=== PATIENT | male | born 1945 | race Caucasian/White ===

== ENCOUNTER 2020-01-26 09:53 | Outpatient (RCR) | payer MEDICARE, SELFPAY | END 2020-02-05 23:59 | disposition home or self-care (01) | LOC: WOUND 09:53 | PROVIDERS: Family Provider Nurse Practitioner; PCP Nurse Practitioner Family; Visit Provider Emergency Medicine | DX: Z09 Encounter for follow-up examination after completed treatment for conditions other than malignant neoplasm (principal) | CPT/HCPCS: 99201; 99212 ==

== ENCOUNTER → 2020-03-11 11:33 | Outpatient (BNVA) | payer MEDICARE, SELFPAY | PROVIDERS: Family Provider Nurse Practitioner; PCP Nurse Practitioner Family; Visit Provider Nurse Practitioner Family | DX: I10 Essential (primary) hypertension (principal); E11.9 Type 2 diabetes mellitus without complications; E78.5 Hyperlipidemia, unspecified; E56.9 Vitamin deficiency, unspecified; Z12.5 Encounter for screening for malignant neoplasm of prostate; R53.83 Other fatigue | CPT/HCPCS: 80053; 80061; 81001; 82306; 83036; 84443; 85025; G0103 ==

== ENCOUNTER 2020-06-22 06:00 | Outpatient (RCR) | payer MEDICARE, SELFPAY | END 2020-07-07 23:59 | disposition home or self-care (01) | LOC: WPT 06:00 | PROVIDERS: PCP Nurse Practitioner Family; Referring Provider Nurse Practitioner Family; Visit Provider Nurse Practitioner Family | DX: R42 Dizziness and giddiness (principal) | CPT/HCPCS: 97110; 97163 ==

== ENCOUNTER → 2021-02-04 10:05 | Outpatient (BNVA) | payer MEDICARE, SELFPAY | PROVIDERS: PCP Nurse Practitioner Family; Visit Provider Family Medicine Adult Medicine | DX: E11.628 Type 2 diabetes mellitus with other skin complications (principal); L08.9 Local infection of the skin and subcutaneous tissue, unspecified; E66.9 Obesity, unspecified; E78.5 Hyperlipidemia, unspecified; I10 Essential (primary) hypertension; E11.9 Type 2 diabetes mellitus without complications; E11.42 Type 2 diabetes mellitus with diabetic polyneuropathy | CPT/HCPCS: 80053; 80061; 83036; 85025 ==

== ENCOUNTER 2021-02-09 13:07 | Outpatient (CLI) | payer MEDICARE, SELFPAY | END 2021-02-09 13:08 | disposition home or self-care (01) | LOC: WOUND 13:08 | PROVIDERS: PCP Nurse Practitioner Family; Visit Provider Thoracic Surgery (Cardiothoracic Vascular Surgery) | DX: L97.512 Non-pressure chronic ulcer of other part of right foot with fat layer exposed (principal) | CPT/HCPCS: 97597; G0463 ==

== ENCOUNTER 2021-02-16 13:25 | Outpatient (CLI) | payer MEDICARE, SELFPAY | END 2021-02-16 13:26 | disposition home or self-care (01) | LOC: WOUND 13:26 | PROVIDERS: PCP Nurse Practitioner Family; Visit Provider Thoracic Surgery (Cardiothoracic Vascular Surgery) | DX: E11.621 Type 2 diabetes mellitus with foot ulcer (principal); L97.512 Non-pressure chronic ulcer of other part of right foot with fat layer exposed | CPT/HCPCS: 11042 ==

== ENCOUNTER → 2021-05-09 09:07 | Outpatient (BNVA) | payer MEDICARE, SELFPAY | PROVIDERS: PCP Nurse Practitioner Family; Visit Provider Nurse Practitioner Family | DX: S81.802A Unspecified open wound, left lower leg, initial encounter (principal); X58.XXXA Exposure to other specified factors, initial encounter | CPT/HCPCS: 87070; 87077; 87184 ==

== ENCOUNTER 2021-06-29 09:47 | Outpatient (CLI) | payer MEDICARE, SELFPAY ==
[2021-06-29 10:10] VITALS: BMI 38.4
--- NOTE | 2021-06-29 11:07 | NMCV_ITS ---
NM amalia perf SPECT r/s* [id number] Wesly Price Age: 76 Gender: M : 1945 Exam Date: 06/29/2021 11:22 Ordering Phys: Lyle Acosta MD ([email or web address]) Technologist: HEATHER Weber Exam Location: [facility] Indications: CHEST PAIN STRESS TEST [facility] IMAGE PROTOCOL Rest/Stress 1 Lexiscan Day Radiopharmaceutical Dose (mCi) Administration Site Administered by Rest: Tc-99m 11.0 IV HEATHER Castro Sestamibi Stress:Tc-99m 32.9 IV HEATHER Castro Sestamibi Rest: 29-Jun-2021 60 Discovery 630 Stress: 29-Jun-2021 30 Discovery 630 0.4mg Lexiscan. Supine position only as patient was unable to lay prone. SPECT RESULTS Technical Quality: Excellent Raw Data Analysis: Normal Image Corrections: No attenuation or motion correction applied Summed Stress Score: 7 Summed Rest Score: 7 Summed Difference Score: 0 PERFUSION FINDINGS Moderate area of severely decreased tracer uptake in the basal, mid and apical inferior wall regions with some reversibility in the mid and apical regions. FUNCTIONAL RESULTS (calculated via Gated SPECT) Stress Image LV EF (%): 31 Stress EDV (mL):259 TID: 0.97 Stress ESV (mL):180 FUNCTIONAL FINDINGS: Segmental wall motion analysis revealed a severe diffuse hypokinesia of the LV apex, inferior wall and septum IMPRESSIONS 1. Myocardial perfusion imaging revealing area of severely decreased tracer uptake in the inferior wall region, with some reversibility, suggestive of myocardial scarring with ischemia in the distribution of the right coronary artery. 2. Diminished LV ejection fraction of 31%. 3. Multiple wall motion normalities as mentioned above. 4. Markedly dilated LV cavity with an end-systolic volume of 180 mL No similar previous studies available for comparison Dr Lyle Acosta MD [facility] (Electronically Signed) Final Date: 29 June 2021 19:06 S
--- NOTE | 2021-06-29 11:07 | ECG_ITS ---
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 Interpretive Statements NAME OF STUDY: LEXISCAN SESTAMIBI STRESS TEST INDICATION: Chest Pressure, PROCEDURE: At the baseline, the EKG revealed normal sinus rhythm with a heart rate of 82 bpm. Poor R wave progression suggesting old anteroseptal infarction. Nonspecific IVCD. The baseline blood pressure was 141/74 mm Hg with a heart rate of 82 beats/min. Lexiscan was infused over a period of 20 seconds. A total of 0.4 milligrams of Lexiscan was infused. The stress phase was continued for a total of 5 minutes. Heart rate at the end of the stress phase was 96 with a blood pressure 74/43. The EKG at the peak infusion revealed no significant changes. Sestamibi was injected 20 seconds after the Lexiscan infusion. Blood pressure at the end of the recovery phase was 128/65 with a heart rate of 97 per minute. CONCLUSION: 1. No significant EKG changes with the LexiScan infusion 2. No LexiScan induced chest pain or cardiac arrhythmia 3. Normal blood pressure and heart rate response 4. Sestamibi/sestamibi perfusion scan pending; see separate report. Electronically Signed On 06-30-2021 0:52:11 CDT by Lyle Acosta M.D. [id number]
--- NOTE | 2021-06-29 11:26 | USCV_ITS ---
Wesly Price Age: 76 Gender: M : 1945 Exam Date: 06/29/2021 13:05 Ordering Phys: Lyle Acosta MD ([email or web address]) Technologist: Kiesha Simpson Exam Location: [facility] [place] Indication: CLEARANCE FOR KNEE SURGERY BP: / HR: 95 Rhythm: Sinus Technical Quality: Adequate MEASUREMENTS (Male / Female) Normal Values 2D ECHO LV Diastolic Diameter PLAX 5.2 cm 4.2 - 5.9 / 3.9 - 5.3 cm LV Systolic Diameter PLAX 4.3 cm LV Chamber Size 4.6 cm IVS Diastolic Thickness 1.4 cm 0.6 - 1.0 / 0.6 - 0.9 cm IVS Systolic Thickness 2.2 cm LVPW Diastolic Thickness 1.4 cm 0.6 - 1.0 / 0.6 - 0.9 cm LVPW Systolic Thickness 2.0 cm RV Chamber Size 3.5 cm LVOT Diameter 2.1 cm LV Ejection Fraction 2D Teich 35.7 % LV Ejection Fraction MOD 2C 65.7 % LV Ejection Fraction 2C AL 66.1 % LA Diameter 4.4 cm LA Width 2.8 cm LA Height 3.4 cm RA Width 2.9 cm RA Height 6.1 cm Aorta at Sinotubular Diameter 4.2 cm M-MODE LV Diastolic Diameter MM 6.2 cm 4.2 - 5.9 / 3.9 - 5.3 cm LV Systolic Diameter MM 5.4 cm LV Ejection Fraction MM Teich 28.3 % IVS Diastolic Thickness MM 1.2 cm 0.6 - 1.0 / 0.6 - 0.9 cm IVS Systolic Thickness MM 1.8 cm LVPW Diastolic Thickness MM 1.6 cm 0.6 - 1.0 / 0.6 - 0.9 cm LVPW Systolic Thickness MM 1.9 cm RV Diastolic Diameter MM 3.2 cm Aortic Annulus Diameter 4.9 cm LA Ao Ratio MM 1.0 MV E Point Septal Separation 1.1 cm DOPPLER AV Peak Velocity 169.0 cm/s LVOT Peak Velocity 101.0 cm/s AV Area Cont Eq vti 2.5 cm squared AV Area Cont Eq pk 2.1 cm squared MV Area PHT 9.2 cm squared Mitral E to A Ratio 0.5 MV E' Velocity 39.5 cm/s Mitral E to MV E' Ratio 10.8 Mitral E to LV E' Lateral Ratio 15.5 Mitral E to LV E' Septal Ratio 8.3 TR Peak Velocity 196.1 cm/s TR Peak Gradient 15.4 mmHg TR Mean Velocity 139.4 cm/s TR Mean Gradient 9.0 mmHg TR Velocity Time Integral 40.2 cm TV Peak E Velocity 67.0 cm/s Right Atrial Pressure 3.0 mmHg Pulmonary Artery Systolic Pressu 18.4 mmHg PV Peak Velocity 92.0 cm/s RV Acceleration Time 0.1 s RV Ejection Time 0.4 s RV AcT/ET 0.2 FINDINGS Left Ventricle Mild left ventricular hypertrophy. Mild hypokinesia of the septum. LV ejection fraction around 50%. Right Ventricle Normal right ventricular size and systolic function. Right Atrium Possibly of normal size Left Atrium Possibly of normal size possibly Mitral Valve Thickened mitral valve. Moderate calcification of the mitral leaflets.mild mitral annular calcification. Trace mitral valve regurgitation. Aortic Valve Thickened aortic valve. Tricuspid Valve No gross abnormalities noted Pulmonic Valve No gross abnormalities noted Pericardium No pericardial effusion. Aorta Normal aortic annulus size. CONCLUSIONS Mild left ventricular hypertrophy. Mild hypokinesia of the septum. LV ejection fraction around 50%. Normal right ventricular size and systolic function. Thickened mitral valve. Moderate calcification of the mitral leaflets.mild mitral annular calcification. Trace mitral valve regurgitation. Features of aortic valve sclerosis There is no pericardial effusion. There are no intracardiac masses. Compared to the study from 04/24/2016, there is some improvement of the LV ejection fraction Dr Lyle Acsota MD [facility] (Electronically Signed) Final Date: 29 June 2021 20:00 S
[2021-06-29 12:21] VITALS: BP 128/65; PULSE 93
[2021-06-29] MEDS: regadenoson 0.4 Mg/5 ml Syringe IVP (12:21)
== END 2021-06-29 09:48 | disposition home or self-care (01) ==
PROVIDERS: PCP Nurse Practitioner Family; Visit Provider Internal Medicine Cardiovascular Disease
DX: R06.00 Dyspnea, unspecified (principal); I25.5 Ischemic cardiomyopathy; I34.0 Nonrheumatic mitral (valve) insufficiency; R07.9 Chest pain, unspecified
CPT/HCPCS: 78452; 93017; 93306; A9500; J2785

== ENCOUNTER → 2021-07-06 11:23 | Outpatient (BNVA) | payer MEDICARE, SELFPAY | PROVIDERS: PCP Nurse Practitioner Family; Visit Provider Family Medicine | DX: M17.0 Bilateral primary osteoarthritis of knee (principal) | CPT/HCPCS: 73562 ==

== ENCOUNTER → 2022-05-01 13:54 | Outpatient (BNVA) | payer OTHER, SELFPAY | PROVIDERS: PCP Family Medicine; Visit Provider Specialist | DX: G72.9 Myopathy, unspecified (principal); E11.42 Type 2 diabetes mellitus with diabetic polyneuropathy; Z79.84 Long term (current) use of oral hypoglycemic drugs; E66.9 Obesity, unspecified; Z68.34 Body mass index [BMI] 34.0-34.9, adult; Z99.3 Dependence on wheelchair | CPT/HCPCS: 36415; 82085; 82550; 82607; 83516; 83519; 86140; 99205 ==

== ENCOUNTER → 2022-05-26 08:41 | Outpatient (BNVA) | payer OTHER, SELFPAY | PROVIDERS: PCP Family Medicine; Visit Provider Specialist | DX: G95.29 Other cord compression (principal); Z79.84 Long term (current) use of oral hypoglycemic drugs; G95.9 Disease of spinal cord, unspecified; G95.20 Unspecified cord compression; E11.42 Type 2 diabetes mellitus with diabetic polyneuropathy | CPT/HCPCS: 72141; 95886; 95887; 95913; 99215 ==

== ENCOUNTER → 2022-05-26 08:41 | Outpatient (BNVA) | payer OTHER, SELFPAY | PROVIDERS: PCP Family Medicine; Visit Provider Specialist | DX: G95.9 Disease of spinal cord, unspecified (principal); G95.29 Other cord compression; E11.42 Type 2 diabetes mellitus with diabetic polyneuropathy; Z79.84 Long term (current) use of oral hypoglycemic drugs | CPT/HCPCS: 72141; 95886; 95887; 95913 ==

== ENCOUNTER 2022-05-31 17:49 | Observation (INO) | payer OTHER, MEDICARE, SELFPAY ==
[2022-05-31 17:56] VITALS: BP 131/69; PULSE 92; RESP 18; TEMP 36.6; O2SAT 97; BMI 34.0
--- NOTE | 2022-05-31 18:04 | CTR_ITS ---
PROCEDURE INFORMATION: Exam: CTA Head With Contrast, Arteriography Exam date and time: 05/31/2022 9:13 PM Age: 77 years old Clinical indication: Weakness; Additional info: Right sided weakness TECHNIQUE: Imaging protocol: Computed tomographic angiography of the head with contrast. Exam focused on the arteries. 3D rendering (Not supervised by radiologist): MIP and/or 3D reconstructed images were created by the technologist. Radiation optimization: All CT scans at this facility use at least one of these dose optimization techniques: automated exposure control; mA and/or kV adjustment per patient size (includes targeted exams where dose is matched to clinical indication); or iterative reconstruction. Contrast material: OMNIPAQUE 350; Contrast volume: 95 ml; Contrast route: INTRAVENOUS (IV); COMPARISON: 1. CT head wo con* [id number] 2022-05-31 21:06 2. MR cervical spin wo con* [id number] 2022-05-26 13:56 RADIATION DOSE METRICS: Total DLP (mGy-cm): 567.12 FINDINGS: ANTERIOR CIRCULATION: Right internal carotid artery: Mild right ICA stenosis. Right middle cerebral artery: Unremarkable. No occlusion or significant stenosis. No aneurysm. Right anterior cerebral artery: Unremarkable. No occlusion or significant stenosis. No aneurysm. Left internal carotid artery: Mild moderate left ICA stenosis. Left middle cerebral artery: Unremarkable. No occlusion or significant stenosis. No aneurysm. Left anterior cerebral artery: Unremarkable. No occlusion or significant stenosis. No aneurysm. POSTERIOR CIRCULATION: Right vertebral artery: Right vertebral artery calcification without luminal narrowing. Left vertebral artery: Mild left vertebral artery calcification and stenosis. Basilar artery: Prominent basilar artery with mild calcifications. Right posterior cerebral artery: Small peripheral right calcarine artery branch of the right WASTE HANDLING TECHNICIAN extends in close proximity to the right transverse venous sinus, question a tiny arterial dural fistula (series 4, image 120). Left posterior cerebral artery: Unremarkable. No occlusion or significant stenosis. No aneurysm. Brain: No definite mass, mass effect, or midline shift. Cerebral ventricles: No ventriculomegaly. Bones/joints: Unremarkable. No acute fracture. Soft tissues: Unremarkable. PROCEDURE INFORMATION: Exam: CTA Neck With Contrast Exam date and time: 05/31/2022 9:13 PM Age: 77 years old Clinical indication: Weakness; Additional info: Right sided weakness TECHNIQUE: Imaging protocol: Computed tomographic angiography of the neck with contrast. 3D rendering (Not supervised by radiologist): MIP and/or 3D reconstructed images were created by the technologist. Radiation optimization: All CT scans at this facility use at least one of these dose optimization techniques: automated exposure control; mA and/or kV adjustment per patient size (includes targeted exams where dose is matched to clinical indication); or iterative reconstruction. Contrast material: OMNIPAQUE 350; Contrast volume: 95 ml; Contrast route: INTRAVENOUS (IV); COMPARISON: 1. CT head wo con* [id number] 2022-05-31 21:06 2. MR cervical spin wo con* [id number] 2022-05-26 13:56 RADIATION DOSE METRICS: Total DLP (mGy-cm): 567.12 FINDINGS: Right common carotid artery: No stenosis. No dissection or occlusion. Right internal carotid artery: Mild proximal right ICA stenosis. Right external carotid artery: No occlusion or stenosis of the origin. Left common carotid artery: No stenosis. No dissection or occlusion. Left internal carotid artery: Mild proximal left ICA stenosis. Left external carotid artery: No occlusion or stenosis of the origin. Right vertebral artery: No stenosis. No dissection or occlusion. Left vertebral artery: No stenosis. No dissection or occlusion. Aorta: Mild aortic atherosclerotic disease. Soft tissues: Normal. No significant soft tissue swelling. Bones/joints: No acute fracture. CT/CT angio headneck* [id number] IMPRESSION: 1. Small peripheral right calcarine artery branch of the right WASTE HANDLING TECHNICIAN extends in close proximity to the right transverse venous sinus, question a tiny arterial dural fistula (series 4, image 120). 2. Mild arterial intracranial atherosclerotic disease and stenosis. No vessel occlusion or flow-limiting stenosis. IMPRESSION: Mild proximal bilateral ICA stenosis. REFERENCES: NASCET CRITERIA. The degree of internal carotid artery stenosis is based on NASCET criteria. Normal is no stenosis. Mild is less than 50% stenosis. Moderate is 50-69% stenosis. Severe is 70% to 99% stenosis. Total occlusion is no detectable patent lumen.
--- NOTE | 2022-05-31 18:04 | CTR_ITS ---
PROCEDURE INFORMATION: Exam: CT Head Without Contrast Exam date and time: 05/31/2022 9:06 PM Age: 77 years old Clinical indication: Weakness, extremity; Right; Additional info: Symptoms of acute stroke TECHNIQUE: Imaging protocol: Computed tomography of the head without contrast. Radiation optimization: All CT scans at this facility use at least one of these dose optimization techniques: automated exposure control; mA and/or kV adjustment per patient size (includes targeted exams where dose is matched to clinical indication); or iterative reconstruction. COMPARISON: MR cervical spin wo con* [id number] 2022-05-26 13:56 RADIATION DOSE METRICS: Total DLP (mGy-cm): 1103.88 FINDINGS: Brain: Mild diffuse cerebral volume loss and chronic low attenuation in the white matter. No cerebral hemorrhage, midline shift, mass, or fluid collection. Cerebral ventricles: No ventriculomegaly. Paranasal sinuses: Visualized sinuses are unremarkable. No fluid levels. Mastoid air cells: Visualized mastoid air cells are well aerated. Bones/joints: Unremarkable. No acute fracture. Soft tissues: Unremarkable. Vasculature: Moderate arterial vascular calcifications. CT/CT head wo con* [id number] IMPRESSION: No acute intracranial pathology.
--- NOTE | 2022-05-31 18:04 | ECG_ITS ---
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 Measurements Intervals Monument Rate: 108 P: -3 MS: 221 QRS: -45 QRSD: 132 T: 85 QT: 347 QTc: 465 Interpretive Statements SINUS TACHYCARDIA WITH FIRST DEGREE AV BLOCK WITH FREQUENT SUPRAVENTRICULAR PREMATURE COMPLEXES POSSIBLE LEFT ATRIAL ENLARGEMENT [-0.1mV P-WAVE IN V1/V2] INTRAVENTRICULAR CONDUCTION DELAY [130+ ms QRS DURATION] INFERIOR MYOCARDIAL INFARCTION , OF INDETERMINATE AGE [40+ ms Q WAVE AND/OR ST/T ABNORMALITY IN II/aVF] ANTEROSEPTAL MYOCARDIAL INFARCTION , OF INDETERMINATE AGE [40+ ms Q WAVE IN V1-V4] Compared to ECG 01/08/2015 05:28:17 Intraventricular conduction delay now present Sinus rhythm no longer present Ventricular premature complex(es) no longer present Myocardial infarct finding still present Electronically Signed On 06-02-2022 6:26:07 CDT by January Dia M.D. [id number]
--- NOTE | 2022-05-31 18:06 | W.ED.GENADLT ---
HPI - General Adult General: Chief complaint: Weakness Stated complaint: right side weakness Time Seen by Provider: 05/31/22 17:53 History of Present Illness: 77-year-old male presenting today with right sided deficits. Patient notes approximately 3-1/2 hours ago. He noted sudden onset of weakness in his right lower extremity right upper extremity and left upper extremity. Noting that he was unable to move his right leg at all. Or his right upper extremity. Was attempting to use his motorized wheelchair when he could not even move his fingers. He notes the symptoms have rapidly resolved. Still has some residual weakness in his right lower extremity. But no weakness in his right upper extremity. He notes no difficulty with speaking. No prior history of stroke. Patient does note a history of significant spinal stenosis which is being evaluated for surgery in the morning. Spinal stenosis located in his neck. No change to medications. No chest pain or shortness of breath. No abdominal pain. 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 Because of the poor ultrasonic window and frequent arrhythmias, the segmental wall motion analysis and ejection fraction estimation could be misleading. Mild biatrial enlargement Thickened aortic and mitral valves Mild aortic valve regurgitation Dilated ascending aorta. Estimated pulmonary artery peak systolic pressure of 22 mmHg, this could be an underestimation because of the poor Doppler signals. Compared to the previous study from 01/08/2015, there appears to have some improvement in the LV ejection fraction . January 2015 Diffuse hypokinesia of the left ventricle with an ejection fraction of 35-40%(with echo contrast and using the method of disc) Thickened mitral valve with moderate regurgitation. [id number] tricuspid valve regurgitation. Mild pulmonary hypertension with an estimated? pulmonary pressure of 41 mmHg Mildly increased left atrial size. ? Normal right ventricular size and systolic function. Aortic root appears to be mildly dilated-4.1 cm There is no pericardial effusion. There are no intracardiac masses. H/O prostate cancer Hyperlipemia Ischemic myocardial dysfunction Light headedness Obesity (BMI 35.0-39.9 without comorbidity) Tachycardia Toe anomaly Vitamin D deficiency Surgical History S/P appendectomy S/P cardiac cath On 01/15/15 he underwent coronary angiography by Dr. Acosta. ?He had a 20% eccentric left main, minimal LAD intimal irregularities, normal circumflex, totally occluded RCA with grade 2 left to right collaterals. S/P prostatectomy Family History Brother Anesthesia complication Cancer Diabetes Father CAD (coronary artery disease) Mother CAD (coronary artery disease) Family/Other Lung disease Suicide Denies family history of Clotting disorder Dementia Chronic kidney disease (CKD) Bleeding disorder Stroke Social History Smoking and tobacco status: never smoked Second hand smoke exposure: No Alcohol intake: never Desire information about alcohol rehabilitation?: No Counseling given: No Desire information about substance/drug rehabilitation?: No Counseling given: No Physical Exam Const: COMMON NORMALS: no acute distress, patient oriented x3 and alert GENERAL APPEARANCE: cooperative ORIENTATION/CONSCIOUSNESS: Yes awake, Yes oriented to person, Yes oriented to place and Yes oriented to time HENMT: COMMON NORMALS: normocephalic, atraumatic, external ears normal, Normal external nose present and moist oral mucous membranes HEAD & SCALP: normal to inspection, normocephalic and atraumatic NOSE: Normal external nose present GENERAL EAR: hearing grossly impaired EXTERNAL EAR: Yes external ears normal Eye: COMMON NORMALS: Equal, round and reactive pupils present, EOMs intact bilaterally, conjunctivae normal and no scleral icterus GENERAL EYE: appearance normal, both eyes and all related structures EYELID: eyelids normal CONJUNCTIVA: Yes conjunctivae normal SCLERA: sclerae normal PUPIL: Yes Equal, round and reactive pupils present Neck/C-Spine: COMMON NORMALS: full ROM, supple and no JVD GENERAL: Yes normal visual inspection Lymph: LYMPHATIC: no lymphadenopathy noted and no lymphedema noted Chest: COMMONS NORMALS: normal inspection of the chest Resp: COMMON NORMALS: normal respiratory effort, No retractions and No use of accessory muscles Cardio: COMMON NORMALS: no JVD, regular rate and regular rhythm RATE: regular rate RHYTHM: regular rhythm GI: COMMON NORMALS: Normal to inspection, nondistended, normoactive bowel sounds present : COMMON NORMALS: Yes no CVA tenderness BLADDER/KIDNEY EXAM: Yes no CVA tenderness Back/Pelvis: COMMON NORMALS: no CVA tenderness and thoracic and lumbar spine normal to inspection Extremity: COMMON NORMALS: normal to inspection, full ROM and capillary refill normal GENERAL: Yes normal exam except as noted Neuro: COMMON NORMALS: patient oriented x3, CN's II-XII intact bilaterally, moves all extremities, no focal motor deficits (RLE weakness in dorsiflexion. ), no sensory deficits noted and gait normal SENSORIUM/ORIENTATION: Yes alert, Yes oriented to person, Yes oriented to place and Yes oriented to time Psych: COMMON NORMALS: mental status grossly normal, Normal thought process present, cooperative and normal affect THOUGHT PROCESS: Normal thought process present Skin: COMMON NORMALS: no rashes or lesions noted and no wounds GENERAL SKIN EXAM: no rashes or lesions noted Course Vital Signs: Vital signs: Vital Signs Temperature 97.8 F 05/31/22 17:56 Pulse Rate 98 05/31/22 22:42 Respiratory Rate 24 H 05/31/22 22:42 Blood Pressure 140/73 05/31/22 22:42 Pulse Oximetry 94 05/31/22 22:42 Oxygen Delivery Me thod 05/31/22 22:42 [facility] - General Adult Medical Decision Making 77-year-old male presenting today with right sided weakness. Patient is outside window for tPA. Also with diabetes. CBC, CMP are unremarkable. Patient was symptoms suggestive of TIA. As patient had complete resolution upon arrival. CT head and CTA without acute ischemic infarct. Will admit to hospital for TIA. Lab Data : 05/31/22 20:00 05/31/22 20:[address] 05/31/22 18:04 IMPRESSION: No acute intracranial pathology. Head/Neck CTA 05/31/22 18:04 IMPRESSION: 1. Small peripheral right calcarine artery branch of the right ARMOURED CAR ESCORT extends in close proximity to the right transverse venous sinus, question a tiny arterial dural fistula (series 4, image 120). 2. Mild arterial intracranial atherosclerotic disease and stenosis. No vessel occlusion or flow-limiting stenosis. IMPRESSION: Mild proximal bilateral ICA stenosis. REFERENCES: NASCET CRITERIA. The degree of internal carotid artery stenosis is based on NASCET criteria. Normal is no stenosis. Mild is less than 50% stenosis. Moderate is 50-69% stenosis. Severe is 70% to 99% stenosis. Total occlusion is no detectable patent lumen. Laboratory Results WBC 10.2 10^3/uL (4.0-10.0) H 05/31/22 20:00 RBC 5.30 10^6/uL (4.1-5.3) 05/31/22 20:00 Hgb 16.3 g/dL (11.7-16.6) 05/31/22 20:00 Hct 49.8 % (42.0-52.0) 05/31/22 20:00 MCV 94.0 fl (80-94) 05/31/22 20:00 MCH 30.8 pg (28.0-34.0) 05/31/22 20:00 MCHC 32.7 g/dL (30.0-36.0) 05/31/22 20:00 RDW 13.2 % (12.1-15.1) 05/31/22 20:00 Plt Count 189 10^3/cmm (130-400) 05/31/22 20:00 MPV 11.8 fL (7.4-10.4) H 05/31/22 20:00 Neut % (Auto) 62.6 % 05/31/22 20:00 Lymph % (Auto) 24.5 % 05/31/22 20:00 [place] % (Auto) 8.5 % 05/31/22 20:00 Eos % (Auto) 3.6 % 05/31/22 20:00 Baso % (Auto) 0.5 % 05/31/22 20:00 Neut # (Auto) 6.38 10^3/uL (1.8-7.7) 05/31/22 20:00 Lymph # (Auto) 2.5 10^3/uL (0.8-4.8) 05/31/22 20:00 [place] # (Auto) 0.9 10^3/uL (0.2-0.9) 05/31/22 20:00 Eos # (Auto) 0.4 10^3/uL (0.0-0.8) 05/31/22 20:00 Baso # (Auto) 0.1 10^3/uL (0.0-0.1) 05/31/22 20:00 Nucleated RBC % (auto) 0 % 05/31/22 20:00 Nucleated RBCs # 0.0 /100WBC 05/31/22 20:00 PT 13.80 SECONDS (12.1-14.9) 05/31/22 20:00 INR 1.03 (0.8-1.2) 05/31/22 20:00 APTT 26.8 SECONDS (23.9-36.7) 05/31/22 20:00 Sodium 138 mmol/L (136-145) 05/31/22 20:00 Potassium 4.5 mmol/L (3.5-5.1) 05/31/22 20:00 Chloride 99 mmol/L (98-107) 05/31/22 20:00 Carbon Dioxide 23 mmol/L (22-29) 05/31/22 20:00 Anion Gap 20.5 (5-19) H 05/31/22 20:00 BUN 31 mg/dL (8-23) H 05/31/22 20:00 Creatinine 0.9 mg/dL (0.7-1.2) 05/31/22 20:00 GFR Calculation Not Reportable 05/31/22 20:00 Glucose 122 mg/dL (65-115) H 05/31/22 20:00 POC Glucose 105 mg/dL (70-110) 05/31/22 18:19 Calculated Osmolality 294 mOsm/kg (285-295) 05/31/22 20:00 Calcium 9.8 mg/dL (8.5-10.5) 05/31/22 20:00 Total Bilirubin 0.8 mg/dL (0.15-1.2) 05/31/22 20:00 AST 29 U/L (0-40) 05/31/22 20:00 ALT 14 U/L (0-41) 05/31/22 20:00 Alkaline Phosphatase 128 U/L (40-130) 05/31/22 20:00 Total Protein 7.5 g/dL (6.6-8.7) 05/31/22 20:00 Albumin 4.5 g/dL (3.5-5.2) 05/31/22 20:00 Globulin 3.0 g/dL (1.3-4.6) 05/31/22 20:00 Urine Color Yellow (Yellow) 05/31/22 20:15 Urine Appearance Clear (CLEAR) 05/31/22 20:15 Urine pH 5 (5-7) 05/31/22 20:15 Ur Specific [place] 1.015 (1.005-1.030) 05/31/22 20:15 Urine Protein Neg (Negative) 05/31/22 20:15 Urine Glucose (UA) Norm (Normal) 05/31/22 20:15 Urine Ketones Negative (Negative) 05/31/22 20:15 Urine Blood Neg (Negative) 05/31/22 20:15 Urine Nitrate Negative (Negative) 05/31/22 20:15 Urine Bilirubin Neg (Negative) 05/31/22 20:15 Urine Urobilinogen Norm mg/dL (Negative) 05/31/22 20:15 Ur Leukocyte Esterase Negative (Negative) 05/31/22 20:15 Urine Opiates Screen Negative ng/mL (Negative) 05/31/22 20:15 Ur Barbiturates Screen Negative ng/mL (Negative) 05/31/22 20:15 Ur Phencyclidine Scrn Negative ng/mL (Negative) 05/31/22 20:15 Ur Amphetamines Screen Negative ng/mL (Negative) 05/31/22 20:15 U Benzodiazepines Scrn Negative ng/mL (Negative) 05/31/22 20:15 Urine Cocaine Screen Negative ng/mL (Negative) 05/31/22 20:15 U Marijuana (THC) Screen Negative ng/mL (Negative) 05/31/22 20:15 Discharge Plan Discharge Patient Disposition: Admitted As Inpatient Clinical Impression: Brain TIA Condition: Stable Coding Level of Care Code 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
[2022-05-31 18:24] LABS: Glucose Point of Care 105 mg/dL (70-110)
--- NOTE | 2022-05-31 19:17 | PC.NURSE ---
report given to KARSTEN Swenson
[2022-05-31 20:06] LABS: Basophils # 0.1 10^3/uL (0.0-0.1); Basophils % 0.5 %; Eosinophils # 0.4 10^3/uL (0.0-0.8); Eosinophils % 3.6 %; Hematocrit 49.8 % (42.0-52.0); Hemoglobin 16.3 g/dL (11.7-16.6); Lymphocytes # 2.5 10^3/uL (0.8-4.8); Lymphocytes % 24.5 %; Mean Corpuscular HGB Conc 32.7 g/dL (30.0-36.0); Mean Corpuscular Hemoglobin 30.8 pg (28.0-34.0); Mean Platelet Volume 11.8 fL (7.4-10.4); Monocytes # 0.9 10^3/uL (0.2-0.9); Monocytes % 8.5 %; Neutrophils # 6.38 10^3/uL (1.8-7.7); Neutrophils % 62.6 %; Nucleated Red Blood Cells % 0 %; Platelet Count 189 10^3/cmm (130-400); Red Cell Distribution Width 13.2 % (12.1-15.1); White Blood Count 10.2 10^3/uL (4.0-10.0)
[2022-05-31 20:11] VITALS: BP 131/51; PULSE 99; RESP 24; O2SAT 93
[2022-05-31 20:20] LABS: Add Urine Microscopic? NO; Charge for UA Resulting for Rev
[2022-05-31 20:22] LABS: INR 1.03 (0.8-1.2); Partial Thromboplastin Time 26.8 SECONDS (23.9-36.7)
[2022-05-31 20:22] LABS: Bilirubin Urine Neg (Negative); Blood Urine Neg (Negative); Glucose Urine UA Norm (Normal); Ketones Urine Negative (Negative); Leukocyte Esterase Urine Negative (Negative); Nitrate Urine Negative (Negative); Protein Urine Neg (Negative); Specific Gravity, Urine 1.015 (1.005-1.030); Urine Appearance Clear (CLEAR); Urine Color Yellow (Yellow); Urobilinogen Urine Norm (Negative); pH Urine 5 (5-7)
[2022-05-31 20:30] LABS: Alanine Aminotransferase 14 U/L (0-41); Albumin Level 4.5 g/dL (3.5-5.2); Alkaline Phosphatase 128 U/L (40-130); Anion Gap 20.5 (5-19); Aspartate Amino Transferase 29 U/L (0-40); Blood Urea Nitrogen 31 mg/dL (8-23); Calcium 9.8 mg/dL (8.5-10.5); Carbon Dioxide 23 mmol/L (22-29); Chloride 99 mmol/L (98-107); Glucose 122 mg/dL (65-115); Osmolality Calculated 294 mOsm/kg (285-295); Potassium 4.5 mmol/L (3.5-5.1); Sodium 138 mmol/L (136-145); Total Bilirubin 0.8 mg/dL (0.15-1.2); Total Protein 7.5 g/dL (6.6-8.7)
[2022-05-31 20:31] LABS: Amphetamines Screen Urine Negative (Negative); Barbiturates Screen Urine Negative (Negative); Benzodiazepines Screen Urine Negative (Negative); Cocaine Screen Urine Negative (Negative); Opiate Screen Urine Negative (Negative); PCP Screen Urine Negative (Negative); THC Screen Urine Negative (Negative)
[2022-05-31] MEDS: iohexol 350 mg/mL 100 mL Btl IV (21:23)
[2022-05-31 21:30] VITALS: BP 148/73; PULSE 95; RESP 17; O2SAT 94
[2022-05-31] MEDS: acetaminophen 500 mg Tablet 1000 MG PO (22:34)
[2022-05-31] MEDS: gabapentin 300 mg Capsule PO (22:34)
[2022-05-31 22:42] VITALS: BP 140/73; PULSE 98; RESP 24; O2SAT 94
[2022-05-31 23:37] VITALS: BP 123/59; PULSE 96; RESP 18; O2SAT 94
--- NOTE | 2022-06-01 00:24 | PM.HP ---
Providers/Chief Complaint Primary Care Provider: Eva Rivas MD Chief Complaint: right side weakness History of Present Illness Ernesto Price is a 77 year old male with a past medical history of past medical history of hypertension, hyperlipidemia, CAD, cjg-qbpjevr-swbkgrscd type 2 diabetes mellitus, ischemic cardiomyopathy, diabetic neuropathy, history of diabetic ulcers, who presents to [facility] for strokelike symptoms. According to ER provider, patient was experiencing right-sided deficits, right upper right lower extremity, with numbness, inability to move his right leg, this happened when he is not attempting to operate his motorized wheelchair, no prior history of stroke, no urinary incontinence, no bowel incontinence, no facial droop, no slurring of words, no visual deficits. When I examined patient, he tells me that he chronically has generalized weakness in bilateral upper and lower extremities. He tells me because of his severe neck disease he does not chronically have numbness in bilateral upper extremities. At baseline he is bound to a motorized wheelchair, he does not ambulate. He tells me that he has had generalized weakness for many months, he tells me that he has his right side this afternoon felt a little bit more weak than the left side, but he feels that that is not really new, he has had it for some period of time. He denies any facial droop no slurring his words, no visual deficits. He tells me that he saw Dr. Kaufman, had nerve conduction studies, he was told he had severe neuropathy. In addition he had an MRI which showed severe neck disease, severe spinal stenosis, he is supposed to see a spinal surgeon tomorrow morning at 845. Currently alert oriented x3, following all commands, no facial droop, no slurring of words, no focal neurologic weakness, NIH stroke scale 0. Currently is complaining of numbness in bilateral hands. Denies any chest pain, no palpitations, history of atrial fibrillation. Review of Systems Const: Denies: fever(s) Card: Denies: chest pain or palpitations Resp: Denies: dyspnea GI: Denies: abdominal pain : Denies: difficulty urinating Musc: Reports: neck pain; Denies: back pain Neuro: Reports: numbness in extremities, weakness in extremities, sensory changes and difficulty walking; Denies: headache(s), lack of coordination, frequent falls, dizziness, confusion, behavioral changes, Slurred speech present, difficulty communicating thoughts, seizure-like activity or involuntary movements Medications/Allergies Home Medications Medication Instructions Recorded Confirmed Last Taken Type blood-glucose meter (FreeStyle #1 ea 12/29/19 05/26/22 Unknown Rx Lite Meter) mupirocin 2 % topical ointment 1 applic topical TID #60 grams 03/29/21 05/26/22 Unknown Rx doxycycline monohydrate 100 mg 100 mg PO BID 10 days #20 tabs 11/02/21 05/26/22 Unknown Rx tablet flash glucose sensor (FreeStyle #6 ea 12/05/21 05/26/22 Unknown Rx Nu 14 Day Sensor) cyclobenzaprine 5 mg tablet 5 mg PO BID PRN muscle spasm 90 01/04/22 05/26/22 Unknown Rx days #240 tabs atorvastatin 40 mg tablet See Rx Instructions .Route 02/02/22 05/26/22 Unknown Rx .COMPLEX #90 tabs benazepril 10 mg tablet See Rx Instructions .Route 02/02/22 05/26/22 Unknown Rx .COMPLEX #90 tabs gabapentin 300 mg capsule 300 mg PO BID 90 days #180 caps 02/02/22 05/26/22 Unknown Rx metformin 1,000 mg tablet See Rx Instructions .Route 02/02/22 05/26/22 Unknown Rx .COMPLEX #180 tabs potassium chloride 20 mEq See Rx Instructions .Route 02/02/22 05/26/22 Unknown Rx tablet,extended .COMPLEX #90 tabs release(part/cryst) (Klor-Con M) furosemide 40 mg tablet See Rx Instructions .Route 04/05/22 05/26/22 Unknown Rx .COMPLEX #90 tabs metoprolol tartrate 25 mg tablet See Rx Instructions .Route 04/05/22 05/26/22 Unknown Rx .COMPLEX #180 tabs spironolactone 25 mg tablet See Rx Instructions .Route 04/05/22 05/26/22 Unknown Rx .COMPLEX #90 tabs cholecalciferol (vitamin D3) 1,250 50,000 unit PO .weekly 30 days #4 05/26/22 05/26/22 Unknown Rx mcg (50,000 unit) capsule caps mecobalamin-levomefolate 1 tab PO .every other day 30 days 05/26/22 05/26/22 Unknown Rx calcium-pyridoxal phos 3 mg-35 #15 tabs mg-2 mg tablet Allergies Allergy/AdvReac Type Severity Reaction Status Date / Time Sulfa (Sulfonamide AdvReac Intermediate rash Verified 05/01/22 14:17 Antibiotics) PFSH Acute PFSH: Medical History 1st degree AV block Atherosclerotic heart disease of [place] coronary artery without angina pectoris Chronic congestive heart failure Diabetes type 2, controlled Diabetic foot infection Diabetic neuropathy Dizziness Essential hypertension H/O echocardiogram 04/24/2016 Mild diffuse hypokinesia of the left ventricle with an ejection fraction of 45-50%. Because of the poor ultrasonic window and frequent arrhythmias, the segmental wall motion analysis and ejection fraction estimation could be misleading. Mild biatrial enlargement Thickened aortic and mitral valves Mild aortic valve regurgitation Dilated ascending aorta. Estimated pulmonary artery peak systolic pressure of 22 mmHg, this could be an underestimation because of the poor Doppler signals. Compared to the previous study from 01/08/2015, there appears to have some improvement in the LV ejection fraction . January 2015 Diffuse hypokinesia of the left ventricle with an ejection fraction of 35-40%(with echo contrast and using the method of disc) Thickened mitral valve with moderate regurgitation. [id number]-[id number] tricuspid valve regurgitation. Mild pulmonary hypertension with an estimated? pulmonary pressure of 41 mmHg Mildly increased left atrial size. ? Normal right ventricular size and systolic function. Aortic root appears to be mildly dilated-4.1 cm There is no pericardial effusion. There are no intracardiac masses. H/O prostate cancer Hyperlipemia Ischemic myocardial dysfunction Light headedness Obesity (BMI 35.0-39.9 without comorbidity) Tachycardia Toe anomaly Vitamin D deficiency Surgical History S/P appendectomy S/P cardiac cath On 01/15/15 he underwent coronary angiography by Dr. Acosta. ?He had a 20% eccentric left main, minimal LAD intimal irregularities, normal circumflex, totally occluded RCA with grade 2 left to right collaterals. S/P prostatectomy Family History Brother Anesthesia complication Cancer Diabetes Father CAD (coronary artery disease) Mother CAD (coronary artery disease) Family/Other Lung disease Suicide Denies family history of Clotting disorder Dementia Chronic kidney disease (CKD) Bleeding disorder Stroke Social History Smoking and tobacco status: never smoked Second hand smoke exposure: No Alcohol intake: never Desire information about alcohol rehabilitation?: No Counseling given: No Desire information about substance/drug rehabilitation?: No Counseling given: No Vitals/I&O/Wt Last Vital Signs Temp 97.8 F 05/31/22 17:56 Pulse 96 05/31/22 23:37 Resp 18 05/31/22 23:37 BP 123/59 05/31/22 23:37 Pulse Ox 94 05/31/22 23:37 O2 Del Method 05/31/22 23:37 Weight last 48 hrs Weight 104.326 kg Physical Exam Const: COMMON NORMALS: no acute distress and patient oriented x3 HENMT: COMMON NORMALS: normocephalic HEAD & SCALP: normocephalic Eye: COMMON NORMALS: Equal, round and reactive pupils present and EOMs intact bilaterally Neck/C-Spine: COMMON NORMALS: no JVD Resp: COMMON NORMALS: normal respiratory effort, No retractions, No use of accessory muscles and clear to auscultation bilaterally AUSCULTATION: clear to auscultation bilaterally Cardio: COMMON NORMALS: no JVD, regular rate, regular rhythm, S1 normal heart sound present and S2 normal heart sound present RATE: regular rate RHYTHM: regular rhythm HEART SOUNDS: S1 normal heart sound present and S2 normal heart sound present GI: COMMON NORMALS: Normal to inspection, nondistended, normoactive bowel sounds present, Soft to palpation, non-tender, No hepatosplenomegaly present, no masses and no bruits PALPATION: Yes Soft to palpation and Yes No hepatosplenomegaly present Extremity: COMMON NORMALS: no pedal edema Neuro: COMMON NORMALS: patient oriented x3, CN's II-XII intact bilaterally, moves all extremities and no focal motor deficits Psych: COMMON NORMALS: mental status grossly normal Data : 05/31/22 20:00 05/31/22 20:00 A&P Assessment and plan (1) Brain TIA: Status: Acute (2) Cervical cord compression with myelopathy: Status: Acute (3) Myopathy: Status: Acute (4) S/P cardiac cath: Status: Acute (5) 1st degree AV block: Status: Acute (6) Tachycardia: Status: Acute (7) Essential hypertension: Status: Acute (8) Diabetic neuropathy: Status: Acute Qualifiers: Diabetes mellitus type: type 2 Diabetes mellitus complication detail: diabetic polyneuropathy Qualified Code(s): E11.42 - Type 2 diabetes mellitus with diabetic polyneuropathy (9) Hyperlipemia: Status: Acute Qualifiers: Hyperlipidemia type: unspecified Qualified Code(s): E78.5 - Hyperlipidemia, unspecified (10) Diabetes type 2, controlled: Status: Acute Qualifiers: 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 No cerebral hemorrhage, midline shift, mass, or fluid collection. Cerebral ventricles: No ventriculomegaly. Paranasal sinuses: Visualized sinuses are unremarkable. No fluid levels. Mastoid air cells: Visualized mastoid air cells are well aerated. Bones/joints: Unremarkable. No acute fracture. Soft tissues: Unremarkable. Vasculature: Moderate arterial vascular calcifications. CTA head and neck -1. Small peripheral right calcarine artery branch of the right SCIENTIFIC PROGRAMMER ANALYST extends in close proximity to the right transverse venous sinus, question a tiny arterial dural fistula (series 4, image 120). 2. Mild arterial intracranial atherosclerotic disease and stenosis. No vessel occlusion or flow-limiting stenosis. Cervical MRI 1.? Straightening of the normal cervical lordosis. Slight anterolisthesis C4 on C5 and C7 on T1 measuring approximate 4 mm both of these levels. 2.? Severe central canal stenosis C4-C5 due to slight anterolisthesis in combination with disc bulging and facet arthropathy. This results in severe central canal stenosis with effacement of surrounding CSF. Impingement and mild flattening of the cervical cord with small amount of myelomalacia in the cervical cord at this level. 3.? Mild central canal stenosis C5-C6. 4.? Moderate to severe multilevel bony foraminal narrowing worse at bilateral C3-C4, bilateral C4-C5, bilateral C5-C6, and RIGHT C7-T1. 5.? Moderate facet arthropathy worse at bilateral C3-C4, bilateral C4-C5, and RIGHT C5-C6. 6.? Small RIGHT facet effusion at C4-C5 compatible with a small amount of synovitis likely degenerative or inflammatory. Nerve conduction studies -Also had nerve conduction studies done by neurology -Seen by neurology, diagnosed with severe cervical radiculopathy with cervical cord compression, with myelopathy -Currently NIH stroke scale 0 -His symptoms sound more like acute on chronic cervical radiculopathy with cord compression Plan -Nonetheless aspirin, statin -Neurochecks, aspiration precautions, NIH stroke scale -Monitor blood pressure, cardiac echo, telemetry monitoring -PT OT, speech therapy eval -Continue home gabapentin -We will discuss MRI results with orthopedic service in the morning -Full code -Lovenox for DVT prophylaxis Type 2 diabetes mellitus, low-dose sliding scale, A1c Hypertension, continue home meds Hyperlipidemia, continue meds Attestations Medical Necessity Statement*: Patient requires hospitalization, outpatient with observation, for TIA versus cervical radiculopathy Coding Level of Care Code 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
[2022-06-01 02:30] VITALS: BP 124/47; PULSE 92; RESP 19; O2SAT 94
--- NOTE | 2022-06-01 02:46 | PC.NURSE ---
Patient resting quietly at this time. Early attempt to get echo failed as patient not able to tolerate the positioning on the ER stretcher, ECHO will retry in the morning.
[2022-06-01 03:50] VITALS: BP 119/55; PULSE 93; RESP 21; TEMP 36.6; O2SAT 96
[2022-06-01 03:51] VITALS: BP 119/55; PULSE 93; RESP 21; TEMP 36.6; O2SAT 96
[2022-06-01] MEDS: enoxaparin 40 mg/0.4 mL Syringe SUBCUT (05:00)
[2022-06-01] MEDS: aspirin 81 mg EC Tablet PO ×2 (05:00→09:04)
[2022-06-01 05:40] VITALS: BMI 34.0
[2022-06-01 05:51] VITALS: BP 142/67; PULSE 89; RESP 24; TEMP 36.4; O2SAT 94
[2022-06-01 05:55] VITALS: O2SAT 94
[2022-06-01 06:19] LABS: Glucose Point of Care 118 mg/dL (70-110)
[2022-06-01 07:10] LABS: NT Pro B Type Natriuretic Pept 2654 pg/mL (0-450)
[2022-06-01 08:00] VITALS: BP 134/78; PULSE 107; RESP 16; TEMP 36.6; O2SAT 94
[2022-06-01] MEDS: metoprolol tartrate 25 mg Tablet PO (09:03)
[2022-06-01] MEDS: FUROsemide 40 mg Tablet PO (09:03)
[2022-06-01] MEDS: pantoprazole DR 40 mg Tablet PO (09:03)
[2022-06-01] MEDS: lisinopril 10 mg Tablet PO (09:04)
[2022-06-01] MEDS: potassium chloride ER 20 mEq Tablet PO (09:04)
[2022-06-01] MEDS: atorvastatin 40 mg Tablet PO (09:04)
[2022-06-01] MEDS: gabapentin 300 mg Capsule PO (09:04)
[2022-06-01] MEDS: cyclobenzaprine 10 mg Tablet 5 MG PO (09:07)
[2022-06-01] MEDS: spironolactone 25 mg Tablet PO (09:07)
--- NOTE | 2022-06-01 14:19 | PC.NURSE ---
0933 patient is insisting to leave AMA, family at bedside and states they will take patient home. Patient states he is not recieving the care he thinks he needs and that he can care for himself just as well at home. Many attempts were made to redirect and educate. AMA papers given, reviewed and signed.
== END 2022-06-01 09:33 | disposition home or self-care (01) ==
LOC: ER 06-01 03:35 → MEDSURG 06-01 03:39
PROVIDERS: Admitting Provider Family Medicine; Emergency Provider Emergency Medicine; PCP Family Medicine; Visit Provider Student in an Organized Health Care Education/Training Program
DX: G45.9 Transient cerebral ischemic attack, unspecified (principal); R29.700 NIHSS score 0; G95.20 Unspecified cord compression; G72.9 Myopathy, unspecified; Z98.890 Other specified postprocedural states; I44.0 Atrioventricular block, first degree; R00.0 Tachycardia, unspecified; I10 Essential (primary) hypertension; E11.42 Type 2 diabetes mellitus with diabetic polyneuropathy; E78.5 Hyperlipidemia, unspecified; I25.10 Atherosclerotic heart disease of native coronary artery without angina pectoris; I25.5 Ischemic cardiomyopathy; Z79.84 Long term (current) use of oral hypoglycemic drugs; Z85.46 Personal history of malignant neoplasm of prostate; E66.9 Obesity, unspecified; Z68.34 Body mass index [BMI] 34.0-34.9, adult; E55.9 Vitamin D deficiency, unspecified
CPT/HCPCS: 36416; 70450; 70496; 70498; 80053; 80306; 81003; 82962; 83880; 85025; 85610; 85730; 93005; 94664; 96372; 99285; G0378; J1650; Q9967

== ENCOUNTER 2022-06-05 09:29 | Inpatient (IN) | payer OTHER, MEDICARE, SELFPAY ==
[2022-06-05] VITALS (35 sets, daily range): BP systolic 113–187; BP diastolic 55–90; PULSE 68–99; RESP 15–28; TEMP 36.1–36.8; O2SAT 91–99; BMI 34.0
--- NOTE | 2022-06-05 09:56 | ED_ITS ---
Documented by User: SKYLA He 06/05/22 11:09 HPI - Male Genitourinary General: Chief complaint: Urogenital-Male Stated complaint: CANNOT URINATE SINCE SUNDAY Time Seen by Provider: 06/05/22 09:42 Source: patient Mode of arrival: EMS Limitations: no limitations History of Present Illness: Patient is a 77-year-old male with an extensive PMH significant for possible recent TIA (hospitalized a few days ago for this), CAD, ischemic cardiomyopathy, DM, obesity, HTN, and hyperlipidemia who presents to ED today via EMS for complaints of no urine output over the past 72 hours. Patient states he has no history of kidney disease or decreased urine output. He feels like symptoms started following his recent hospitalization-specifically following a contrast CT study. Patient does not take pain medications. He is not complaining of abdominal pain although states he does appreciate some very mild fullness . Patient has no previous history of acute urinary retention. He is not complaining of back pain. He does have significant cervical stenosis and was supposed to be meeting with Dr. Ansari in regards to this. MD Complaint: other (urinary retention) Onset (ago): day(s) Associated symptoms: Reports no associated symptoms; Deny dysuria, hematuria, nausea or vomiting Related Data: Sexually active: No Review of Systems Const: Denies: fever(s), chills, body aches, fatigue or malaise Card: Denies: chest pain, palpitations, irregular heart rhythm or lightheadedness Resp: Denies: dyspnea GI: Denies: abdominal pain, nausea, vomiting, diarrhea or change in bowel habits : Reports: oliguria (has not urinated in 72 hours); Denies: flank pain, dysuria, urinary frequency, urinary urgency, urinary hesitancy or hematuria Musc: Denies: neck pain, back pain, extremity pain or joint pain Skin/Breast: Denies: rash Neuro: Reports: numbness in extremities (chronic neuropathy secondary to cervical disease and DM neuropathy) and difficulty walking (pt is chronically wheelchair bound); Denies: headache(s) or dizziness [facility] PFSH: Medical History 1st degree AV block Atherosclerotic heart disease of [place] coronary artery without angina pectoris Cervical cord compression with myelopathy Chronic congestive heart failure Diabetes type 2, controlled Diabetic foot infection Diabetic neuropathy Dizziness Essential hypertension H/O echocardiogram 04/24/2016 Mild diffuse hypokinesia of the left ventricle with an ejection fraction of 45-50%. Because of the poor ultrasonic window and frequent arrhythmias, the segmental wall motion analysis and ejection fraction vamsi mation could be misleading. Mild biatrial enlargement Thickened aortic and mitral valves Mild aortic valve regurgitation Dilated ascending aorta. Estimated pulmonary artery peak systolic pressure of 22 mmHg, this could be an underestimation because of the poor Doppler signals. Compared to the previous study from 01/08/2015, there appears to have some improvement in the LV ejection fraction . January 2015 Diffuse hypokinesia of the left ventricle with an ejection fraction of 35-40%(with echo contrast and using the method of disc) Thickened mitral valve with moderate regurgitation. [id number] tricuspid valve regurgitation. Mild pulmonary hypertension with an estimated? pulmonary pressure of 41 mmHg Mildly increased left atrial size. ? Normal right ventricular size and systolic function. Aortic root appears to be mildly dilated-4.1 cm There is no pericardial effusion. There are no intracardiac masses. H/O prostate cancer Hyperlipemia Ischemic myocardial dysfunction Light headedness Obesity (BMI 35.0-39.9 without comorbidity) Tachycardia Toe anomaly Vitamin D deficiency Surgical History S/P appendectomy S/P cardiac cath On 01/15/15 he underwent coronary angiography by Dr. Acosta. ?He had a 20% eccentric left main, minimal LAD intimal irregularities, normal circumflex, totally occluded RCA with grade 2 left to right collaterals. S/P prostatectomy Family History Brother Anesthesia complication Cancer Diabetes Father CAD (coronary artery disease) Mother CAD (coronary artery disease) Family/Other Lung disease Suicide Denies family history of Clotting disorder Dementia Chronic kidney disease (CKD) Bleeding disorder Stroke Social History Smoking and tobacco status: never smoked Second hand smoke exposure: No Alcohol intake: never Desire information about alcohol rehabilitation?: No Counseling given: No Desire information about substance/drug rehabilitation?: No Counseling given: No Physical Exam Const: COMMON NORMALS: no acute distress, no limitations and alert NUTRITIONAL APPEARANCE: obese ORIENTATION/CONSCIOUSNESS: Yes awake, Yes oriented to person, Yes oriented to place and Yes oriented to time OTHER: appears in general poor health and deconditioned HENMT: COMMON NORMALS: normocephalic and atraumatic HEAD & SCALP: normal to inspection, normocephalic and atraumatic Eye: GENERAL EYE: appearance normal, both eyes and all related structures Neck/C-Spine: COMMON NORMALS: full ROM, no lymphadenopathy and no meningeal signs Resp: COMMON NORMALS: normal respiratory effort and clear to auscultation bilaterally AUSCULTATION: clear to auscultation bilaterally Cardio: COMMON NORMALS: regular rate and regular rhythm RATE: regular rate RHYTHM: regular rhythm GI: COMMON NORMALS: Normal to inspection, nondistended, normoactive bowel sounds present, Soft to palpation, non-tender, No hepatosplenomegaly present and no masses INSPECTION: Yes normal to inspection AUSCULTATION: Yes normoactive bowel sounds PALPATION: Yes Soft to palpation, No Tenderness to palpation present (GI), No Guarding due to palpation present (GI), No Rigid due to palpation and Yes No hepatosplenomegaly present OTHER: I do not appreciate any bladder distention : COMMON NORMALS: Yes no CVA tenderness BLADDER/KIDNEY EXAM: Yes no CVA tenderness PENIS: normal penis SCROTUM: Yes testes descended bilaterally Back/Pelvis: COMMON NORMALS: no CVA tenderness Neuro: SENSORIUM/ORIENTATION: Yes alert, Yes oriented to person, Yes oriented to place and Yes oriented to time MENINGEAL SIGNS: Yes no meningeal signs Course Vital Signs: Vital signs: Vital Signs Temperature 98.6 F 06/07/22 03:00 Pulse Rate 90 06/07/22 06:00 Respiratory Rate 27 H 06/07/22 06:00 Blood Pressure 160/89 06/07/22 06:00 Pulse Oximetry 94 06/07/22 06:00 Oxygen Delivery Me thod 06/07/22 03:00 Oxygen Flow Rate 2 06/06/22 21:47 MDM - Male Medical Decision Making Patient in acute renal failure with a BUN/Cr of 83/6.8. Potassium is 8.0. Patient will need to be hospitalized for emergent dialysis. Care discussed with Dr. Mc who will assume care and speak to nephrology and hospitalist for admission. Lab Data : 06/07/22 03:43 06/07/22 03:43 Radiology Impressions Renal Ultrasound 06/05/22 11:06 IMPRESSION: 1. No hydronephrosis or renal atrophy. 2. Exophytic cyst LEFT kidney with a maximum diameter 3.2 cm. Chest X-Ray 06/06/22 13:44 IMPRESSION: 1. Right-sided IJ double lumen catheter appears to end at the cavoatrial junction in good position. 2. Cardiac enlargement with the increased pulmonary vascularity. Prominent main pulmonary arteries. Overall, no change. Laboratory Results WBC 10.8 10^3/uL (4.0-10.0) H 06/05/22 09:49 RBC 4.87 10^6/uL (4.1-5.3) 06/05/22 09:49 Hgb 15.0 g/dL (11.7-16.6) 06/05/22 09:49 Hct 47.0 % (42.0-52.0) 06/05/22 09:49 MCV 96.5 fl (80-94) H 06/05/22 09:49 MCH 30.8 pg (28.0-34.0) 06/05/22 09:49 MCHC 31.9 g/dL (30.0-36.0) 06/05/22 09:49 RDW 13.4 % (12.1-15.1) 06/05/22 09:49 Plt Count 190 10^3/cmm (130-400) 06/05/22 09:49 MPV 11.8 fL (7.4-10.4) H 06/05/22 09:49 Neut % (Auto) 77.7 % 06/05/22 09:49 Lymph % (Auto) 12.3 % 06/05/22 09:49 Morrow % (Auto) 8.6 % 06/05/22 09:49 Eos % (Auto) 0.6 % 06/05/22 09:49 Baso % (Auto) 0.5 % 06/05/22 09:49 Neut # (Auto) 8.44 10^3/uL (1.8-7.7) H 06/05/22 09:49 Lymph # (Auto) 1.3 10^3/uL (0.8-4.8) 06/05/22 09:49 Morrow # (Auto) 0.9 10^3/uL (0.2-0.9) 06/05/22 09:49 Eos # (Auto) 0.1 10^3/uL (0.0-0.8) 06/05/22 09:49 Baso # (Auto) 0.1 10^3/uL (0.0-0.1) 06/05/22 09:49 Nucleated RBC % (auto) 0 % 06/05/22 09:49 Nucleated RBCs # 0.0 /100WBC 06/05/22 09:49 Sodium 135 mmol/L (136-145) L 06/05/22 09:49 Potassium 8.0 mmol/L (3.5-5.1) H* 06/05/22 09:49 Chloride 97 mmol/L (98-107) L 06/05/22 09:49 Carbon Dioxide 17 mmol/L (22-29) L 06/05/22 09:49 Anion Gap 29.0 (5-19) H 06/05/22 09:49 BUN 83 mg/dL (8-23) H* D 06/05/22 09:49 Creatinine 6.8 mg/dL (0.7-1.2) H* 06/05/22 09:49 GFR Calculation Not Reportable 06/05/22 09:49 Glucose 64 mg/dL (65-115) L 06/05/22 09:49 POC Glucose 57 mg/dL (70-110) L 06/05/22 12:37 Calculated Osmolality 303 mOsm/kg (285-295) H 06/05/22 09:49 Calcium 9.3 mg/dL (8.5-10.5) 06/05/22 09:49 Phosphorus 6.0 mg/dL (2.5-4.5) H 06/05/22 09:49 Magnesium 1.7 mg/dL (1.7-2.3) 06/05/22 09:49 Total Bilirubin 0.4 mg/dL (0.15-1.2) 06/05/22 09:49 AST 19 U/L (0-40) 06/05/22 09:49 ALT 13 U/L (0-41) 06/05/22 09:49 Alkaline Phosphatase 105 U/L (40-130) 06/05/22 09:49 Creatine Kinase 84 U/L (39-308) 06/05/22 09:49 Troponin T Baseline 185 ng/L (0-15) H* 06/05/22 09:49 Troponin T 120 Minute 170.4 ng/L (0-15) H 06/05/22 11:48 Delta Troponin T -14.6 ABS# (0-10) L 06/05/22 11:48 Total Protein 7.0 g/dL (6.6-8.7) 06/05/22 09:49 Albumin 3.9 g/dL (3.5-5.2) 06/05/22 09:49 Globulin 3.1 g/dL (1.3-4.6) 06/05/22 09:49 TSH 0.90 uIU/mL (0.27-4.20) 06/05/22 09:49 Discharge Plan Discharge Patient Disposition: Admitted As Inpatient Admit Provider: Ron Menon Clinical Impression: Contrast dye induced nephropathy, Acute kidney injury, Hyperkalemia, Diabetes type 2, controlled, Chronic congestive heart failure, Diabetic peripheral neuropathy associated with type 2 diabetes mellitus Condition: Stable Sign Out Sign Out Data: Patient Sign Out occurred on 06/05/22 at 10:53. Patient's care was discussed, and care was transferred from to Kwabena Mc DO. Coding Level of Care Code ED Coordinating Producer for Chg Fwd Exam Comprehensive Documented by User: Kwabena Mc DO 06/07/22 07:40 HPI - Male Genitourinary General: Chief complaint: Urogenital-Male Stated complaint: CANNOT URINATE SINCE SUNDAY Time Seen by Provider: 06/05/22 09:42 PFSH ED PFSH: Medical History 1st degree AV block Atherosclerotic heart disease of [place] coronary artery without angina pectoris Cervical cord compression with myelopathy Chronic congestive heart failure Diabetes type 2, controlled Diabetic foot infection Diabetic neuropathy Dizziness Essential hypertension H/O echocardiogram 04/24/2016 Mild diffuse hypokinesia of the left ventricle with an ejection fraction of 45-50%. Because of the poor ultrasonic window and frequent arrhythmias, the segmental wall motion analysis and ejection fraction estimation could be misleading. Mild biatrial enlargement Thickened aortic and mitral valves Mild aortic valve regurgitation Dilated ascending aorta. Estimated pulmonary artery peak systolic pressure of 22 mmHg, this could be an underestimation because of the poor Doppler signals. Compared to the previous study from 01/08/2015, there appears to have some improvement in the LV ejection fraction . January 2015 Diffuse hypokinesia of the left ventricle with an ejection fraction of 35-40%(with echo contrast and using the method of disc) Thickened mitral valve with moderate regurgitation. [id number] tricuspid valve regurgitation. Mild pulmonary hypertension with an estimated? pulmonary pressure of 41 mmHg Mildly increased left atrial size. ? Normal right ventricular size and systolic function. Aortic root appears to be mildly dilated-4.1 cm There is no pericardial effusion. There are no intracardiac masses. H/O prostate cancer Hyperlipemia Ischemic myocardial dysfunction Light headedness Obesity (BMI 35.0-39.9 without comorbidity) Tachycardia Toe anomaly Vitamin D deficiency Surgical History S/P appendectomy S/P cardiac cath On 01/15/15 he underwent coronary angiography by Dr. Acosta. ?He had a 20% eccentric left main, minimal LAD intimal irregularities, normal circumflex, totally occluded RCA with grade 2 left to right collaterals. S/P prostatectomy Family History Brother Anesthesia complication Cancer Diabetes Father CAD (coronary artery disease) Mother CAD (coronary artery disease) Family/Other Lung disease Suicide Denies family history of Clotting disorder Dementia Chronic kidney disease (CKD) Bleeding disorder Stroke Social History Smoking and tobacco status: never smoked Second hand smoke exposure: No Alcohol intake: never Desire information about alcohol rehabilitation?: No Counseling given: No Desire information about substance/drug rehabilitation?: No Counseling given: No Course Vital Signs: Vital signs: Vital Signs Temperature 98.6 F 06/07/22 03:00 Pulse Rate 90 06/07/22 06:00 Respiratory Rate 27 H 06/07/22 06:00 Blood Pressure 160/89 06/07/22 06:00 Pulse Oximetry 94 06/07/22 06:00 Oxygen Delivery Me thod 06/07/22 03:00 Oxygen Flow Rate 2 06/06/22 21:47 MDM - Male Medical Decision Making Patient in acute renal failure with a BUN/Cr of 83/6.8. Potassium is 8.0. Patient will need to be hospitalized for emergent dialysis. Care discussed with Dr. Mc who will assume care and speak to nephrology and hospitalist for admission. Chart reviewed and patient discussed with midlevel. Agree with assessment and plan.. Patient seen and examined exam unchanged from what is documented by Ms. Saavedra. Patient has hyperkalemia with acute renal failure. Likely contrast-i nduced. Ultrasound did not show any significant abnormalities poor test because of the [place]aya contrast still with the kidney. Discussed with hospitalist and with nephrology orders written Medical Records I reviewed the patient's medical records. Lab Data I reviewed the patient's lab results. : 06/07/22 03:43 06/07/22 03:43 Radiology Impressions Renal Ultrasound 06/05/22 11:06 IMPRESSION: 1. No hydronephrosis or renal atrophy. 2. Exophytic cyst LEFT kidney with a maximum diameter 3.2 cm. Chest X-Ray 06/06/22 13:44 IMPRESSION: 1. Right-sided IJ double lumen catheter appears to end at the cavoatrial junction in good position. 2. Cardiac enlargement with the increased pulmonary vascularity. Prominent main pulmonary arteries. Overall, no change. Laboratory Results WBC 10.8 10^3/uL (4.0-10.0) H 06/05/22 09:49 RBC 4.87 10^6/uL (4.1-5.3) 06/05/22 09:49 Hgb 15.0 g/dL (11.7-16.6) 06/05/22 09:49 Hct 47.0 % (42.0-52.0) 06/05/22 09:49 MCV 96.5 fl (80-94) H 06/05/22 09:49 MCH 30.8 pg (28.0-34.0) 06/05/22 09:49 MCHC 31.9 g/dL (30.0-36.0) 06/05/22 09:49 RDW 13.4 % (12.1-15.1) 06/05/22 09:49 Plt Count 190 10^3/cmm (130-400) 06/05/22 09:49 MPV 11.8 fL (7.4-10.4) H 06/05/22 09:49 Neut % (Auto) 77.7 % 06/05/22 09:49 Lymph % (Auto) 12.3 % 06/05/22 09:49 Morrow % (Auto) 8.6 % 06/05/22 09:49 Eos % (Auto) 0.6 % 06/05/22 09:49 Baso % (Auto) 0.5 % 06/05/22 09:49 Neut # (Auto) 8.44 10^3/uL (1.8-7.7) H 06/05/22 09:49 Lymph # (Auto) 1.3 10^3/uL (0.8-4.8) 06/05/22 09:49 Morrow # (Auto) 0.9 10^3/uL (0.2-0.9) 06/05/22 09:49 Eos # (Auto) 0.1 10^3/uL (0.0-0.8) 06/05/22 09:49 Baso # (Auto) 0.1 10^3/uL (0.0-0.1) 06/05/22 09:49 Nucleated RBC % (auto) 0 % 06/05/22 09:49 Nucleated RBCs # 0.0 /100WBC 06/05/22 09:49 Sodium 135 mmol/L (136-145) L 06/05/22 09:49 Potassium 8.0 mmol/L (3.5-5.1) H* 06/05/22 09:49 Chloride 97 mmol/L (98-107) L 06/05/22 09:49 Carbon Dioxide 17 mmol/L (22-29) L 06/05/22 09:49 Anion Gap 29.0 (5-19) H 06/05/22 09:49 BUN 83 mg/dL (8-23) H* D 06/05/22 09:49 Creatinine 6.8 mg/dL (0.7-1.2) H* 06/05/22 09:49 GFR Calculation Not Reportable 06/05/22 09:49 Glucose 64 mg/dL (65-115) L 06/05/22 09:49 POC Glucose 57 mg/dL (70-110) L 06/05/22 12:37 Calculated Osmolality 303 mOsm/kg (285-295) H 06/05/22 09:49 Calcium 9.3 mg/dL (8.5-10.5) 06/05/22 09:49 Phosphorus 6.0 mg/dL (2.5-4.5) H 06/05/22 09:49 Magnesium 1.7 mg/dL (1.7-2.3) 06/05/22 09:49 Total Bilirubin 0.4 mg/dL (0.15-1.2) 06/05/22 09:49 AST 19 U/L (0-40) 06/05/22 09:49 ALT 13 U/L (0-41) 06/05/22 09:49 Alkaline Phosphatase 105 U/L (40-130) 06/05/22 09:49 Creatine Kinase 84 U/L (39-308) 06/05/22 09:49 Troponin T Baseline 185 ng/L (0-15) H* 06/05/22 09:49 Troponin T 120 Minute 170.4 ng/L (0-15) H 06/05/22 11:48 Delta Troponin T -14.6 ABS# (0-10) L 06/05/22 11:48 Total Protein 7.0 g/dL (6.6-8.7) 06/05/22 09:49 Albumin 3.9 g/dL (3.5-5.2) 06/05/22 09:49 Globulin 3.1 g/dL (1.3-4.6) 06/05/22 09:49 TSH 0.90 uIU/mL (0.27-4.20) 06/05/22 09:49 Discharge Plan Discharge Patient Disposition: Admitted As Inpatient Admit Provider: Ron Menon Clinical Impression: Contrast dye induced nephropathy, Acute kidney injury, Hyperkalemia, Diabetes type 2, controlled, Chronic congestive heart failure, Diabetic peripheral neuropathy associated with type 2 diabetes mellitus Condition: Stable Sign Out Sign Out Data: Patient Sign Out occurred on 06/05/22 at 10:53. Patient's care was discussed, and care was transferred from to Kwabena L Horstman, DO. Coding Level of Care Code ED Coordinating Producer for Chg Fwd Exam Comprehensive
[2022-06-05 09:57] LABS: Basophils # 0.1 10^3/uL (0.0-0.1); Basophils % 0.5 %; Eosinophils # 0.1 10^3/uL (0.0-0.8); Eosinophils % 0.6 %; Lymphocytes # 1.3 10^3/uL (0.8-4.8); Lymphocytes % 12.3 %; Mean Corpuscular HGB Conc 31.9 g/dL (30.0-36.0); Mean Corpuscular Hemoglobin 30.8 pg (28.0-34.0); Mean Corpuscular Volume 96.5 fl (80-94); Mean Platelet Volume 11.8 fL (7.4-10.4); Monocytes # 0.9 10^3/uL (0.2-0.9); Monocytes % 8.6 %; Neutrophils # 8.44 10^3/uL (1.8-7.7); Neutrophils % 77.7 %; Nucleated Red Blood Cells % 0 %; Platelet Count 190 10^3/cmm (130-400); Red Blood Count 4.87 10^6/uL (4.1-5.3); Red Cell Distribution Width 13.4 % (12.1-15.1); White Blood Count 10.8 10^3/uL (4.0-10.0)
[2022-06-05 10:18] LABS: Alanine Aminotransferase 13 U/L (0-41); Albumin Level 3.9 g/dL (3.5-5.2); Alkaline Phosphatase 105 U/L (40-130); Aspartate Amino Transferase 19 U/L (0-40); Calcium 9.3 mg/dL (8.5-10.5); Carbon Dioxide 17 mmol/L (22-29); Chloride 97 mmol/L (98-107); Globulin 3.1 g/dL (1.3-4.6); Glucose 64 mg/dL (65-115); Osmolality Calculated 303 mOsm/kg (285-295); Sodium 135 mmol/L (136-145); Total Bilirubin 0.4 mg/dL (0.15-1.2)
[2022-06-05 10:21] LABS: Blood Urea Nitrogen 83 mg/dL (8-23)
--- NOTE | 2022-06-05 10:40 | PC.PHAR ---
pt states he has a nurse from the mt that sets up his medications-pt states he knows the medications he takes and verified his medications-
--- NOTE | 2022-06-05 10:54 | ECG_ITS ---
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 Measurements Intervals [place] Rate: 68 P: 88 OH: 288 QRS: -62 QRSD: 185 T: 79 QT: 437 QTc: 467 Interpretive Statements SINUS RHYTHM WITH FIRST DEGREE AV BLOCK LBBB Possible INFERIOR MYOCARDIAL INFARCTION , OF INDETERMINATE AGE [40+ ms Q WAVE AND/OR ST/T ABNORMALITY IN II/aVF] Compared to ECG 05/31/2022 19:07:31 Sinus tachycardia no longer present Myocardial infarct finding still present Electronically Signed On 06-05-2022 14:00:27 CDT by Michael Montez M.D. [email or web address]
--- NOTE | 2022-06-05 11:06 | US_ITS ---
WS: [id number] RENAL ULTRASOUND HISTORY: anuria; acute renal failure COMPARISON: None available. TECHNIQUE: 2-D and color Doppler imaging of the kidney submitted. Right kidney: 12.4 cm x 6.8 cm x 6.9 cm. Normal echogenicity with no hydronephrosis or mass. Left kidney: 11.5 cm x 6.3 cm x 6.3 cm. Normal size kidney. No hydronephrosis. Exophytic cyst from the mid kidney measures 3.2 x 2.6 x 2.3 cm . Aorta: Minimally visualized. Urinary Bladder: Nondistended. US/US renal BI* [id number] IMPRESSION: 1. No hydronephrosis or renal atrophy. 2. Exophytic cyst LEFT kidney with a maximum diameter 3.2 cm.
[2022-06-05] MEDS: insulin regular-human 100 units/1 mL 10 UNIT IVP (11:09)
[2022-06-05] MEDS: calcium chloride 10% Syr 10 mL 2 GM IVP (11:14)
[2022-06-05 11:15] LABS: Glucose Point of Care 67 mg/dL (70-110)
[2022-06-05] MEDS: dextrose 10% 1,000 ML 100 ML IV ×2 (11:17→18:25)
[2022-06-05] MEDS: sodium bicarbonate 8.4% 1 mEq/mL 50mL Syr 100 MEQ IVP (11:17)
[2022-06-05 11:21] LABS: Magnesium 1.7 mg/dL (1.7-2.3)
[2022-06-05] MEDS: ondansetron 2 mg/ML SDV 2 mL 4 MG IVP (11:21)
--- NOTE | 2022-06-05 11:23 | P.CONIM_ITS ---
Providers/Reason For Consult Consulting Physician/Specialty*: Don Lemus MD Reason for Consult*: Urgent dialysis access Requesting Physician: Dr. Mc Attending Physician: Dr. Menon Primary Care Provider: Eva Rivas MD History of Present Illness History of Present Illness Mr. Wesly Price is a 77 year old male presented to the emergency department with complicated past medical history. What appears that the patient had contrast-induced nephropathy in addition to hyperkalemia of 8 subsequently general surgery was consulted for urgent placement of temporary hemodialysis access. Appears that the patient had recent TIA (hospitalized a few days ago for this), CAD, ischemic cardiomyopathy, DM, obesity, HTN, and hyperlipidemia who presents to ED today via EMS for complaints of no urine output over the past 72 hours. Patient was seen and evaluated in the emergency department room #5 Review of Systems General: Reports: 10 or more systems reviewed and unremarkable except in HPI and below Medications/Allergies Home Medications Medication Instructions Recorded Confirmed Last Taken Type blood-glucose meter (FreeStyle #1 ea 12/29/19 06/05/22 Unknown Rx Lite Meter) flash glucose sensor (FreeStyle #6 ea 12/05/21 06/05/22 Unknown Rx Nu 14 Day Sensor) acetaminophen 500 mg tablet 1,000 mg PO BID 06/05/22 06/05/22 06/05/22 History aspirin 325 mg tablet 325 mg PO QAM 06/05/22 06/05/22 06/05/22 History atorvastatin 40 mg tablet 40 mg PO BEDTIME 06/05/22 06/05/22 06/04/22 History benazepril 10 mg tablet 10 mg PO DAILY 06/05/22 06/05/22 Unknown History cholecalciferol (vitamin D3) 1,250 50,000 unit PO Q7D 06/05/22 06/05/22 Unknown History mcg (50,000 unit) capsule cyclobenzaprine 5 mg tablet 5 mg PO BID 06/05/22 06/05/22 06/05/22 History furosemide 40 mg tablet 40 mg PO QAM 06/05/22 06/05/22 06/05/22 History gabapentin 300 mg capsule 300 mg PO BID 90 days #180 caps 06/05/22 Unknown Rx metformin 1,000 mg tablet 1,000 mg PO BID 06/05/22 06/05/22 06/05/22 History metoprolol tartrate 25 mg tablet 25 mg PO BID 06/05/22 06/05/22 06/05/22 History potassium chloride 20 mEq 20 meq PO QAM 06/05/22 06/05/22 06/05/22 History tablet,extended release(part/cryst) (Klor-Con M) spironolactone 25 mg tablet 25 mg PO DAILY 06/05/22 06/05/22 Unknown History Allergies Allergy/AdvReac Type Severity Reaction Status Date / Time Sulfa (Sulfonamide AdvReac Intermediate rash Verified 06/05/22 12:27 Antibiotics) Current Medications Generic Name Dose Route Start Last Admin Trade Name Freq PRN Reason Stop Dose Admin Dextrose 1,000 mls @ 100 mls/hr 06/05/22 11:00 06/05/22 11:17 D10w IV 100 mls/hr .Q10H LY Administration PFSH Acute PFSH: Medical History 1st degree AV block Atherosclerotic heart disease of [place] coronary artery without angina pectoris Cervical cord compression with myelopathy Chronic congestive heart failure Diabetes type 2, controlled Diabetic foot infection Diabetic neuropathy Dizziness Essential hypertension H/O echocardiogram 04/24/2016 Mild diffuse hypokinesia of the left ventricle with an ejection fraction of 45-50%. Because of the poor ultrasonic window and frequent arrhythmias, the segmental wall motion analysis and ejection fraction estimation could be misleading. Mild biatrial enlargement Thickened aortic and mitral valves Mild aortic valve regurgitation Dilated ascending aorta. Estimated pulmonary artery peak systolic pressure of 22 mmHg, this could be an underestimation because of the poor Doppler signals. Compared to the previous study from 01/08/2015, there appears to have some improvement in the LV ejection fraction . January 2015 Diffuse hypokinesia of the left ventricle with an ejection fraction of 35-40%(with echo contrast and using the method of disc) Thickened mitral valve with moderate regurgitation. [id number] tricuspid valve regurgitation. Mild pulmonary hypertension with an estimated? pulmonary pressure of 41 mmHg Mildly increased left atrial size. ? Normal right ventricular size and systolic function. Aortic root appears to be mildly dilated-4.1 cm There is no pericardial effusion. There are no intracardiac masses. H/O prostate cancer Hyperlipemia Ischemic myocardial dysfunction Light headedness Obesity (BMI 35.0-39.9 without comorbidity) Tachycardia Toe anomaly Vitamin D deficiency Surgical History S/P appendectomy S/P cardiac cath On 01/15/15 he underwent coronary angiography by Dr. Acosta. ?He had a 20% eccentric left main, minimal LAD intimal irregularities, normal circumflex, totally occluded RCA with grade 2 left to right collaterals. S/P prostatectomy Family History Brother Anesthesia complication Cancer Diabetes Father CAD (coronary artery disease) Mother CAD (coronary artery disease) Family/Other Lung disease Suicide Denies family history of Clotting disorder Dementia Chronic kidney disease (CKD) Bleeding disorder Stroke Social History Smoking and tobacco status: never smoked Second hand smoke exposure: No Alcohol intake: never Desire information about alcohol rehabilitation?: No Counseling given: No Desire information about substance/drug rehabilitation?: No Counseling given: No Vitals/I&O/Wt Last Vital Signs Temp 98.2 F 06/05/22 09:30 Pulse 69 06/05/22 10:54 Resp 16 06/05/22 10:54 BP 136/56 06/05/22 10:54 Pulse Ox 97 06/05/22 10:54 O2 Del Method 06/05/22 10:54 Weight last 48 hrs Weight 230 lb Physical Exam Narrative: Patient is conscious alert oriented X3 Mild distress BMI 34 Head and neck examination PERRLA no masses no cervical lymphadenopathy no jaundice Cardiac examination audible S1-S2 no murmurs no gallops no arrhythmias Chest is clear bilateral,abscence of Rhonchi or wheezes,no surgical emphysema Abdomen nontender nondistended soft no organomegaly guarding or rigidity/no signs of peritonitis Previous surgical scars of the midline and right lower quad Obese Extremities no cyanosis no clubbing no edema Data : 06/05/22 09:49 06/05/22 09:49 A&P Assessment and plan (1) Contrast dye induced nephropathy: Plan of care; After thorough history physical examination and reviewing the chart and reviweing the images with my personal intrepretation.I counseled the patient for non-tunneled hemodialysis catheter placement, indications, risks including possibility of , stroke, heart attack, major bleeding, infection, pneumonia, organ failure, failure to benefit, prolonged hospital stay, pain after the procedure pneumothorax that may require Chest tube(s) placement and potential injury of major vascular structures that may require Thoractomy, benefits,indications and alternatives were all discussed with the patient, patient understands and is interested to proceed. Rationale was carefully and clearly discussed with the patient.Appropriate informed consent have been reviewed and signed. Status: Acute Consult Attestations Medical Necessity Statement: Per admitting service Time Spent in Patient Care: Greater than 35 minutes Procedures Time out/Consent Time Out Performed: Yes Consent for Procedure: Consent obtained from patient Procedure Narrative Preprocedure diagnosis contrast-induced nephropathy/hyperkalemia Postprocedure diagnosis the same Procedure done :Temporary nontunneled dialysis catheter in the right internal jugular vein Ultrasound guidance IMAGING UTILIZED:~ [Ultrasound guided approach/and interpretation of images done by me through the procedure] ANESTHESIA: [Local lidocaine 1%] REASON FOR PLACEMENT: [Acute kidney injury] DESCRIPTION OF PROCEDURE PLACEMENT:~ Medications were reviewed to assess for anticoagulant usage. Risks and benefits and prevention of central line associated blood stream infection (CLABSI) were discussed with the patient/CPOA, and a consent was obtained. Monitors were in place and monitored throughout the procedure. A time out was performed with the nurse present. All necessary supplies were available prior to start. Hand hygiene was completed prior to starting. Maximum barrier technique was utilized including a sterile gown, sterile gloves with a hat and mask. Site was was prepped with [chlorhexidine] and a full body drape was placed. 5 mL of 1% lidocaine was injected into the skin with a 25 gauge needle. the needle was inserted into the right internal jugular vein under ultrasound guidance and under sterile technique, interpretation of ultrasound images was done by me throughout the procedure. A wire was then advanced without difficulty. There were some ectopy noted, the wire was then pulled backwards. A small incision was then made to facilitate the dilator over which the catheter was placed. The wire was then removed. The catheter was threaded to hub of the catheter. All ports were then aspirated showing venous return and were each then flushed with sterile normal saline. The catheter was then sutured in place and a Tegaderm was used to cover the insertion site. Patient tolerated the procedure without difficulty or complication. A portable chest x-ray was performed which illustrated no pneumothorax and proper placement of the catheter with the tip resting just above the right atrium per my interpretation. Patient's vital signs remained stable throughout the procedure. At this time it is safe to use the [right internal jugular vein hemodialysis catheter] line. Estimated blood loss 20 mL Security Incident Response Engineer instructor adjunct surgical technician Aaliyah Anesthesia local lidocaine I was present for the whole entire procedure Coding Level of Care Code Acute Activity Aid for g Fwd Diagnoses Contrast dye induced nephropathy N14.1; T50.8X5A
[2022-06-05 11:25] LABS: Troponin(5th) Baseline 185 ng/L (0-15)
[2022-06-05 12:15] LABS: Troponin 5 2HR Delta -14.6 ABS# (0-10)
[2022-06-05 12:16] LABS: Troponin 5 2HR 170.4 ng/L (0-15)
--- NOTE | 2022-06-05 12:41 | PC.NURSE ---
Report called to KARSTEN Disla.
[2022-06-05 12:51] LABS: Glucose Point of Care 57 mg/dL (70-110)
--- NOTE | 2022-06-05 13:03 | P.HP_ITS ---
Providers/Chief Complaint Admitting Physician: Ron Menon MD Primary Care Provider: Eva Rivas MD Chief Complaint: CANNOT URINATE SINCE SUNDAY History of Present Illness Wesly Price is a 77 year old male presenting to the emergency department with history of no urine output in multiple days. He is nauseous today, and threw up some. He is feeling very weak. He denies any fever. He was recently diagnosed with cervical myelopathy and is to see orthopedic spine surgery soon. His most recent hospitalization on June 01 was for concerning strokelike symptoms, possibly secondary to his myelopathy, for which he signed out AGAINST MEDICAL ADVICE. At that time he did have a CTA. Creatinine at that time was 0.9. He denies any chest discomfort or shortness of breath currently. In the emergency department he was found to have significant acute kidney injury, with markedly elevated potassium. He received albuterol, insulin and glucose, calcium chloride, and sodium bicarbonate. Review of Systems General: Reports: 10 or more systems reviewed and unremarkable except in HPI and below Const: Reports: fatigue and malaise; Denies: fever(s) or chills Eyes: Denies: change in vision ENMT: Denies: throat pain Card: Denies: chest pain or palpitations Resp: Denies: dyspnea GI: Reports: nausea and vomiting; Denies: abdominal pain, hematochezia or melena : Reports: difficulty urinating and oliguria; Denies: flank pain Musc: Reports: neck pain Skin/Breast: Denies: rash or pruritus Neuro: Reports: numbness in extremities and weakness in extremities; Denies: headache(s) Psych: Denies: anxiety or depression Endo: Denies: polyuria Jacob/Lymph: Denies: easy bruising or easy bleeding All/Imm: Denies: urticaria or throat swelling Medications/Allergies Home Medications Medication Instructions Recorded Confirmed Last Taken Type blood-glucose meter (FreeStyle #1 ea 12/29/19 06/05/22 Unknown Rx Lite Meter) flash glucose sensor (FreeStyle #6 ea 12/05/21 06/05/22 Unknown Rx Nu 14 Day Sensor) gabapentin 300 mg capsule 300 mg PO BID 90 days #180 caps 02/02/22 06/05/22 06/05/22 Rx acetaminophen 500 mg tablet 1,000 mg PO BID 06/05/22 06/05/2222 History aspirin 325 mg tablet 325 mg PO QAM 06/05/22 06/05/22 06/05/22 History atorvastatin 40 mg tablet 40 mg PO BEDTIME 06/05/22 06/05/22 06/04/22 History benazepril 10 mg tablet 10 mg PO DAILY 06/05/22 06/05/22 Unknown History cholecalciferol (vitamin D3) 1,250 50,000 unit PO Q7D 06/05/22 06/05/22 Unknown History mcg (50,000 unit) capsule cyclobenzaprine 5 mg tablet 5 mg PO BID 06/05/22 06/05/22 06/05/22 History furosemide 40 mg tablet 40 mg PO QAM 06/05/22 06/05/22 06/05/22 History metformin 1,000 mg tablet 1,000 mg PO BID 06/05/22 06/05/22 06/05/22 History metoprolol tartrate 25 mg tablet 25 mg PO BID 06/05/22 06/05/22 06/05/22 History potassium chloride 20 mEq 20 meq PO QAM 06/05/22 06/05/22 06/05/22 History tablet,extended release(part/cryst) (Klor-Con M) spironolactone 25 mg tablet 25 mg PO DAILY 06/05/22 06/05/22 Unknown History Allergies Allergy/AdvReac Type Severity Reaction Status Date / Time Sulfa (Sulfonamide AdvReac Intermediate rash Verified 06/05/22 12:27 Antibiotics) PFSH Acute PFSH: Medical History (Updated 06/05/22 @ 13:19 by Ron Menon MD) 1st degree AV block Atherosclerotic heart disease of [place] coronary artery without angina pectoris Cervical cord compression with myelopathy Chronic congestive heart failure Diabetes type 2, controlled Diabetic foot infection Diabetic neuropathy Dizziness Essential hypertension H/O echocardiogram 04/24/2016 Mild diffuse hypokinesia of the left ventricle with an ejection fraction of 45-50%. Because of the poor ultrasonic window and frequent arrhythmias, the segmental wall motion analysis and ejection fraction estimation could be misleading. Mild biatrial enlargement Thickened aortic and mitral valves Mild aortic valve regurgitation Dilated ascending aorta. Estimated pulmonary artery peak systolic pressure of 22 mmHg, this could be an underestimation because of the poor Doppler signals. Compared to the previous study from 01/08/2015, there appears to have some improvement in the LV ejection fraction . January 2015 Diffuse hypokinesia of the left ventricle with an ejection fraction of 35-40%(with echo contrast and using the method of disc) Thickened mitral valve with moderate regurgitation. [id number] tricuspid valve regurgitation. Mild pulmonary hypertension with an estimated? pulmonary pressure of 41 mmHg Mildly increased left atrial size. ? Normal right ventricular size and systolic function. Aortic root appears to be mildly dilated-4.1 cm There is no pericardial effusion. There are no intracardiac masses. H/O prostate cancer Hyperlipemia Ischemic myocardial dysfunction Light headedness Obesity (BMI 35.0-39.9 without comorbidity) Tachycardia Toe anomaly Vitamin D deficiency Surgical History S/P appendectomy S/P cardiac cath On 01/15/15 he underwent coronary angiography by Dr. Acosta. ?He had a 20% eccentric left main, minimal LAD intimal irregularities, normal circumflex, totally occluded RCA with grade 2 left to right collaterals. S/P prostatectomy Family History Brother Anesthesia complication Cancer Diabetes Father CAD (coronary artery disease) Mother CAD (coronary artery disease) Family/Other Lung disease Suicide Denies family history of Clotting disorder Dementia Chronic kidney disease (CKD) Bleeding disorder Stroke Social History Smoking and tobacco status: never smoked Second hand smoke exposure: No Alcohol intake: never Desire information about alcohol rehabilitation?: No Counseling given: No Desire information about substance/drug rehabilitation?: No Counseling given: No Vitals/I&O/Wt Last Vital Signs Temp 98.2 F 06/05/22 09:30 Pulse 78 06/05/22 12:33 Resp 22 H 06/05/22 12:33 BP 113/70 06/05/22 12:33 Pulse Ox 98 06/05/22 12:33 O2 Del Method 06/05/22 12:33 Weight last 48 hrs Weight 104.326 kg Physical Exam Narrative: General exam is a white male, conversant, who appears tired HEENT: Atraumatic and normocephalic. Oropharynx with some nicotine staining. Dry. Neck is supple no lymphadenopathy or thyromegaly Cardiovascular regular rate and rhythm without murmur Lungs clear no wheezing or crackles. Diminished breath sounds are noted bilaterally Abdomen is soft with positive bowel sounds. No obvious organomegaly. Extensive abdominal scar noted. exam normal male Extremities trace edema, 21+, right greater than left. No cyanosis or clubbing. Skin no rash Neuro no obvious focal deficits Data : 06/05/22 09:49 06/05/22 09:49 Other Labs: LFTs are normal Troponin 185 with repeat of 170 Urinalysis not able to be obtained as Marley was unable to be performed Renal ultrasound no hydronephrosis. Bladder was nondistended. Cyst present left kidney Patient CT head and head neck CTA demonstrated no acute findings. Recent cervical spine MRI demonstrated severe central stenosis with some impingement and mild flattening of the cervical cord EKG demonstrates intraventricular conduction delay, first-degree AV block. Inferior Q waves. Intraventricular conduction delay is much greater than previously measured Echocardiogram June 2021 demonstrated an EF of 50% A&P Assessment and plan (1) Acute kidney injury: Patient with severe acute kidney injury. No evidence of urinary retention on ultrasound, but is a constant concern considering his cervical myopathy, history of prostate surgery, and inability to place a Marley catheter. Will consult urology for catheter placement currently. Nephrology consultation for acute dialysis Avoid renal toxic medication Overall his presentation is likely multifactorial, in this patient on chronic diuretics who is diabetic, on ARB, spironolactone, oral potassium who presumably has recently had poor oral fluid intake as well as issues with cervical cord compression. Check CK Consultation with general surgery regarding dialysis catheter placement The emergency department has responded appropriately with calcium chloride, albuterol, insulin plus glucose, bicarbonate Check urinalysis when able Status: Acute (2) Hyperkalemia: Secondary to acute kidney injury, in the face of treatment with potassium, Aldactone, benazepril. Hold all of these medicines in the interim Avoid NSAIDs Status: Acute (3) Cervical cord compression with myelopathy: Avoid significant neck flexion Will still need outpatient evaluation by orthopedic spine surgery Status: Acute (4) Diabetic peripheral neuropathy associated with type 2 diabetes mellitus: Consistent carb diet Avoid insulin currently with his degree of renal dysfunction Status: Acute (5) Chronic congestive heart failure: Currently appears compensated. No acute component. Secondary to ischemic cardiomyopathy. Last echo demonstrates EF of 50%. Status: Acute Plan Multiple other medical problems as outlined by his past medical history Full code currently Heparin for DVT prophylaxis Attestations Medical Necessity Statement*: Will require greater than 2 midnight stay for evaluation and treatment of acute kidney injury with hyperkalemia Critical Care Time: The high probability of a clinically significant, sudden or life threatening deterioration of the patient's [renal, cardiac] system(s) required my full and direct attention, intervention and personal management. The critical care time is as shown. This time is in addition to time spent performing any reported procedures but includes the following: [x] Data and vital sign review and interpretation [x] Patient assessment, examination and intervention [x] Documentation [x] Medication orders and management Critical Care Time (min): 65 Coding Level of Care Code Acute Mica Patcher for [facility] Fwd Diagnoses Acute kidney injury N17.9 Hyperkalemia E87.5 Cervical cord compression with myelopathy G95.20 Diabetic peripheral neuropathy associated with type 2 diabetes mellitus E11.42 Chronic congestive heart failure I50.9
--- NOTE | 2022-06-05 13:07 | PC.CHAP ---
Pastoral Care Encounter/Spiritual Assessment Type of Contact [] Declined licensed optician visit [] Patient/Family/Request visit [] Outpatient visit [] Follow-up visit [] Physician referral [] Code/Alert [x] Routine visit [] Staff referral [] Actively dying [] Patient sleeping [] Family support [] [] Out of room [] Palliative care [] [] Receiving care in room [] Pre-surgical visit [] Trauma [] Long length of stay [x] ICU visit [] Other: Relational/Emotional Strength [] Patient feels connected with others/family/visitors/staff [] Distress [] Loneliness/isolation [] Abandonment Spirituality of Patient [] Person of Gwen [] Attends Synagogue of their Gwen [] Believes in Prayer [] Reads Bible or Taoist materials [] There are Spiritual issues to be addressed Domestic Laundry Worker Interventions [x] Prayer [] Active listening [] Non-anxious presence [] Spiritual/emotional support [] Crisis/trauma care [] Spiritual counseling [] Bereavement support [] Provided bereavement packet [] Provided Bible/devotional materials [] Provided toy/stuffed animal, coloring book to patient or family member [] Provided Communion [] Anointing/[facility] [] Salvation [x] Completed spiritual assessment [] Other: Impact on Illness or Injury [] Angry [] Fearful [] Anxious [] Often cries [] Exhaustion [] Unable to work [] Unable to attend zoroastrianism [] Unable to walk/stand [] Unable to read [] Unable to drive [] Unable to eat/drink [] Unable to sleep [] Unable to be with family [] Patient intubated [] Other: Summary Time spent with patient
[2022-06-05] MEDS: ceFAZolin 2,000 MG in sodium chloride 0.9% (plus) 50 ML 100 MG IV (13:09)
--- NOTE | 2022-06-05 13:24 | XR_ITS ---
WS: [id number] Exam: XR chest 1V portable [id number] Date/Time of Exam: 06/05/2022 1:33 PM Reason For Exam: Dialysis catheter Comparison 01/07/2015. A right-sided IJ double lumen catheter has been placed and appears to end in the lower one third of t he SVC. Mild cardiac enlargement. Increased pulmonary vascularity. No infiltrates. No pleural effusio ns. Regional bony elements are intact. The mediastinum is unremarkable for technique. XR/XR chest 1V portable [id number] IMPRESSION: 1. Right-sided IJ double lumen catheter appearing to end in the lower one third of the SVC. 2. Mild cardiac enlargement unchanged. Slightly increased pulmonary vascularity .
--- NOTE | 2022-06-05 13:24 | PM.CONSULT ---
Providers/Reason For Consult Consulting Physician/Specialty*: Ivory Barrios DO, telenephrology Reason for Consult*: Acute kidney injury, hyperkalemia Requesting Physician: Ron Menon MD Attending Physician: Ron Menon MD Primary Care Provider: Eva Rivas MD History of Present Illness History of Present Illness Wesly Price is a 77 year old male presented to ER for evaluation of anuria x 48 hours. Had CTA head/neck last week. Urinalysis and serum Cr normal prior. Recent diagnosis cervical cord compression. Medications/Allergies Home Medications Medication Instructions Recorded Confirmed Last Taken Type blood-glucose meter (FreeStyle #1 ea 12/29/19 06/05/22 Unknown Rx Lite Meter) flash glucose sensor (FreeStyle #6 ea 12/05/21 06/05/22 Unknown Rx Nu 14 Day Sensor) gabapentin 300 mg capsule 300 mg PO BID 90 days #180 caps 02/02/22 06/05/22 06/05/22 Rx acetaminophen 500 mg tablet 1,000 mg PO BID 06/05/22 06/05/22 06/05/22 History aspirin 325 mg tablet 325 mg PO QAM 06/05/22 06/05/22 06/05/22 History atorvastatin 40 mg tablet 40 mg PO BEDTIME 06/05/22 06/05/22 06/04/22 History benazepril 10 mg tablet 10 mg PO DAILY 06/05/22 06/05/22 Unknown History cholecalciferol (vitamin D3) 1,250 50,000 unit PO Q7D 06/05/22 06/05/22 Unknown History mcg (50,000 unit) capsule cyclobenzaprine 5 mg tablet 5 mg PO BID 06/05/22 06/05/22 06/05/22 History furosemide 40 mg tablet 40 mg PO QAM 06/05/22 06/05/22 06/05/22 History metformin 1,000 mg tablet 1,000 mg PO BID 06/05/22 06/05/22 06/05/22 History metoprolol tartrate 25 mg tablet 25 mg PO BID 06/05/22 06/05/22 06/05/22 History potassium chloride 20 mEq 20 meq PO QAM 06/05/22 06/05/22 06/05/22 History tablet,extended release(part/cryst) (Klor-Con M) spironolactone 25 mg tablet 25 mg PO DAILY 06/05/22 06/05/22 Unknown History Allergies Allergy/AdvReac Type Severity Reaction Status Date / Time Sulfa (Sulfonamide AdvReac Intermediate rash Verified 06/05/22 12:27 Antibiotics) Current Medications Generic Name Dose Route Start Last Admin Trade Name Freq PRN Reason Stop Dose Admin Dextrose 1,000 mls @ 100 mls/hr 06/05/22 11:00 06/05/22 11:17 D10w IV 100 mls/hr .Q10H LY Administration Cefazolin Sodium 2,000 mg/ 50 mls @ 100 mls/hr 06/05/22 13:03 06/05/22 13:09 Sodium Chloride IV 06/05/22 13:32 100 mls/hr ONCE ONE Administration Protocol PFSH Acute PFSH: Medical History 1st degree AV block 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 Because of the poor ultrasonic window and frequent arrhythmias, the segmental wall motion analysis and ejection fraction estimation could be misleading. Mild biatrial enlargement Thickened aortic and mitral valves Mild aortic valve regurgitation Dilated ascending aorta. Estimated pulmonary artery peak systolic pressure of 22 mmHg, this could be an underestimation because of the poor Doppler signals. Compared to the previous study from 01/08/2015, there appears to have some improvement in the LV ejection fraction . January 2015 Diffuse hypokinesia of the left ventricle with an ejection fraction of 35-40%(with echo contrast and using the method of disc) Thickened mitral valve with moderate regurgitation. [id number] tricuspid valve regurgitation. Mild pulmonary hypertension with an estimated? pulmonary pressure of 41 mmHg Mildly increased left atrial size. ? Normal right ventricular size and systolic function. Aortic root appears to be mildly dilated-4.1 cm There is no pericardial effusion. There are no intracardiac masses. H/O prostate cancer Hyperlipemia Ischemic myocardial dysfunction Light headedness Obesity (BMI 35.0-39.9 without comorbidity) Tachycardia Toe anomaly Vitamin D deficiency Surgical History S/P appendectomy S/P cardiac cath On 01/15/15 he underwent coronary angiography by Dr. Acosta. ?He had a 20% eccentric left main, minimal LAD intimal irregularities, normal circumflex, totally occluded RCA with grade 2 left to right collaterals. S/P prostatectomy Family History Brother Anesthesia complication Cancer Diabetes Father CAD (coronary artery disease) Mother CAD (coronary artery disease) Family/Other Lung disease Suicide Denies family history of Clotting disorder Dementia Chronic kidney disease (CKD) Bleeding disorder Stroke Social History Smoking and tobacco status: never smoked Second hand smoke exposure: No Alcohol intake: never Desire information about alcohol rehabilitation?: No Counseling given: No Desire information about substance/drug rehabilitation?: No Counseling given: No Vitals/I&O/Wt Last Vital Signs Temp 98.2 F 06/05/22 09:30 Pulse 78 06/05/22 12:33 Resp 22 H 06/05/22 12:33 BP 113/70 06/05/22 12:33 Pulse Ox 98 06/05/22 12:33 O2 Del Method 06/05/22 12:33 Weight last 48 hrs Weight 104.326 kg Physical Exam Const: COMMON NORMALS: no acute distress Neck/C-Spine: OTHER: right IJ HD catheter Data : 06/05/22 09:49 06/05/22 09:49 US: Radiologist's impression: Right kidney: 12.4 cm x 6.8 cm x 6.9 cm. Normal echogenicity with no hydronephrosis or mass. Left kidney: 11.5 cm x 6.3 cm x 6.3 cm. Normal size kidney. No hydronephrosis. Exophytic cyst from the mid kidney measures 3.2 x 2.6 x 2.3 cm. Aorta: Minimally visualized. Urinary Bladder: Nondistended. CXR: Radiologist's impression: verbal report dialysis catheter in good position A&P Assessment and plan (1) Acute kidney injury: Status: Acute Plan 1. Acute anuric kidney injury. Possible contrast nephropathy + volume depletion. Taking ACEi, loop diuretic, spironolactone and KCl as outpatient. Ultrasound without hydronephrosis. 2. Hyperkalemia, metabolic acidosis due to BLANCA and KCl supplement, spironolactone Recommend: IVF hydration; Received medical management for hyperkalemia. Proceed with emergency dialysis via temporary HD catheter. 3h, 2K bath. Hold ACEi, loop diuretic, spironolactone and KCl. U/A and urine sodium/Cr. Will assess for HD again tomorrow Consult Attestations Medical Necessity Statement: see above Time Spent in Patient Care: 16 - 35 minutes Coding Level of Care Code Acute Private Duty Rn for Felicitas Julien Diagnoses Acute kidney injury N17.9
[2022-06-05 13:30] LABS: Glucose Point of Care 117 mg/dL (70-110)
[2022-06-05 13:45] LABS: Creatine Phosphokinase 84 U/L (39-308)
[2022-06-05] MEDS: lidocaine 2% Urojet 20 mL TOPICAL (14:21)
[2022-06-05 14:43] LABS: Calcium 10.4 mg/dL (8.5-10.5); Carbon Dioxide 14 mmol/L (22-29); Chloride 97 mmol/L (98-107); Glucose 76 mg/dL (65-115); Osmolality Calculated 297 mOsm/kg (285-295); Sodium 132 mmol/L (136-145)
[2022-06-05 14:49] LABS: Blood Urea Nitrogen 81 mg/dL (8-23)
[2022-06-05] MEDS: famotidine 20 mg/2 mL INJ IVP (15:13)
[2022-06-05] MEDS: heparin 5,000 unit/mL INJ 1 mL 5000 UNIT SUBCUT (15:14)
--- NOTE | 2022-06-05 15:20 | ECG_ITS ---
[facility] Test Date: 2022-06-05 Pat Name: Wesly Price Department: Room: ICU08 Gender: Male Nutrition Manager: : 1945 Requested By: Jessie Saavedra Order Number: [id number] Sangeetha MD: George Beth M.D. Measurements Intervals [place] Rate: 81 P: 79 RI: 263 QRS: -47 QRSD: 150 T: 69 QT: 371 QTc: 433 Interpretive Statements SINUS RHYTHM WITH FIRST DEGREE AV BLOCK INTRAVENTRICULAR CONDUCTION DELAY [130+ ms QRS DURATION] INFERIOR MYOCARDIAL INFARCTION , OF INDETERMINATE AGE [40+ ms Q WAVE AND/OR ST/T ABNORMALITY IN II/aVF] Compared to ECG 06/05/2022 10:54:10 Intraventricular conduction delay now present Left bundle-branch block no longer present Myocardial infarct finding still present Electronically Signed On 06-06-2022 16:35:14 CDT by George Beth M.D. [email or web address]
[2022-06-05 15:54] LABS: Troponin 5 6HR 153.8 ng/L (0-15); Troponin 5 6HR Delta -31.2 ng/L (0-12)
[2022-06-05 16:05] LABS: Hepatitis B Surface AB 3.5 (11.5-1000); Hepatitis B Surface Antigen Non-Reactive (Nonreactive); Hepatitis C Virus Antibody Non-Reactive (Nonreactive)
[2022-06-05] MEDS: heparin, porcine 1,000 unit/mL INJ 10 mL 1000 UNIT IV (18:25)
--- NOTE | 2022-06-05 19:28 | PC.NURSE ---
SHIFT SUMMARY: PT HAS HAD AN UNEVENTFUL SHIFT. PT HAS NOT HAD ANY COMPLAINTS OF PAIN. PT TOLERATED DIALYSIS WELL TODAY. PT HAS NOT HAD ANY OUTPUT FOR THIS NURSE. PT HAS NO REQUESTS AT THIS TIME. WILL CONTINUE TO MONITOR.
[2022-06-05 20:42] LABS: Glucose Point of Care 77 mg/dL (70-110)
[2022-06-05 21:52] LABS: Anion Gap 24.4 (5-19); Blood Urea Nitrogen 45 mg/dL (8-23); Calcium 9.2 mg/dL (8.5-10.5); Carbon Dioxide 19 mmol/L (22-29); Chloride 99 mmol/L (98-107); Glucose 75 mg/dL (65-115); Osmolality Calculated 292 mOsm/kg (285-295); Potassium 6.4 mmol/L (3.5-5.1); Sodium 136 mmol/L (136-145)
[2022-06-05] MEDS: sodium polystyrene sulfonate 15 gm/60 mL Btl PO (22:46)
[2022-06-06] VITALS (63 sets, daily range): BP systolic 110–206; BP diastolic 49–89; PULSE 68–109; RESP 15–30; TEMP 36.4–36.7; O2SAT 90–100; BMI 36.9
[2022-06-06] MEDS: famotidine 20 mg/2 mL INJ IVP ×2 (00:18→13:59)
[2022-06-06 02:39] LABS: Glucose Point of Care 91 mg/dL (70-110)
[2022-06-06] MEDS: heparin 5,000 unit/mL INJ 1 mL 5000 UNIT SUBCUT (02:41)
[2022-06-06 04:13] LABS: Basophils # 0.1 10^3/uL (0.0-0.1); Basophils % 0.4 %; Eosinophils # 0.1 10^3/uL (0.0-0.8); Eosinophils % 1.1 %; Hematocrit 43.9 % (42.0-52.0); Lymphocytes # 1.3 10^3/uL (0.8-4.8); Lymphocytes % 11.8 %; Mean Corpuscular HGB Conc 31.9 g/dL (30.0-36.0); Mean Corpuscular Hemoglobin 30.3 pg (28.0-34.0); Mean Platelet Volume 12.1 fL (7.4-10.4); Monocytes # 1.3 10^3/uL (0.2-0.9); Monocytes % 11.2 %; Neutrophils # 8.57 10^3/uL (1.8-7.7); Neutrophils % 75.1 %; Nucleated Red Blood Cells % 0 %; Platelet Count 147 10^3/cmm (130-400); Red Blood Count 4.62 10^6/uL (4.1-5.3); Red Cell Distribution Width 13.6 % (12.1-15.1); White Blood Count 11.4 10^3/uL (4.0-10.0)
[2022-06-06 04:22] LABS: Blood Urea Nitrogen 46 mg/dL (8-23); Calcium 9.1 mg/dL (8.5-10.5); Carbon Dioxide 20 mmol/L (22-29); Glucose 90 mg/dL (65-115); Osmolality Calculated 285 mOsm/kg (285-295); Sodium 132 mmol/L (136-145)
[2022-06-06 04:36] LABS: Anion Gap 24.4 (5-19); Chloride 95 mmol/L (98-107)
[2022-06-06 04:50] LABS: Potassium 7.4 mmol/L (3.5-5.1)
[2022-06-06] MEDS: dextrose 10% 1,000 ML 100 ML IV (05:15)
--- NOTE | 2022-06-06 07:03 | P.PN_ITS ---
Subjective Subjective: slurred speech, weak, confused. low sugars. on d10 drip Medications: Reviewed: Yes Medication Review Details: Current Medications Acetaminophen (Acetaminophen 325 Mg Tablet) 650 mg PO Q6H PRN PRN Reason: MILD PAIN Aspirin (Aspirin 81 Mg Ec Tablet) 81 mg PO DAILY [facility] Famotidine (Famotidine 20 Mg/2 Ml Inj) 20 mg IVP Q12H [facility] Last Admin: 06/06/22 00:18 Dose: 20 mg Heparin Sodium (Porcine) (Heparin 5,000 Unit/Ml Inj 1 Ml) 5,000 unit SUBCUT Q12H [facility] Last Admin: 06/06/22 02:41 Dose: 5,000 unit Heparin Sodium (Porcine) (Heparin, Porcine 1,000 Unit/Ml Inj 10 Ml) 1,000 unit IV ONCE ONE Stop: 06/06/22 07:31 Dextrose (D10w) 1,000 mls @ 100 mls/hr IV .Q10H [facility] Last Admin: 06/06/22 05:15 Dose: 100 mls/hr Sodium Chloride (Sodium Chloride 0.9%) 1,000 mls @ 0 mls/hr IV .Q0M PRN PRN Reason: hypotension or symptomatic Sodium Chloride (Sodium Chloride 0.9%) 1,000 mls @ 0 mls/hr IV .Q0M PRN PRN Reason: hypotension or symptomatic calcium gluconate 0.9% NaCL (Calcium Gluconate 0.9% Nacl) 1 gm in 50 mls @ 50 mls/hr IV ONCE ONE Stop: 06/06/22 07:56 Morphine Sulfate (Morphine 2 Mg/Ml Syr 1 Ml) 2 mg IVP Q4H PRN PRN Reason: SEVERE PAIN Last Admin: 06/06/22 00:18 Dose: 2 mg Ondansetron HCl (Ondansetron 2 Mg/Ml Sdv 2 Ml) 4 mg IVP Q6H PRN PRN Reason: NAUSEA AND VOMITING Vitals/I&O/Wt Last Vital Signs Temp 97.7 F 06/05/22 20:01 Pulse 84 06/06/22 06:00 Resp 21 H 06/06/22 06:00 BP 174/67 06/06/22 06:00 Pulse Ox 97 06/06/22 04:00 O2 Del Method 06/05/22 20:00 06/05/22 06/06/22 06/06/22 22:59 06:59 14:59 Intake Total 1451.333 / 7825.953 5154 / 2501.333 Output Total 1500 / 1500 Balance -48.667 / 1.333 1000 / 1001.333 Weight last 48 hrs Weight 113.489 kg Weight 115.1 kg Weight 104.326 kg Weight 104.326 kg Physical Exam Narrative: uncomfortable in bed bp elevated heent- nc/at, eomi lungs dull bases and crackles heart reg, +JU abd soft, nt, nd, + bs ext edema, left side weak exam by RN- telehealth visit Urinary Catheter Management: Coude: Cath Placed During This Visit: yes Reason for Continuing Indwelling Catheter: Accurate Measurement of Urinary Output in Critically Ill Patients Urinary Catheter Date of Insertion: 06/05/22 Urinary Catheter Time of Insertion: 15:02 Data : 06/06/22 03:50 06/06/22 03:50 A&P Assessment and plan (1) Acute kidney injury: 77 yr old man 1. BLANCA- no hydronephrosis on renal us - bland ua -working dx is CI- BLANCA and med effect from diuretics and kylee-i -s/p HD yesterday -k remains high- rx medically and emergent hd now- 3.5 hrs, 2k bath, remove 2l 2. htn- monitor w/ hd 3. hypoglycemia- monitor w/ dialysis seen and examined w/ RN- telehealth visit discussed plan w/ HD RN -time spent > 30 min Status: Acute Plan see above Attestations Medical Necessity Statement*: blanca, hyperkalemia Time Spent in Patient Care: 16 - 35 minutes (>than 50% of time spent in counselling and/or direct pt care on unit) . Coding Level of Care Code Acute Supervisor Paint Department for Felicitas Julien Diagnoses Acute kidney injury N17.9
[2022-06-06] MEDS: calcium gluconate 0.9% NaCL 1 GM/50 ML PREMIX IV ×2 (07:41→11:40)
[2022-06-06] MEDS: dextrose 50% syringe 50 mL IVP ×2 (07:41→11:40)
[2022-06-06] MEDS: insulin regular-human 5 UNIT in SYRINGE 1 EACH 1 UNIT IVP (07:42)
[2022-06-06 08:07] LABS: Cortisol Random 20.57 ug/dL (2.47-19.5)
[2022-06-06 08:25] LABS: Glucose Point of Care 120 mg/dL (70-110)
[2022-06-06] MEDS: metoprolol tartrate 25 mg Tablet PO ×2 (09:16→21:11)
[2022-06-06] MEDS: aspirin 81 mg EC Tablet PO (09:16)
--- NOTE | 2022-06-06 09:38 | PM.PN ---
Subjective Subjective: Wesly reports he is doing okay. Does not feel too short of breath. Reviewed his hospital course with him again. Denies any chest discomfort. Medications: Reviewed: Yes Vitals/I&O/Wt Last Vital Signs Temp 97.7 F 06/05/22 20:01 Pulse 86 06/06/22 07:44 Resp 21 H 06/06/22 06:00 BP 174/67 06/06/22 06:00 Pulse Ox 93 06/06/22 07:44 O2 Del Method 06/06/22 07:44 06/05/22 06/06/22 06/06/22 22:59 06:59 14:59 Intake Total 1451.333 / 1694.410 4354 / 2501.333 Output Total 1500 / 1500 Balance -48.667 / 1.333 1000 / 1001.333 Weight last 48 hrs Weight 113.489 kg Weight 115.1 kg Weight 104.326 kg Weight 104.326 kg Physical Exam Narrative: General exam is a white male, conversant. Neck is supple no lymphadenopathy or thyromegaly. Temporary dialysis catheter noted right neck Cardiovascular regular rate and rhythm without murmur Lungs clear no wheezing or crackles. Diminished breath sounds are noted bilaterally Abdomen is soft with positive bowel sounds. No obvious organomegaly. Extensive abdominal scar noted. exam normal male Extremities trace edema, 1+ edema. No cyanosis or clubbing. Skin no rash Neuro no obvious focal deficits Urinary Catheter Management: Coude: Cath Placed During This Visit: yes Reason for Continuing Indwelling Catheter: Accurate Measurement of Urinary Output in Critically Ill Patients Urinary Catheter Date of Insertion: 06/05/22 Urinary Catheter Time of Insertion: 15:02 Data : 06/06/22 03:50 06/06/22 03:50 A&P Assessment and plan (1) Acute kidney injury: Patient with severe acute kidney injury. No evidence of urinary retention on ultrasound, but is a constant concern considering his cervical myopathy, history of prostate surgery, and inability to place a Marley catheter. Appreciate urology consultation for placement of catheter Nephrology consultation for acute dialysis appreciated. Receive dialysis initially June 05 and will have repeat session today. He continues to remain anuric Avoid renal toxic medication Overall his presentation is likely multifactorial, in this patient on chronic diuretics who is diabetic, on ARB, spironolactone, oral potassium who presumably has recently had poor oral fluid intake as well as issues with cervical cord compression. CK was checked and not elevated Appreciate surgery consult for temporary dialysis catheter Hyperkalemia still present Check urinalysis when able Status: Acute (2) Hyperkalemia: Secondary to acute kidney injury, in the face of treatment with potassium, Aldactone, benazepril. Hold all of these medicines in the interim Avoid NSAIDs Nephrology has ordered calcium, insulin and glucose this morning prior to repeat dialysis session Status: Acute (3) Cervical cord compression with myelopathy: Avoid significant neck flexion Will still need outpatient evaluation by orthopedic spine surgery. We will discussed with them at some point during the hospital course when this follow-up should occur. Status: Acute (4) Diabetic peripheral neuropathy associated with type 2 diabetes mellitus: Consistent carb diet Avoid insulin currently with his degree of renal dysfunction Note the blood sugar was somewhat low on admission. Received D10 initially. We will check cortisol level. Status: Acute (5) Chronic congestive heart failure: Currently appears compensated. No acute component. Secondary to ischemic cardiomyopathy. Last echo demonstrates EF of 50%. Check echocardiogram Status: Acute Plan Multiple other medical problems as outlined by his past medical history Full code currently Heparin for DVT prophylaxis Attestations Medical Necessity Statement*: Needs continued hospitalization secondary to severe acute kidney injury requiring hemodialysis. Critical Care Time: The high probability of a clinically significant, sudden or life threatening deterioration of the patient's [renal, cardiovascular] system(s) required my full and direct attention, intervention and personal management. The critical care time is as shown. This time is in addition to time spent performing any reported procedures but includes the following: [x] Data and vital sign review and interpretation [x] Patient assessment, examination and intervention [x] Documentation [x] Medication orders and management Critical Care Time (min): 30 Coding Level of Care Code Acute Drying Tumbler Operator for [facility] Fwd Diagnoses Acute kidney injury N17.9 Hyperkalemia E87.5 Cervical cord compression with myelopathy G95.20 Diabetic peripheral neuropathy associated with type 2 diabetes mellitus E11.42 Chronic congestive heart failure I50.9
--- NOTE | 2022-06-06 09:46 | USCV_ITS ---
Wesly Price Age: 77 Gender: M : 1945 Exam Date: 06/06/2022 12:03 Ordering Phys: Ron Menon MD Technologist: Thomas Santiago [place] [facility] [place]: chest pain , lv hypertrophy BP: / HR: 103 Rhythm: Sinus Technical Quality: Technically difficult study MEASUREMENTS (Male / Female) Normal Values 2D ECHO LV Diastolic Diameter PLAX 4.5 cm 4.2 - 5.9 / 3.9 - 5.3 cm LV Systolic Diameter PLAX 3.8 cm IVS Diastolic Thickness 1.0 cm 0.6 - 1.0 / 0.6 - 0.9 cm IVS Systolic Thickness 1.8 cm LVPW Diastolic Thickness 1.1 cm 0.6 - 1.0 / 0.6 - 0.9 cm LVPW Systolic Thickness 1.6 cm LVOT Diameter 2.1 cm LV Ejection Fraction 2D Teich 17.8 % LV Ejection Fraction MOD 2C 73.0 % LV Ejection Fraction 2C AL 72.9 % LA Diameter 4.0 cm Aorta at Sinotubular Diameter 4.0 cm M-MODE Aortic Annulus Diameter 4.8 cm LA Ao Ratio MM 0.9 MV E Point Septal Separation 1.9 cm DOPPLER AV Peak Velocity 204.0 cm/s LVOT Peak Velocity 118.0 cm/s AV Area Cont Eq vti 1.9 cm squared AV Area Cont Eq pk 2.0 cm squared MV Area PHT 5.0 cm squared Mitral E to A Ratio 2.0 MV E' Velocity 104.0 cm/s Mitral E to MV E' Ratio 40.0 Mitral E to LV E' Lateral Ratio 52.4 Mitral E to LV E' Septal Ratio 32.4 TR Peak Velocity 121.0 cm/s TR Peak Gradient 5.9 mmHg TV Peak E Velocity 119.0 cm/s Right Atrial Pressure 3.0 mmHg Pulmonary Artery Systolic Pressu 8.9 mmHg PV Peak Velocity 161.0 cm/s FINDINGS Left Ventricle Normal left ventricular cavity size. Increased left ventricular wall thickness. Mild left ventricular hypertrophy. Mildly decreased left ventricular systolic function. Left ventricular ejection fraction is estimated at 45-50 %. There appears to be septal hypokinesis. Abnormal septal motion consistent with conduction abnormality. E A fusion due to first-degree AV block noted. Abnormal diastolic function. Right Ventricle Normal right ventricular size and systolic function. Right Atrium Normal right atrial size. Left Atrium Mildly increased left atrial size. Mitral Valve Moderate mitral annular calcification. Aortic Valve Aortic valve not well visualized. No aortic valve stenosis. Tricuspid Valve Tricuspid valve not well visualized. Pulmonic Valve Pulmonic valve not well visualized. Pericardium No pericardial effusion. Prominent epicardial fat. Aorta Dilated aortic root measuring 47 mm anteroposteriorly and ascending aorta measured at 45 mm. IVC Inferior vena cava not visualized. CONCLUSIONS 1. Normal left ventricular cavity size. Mild left ventricular hypertrophy. Mildly decreased left ventricular systolic function. Left ventricular ejection fraction is estimated at 45- 50 %. There appears to be septal hypokinesis. Abnormal septal motion consistent with conduction abnormality. E A fusion due to first-degree AV block noted. Abnormal diastolic function. 2. Normal right ventricular size and systolic function. 3. Dilated aortic root measuring 47 mm anteroposteriorly and ascending aorta measured at 45 mm. 4. When compared to previous study dated 06/29/2021, aortic root and ascending aorta appears to be dilated. CTA chest may be considered for better assessment of aortic root and ascending aorta. January Dia MD (Electronically Signed) Final Date: 06 June 2022 16:58 S
--- NOTE | 2022-06-06 10:27 | PC.CHAP ---
Pastoral Care Encounter/Spiritual Assessment Type of Contact [] Declined analytical consultant visit [] Patient/Family/Request visit [] Outpatient visit [] Follow-up visit [] Physician referral [] Code/Alert [x] Routine visit [] Staff referral [] Actively dying [] Patient sleeping [] Family support [] [] Out of room [] Palliative care [] [x] Receiving care in room [] Pre-surgical visit [] Trauma [] Long length of stay [x] ICU visit [] Other: Relational/Emotional Strength [] Patient feels connected with others/family/visitors/staff [] Distress [] Loneliness/isolation [] Abandonment Spirituality of Patient [] Person of Gwen [] Attends Zoroastrianism of their Gwen [] Believes in Prayer [] Reads Bible or Latter Day materials [] There are Spiritual issues to be addressed Executive Chairman Interventions [x] Prayer [] Active listening [] Non-anxious presence [] Spiritual/emotional support [] Crisis/trauma care [] Spiritual counseling [] Bereavement support [] Provided bereavement packet [] Provided Bible/devotional materials [] Provided toy/stuffed animal, coloring book to patient or family member [] Provided Communion [] Anointing/[place] [] Salvation [x] Completed spiritual assessment [] Other: Impact on Illness or Injury [] Angry [] Fearful [] Anxious [] Often cries [] Exhaustion [] Unable to work [] Unable to attend sabianism [] Unable to walk/stand [] Unable to read [] Unable to drive [] Unable to eat/drink [] Unable to sleep [] Unable to be with family [] Patient intubated [] Other: Summary Time spent with patient
[2022-06-06 11:01] LABS: Anion Gap 24.3 (5-19); Blood Urea Nitrogen 43 mg/dL (8-23); Calcium 9.2 mg/dL (8.5-10.5); Carbon Dioxide 21 mmol/L (22-29); Chloride 93 mmol/L (98-107); Glucose 113 mg/dL (65-115); Osmolality Calculated 286 mOsm/kg (285-295); Potassium 6.3 mmol/L (3.5-5.1); Sodium 132 mmol/L (136-145)
[2022-06-06 11:05] LABS: Glucose Point of Care 102 mg/dL (70-110)
[2022-06-06] MEDS: ceFAZolin 2,000 MG in sodium chloride 0.9% (plus) 50 ML 100 MG IV (11:21)
--- NOTE | 2022-06-06 11:23 | PC.HD ---
Trx was initiated with lines reversed, due to difficulty pulling from arterial limb of HD catheter. During trx, A/P pressures steadily increased, necessitating lowering of BFR from prescribed speed of 400 in order to maintain acceptable AP pressure on dialysis machine. Pressures remained extremely high, and Dr. Campbell was called to bedside to attempt adjustment of catheter, which was unsuccessful. BFR was lowered 200, and AP pressures blanka to >-250, which is outside the acceptable pressure. Treatment was terminated, manager trading and surgeon were apprised of the situation. Surgeon to reattempt adjustment of catheter vs replacement.
[2022-06-06] MEDS: insulin regular-human 10 UNIT in SYRINGE 1 EACH IVP (11:41)
--- NOTE | 2022-06-06 12:45 | PM.PN ---
Subjective Subjective: Patient got some dialysis but it seems that the catheter is not optimally functioning per nephrology service, required replacement. Medications: Reviewed: Yes Vitals/I&O/Wt Last Vital Signs Temp 97.7 F 06/06/22 11:20 Pulse 97 06/06/22 11:20 Resp 16 06/06/22 11:20 BP 173/70 06/06/22 11:20 Pulse Ox 92 06/06/22 10:00 O2 Del Method 06/06/22 07:44 06/05/22 06/06/22 06/06/22 22:59 06:59 14:59 Intake Total 1451.333 / 8088.184 8271 / 2501.333 962.5 / 962.5 Output Total 1500 / 1500 220 / 220 Balance -48.667 / 1.333 1000 / 1001.333 742.5 / 742.5 Weight last 48 hrs Weight 250 lb 0.067 oz Weight 250 lb 3.2 oz Weight 253 lb 12.033 oz Weight 230 lb Weight 230 lb Physical Exam Narrative: Patient is conscious alert oriented X3 Mild to moderate distress BMI 37 Head and neck examination PERRLA no masses no cervical lymphadenopathy no jaundice Right IJ hemodialysis catheter in place Bed Side adjustment did not help Abdomen nontender nondistended soft no organomegaly guarding or rigidity/no signs of peritonitis Morbidly obese Urinary Catheter Management: Coude: Cath Placed During This Visit: yes Reason for Continuing Indwelling Catheter: Accurate Measurement of Urinary Output in Critically Ill Patients Urinary Catheter Date of Insertion: 06/05/22 Urinary Catheter Time of Insertion: 15:02 Data : 06/06/22 03:50 06/06/22 10:28 A&P Assessment and plan (1) Contrast dye induced nephropathy: Plan of care; After thorough history physical examination and reviewing the chart .I counseled the patient for another non-tunneled hemodialysis catheter placement, indications, risks including possibility of , stroke, heart attack, major bleeding, infection, pneumonia, organ failure, failure to benefit, prolonged hospital stay, pain after the procedure pneumothorax that may require Chest tube(s) placement and potential injury of major vascular structures that may require Thoractomy, benefits,indications and alternatives were all discussed with the patient, patient understands and is interested to proceed. To be placed in the right femoral vein Rationale was carefully and clearly discussed with the patient.Appropriate informed consent have been reviewed and signed. Status: Acute Attestations Medical Necessity Statement*: Per admitting service Procedures Time out/Consent Time Out Performed: Yes Consent for Procedure: Consent obtained from patient Procedure Narrative Preprocedure diagnosis contrast-induced nephropathy/hyperkalemia Postprocedure diagnosis the same Procedure done : Under local anesthesia attempted placement of right femoral vein nontunneled hemodialysis catheter was not successful patient was agitated and had redundant pannus that hindered safe access to the right femoral vein. Initial attempts revealed venous blood but the patient was moving and we had to abort. And ask anesthesia to provide sedation to the patient in the ICU. And thus attention was deviated toward replacement of temporary nontunneled dialysis catheter in the right internal jugular vein. ? IMAGING UTILIZED:~None except for chest x-ray postprocedure ANESTHESIA:?Sedation provided by MAKSIM Anglin and Dr. Guzmán with location in the ICU REASON FOR PLACEMENT:? [Acute kidney injury] DESCRIPTION OF PROCEDURE PLACEMENT:~ Medications were reviewed to assess for anticoagulant usage.? Risks and benefits and prevention of central line associated blood stream infection (CLABSI) were discussed with the patient/CPOA, and a consent was obtained.? Monitors were in place and monitored throughout the procedure.? A time out was performed with the nurse present. All necessary supplies were available prior to start.? Hand hygiene was completed prior to starting.? Maximum barrier technique was utilized including a sterile gown, sterile gloves with a hat and mask.? Site was was prepped with [chlorhexidine] and a full body drape was placed. 5 mL of 1% lidocaine was injected into the skin with a 25 gauge needle. I started flushing the right internal jugular vein catheter and there were clots appreciated following that exchange wire was placed without difficulty. and the index catheter was taken out and another new 1 was replaced without complication the wire was then taken out. All ports were then aspirated showing venous return and were each then flushed with sterile normal saline and heparin 2500 IV to the catheter was then sutured in place and a Tegaderm was used to cover the insertion site.? Patient tolerated the procedure without difficulty or complication.? A portable chest x-ray was performed which illustrated no pneumothorax and proper placement of the catheter with the tip resting just above the right atrium per my interpretation.? Patient's vital signs remained stable throughout the procedure.? At this time it is safe to use the [right internal jugular vein hemodialysis catheter] line. Estimated blood loss 20 mL Service Order Dispatcher surgical instrument maker Aaliyah Anesthesia MAC/local lidocaine I was present for the whole entire procedure Coding Level of Care Code Acute Tankroom Worker for Chg Fwd Diagnoses Contrast dye induced nephropathy N14.1; T50.8X5A
[2022-06-06 12:49] LABS: Glucose Point of Care 81 mg/dL (70-110)
--- NOTE | 2022-06-06 13:00 | PM.CONSULT ---
Providers/Reason For Consult Consulting Physician/Specialty*: Ortho Spine Reason for Consult*: Neck Pain Attending Physician: Ron Menon MD Primary Care Provider: Eva Rivas MD History of Present Illness History of Present Illness Wesly Price is a 77 year old male who was evaluated in ICU 8 with neck pain. He is hospitalized echo problems currently. Patient had an MRI scan and 05/26/2022. Orthopedics was consulted for his neck and left arm pain. Patient was evaluated in ICU 8 with nurses present and was difficult to understand seem confused poor historian. He described tongue pain as well as intermittent left upper extremity and shoulder pain. Denies any specific injury to his neck. He is moving both arms on evaluation in the unit today. Pain has been present for a number of years. Activities seem to make his condition much worse. He denies any specific clumsiness or falling episodes. An extensive review of the patient's past medical history, surgical history, allergies, medications, family history, social history, and review of systems was completed Review of Systems General: Reports: 10 or more systems reviewed and unremarkable except in HPI and below Const: Reports: fatigue and malaise; Denies: fever(s) or chills Eyes: Denies: change in vision ENMT: Denies: throat pain Card: Denies: chest pain or palpitations Resp: Denies: dyspnea GI: Reports: nausea and vomiting; Denies: abdominal pain, hematochezia or melena : Reports: difficulty urinating and oliguria; Denies: flank pain Musc: Reports: neck pain Skin/Breast: Denies: rash or pruritus Neuro: Reports: numbness in extremities and weakness in extremities; Denies: headache(s) Psych: Denies: anxiety or depression Endo: Denies: polyuria Jacob/Lymph: Denies: easy bruising or easy bleeding All/Imm: Denies: urticaria or throat swelling Medications/Allergies Home Medications Medication Instructions Recorded Confirmed Last Taken Type blood-glucose meter (FreeStyle #1 ea 12/29/19 06/05/22 Unknown Rx Lite Meter) flash glucose sensor (FreeStyle #6 ea 12/05/21 06/05/22 Unknown Rx Nu 14 Day Sensor) acetaminophen 500 mg tablet 1,000 mg PO BID 06/05/22 06/05/22 06/05/22 History aspirin 325 mg tablet 325 mg PO QAM 06/05/22 06/05/22 06/05/22 History atorvastatin 40 mg tablet 40 mg PO BEDTIME 06/05/22 06/05/22 06/04/22 History benazepril 10 mg tablet 10 mg PO DAILY 06/05/22 06/05/22 Unknown History cholecalciferol (vitamin D3) 1,250 50,000 unit PO Q7D 06/05/22 06/05/22 Unknown History mcg (50,000 unit) capsule cyclobenzaprine 5 mg tablet 5 mg PO BID 06/05/22 06/05/22 06/05/22 History furosemide 40 mg tablet 40 mg PO QAM 06/05/22 06/05/22 06/05/22 History gabapentin 300 mg capsule 300 mg PO BID 90 days #180 caps 06/05/22 Unknown Rx metformin 1,000 mg tablet 1,000 mg PO BID 06/05/22 06/05/22 06/05/22 History metoprolol tartrate 25 mg tablet 25 mg PO BID 06/05/22 06/05/22 06/05/22 History potassium chloride 20 mEq 20 meq PO QAM 06/05/22 06/05/22 06/05/22 History tablet,extended release(part/cryst) (Klor-Con M) spironolactone 25 mg tablet 25 mg PO DAILY 06/05/22 06/05/22 Unknown History Allergies Allergy/AdvReac Type Severity Reaction Status Date / Time Sulfa (Sulfonamide AdvReac Intermediate rash Verified 06/05/22 12:27 Antibiotics) Current Medications Generic Name Dose Route Start Last Admin Trade Name Andrew PRN Reason Stop Dose Admin Aspirin 81 mg 06/06/22 09:00 06/06/22 09:16 Aspirin 81 Mg Ec Tablet PO 81 mg DAILY LY Administration Famotidine 20 mg 06/05/22 13:15 06/06/22 00:18 Famotidine 20 Mg/2 Ml Inj IVP 20 mg Q12H LY Administration Heparin Sodium (Porcine) 5,000 unit 06/05/22 13:30 06/06/22 02:41 Heparin 5,000 Unit/Ml Inj 1 Ml SUBCUT 5,000 unit Q12H LY Administration Dextrose 1,000 mls @ 100 mls/hr 06/05/22 11:00 06/06/22 11:00 D10w IV 50 mls/hr .Q10H LY Infusion Metoprolol Tartrate 25 mg 06/06/22 09:00 06/06/22 09:16 Metoprolol Tartrate 25 Mg Tablet PO 25 mg BID@0900,2100 LY Administration Morphine Sulfate 2 mg 06/05/22 13:25 06/06/22 00:18 Morphine 2 Mg/Ml Syr 1 Ml IVP 2 mg Q4H PRN Administration SEVERE PAIN PFSH Acute PFSH: Medical History 1st degree AV block 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 Because of the poor ultrasonic window and frequent arrhythmias, the segmental wall motion analysis and ejection fraction estimation could be misleading. Mild biatrial enlargement Thickened aortic and mitral valves Mild aortic valve regurgitation Dilated ascending aorta. Estimated pulmonary artery peak systolic pressure of 22 mmHg, this could be an underestimation because of the poor Doppler signals. Compared to the previous study from 01/08/2015, there appears to have some improvement in the LV ejection fraction . January 2015 Diffuse hypokinesia of the left ventricle with an ejection fraction of 35-40%(with echo contrast and using the method of disc) Thickened mitral valve with moderate regurgitation. [id number] tricuspid valve regurgitation. Mild pulmonary hypertension with an estimated? pulmonary pressure of 41 mmHg Mildly increased left atrial size. ? Normal right ventricular size and systolic function. Aortic root appears to be mildly dilated-4.1 cm There is no pericardial effusion. There are no intracardiac masses. H/O prostate cancer Hyperlipemia Ischemic myocardial dysfunction Light headedness Obesity (BMI 35.0-39.9 without comorbidity) Tachycardia Toe anomaly Vitamin D deficiency Surgical History S/P appendectomy S/P cardiac cath On 01/15/15 he underwent coronary angiography by Dr. Acosta. ?He had a 20% eccentric left main, minimal LAD intimal irregularities, normal circumflex, totally occluded RCA with grade 2 left to right collaterals. S/P prostatectomy Family History Brother Anesthesia complication Cancer Diabetes Father CAD (coronary artery disease) Mother CAD (coronary artery disease) Family/Other Lung disease Suicide Denies family history of Clotting disorder Dementia Chronic kidney disease (CKD) Bleeding disorder Stroke Social History Smoking and tobacco status: never smoked Second hand smoke exposure: No Alcohol intake: never Desire information about alcohol rehabilitation?: No Counseling given: No Desire information about substance/drug rehabilitation?: No Counseling given: No Vitals/I&O/Wt Last Vital Signs Temp 97.7 F 06/06/22 11:20 Pulse 109 H 06/06/22 12:00 Resp 19 H 06/06/22 12:00 BP 164/69 06/06/22 12:00 Pulse Ox 93 06/06/22 12:00 O2 Del Method 06/06/22 07:44 06/05/22 06/06/22 06/06/22 22:59 06:59 14:59 Intake Total 1451.333 / 3178.111 6149 / 2501.333 962.5 / 962.5 Output Total 1500 / 1500 220 / 220 Balance -48.667 / 1.333 1000 / 1001.333 742.5 / 742.5 Weight last 48 hrs Weight 250 lb 0.067 oz Weight 250 lb 3.2 oz Weight 253 lb 12.033 oz Weight 230 lb Weight 230 lb Physical Exam Narrative: Patient is alert oriented. Moving both upper extremities with no apparent distress. Rotates his head without any obvious pain. Mild palpatory pain in the lower cervical and upper thoracic region. Some moderate tenderness with range of motion of the left shoulder. He has good sensation light touch in both hands with 5/5 strength throughout all upper extremity motor groups. Radial pulses are palpable. Good sensation to light touch. No apparent palpable pain in the thoracic or lumbar spine moves both lower extremities 2+ edema in both lower extremities. Feet are warm good cap refill calves are supple HENMT: COMMON NORMALS: normocephalic HEAD & SCALP: normocephalic Resp: COMMON NORMALS: normal respiratory effort Cardio: COMMON NORMALS: regular rate and regular rhythm RATE: regular rate RHYTHM: regular rhythm GI: COMMON NORMALS: Soft to palpation and non-tender PALPATION: Yes Soft to palpation Psych: COMMON NORMALS: cooperative Urinary Catheter Management: Coude: Cath Placed During This Visit: yes Reason for Continuing Indwelling Catheter: Accurate Measurement of Urinary Output in Critically Ill Patients Urinary Catheter Date of Insertion: 06/05/22 Urinary Catheter Time of Insertion: 15:02 Data : 06/06/22 03:50 06/06/22 10:28 MRI: Radiologist's impression: MR/MR cervical spin wo con* [id number] IMPRESSION: ? 1.? Straightening of the normal cervical lordosis. Slight anterolisthesis C4 on C5 and C7 on T1 measuring approximate 4 mm both of these levels. 2.? Severe central canal stenosis C4-C5 due to slight anterolisthesis in combination with disc bulging and facet arthropathy. This results in severe central canal stenosis with effacement of surrounding CSF. Impingement and mild flattening of the cervical cord with small amount of myelomalacia in the cervical cord at this level. 3.? Mild central canal stenosis C5-C6. 4.? Moderate to severe multilevel bony foraminal narrowing worse at bilateral C3-C4, bilateral C4-C5, bilateral C5-C6, and RIGHT C7-T1. 5.? Moderate facet arthropathy worse at bilateral C3-C4, bilateral C4-C5, and RIGHT C5-C6. 6.? Small RIGHT facet effusion at C4-C5 compatible with a small amount of synovitis likely degenerative or inflammatory. A&P Assessment and plan (1) Cervical spondylosis with myelopathy: At this point his we will wait for him to become more medically stable. Discussed the patient's condition with him but not sure how much he understood. Has the C4-5 anterior listhesis with stenosis with the autofusion of C5-6. There is multilevel foraminal stenosis on the MRI scan as well. We will await for the patient become more medically stable to discuss further treatment options. Status: Acute (2) Degenerative disc disease, cervical: Status: Acute Coding Level of Care Code New Pt Acute Storage Solutions Architect for Felicitas Julien Patient Type New History Problem Focused Medical Decision Making Moderate Complexity Diagnoses Cervical spondylosis with myelopathy M47.12 Degenerative disc disease, cervical M50.30
--- NOTE | 2022-06-06 13:01 | PC.NURSE ---
Communication with Dr. Menon regarding patient's plan of care throughout shift. Labs and vital signs reviewed. Reported Dr. Gardner's plan for HD today. Updated Dr. Menon that the HD nurse was having difficulty with his cath flow. After Dr. Lemus was unable to reposition the original HD cath it was decided to insert a new cath. Orders to keep patient NPO. Orders to titrate D10 drip by 25ml/hr, with frequent blood sugar checks. Reported progression of blood sugars with D10 titration to Dr. Menon. Orders to keep drip at 50 ml/hr and to hold afternoon dose of heparin for line placement.
--- NOTE | 2022-06-06 13:04 | ANES.PREANE2 ---
Pre-Anesthetic Assessment Height/Weight: Height 1.75 m Weight 113.4 kg Temp Pulse Resp BP Pulse Ox O2 Del Method 97.7 F 109 H 19 H 164/69 93 06/06/22 11:20 06/06/22 12:00 06/06/22 12:00 06/06/22 12:00 06/06/22 12:00 06/06/22 07:44 HD catheter Was Beta Trey taken within 24 hours: Yes Was Clonidine taken within 24 hours: N/A Social No alcohol and No tobacco Exam alert, clear to auscultation bilaterally and regular rate & rhythm Airway Submandibular: within normal limits Cervical ROM: Other (Limited) Mallampati: Class III Dentition: chipped CV/HEM Coronary Artery Disease, Congestive Heart Failure, Hypertension and Myocardial Infarction Chronic Renal Failure Failed HD catheter, urgently requiring dialysis now , uremia w/ hyperkalemia Metabolic Diabetes Mellitus Musc/skel Osteoarthritis/DJD Neuropsych Neuropathy and Transient Ischemic Attack Anesthetic Plan ASA status: 4 Anesthesia: Anesthesia Evaluation and MAC Other: I discussed with the patient risks, goals, and benefits of MAC and general anesthesia. We discussed spectrum of MAC anesthesia including conversion to general as well as possibility of recall of intraoperative stimuli including discomfort/pain. Patient agrees to proceed with MAC. Consent verbal, patient unable to sign due to hand discoordination Risk of > 500 ml blood loss (7ml/kg in children): No Medications/Allergies Home Medications Medication Instructions Recorded Confirmed Last Taken Type blood-glucose meter (FreeStyle #1 ea 12/29/19 06/05/22 Unknown Rx Lite Meter) flash glucose sensor (FreeStyle #6 ea 12/05/21 06/05/22 Unknown Rx Nu 14 Day Sensor) acetaminophen 500 mg tablet 1,000 mg PO BID 06/05/22 06/05/22 06/05/22 History aspirin 325 mg tablet 325 mg PO QAM 06/05/22 06/05/22 06/05/22 History atorvastatin 40 mg tablet 40 mg PO BEDTIME 06/05/22 06/05/22 06/04/22 History benazepril 10 mg tablet 10 mg PO DAILY 06/05/22 06/05/22 Unknown History cholecalciferol (vitamin D3) 1,250 50,000 unit PO Q7D 06/05/22 06/05/22 Unknown History mcg (50,000 unit) capsule cyclobenzaprine 5 mg tablet 5 mg PO BID 06/05/22 06/05/22 06/05/22 History furosemide 40 mg tablet 40 mg PO QAM 06/05/22 06/05/22 06/05/22 History gabapentin 300 mg capsule 300 mg PO BID 90 days #180 caps 06/05/22 Unknown Rx metformin 1,000 mg tablet 1,000 mg PO BID 06/05/22 06/05/22 06/05/22 History metoprolol tartrate 25 mg tablet 25 mg PO BID 06/05/22 06/05/22 06/05/22 History potassium chloride 20 mEq 20 meq PO QAM 06/05/22 06/05/22 06/05/22 History tablet,extended release(part/cryst) (Klor-Con M) spironolactone 25 mg tablet 25 mg PO DAILY 06/05/22 06/05/22 Unknown History Allergies Allergy/AdvReac Type Severity Reaction Status Date / Time Sulfa (Sulfonamide AdvReac Intermediate rash Verified 06/05/22 12:27 Antibiotics) Current Medications Generic Name Dose Route Start Last Admin Trade Name Freq PRN Reason Stop Dose Admin Aspirin 81 mg 06/06/22 09:00 06/06/22 09:16 Aspirin 81 Mg Ec Tablet PO 81 mg DAILY LY Administration Famotidine 20 mg 06/05/22 13:15 06/06/22 00:18 Famotidine 20 Mg/2 Ml Inj IVP 20 mg Q12H LY Administration Heparin Sodium (Porcine) 5,000 unit 06/05/22 13:30 06/06/22 13:01 Heparin 5,000 Unit/Ml Inj 1 Ml SUBCUT Not Given Q12H LY Dextrose 1,000 mls @ 100 mls/hr 06/05/22 11:00 06/06/22 11:00 D10w IV 50 mls/hr .Q10H LY Infusion Metoprolol Tartrate 25 mg 06/06/22 09:00 06/06/22 09:16 Metoprolol Tartrate 25 Mg Tablet PO 25 mg BID@0900,2100 LY Administration Morphine Sulfate 2 mg 06/05/22 13:25 06/06/22 00:18 Morphine 2 Mg/Ml Syr 1 Ml IVP 2 mg Q4H PRN Administration SEVERE PAIN Additional Medication Information Current Medications Acetaminophen (Acetaminophen 325 Mg Tablet) 650 mg PO Q6H PRN PRN Reason: MILD PAIN Aspirin (Aspirin 81 Mg Ec Tablet) 81 mg PO DAILY [facility] Famotidine (Famotidine 20 Mg/2 Ml Inj) 20 mg IVP Q12H [facility] Last Admin: 06/06/22 00:18 Dose: 20 mg Heparin Sodium (Porcine) (Heparin 5,000 Unit/Ml Inj 1 Ml) 5,000 unit SUBCUT Q12H [facility] Last Admin: 06/06/22 02:41 Dose: 5,000 unit Heparin Sodium (Porcine) (Heparin, Porcine 1,000 Unit/Ml Inj 10 Ml) 1,000 unit IV ONCE ONE Stop: 06/06/22 07:31 Dextrose (D10w) 1,000 mls @ 100 mls/hr IV .Q10H [facility] Last Admin: 06/06/22 05:15 Dose: 100 mls/hr Sodium Chloride (Sodium Chloride 0.9%) 1,000 mls @ 0 mls/hr IV .Q0M PRN PRN Reason: hypotension or symptomatic Sodium Chloride (Sodium Chloride 0.9%) 1,000 mls @ 0 mls/hr IV .Q0M PRN PRN Reason: hypotension or symptomatic calcium gluconate 0.9% NaCL (Calcium Gluconate 0.9% Nacl) 1 gm in 50 mls @ 50 mls/hr IV ONCE ONE Stop: 06/06/22 07:56 Morphine Sulfate (Morphine 2 Mg/Ml Syr 1 Ml) 2 mg IVP Q4H PRN PRN Reason: SEVERE PAIN Last Admin: 06/06/22 00:18 Dose: 2 mg Ondansetron HCl (Ondansetron 2 Mg/Ml Sdv 2 Ml) 4 mg IVP Q6H PRN PRN Reason: NAUSEA AND VOMITING [facility] Anest[facility] Medical History 1st degree AV block Atherosclerotic heart disease of [place] coronary artery without angina pectoris Cervical cord compression with myelopathy Chronic congestive heart failure Diabetes type 2, controlled Diabetic foot infection Diabetic neuropathy Dizziness Essential hypertension H/O echocardiogram 04/24/2016 Mild diffuse hypokinesia of the left ventricle with an ejection fraction of 45-50%. Because of the poor ultrasonic window and frequent arrhythmias, the segmental wall motion analysis and ejection fraction estimation could be misleading. Mild biatrial enlargement Thickened aortic and mitral valves Mild aortic valve regurgitation Dilated ascending aorta. Estimated pulmonary artery peak systolic pressure of 22 mmHg, this could be an underestimation because of the poor Doppler signals. Compared to the previous study from 01/08/2015, there appears to have some improvement in the LV ejection fraction . January 2015 Diffuse hypokinesia of the left ventricle with an ejection fraction of 35-40%(with echo contrast and using the method of disc) Thickened mitral valve with moderate regurgitation. Egyp-eo-[id number] tricuspid valve regurgitation. Mild pulmonary hypertension with an estimated? pulmonary pressure of 41 mmHg Mildly increased left atrial size. ? Normal right ventricular size and systolic function. Aortic root appears to be mildly dilated-4.1 cm There is no pericardial effusion. There are no intracardiac masses. H/O prostate cancer Hyperlipemia Ischemic myocardial dysfunction Light headedness Obesity (BMI 35.0-39.9 without comorbidity) Tachycardia Toe anomaly Vitamin D deficiency Surgical History S/P appendectomy S/P cardiac cath On 01/15/15 he underwent coronary angiography by Dr. Acosta. ?He had a 20% eccentric left main, minimal LAD intimal irregularities, normal circumflex, totally occluded RCA with grade 2 left to right collaterals. S/P prostatectomy Family History Brother Anesthesia complication Cancer Diabetes Father CAD (coronary artery disease) Mother CAD (coronary artery disease) Family/Other Lung disease Suicide Denies family history of Clotting disorder Dementia Chronic kidney disease (CKD) Bleeding disorder Stroke Social History Smoking and tobacco status: never smoked Second hand smoke exposure: No Alcohol intake: never Desire information about alcohol rehabilitation?: No Counseling given: No Desire information about substance/drug rehabilitation?: No Counseling given: No Data Anesthesia : 06/06/22 03:50 06/06/22 10:28 Short CBC 06/05/22 06/06/22 Range/Units 09:49 03:50 WBC 10.8 H 11.4 H (4.0-10.0) 10^3/uL Hgb 15.0 14.0 (11.7-16.6) g/dL Hct 47.0 43.9 (42.0-52.0) % MCV 96.5 H 95.0 H (80-94) fl Plt Count 190 147 (130-400) 10^3/cmm Neut % (Auto) 77.7 75.1 % Neut # (Auto) 8.44 H 8.57 H (1.8-7.7) 10^3/uL BMP 06/05/22 06/05/22 06/05/22 09:49 13:55 20:53 Sodium 135 L 132 L 136 Potassium 8.0 H* 8.0 H* 6.4 H Chloride 97 L 97 L 99 Carbon Dioxide 17 L 14 L 19 L BUN 83 H* D 81 H 45 H Creatinine 6.8 H* 6.7 H* 5.2 H Glucose 64 L 76 75 Calcium 9.3 10.4 9.2 06/06/22 06/06/22 03:50 10:28 Sodium 132 L 132 L Potassium 7.4 H* 6.3 H Chloride 95 L 93 L Carbon Dioxide 20 L 21 L BUN 46 H 43 H Creatinine 5.6 H* 5.0 H Glucose 90 113 Calcium 9.1 9.2 Cardiac Enzymes 06/05/22 06/05/22 06/05/22 Range/Units 09:49 09:49 11:48 Creatine Kinase 84 (39-308) U/L Troponin T Baseline 185 H* (0-15) ng/L Troponin T 120 Minute 170.4 H (0-15) ng/L Delta Troponin T -14.6 L (0-10) ABS# Troponin T Hi Sens 6Hr (0-15) ng/L Troponin T Hi Sens 6Hr Delta (0-12) ng/L 06/05/22 Range/Units 15:03 Creatine Kinase (39-308) U/L Troponin T Baseline (0-15) ng/L Troponin T 120 Minute (0-15) ng/L Delta Troponin T (0-10) ABS# Troponin T Hi Sens 6Hr 153.8 H (0-15) ng/L Troponin T Hi Sens 6Hr Delta -31.2 L (0-12) ng/L Liver Function 06/05/22 Range/Units 09:49 Total Bilirubin 0.4 (0.15-1.2) mg/dL AST 19 (0-40) U/L ALT 13 (0-41) U/L Alkaline Phosphatase 105 (40-130) U/L Albumin 3.9 (3.5-5.2) g/dL Cardiac Studies: Echocardiogram 06/06/22 Sestamibi Stress Test (Cardiology) 06/29/21
--- NOTE | 2022-06-06 13:06 | USCV_ITS ---
Wesly Price Age: 77 Gender: M : 1945 Exam Date: 06/06/2022 01:24 Ordering Phys: Ron Menon MD Technologist: JUAN A [place] [facility] [place]: edema RT greater than LT. Patient is incoherent in ICU-8 HISTORY: edema RT greater than LT. Patient is incoherent in ICU-8 PROCEDURES: Venous duplex imaging was performed in bilateral lower extremities. The venous duplex Doppler examination of both lower extremities was performed in the standard fashion. The following venous structures were evaluated: common femoral vein, profunda vein, proximal portion of the greater saphenous vein, superficial femoral vein, and the popliteal vein. In addition, the posterior tibial veins were evaluated. Serial compression, augmentation maneuvers, and spectral Doppler flow evaluation were performed, which were normal. Bilaterally, the common femoral, superficial femoral, profunda femoral, popliteal, posterior tibial, and greater saphenous veins were identified and interrogated in the standard fashion. These veins were found to be easily compressible with spontaneous blood flow. No evidence of thrombus noted. CONCLUSIONS No evidence of right lower extremity DVT. No evidence of left lower extremity DVT. Alex Mart MD (Electronically Signed) Final Date: 06 June 2022 14:06 S
--- NOTE | 2022-06-06 13:44 | XR_ITS ---
WS: [id number] Exam: XR chest 1V portable [id number] Date/Time of Exam: 06/06/2022 1:44 PM Reason For Exam: Status post exchange of right internal jugular vein hemodial Comparison 06/05/2022. Cardiac enlargement with increased pulmonary vascularity. Prominent main pulmonary arteries and SVC. The appearance is unchanged. The lungs are fully expanded. A right IJ double lumen catheter appears t o end at the expected region of the cavoatrial junction. No pleural effusions. No consolidating infil trates. Bony structures are intact. Atherosclerotic plaquing and tortuosity of the thoracic aorta. XR/XR chest 1V portable [id number] IMPRESSION: 1. Right-sided IJ double lumen catheter appears to end at the cavoatrial juncti on in good position. 2. Cardiac enlargement with the increased pulmonary vascularity. Prominent main pulmonary arteries. Overall, no change.
[2022-06-06 14:30] LABS: Glucose Point of Care 77 mg/dL (70-110)
[2022-06-06] MEDS: heparin, porcine 1,000 unit/mL INJ 10 mL 1000 UNIT IV (15:14)
[2022-06-06 15:40] LABS: Glucose Point of Care 80 mg/dL (70-110)
[2022-06-06 16:35] LABS: Glucose Point of Care 93 mg/dL (70-110)
[2022-06-06] MEDS: dextrose 10% 1,000 ML 75 ML IV (16:36)
--- NOTE | 2022-06-06 17:42 | PC.NURSE ---
Bladder scan volume 0 ml.
--- NOTE | 2022-06-06 18:39 | ANE.PACU2 ---
Inpatient post-anesthesia follow up: Airway intact: Yes Vital signs: Temperature 97.7 F Pulse Rate 103 Respiratory Rate 17 Blood Pressure 157/63 Pulse Oximetry 95 Oxygen Delivery Me thod [ Room Air Current Rate & Del luisa] Oxygen Delivery Me thod Room Air Oxygen Flow Rate Fraction of Inspir ed Oxygen Hydration adequate: Yes Nausea and vomiting: No Pain level: 1 Mental status: Baseline
[2022-06-06] MEDS: atorvastatin 40 mg Tablet PO (21:11)
[2022-06-06 21:15] LABS: Bilirubin Urine Neg (Negative); Blood Urine 3+ (Negative); Glucose Urine UA Norm (Normal); Ketones Urine Negative (Negative); Leukocyte Esterase Urine 2+ (Negative); Nitrate Urine Negative (Negative); Protein Urine 3+ (Negative); Specific Gravity, Urine 1.015 (1.005-1.030); Urine Appearance Cloudy (CLEAR); Urine Color Red (Yellow); Urobilinogen Urine Norm (Negative); pH Urine 5 (5-7)
[2022-06-06 21:16] LABS: Add Urine Culture? Yes; Bacteria Urine 2+ /hpf; Hyaline Casts Urine 0-4 /lpf; RBC Urine TOO NUMEROUS TO CNT /hpf (0-2); Squamous Epithelial Cell Urine 0-4 /hpf (0-5); WBC Urine TOO NUMEROUS TO CNT /hpf (0-5)
[2022-06-06 21:30] LABS: Potassium, Radom Urine 28 mmol/L; Urine Random Chloride 78 mmol/L; Urine Random Sodium 83 mmol/L
[2022-06-06 21:55] LABS: Glucose Point of Care 125 mg/dL (70-110)
[2022-06-06 23:03] LABS: Glucose Point of Care 105 mg/dL (70-110)
[2022-06-06] MEDS: dextrose 10% 1,000 ML 25 ML IV (23:40)
[2022-06-07] VITALS (33 sets, daily range): BP systolic 109–160; BP diastolic 48–96; PULSE 81–131; RESP 16–27; TEMP 36.2–37.1; O2SAT 90–98; BMI 37.0
[2022-06-07 00:16] LABS: Glucose Point of Care 122 mg/dL (70-110)
[2022-06-07 01:05] LABS: Glucose Point of Care 99 mg/dL (70-110)
[2022-06-07] MEDS: heparin 5,000 unit/mL INJ 1 mL 5000 UNIT SUBCUT ×2 (01:07→13:38)
[2022-06-07] MEDS: famotidine 20 mg/2 mL INJ IVP ×2 (01:07→13:38)
[2022-06-07 02:03] LABS: Glucose Point of Care 91 mg/dL (70-110)
[2022-06-07 03:06] LABS: Glucose Point of Care 91 mg/dL (70-110)
[2022-06-07 04:03] LABS: Basophils # 0.1 10^3/uL (0.0-0.1); Basophils % 0.5 %; Eosinophils # 0.1 10^3/uL (0.0-0.8); Eosinophils % 0.7 %; Hematocrit 43.3 % (42.0-52.0); Hemoglobin 13.9 g/dL (11.7-16.6); Lymphocytes # 1.2 10^3/uL (0.8-4.8); Lymphocytes % 9.2 %; Mean Corpuscular HGB Conc 32.1 g/dL (30.0-36.0); Mean Corpuscular Volume 96.7 fl (80-94); Mean Platelet Volume 12.9 fL (7.4-10.4); Monocytes # 1.6 10^3/uL (0.2-0.9); Monocytes % 12.2 %; Neutrophils # 10.06 10^3/uL (1.8-7.7); Nucleated Red Blood Cells % 0 %; Platelet Count 137 10^3/cmm (130-400); Red Blood Count 4.48 10^6/uL (4.1-5.3); Red Cell Distribution Width 13.5 % (12.1-15.1); White Blood Count 13.1 10^3/uL (4.0-10.0)
[2022-06-07 04:08] LABS: Glucose Point of Care 86 mg/dL (70-110)
[2022-06-07 04:28] LABS: Positive C 1
[2022-06-07 04:30] LABS: Slide Review Slide Review Perform
[2022-06-07 04:36] LABS: Alanine Aminotransferase 8 U/L (0-41); Albumin Level 3.5 g/dL (3.5-5.2); Alkaline Phosphatase 91 U/L (40-130); Blood Urea Nitrogen 34 mg/dL (8-23); Calcium 9.1 mg/dL (8.5-10.5); Carbon Dioxide 20 mmol/L (22-29); Chloride 95 mmol/L (98-107); Globulin 2.4 g/dL (1.3-4.6); Glucose 89 mg/dL (65-115); Magnesium 1.4 mg/dL (1.7-2.3); Osmolality Calculated 279 mOsm/kg (285-295); Phosphorus 4.2 mg/dL (2.5-4.5); Sodium 131 mmol/L (136-145); Total Bilirubin 0.8 mg/dL (0.15-1.2); Total Protein 5.9 g/dL (6.6-8.7)
[2022-06-07 04:37] LABS: Anion Gap 22.8 (5-19)
[2022-06-07 04:38] LABS: Aspartate Amino Transferase 28 U/L (0-40)
[2022-06-07 04:40] LABS: Potassium 6.8 mmol/L (3.5-5.1)
--- NOTE | 2022-06-07 04:49 | PC.NURSE ---
critical potassium level was reported to this RN at 0440. MD Craig was notified and orders were received. MD Craig requested that this RN notify nephrology. MD Jj notified @ [phone] of potassium and orders from Craig. MD Jj ordered 60mg IV lasix 1x.
[2022-06-07 05:03] LABS: Glucose Point of Care 93 mg/dL (70-110)
[2022-06-07] MEDS: insulin regular-human 10 UNIT in SYRINGE 1 EACH IVP (05:22)
[2022-06-07] MEDS: FUROsemide 10 mg/mL SDV 10mL 60 MG IVP (05:22)
[2022-06-07] MEDS: dextrose 50% syringe 50 mL 25 ML IVP (05:23)
[2022-06-07] MEDS: calcium gluconate 0.9% NaCL 1 GM/50 ML PREMIX IV (05:29)
[2022-06-07] MEDS: sodium polystyrene sulfonate 15 gm/60 mL Btl PO (05:46)
--- NOTE | 2022-06-07 06:11 | P.PN_ITS ---
Subjective Subjective: weak, not sob. starting to urinate. new dialysis catheter. Medications: Reviewed: Yes Medication Review Details: Current Medications Acetaminophen (Acetaminophen 325 Mg Tablet) 650 mg PO Q6H PRN PRN Reason: MILD PAIN Aspirin (Aspirin 81 Mg Ec Tablet) 81 mg PO DAILY [facility] Last Admin: 06/06/22 09:16 Dose: 81 mg Atorvastatin Calcium (Atorvastatin 40 Mg Tablet) 40 mg PO BEDTIME [facility] Last Admin: 06/06/22 21:11 Dose: 40 mg Famotidine (Famotidine 20 Mg/2 Ml Inj) 20 mg IVP Q12H [facility] Last Admin: 06/07/22 01:07 Dose: 20 mg Heparin Sodium (Porcine) (Heparin 5,000 Unit/Ml Inj 1 Ml) 5,000 unit SUBCUT Q12H [facility] Last Admin: 06/07/22 01:07 Dose: 5,000 unit Sodium Chloride (Sodium Chloride 0.9%) 1,000 mls @ 0 mls/hr IV .Q0M PRN PRN Reason: hypotension or symptomatic Metoprolol Tartrate (Metoprolol Tartrate 25 Mg Tablet) 25 mg PO BID@0900,2100 [facility] Last Admin: 06/06/22 21:11 Dose: 25 mg Morphine Sulfate (Morphine 2 Mg/Ml Syr 1 Ml) 2 mg IVP Q4H PRN PRN Reason: SEVERE PAIN Last Admin: 06/06/22 00:18 Dose: 2 mg Ondansetron HCl (Ondansetron 2 Mg/Ml Sdv 2 Ml) 4 mg IVP Q6H PRN PRN Reason: NAUSEA AND VOMITING Vitals/I&O/Wt Last Vital Signs Temp 98.6 F 06/07/22 03:00 Pulse 87 06/07/22 04:00 Resp 21 H 06/07/22 04:00 BP 130/66 06/07/22 04:27 Pulse Ox 94 06/07/22 04:00 O2 Del Method 06/07/22 03:00 O2 Flow Rate 2 06/06/22 21:47 06/06/22 06/06/22 06/07/22 14:59 22:59 06:59 Intake Total 1138.333 / 1138.333 703.90 / 1842.233 81.6 / 1923.833 Output Total 220 / 220 65 / 285 350 / 635 Balance 918.333 / 918.333 638.90 / 1557.233 -268.4 / 1288.833 Weight last 48 hrs Weight 113.988 kg Weight 113.4 kg Weight 113.489 kg Weight 115.1 kg Weight 104.326 kg Weight 104.326 kg Physical Exam Narrative: more comfortable in bed, confused VSS heent- nc/at, eomi lungs dull bases and crackles heart reg, +JU abd soft, nt, nd, + bs ext 1+ b/l leg edema neuro- left side weak exam by RN- telehealth visit Urinary Catheter Management: Coude: Cath Placed During This Visit: yes Reason for Continuing Indwelling Catheter: Accurate Measurement of Urinary Output in Critically Ill Patients Urinary Catheter Date of Insertion: 06/05/22 Urinary Catheter Time of Insertion: 15:02 Data : 06/07/22 03:43 06/07/22 03:43 A&P Assessment and plan (1) Acute kidney injury: 77 yr old man 1. BLANCA- no hydronephrosis on renal us - bland ua -working dx is CI- BLANCA and med effect from diuretics and kylee-i -s/p HD last 2 days- even w/ dialysis catheter is working poorly -as hyperkalemic- will rx medically and dialyze again now- 3.5 hrs, 2k bath, remove 2l 2. htn- bp well controlled 3. hyponatremia- monitor w/ dialysis mild leukocytosis hyperkalmiea- monitor w/ hs, lasix, and med management seen and examined w/ RN- telehealth visit discussed plan w/ HD RN -time spent 25 min Status: Acute Plan see above Attestations Medical Necessity Statement*: sob, blanca Time Spent in Patient Care: 16 - 35 minutes (>than 50% of time spent in counselling and/or direct pt care on unit) . Coding Level of Care Code Acute Cafe Aide for Felicitas Julien Diagnoses Acute kidney injury N17.9
[2022-06-07 06:13] LABS: Glucose Point of Care 98 mg/dL (70-110)
--- NOTE | 2022-06-07 07:36 | PM.PN ---
Subjective Subjective: Patient undergone exchange of right internal jugular vein temporary dialysis catheter and dialysis yesterday and subsequently completed his dialysis. Chest x-ray showed appropriate position of the replaced dialysis access. Patient was seen and examined today in the ICU Medications: Reviewed: Yes Vitals/I&O/Wt Last Vital Signs Temp 98.6 F 06/07/22 03:00 Pulse 90 06/07/22 06:00 Resp 27 H 06/07/22 06:00 BP 160/89 06/07/22 06:00 Pulse Ox 94 06/07/22 06:00 O2 Del Method 06/07/22 03:00 O2 Flow Rate 2 06/06/22 21:47 06/06/22 06/07/22 06/07/22 22:59 06:59 14:59 Intake Total 703.90 / 1842.233 131.6 / 1973.833 Output Total 65 / 285 350 / 635 Balance 638.90 / 1557.233 -218.4 / 1338.833 Weight last 48 hrs Weight 251 lb 4.8 oz Weight 250 lb 0.067 oz Weight 250 lb 3.2 oz Weight 253 lb 12.033 oz Weight 230 lb Weight 230 lb Physical Exam Narrative: Patient is conscious alert yet confused Moderately distressed BMI 37 Head and neck examination PERRLA no masses no cervical lymphadenopathy no jaundice Right-sided neck temporary dialysis catheter in place without complication Cardiac examination audible S1-S2 no murmurs no gallops no arrhythmias Chest fair air entry Abdomen nontender nondistended soft no organomegaly guarding or rigidity/no signs of peritonitis Mild ecchymosis of the right groin status post attempt of femoral vein access but no evidence of hematoma Urinary Catheter Management: Coude: Cath Placed During This Visit: yes Reason for Continuing Indwelling Catheter: Accurate Measurement of Urinary Output in Critically Ill Patients Urinary Catheter Date of Insertion: 06/05/22 Urinary Catheter Time of Insertion: 15:02 Data : 06/07/22 03:43 06/07/22 03:43 A&P Assessment and plan (1) Acute kidney injury: Continue medical management per hospitalist and nephrology service Thank you for consulting general surgery to participate taking care of Mr. Price Status: Acute Attestations Medical Necessity Statement*: Per admitting service Coding Level of Care Code Acute Pediatric Acute Care Unit Nurse for Felicitas Julien Diagnoses Acute kidney injury N17.9
[2022-06-07 08:13] LABS: Potassium 5.4 mmol/L (3.5-5.1)
[2022-06-07 08:27] LABS: Glucose Point of Care 84 mg/dL (70-110)
[2022-06-07] MEDS: haloperidol inj 5 mg/mL INJ 1 mL 2 MG IM (08:56)
[2022-06-07] MEDS: heparin, porcine 1,000 unit/mL INJ 10 mL 10000 UNIT HE (09:10)
--- NOTE | 2022-06-07 11:10 | PM.PN ---
Subjective Subjective: Patient is conversational, in no obvious complaints when I can get him to focus. However he appears to be hallucinating, and delusional at times. Medications: Reviewed: Yes Vitals/I&O/Wt Last Vital Signs Temp 97.9 F 06/07/22 09:34 Pulse 99 06/07/22 09:34 Resp 22 H 06/07/22 09:34 BP 143/92 06/07/22 09:34 Pulse Ox 91 06/07/22 08:54 O2 Del Method 06/07/22 08:54 O2 Flow Rate 2 06/07/22 08:54 06/06/22 06/07/22 06/07/22 22:59 06:59 14:59 Intake Total 703.90 / 1842.233 131.6 / 1973.833 Output Total 65 / 285 350 / 635 Balance 638.90 / 1557.233 -218.4 / 1338.833 Weight last 48 hrs Weight 113.988 kg Weight 113.4 kg Weight 113.489 kg Weight 115.1 kg Weight 104.326 kg Physical Exam Narrative: General exam is a white male, conversant is Neck is supple no lymphadenopathy or thyromegaly. Temporary dialysis catheter noted right neck Cardiovascular regular rate and rhythm without murmur Lungs clear no wheezing or crackles. Diminished breath sounds are noted bilaterally Abdomen is soft with positive bowel sounds. No obvious organomegaly. Extensive abdominal scar noted. exam normal male Extremities trace edema, 1+ edema. No cyanosis or clubbing. Skin no rash Neuro no obvious focal deficits Urinary Catheter Management: Coude: Cath Placed During This Visit: yes Reason for Continuing Indwelling Catheter: Accurate Measurement of Urinary Output in Critically Ill Patients Urinary Catheter Date of Insertion: 06/05/22 Urinary Catheter Time of Insertion: 15:02 Data : 06/07/22 03:43 06/07/22 07:40 Other Labs: Magnesium level low A&P Assessment and plan (1) Acute kidney injury: Patient with severe acute kidney injury. No evidence of urinary retention on ultrasound, but is a constant concern considering his cervical myopathy, history of prostate surgery, and inability to place a Marley catheter. Appreciate urology consultation for placement of catheter Nephrology consultation for acute dialysis appreciated. Receive dialysis initially June 05 and will have repeat session today. He has now made slightly over 600 cc of urine over the last 24 hours Avoid renal toxic medication Overall his presentation is likely multifactorial, in this patient on chronic diuretics who is diabetic, on ARB, spironolactone, oral potassium who presumably has recently had poor oral fluid intake as well as issues with cervical cord compression. CK was checked and not elevated Appreciate surgery consult for temporary dialysis catheter Hyperkalemia still present Urinalysis been checked. Question infection. Rocephin added. Status: Acute (2) Hyperkalemia: Secondary to acute kidney injury, in the face of treatment with potassium, Aldactone, benazepril. Hold all of these medicines in the interim Avoid NSAIDs Temporizing measures given, while arranging dialysis to bring this down. Status: Acute (3) Cervical cord compression with myelopathy: Avoid significant neck flexion Will still need outpatient evaluation by orthopedic spine surgery. We will discussed with them at some point during the hospital course when this follow-up should occur. Status: Acute (4) Diabetic peripheral neuropathy associated with type 2 diabetes mellitus: Consistent carb diet Avoid insulin currently with his degree of renal dysfunction Note the blood sugar was somewhat low on admission. Received D10 initially. Cortisol level checked and normal. Blood sugar has been stable currently. Status: Acute (5) Chronic congestive heart failure: Currently appears compensated. No acute component. Secondary to ischemic cardiomyopathy. Last echo demonstrates EF of 50%. Echocardiogram demonstrates no obvious change. Some dilation of his aorta is noted. Consider CT chest at some point during hospital course. This cannot be done with contrast, which would be ideal. Status: Acute Plan Possible UTI. Rocephin added. Await urine culture Hypomagnesemia, supplement Multiple other medical problems as outlined by his past medical history Full code currently Heparin for DVT prophylaxis Attestations Medical Necessity Statement*: Needs continued hospitalization secondary to severe acute renal failure, hyperkalemia, need for frequent dialysis. Critical Care Time: The high probability of a clinically significant, sudden or life threatening deterioration of the patient's [renal, cardiac] system(s) required my full and direct attention, intervention and personal management. The critical care time is as shown. This time is in addition to time spent performing any reported procedures but includes the following: [x] Data and vital sign review and interpretation [x] Patient assessment, examination and intervention [x] Documentation [x] Medication orders and management Critical Care Time (min): 30 Coding Level of Care Code Acute Slice Cutting Machine Operator Helper for Chg Fwd Diagnoses Acute kidney injury N17.9 Hyperkalemia E87.5 Cervical cord compression with myelopathy G95.20 Diabetic peripheral neuropathy associated with type 2 diabetes mellitus E11.42 Chronic congestive heart failure I50.9
--- NOTE | 2022-06-07 11:35 | P.PN_ITS ---
Subjective Subjective: Patient seems confused. he was evaluated in the ICU room 8 in no apparent distress. He is moving both arms denies any changes in his neck pain. Vitals/I&O/Wt Last Vital Signs Temp 97.9 F 06/07/22 09:34 Pulse 99 06/07/22 09:34 Resp 22 H 06/07/22 09:34 BP 143/92 06/07/22 09:34 Pulse Ox 91 06/07/22 08:54 O2 Del Method 06/07/22 08:54 O2 Flow Rate 2 06/07/22 08:54 06/06/22 06/07/22 06/07/22 22:59 06:59 14:59 Intake Total 703.90 / 1842.233 131.6 / 1973.833 Output Total 65 / 285 350 / 635 Balance 638.90 / 1557.233 -218.4 / 1338.833 Weight last 48 hrs Weight 251 lb 4.8 oz Weight 250 lb 0.067 oz Weight 250 lb 3.2 oz Weight 253 lb 12.033 oz Weight 230 lb Physical Exam Narrative: Patient is alert but seems confused. mild palpable neck pain he is moving both arms over his head with some discomfort over the left shoulder good sensation light touch into his hands wiggles both lower extremities with 1+ edema in the legs. Hands are warm good cap refill good sensation light touch in both hands. Radial pulses are palpable he is able to wiggle his fingers. Can flex and extend both elbows. He rotates his neck slowly with some discomfort. Appears to fire in all motor groups in both upper and lower extremities. He has no palpable thoracic or lumbar pain. HENMT: COMMON NORMALS: normocephalic HEAD & SCALP: normocephalic Resp: COMMON NORMALS: normal respiratory effort Cardio: COMMON NORMALS: regular rate and regular rhythm RATE: regular rate RHYTHM: regular rhythm GI: COMMON NORMALS: Soft to palpation PALPATION: Yes Soft to palpation Psych: COMMON NORMALS: cooperative Urinary Catheter Management: Coude: Cath Placed During This Visit: yes Reason for Continuing Indwelling Catheter: Accurate Measurement of Urinary Output in Critically Ill Patients Urinary Catheter Date of Insertion: 06/05/22 Urinary Catheter Time of Insertion: 15:02 Data : 06/07/22 03:43 06/07/22 07:40 A&P Assessment and plan (1) Degenerative disc disease, cervical: Does not appear to have any change in his condition with regards to his cervical and upper extremities. We will await for him to be more medically stable before discussing any further conservative treatment versus surgical treatment. Can certainly see him outpatient with evaluation by the pain clinician for potential of facet blocks, Although with his stenosis w/ myelopathy consideration of cervical decompression with ACDF and/ or posterior decompression would be necessary. Continue to follow. Discussed at length with Dr. Ansari and he agrees with above-stated plan. Status: Acute (2) Cervical spondylosis with myelopathy: Status: Acute Attestations Medical Necessity Statement*: Defer to medical team Coding Level of Care Code Established Pt Acute Consulting Sales Manager for Chg Fwd Patient Type Established History Problem Focused Exam Problem Focused Medical Decision Making Moderate Complexity Diagnoses Degenerative disc disease, cervical M50.30 Cervical spondylosis with myelopathy M47.12
[2022-06-07] MEDS: magnesium sulfate premix 2 GM/50 ML PIGGYBACK IV (11:38)
[2022-06-07] MEDS: cefTRIAXone 1,000 MG in sodium chloride 0.9% (plus) 50 ML 100 MG IV (11:38)
[2022-06-07 12:20] LABS: Glucose Point of Care 111 mg/dL (70-110)
--- NOTE | 2022-06-07 13:10 | PC.NURSE ---
0764 Reported Mg level to Dr. Menon. Orders for replacement received. [address] Menon to be held until after HD. Orders to give mg and antibiotics after HD. 1230 Reported patient's vital signs and that patient was unable to swallow his pills safely to Dr. Menon. 1315 Orders for IV metoprolol.
[2022-06-07] MEDS: metoprolol tartrate 1 mg/1 mL SDV 5 mL 5 MG IVP (13:38)
[2022-06-07 17:28] LABS: Glucose Point of Care 95 mg/dL (70-110)
[2022-06-07 17:53] LABS: Alanine Aminotransferase 6 U/L (0-41); Albumin Level 3.5 g/dL (3.5-5.2); Alkaline Phosphatase 95 U/L (40-130); Anion Gap 21.7 (5-19); Aspartate Amino Transferase 26 U/L (0-40); Blood Urea Nitrogen 24 mg/dL (8-23); Calcium 9.4 mg/dL (8.5-10.5); Carbon Dioxide 23 mmol/L (22-29); Chloride 95 mmol/L (98-107); Globulin 3.3 g/dL (1.3-4.6); Glucose 100 mg/dL (65-115); Osmolality Calculated 284 mOsm/kg (285-295); Potassium 4.7 mmol/L (3.5-5.1); Sodium 135 mmol/L (136-145); Total Bilirubin 1.1 mg/dL (0.15-1.2); Total Protein 6.8 g/dL (6.6-8.7)
[2022-06-07 21:07] LABS: Glucose Point of Care 101 mg/dL (70-110)
--- NOTE | 2022-06-07 21:33 | PC.NURSE ---
Patient was reported to have difficulties swallowing the previous 24hrs. Patient is supine lying due to cervical spine injury. PO meds were due @2100 and Hospitalist notified of issue. OK to non admit was given unless alternate route is ordered.
[2022-06-08] VITALS (29 sets, daily range): BP systolic 116–196; BP diastolic 49–116; PULSE 97–120; RESP 15–27; TEMP 36.8–37.6; O2SAT 89–96
[2022-06-08] MEDS: heparin 5,000 unit/mL INJ 1 mL 5000 UNIT SUBCUT (00:42)
[2022-06-08] MEDS: famotidine 20 mg/2 mL INJ IVP ×2 (00:42→13:18)
--- NOTE | 2022-06-08 03:36 | PC.NURSE ---
Patient has been resting majority of the night. Talks while sleeping with AMS while awake. Morphine has been administered to help with pain and discomfort reported by client. Client has not had any oral intake in past 24hrs due to dysphasia. Urine output remains clear/pale yellow with adequate volume. Vitals remain stable.
[2022-06-08 04:00] LABS: Basophils % 0.3 %; Eosinophils # 0.1 10^3/uL (0.0-0.8); Eosinophils % 0.5 %; Hematocrit 44.7 % (42.0-52.0); Hemoglobin 14.4 g/dL (11.7-16.6); Lymphocytes % 7.6 %; Mean Corpuscular HGB Conc 32.2 g/dL (30.0-36.0); Mean Corpuscular Hemoglobin 30.8 pg (28.0-34.0); Mean Corpuscular Volume 95.7 fl (80-94); Mean Platelet Volume 12.6 fL (7.4-10.4); Monocytes # 1.8 10^3/uL (0.2-0.9); Monocytes % 13.8 %; Neutrophils # 9.94 10^3/uL (1.8-7.7); Neutrophils % 77.4 %; Nucleated Red Blood Cells % 0 %; Platelet Count 141 10^3/cmm (130-400); Red Blood Count 4.67 10^6/uL (4.1-5.3); Red Cell Distribution Width 13.6 % (12.1-15.1); White Blood Count 12.9 10^3/uL (4.0-10.0)
[2022-06-08 04:25] LABS: Alanine Aminotransferase < 5 U/L (0-41); Albumin Level 3.1 g/dL (3.5-5.2); Alkaline Phosphatase 96 U/L (40-130); Blood Urea Nitrogen 29 mg/dL (8-23); Calcium 9.5 mg/dL (8.5-10.5); Carbon Dioxide 23 mmol/L (22-29); Chloride 94 mmol/L (98-107); Globulin 3.5 g/dL (1.3-4.6); Glucose 110 mg/dL (65-115); Magnesium 1.8 mg/dL (1.7-2.3); Osmolality Calculated 280 mOsm/kg (285-295); Phosphorus 4.2 mg/dL (2.5-4.5); Sodium 132 mmol/L (136-145); Total Bilirubin 1.1 mg/dL (0.15-1.2); Total Protein 6.6 g/dL (6.6-8.7)
[2022-06-08 04:39] LABS: Anion Gap 19.5 (5-19); Aspartate Amino Transferase 27 U/L (0-40); Potassium 4.5 mmol/L (3.5-5.1)
--- NOTE | 2022-06-08 06:26 | P.PN_ITS ---
Subjective Subjective: back pain. confused, good uop. no sob. dec edema Medications: Reviewed: Yes Medication Review Details: Current Medications Acetaminophen (Acetaminophen 325 Mg Tablet) 650 mg PO Q6H PRN PRN Reason: MILD PAIN Aspirin (Aspirin 81 Mg Ec Tablet) 81 mg PO DAILY [facility] Last Admin: 06/07/22 13:08 Dose: Not Given Atorvastatin Calcium (Atorvastatin 40 Mg Tablet) 40 mg PO BEDTIME [facility] Last Admin: 06/07/22 21:32 Dose: Not Given Famotidine (Famotidine 20 Mg/2 Ml Inj) 20 mg IVP Q12H [facility] Last Admin: 06/08/22 00:42 Dose: 20 mg Heparin Sodium (Porcine) (Heparin 5,000 Unit/Ml Inj 1 Ml) 5,000 unit SUBCUT Q12H [facility] Last Admin: 06/08/22 00:42 Dose: 5,000 unit Sodium Chloride (Sodium Chloride 0.9%) 1,000 mls @ 0 mls/hr IV .Q0M PRN PRN Reason: hypotension or symptomatic Ceftriaxone Sodium 1,000 mg/ (Sodium Chloride) 50 mls @ 100 mls/hr IV Q24H [facility]; Protocol Last Infusion: 06/07/22 12:10 Dose: Infused Metoprolol Tartrate (Metoprolol Tartrate 25 Mg Tablet) 25 mg PO BID@0900,2100 [facility] Last Admin: 06/07/22 21:32 Dose: Not Given Morphine Sulfate (Morphine 2 Mg/Ml Syr 1 Ml) 2 mg IVP Q4H PRN PRN Reason: SEVERE PAIN Last Admin: 06/08/22 03:23 Dose: 2 mg Ondansetron HCl (Ondansetron 2 Mg/Ml Sdv 2 Ml) 4 mg IVP Q6H PRN PRN Reason: NAUSEA AND VOMITING Vitals/I&O/Wt Last Vital Signs Temp 99.7 F H 06/08/22 04:00 Pulse 112 H 06/08/22 04:00 Resp 18 06/08/22 04:00 BP 146/84 06/08/22 04:00 Pulse Ox 89 L 06/08/22 04:00 O2 Del Method 06/08/22 04:00 O2 Flow Rate 2 06/07/22 08:54 06/07/22 06/07/22 06/08/22 14:59 22:59 06:59 Intake Total 70 / 70 350 / 420 Output Total 900 / 900 3700 / 4600 1000 / 5600 Balance -830 / -830 -3350 / -4180 -1000 / -5180 Weight last 48 hrs Weight 110.1 kg Weight 113.988 kg Weight 113.4 kg Physical Exam Narrative: uncomfortable in bed, confused, NARD. excellent uop VSS heent- nc/at, eomi lungs - b/l wheezes. improved air movement b/l heart reg, +JU abd soft, nt, nd, + bs ext 1+ b/l leg edema neuro- left side weak exam by RN- telehealth visit Urinary Catheter Management: Coude: Cath Placed During This Visit: yes Reason for Continuing Indwelling Catheter: Accurate Measurement of Urinary Output in Critically Ill Patients Urinary Catheter Date of Insertion: 06/05/22 Urinary Catheter Time of Insertion: 15:02 Data : 06/08/22 03:28 06/08/22 03:28 A&P Assessment and plan (1) Acute kidney injury: 77 yr old man 1. BLANCA- no hydronephrosis on renal us - bland ua -working dx is CI- BLANCA and med effect from diuretics and kylee-i -s/p HD last 3 days- even w/ dialysis catheter is working poorly -now polyuric. -will hold HD and monitor electrolytes 2. htn- bp well controlled 3. hyponatremia- monitor w/ dialysis 4. hgb okay, mild leukocytosis seen and examined w/ RN- telehealth visit discussed plan w/ HD RN -time spent 25 min Status: Acute Plan see above Attestations Medical Necessity Statement*: per medicine. blanca- monitor for renal recovery Time Spent in Patient Care: 16 - 35 minutes (>than 50% of time spent in counselling and/or direct pt care on unit) . Coding Level of Care Code Acute Twister Doffer for Felicitas Julien Diagnoses Acute kidney injury N17.9
--- NOTE | 2022-06-08 07:51 | CT_ITS ---
WS: [id number] CT CHEST WITHOUT INTRAVENOUS CONTRAST HISTORY: Dilated aorta seen on echocardiogram. TECHNIQUE: Contiguous 5 mm axial imaging performed on the thorax. Coronal and sagittal reformats are submitted. All CT scans at [facility] use at least one of these dose optimization techniques: automated exposure control; mA and/or kV adjustment per patient size (includes targeted exams where dose is matched to clinical indication); or iterative reconstruction. CONTRAST: None DLP: 909.02 mGy.cm COMPARISON: Report echocardiogram 06/06/2022. Quality of this examination is limited by breathing artifact. Patient was unable to hold his breath a nd cooperate with breathing instructions. Lungs and central airway: Significant diffuse motion artifact. Lung volumes are decreased without in inspiration attempt. No obvious mass or pneumonia. Mild pleural thickening posteriorly. Pleura: No effusion. Heart and pericardium: Heart is enlarged. Moderate enlargement of the ventricular chambers. No effusi on Mediastinum and phill: Mediastinal and hilar lymph nodes are identified. Small lymph nodes. Larger lym ph nodes at the hilar regions could be obscured without IV contrast. Vessels: Ectatic ascending aorta to 4.3 cm. Aortic root measures up to 4.8 cm which is dilated. There is artifact from patient's breathing making artifacts likely. Chest wall and lower neck: RIGHT central line. Mild gynecomastia. Upper abdomen: Cholelithiasis and mildly distended gallbladder. No adjacent inflammation. Mild perine phric stranding around each kidney. Atherosclerosis aorta. Osseous structures: Advanced degenerative changes in the thoracic spine. Details of bones limited due to the breathing artifact. CT/CT chest wo con [id number] IMPRESSION: 1. Quality of this examination is degraded by breathing motion artifact and pa patty was unable to cooperate with breathing instructions. 2. Mild dilatation of the aortic root to 4.8 cm and ascending aorta to 4.3 cm. 3. Cholelithiasis without acute cholecystitis.
--- NOTE | 2022-06-08 07:51 | CT_ITS ---
WS: [id number] CT HEAD NONCONTRAST HISTORY: confusion TECHNIQUE: Contiguous axial imaging performed through the brain in 2.5 mm imaging. Bone and soft tiss ue windows. Sagittal and coronal reformats reviewed. All CT scans at [facility] use at least one of these dose optimization techniques: automated exposure control; mA and/or kV adjustment per pa tient size (includes targeted exams where dose is matched to clinical indication); or iterative recon struction. DLP: 1321.62 mGy.cm COMPARISON: 05/31/2022 No acute intracranial hemorrhage, midline shift or mass effect. Atrophy with mild small vessel ischemic disease. No prior large territory infarct. Ventricles: Normal size with no hydrocephalus. There is extensive calcification throughout the posterior and anterior circulation of the brain. Heav y calcification within the vertebral and carotid arteries and into the [place]. Paranasal sinuses: As visualized are clear. Mastoid air cells: Well pneumatized. Calvarium and scalp: Skull is intact with no soft tissue edema or swelling. CT/CT head wo con* [id number] IMPRESSION: 1. No acute intracranial hemorrhage or interval change. 2. Mild atrophy and small vessel ischemic disease. 3. Severe atherosclerotic calcification throughout the anterior and posterior circulation.
--- NOTE | 2022-06-08 07:52 | P.PN_ITS ---
Subjective Subjective: Ernesto is confused but very conversant. No pain. Nursing has been concerned about his swallowing, so I did not get metoprolol last night. Medications: Reviewed: Yes Vitals/I&O/Wt Last Vital Signs Temp 98.4 F 06/08/22 06:00 Pulse 106 H 06/08/22 06:00 Resp 17 06/08/22 06:00 BP 165/89 06/08/22 06:00 Pulse Ox 96 06/08/22 06:00 O2 Del Method 06/08/22 04:00 O2 Flow Rate 2 06/07/22 08:54 06/07/22 06/08/22 06/08/22 22:59 06:59 14:59 Intake Total 350 / 420 Output Total 3700 / 4600 1000 / 5600 Balance -3350 / -4180 -1000 / -5180 Weight last 48 hrs Weight 108.998 kg Weight 110.1 kg Weight 113.988 kg Weight 113.4 kg Physical Exam Narrative: General exam is a white male, conversant, confused Neck is supple no lymphadenopathy or thyromegaly. Temporary dialysis catheter noted right neck Cardiovascular regular rate and rhythm without murmur. Right IJ with dialysis catheter Lungs clear no wheezing or crackles. Diminished breath sounds are noted bilaterally Abdomen is soft with positive bowel sounds. No obvious organomegaly. Extensive abdominal scar noted. exam normal male. Bruising right groin but not pulsatile Extremities trace edema, 1+ edema. No cyanosis or clubbing. Skin no rash Neuro no obvious focal deficits, confused Urinary Catheter Management: Coude: Cath Placed During This Visit: yes Reason for Continuing Indwelling Catheter: Accurate Measurement of Urinary Output in Critically Ill Patients Urinary Catheter Date of Insertion: 06/05/22 Urinary Catheter Time of Insertion: 15:02 Data : 06/08/22 03:28 06/08/22 03:28 A&P Assessment and plan (1) Acute kidney injury: Patient with severe acute kidney injury. No evidence of urinary retention on ultrasound, but is a constant concern considering his cervical myopathy, history of prostate surgery, and inability to place a Marley catheter. Appreciate urology consultation for placement of catheter Nephrology consultation for acute dialysis appreciated. Receive dialysis initially June 05, . Nephrology plan is to hold off on dialysis today. He does not appear fluid overloaded. He is now making urine Avoid renal toxic medication Overall his presentation is likely multifactorial, in this patient on chronic d iuretics who is diabetic, on ARB, spironolactone, oral potassium who presumably has recently had poor oral fluid intake as well as issues with cervical cord compression. CK was checked and not elevated Appreciate surgery consult for temporary dialysis catheter Hyperkalemia has resolved Urinalysis been checked. Question infection. Rocephin added 06/07 Status: Acute (2) Hyperkalemia: Secondary to acute kidney injury, in the face of treatment with potassium, Aldactone, benazepril. Hold all of these medicines in the interim Avoid NSAIDs Temporizing measures given, while arranging dialysis to bring this down. Status: Acute (3) Cervical cord compression with myelopathy: Avoid significant neck flexion that is prolonged Will still need outpatient evaluation by orthopedic spine surgery. We will discussed with them at some point during the hospital course when this follow-up should occur. Status: Acute (4) Diabetic peripheral neuropathy associated with type 2 diabetes mellitus: Consistent carb diet Avoid insulin currently with his degree of renal dysfunction Note the blood sugar was somewhat low on admission. Received D10 initially. Cortisol level checked and normal. Blood sugar has been stable currently. Status: Acute (5) Chronic congestive heart failure: Currently appears compensated. No acute component. Secondary to ischemic cardiomyopathy. Last echo demonstrates EF of 50%. Echocardiogram demonstrates no obvious change. Some dilation of his aorta is noted. CT chest today secondary to dilated aorta. No contrast secondary to renal dysfunction. Status: Acute Plan Delirium. Speech therapy consultation. Check CT head noncontrast Possible UTI. Rocephin added. Await urine culture Hypomagnesemia, supplement yesterday. Normal today Arrhythmia. He has frequent PACs and has been unable to take his metoprolol. Check EKG today to look for atrial fibrillation. Initiate metoprolol IV. Multiple other medical problems as outlined by his past medical history Full code currently Heparin for DVT prophylaxis Attestations Medical Necessity Statement*: Needs continued ICU stay secondary to delirium, acute kidney injury requiring dialysis, UTI, arrhythmia Critical Care Time: The high probability of a clinically significant, sudden or life threatening deterioration of the patient's [renal, cardiac, neurologic] system(s) required my full and direct attention, intervention and personal management. The critical care time is as shown. This time is in addition to time spent performing any reported procedures but includes the following: [x] Data and vital sign review and interpretation [x] Patient assessment, examination and intervention [x] Documentation [x] Medication orders and management Critical Care Time (min): 34 Coding Level of Care Code Acute Pathology Specialist for [facility] Fwd Diagnoses Acute kidney injury N17.9 Hyperkalemia E87.5 Cervical cord compression with myelopathy G95.20 Diabetic peripheral neuropathy associated with type 2 diabetes mellitus E11.42 Chronic congestive heart failure I50.9
--- NOTE | 2022-06-08 07:53 | ECG_ITS ---
[facility] Test Date: 2022-06-08 Pat Name: Wesly Price Department: Room: [facility] Gender: Male Bond Writer: : 1945 Requested By: Ron Krueger Order Number: [id number] Sangeetha MD: Lyle Acosta M.D. Measurements Intervals [place] Rate: 111 P: ID: QRS: -39 QRSD: 136 T: 79 QT: 338 QTc: 459 Interpretive Statements ATRIAL FIBRILLATION WITH RAPID VENTRICULAR RESPONSE INTRAVENTRICULAR CONDUCTION DELAY [130+ ms QRS DURATION] INFERIOR MYOCARDIAL INFARCTION , OF INDETERMINATE AGE [40+ ms Q WAVE AND/OR ST/T ABNORMALITY IN II/aVF] ANTEROSEPTAL MYOCARDIAL INFARCTION , POSSIBLY ACUTE [40+ ms Q WAVE IN V1-V4] ACUTE TN Compared to ECG 06/05/2022 15:20:50 Sinus rhythm no longer present First degree AV block no longer present Myocardial infarct finding still present Electronically Signed On 06-09-2022 15:43:51 CDT by Lyle Acosta M.D. [id number]
[2022-06-08] MEDS: metoprolol tartrate 1 mg/1 mL SDV 5 mL 5 MG IVP ×4 (08:37→19:38)
[2022-06-08] MEDS: cefTRIAXone 1,000 MG in sodium chloride 0.9% (plus) 50 ML 100 MG IV (08:38)
[2022-06-08 08:50] LABS: Glucose Point of Care 128 mg/dL (70-110)
--- NOTE | 2022-06-08 10:27 | PC.CHAP ---
Pastoral Care Encounter/Spiritual Assessment Type of Contact [] Declined automobile dealer visit [] Patient/Family/Request visit [] Outpatient visit [] Follow-up visit [] Physician referral [] Code/Alert [x] Routine visit [] Staff referral [] Actively dying [] Patient sleeping [] Family support [] [] Out of room [] Palliative care [] [] Receiving care in room [] Pre-surgical visit [] Trauma [] Long length of stay [x] ICU visit [] Other: Relational/Emotional Strength [] Patient feels connected with others/family/visitors/staff [] Distress [] Loneliness/isolation [] Abandonment Spirituality of Patient [] Person of Gwen [] Attends Restoration of their Gwen [] Believes in Prayer [] Reads Bible or Hindu materials [] There are Spiritual issues to be addressed [place] Interventions [x] Prayer [] Active listening [] Non-anxious presence [] Spiritual/emotional support [] Crisis/trauma care [] Spiritual counseling [] Bereavement support [] Provided bereavement packet [] Provided Bible/devotional materials [] Provided toy/stuffed animal, coloring book to patient or family member [] Provided Communion [] Anointing/[place] [] Salvation [x] Completed spiritual assessment [] Other: Impact on Illness or Injury [] Angry [] Fearful [] Anxious [] Often cries [] Exhaustion [] Unable to work [] Unable to attend denominational [] Unable to walk/stand [] Unable to read [] Unable to drive [] Unable to eat/drink [] Unable to sleep [] Unable to be with family [] Patient intubated [] Other: Summary Time spent with patient
[2022-06-08] MEDS: heparin 5,000 unit/mL INJ 1 mL IV (11:33)
[2022-06-08] MEDS: heparin drip 25,000 UNIT/500 ML PREMIX 31 UNIT IV (11:34)
[2022-06-08 11:52] LABS: Anti-Nuclear Antibody Pattern Cytoplasmic; Anti-Nuclear Antibody Screen POSITIVE (NEGATIVE); Anti-Nuclear Antibody Titer 1:40 titer
[2022-06-08 12:05] LABS: Glucose Point of Care 131 mg/dL (70-110)
[2022-06-08 17:15] LABS: Glucose Point of Care 146 mg/dL (70-110)
[2022-06-08 18:24] LABS: Partial Thromboplastin Time 122.5 SECONDS (23.9-36.7)
[2022-06-09] VITALS (29 sets, daily range): BP systolic 104–183; BP diastolic 56–113; PULSE 85–119; RESP 13–32; TEMP 36.8–37.5; O2SAT 90–95; BMI 35.3
[2022-06-09] MEDS: famotidine 20 mg/2 mL INJ IVP ×2 (00:37→12:30)
[2022-06-09] MEDS: metoprolol tartrate 1 mg/1 mL SDV 5 mL 5 MG IVP ×7 (00:37→23:12)
[2022-06-09 00:51] LABS: Basophils % 0.3 %; Eosinophils # 0.1 10^3/uL (0.0-0.8); Eosinophils % 0.5 %; Hematocrit 45.4 % (42.0-52.0); Hemoglobin 14.9 g/dL (11.7-16.6); Lymphocytes # 1.1 10^3/uL (0.8-4.8); Lymphocytes % 7.4 %; Mean Corpuscular HGB Conc 32.8 g/dL (30.0-36.0); Mean Corpuscular Hemoglobin 30.8 pg (28.0-34.0); Mean Platelet Volume 11.5 fL (7.4-10.4); Monocytes # 1.9 10^3/uL (0.2-0.9); Monocytes % 13.3 %; Neutrophils # 11.34 10^3/uL (1.8-7.7); Neutrophils % 78.1 %; Nucleated Red Blood Cells % 0 %; Platelet Count 154 10^3/cmm (130-400); Red Blood Count 4.83 10^6/uL (4.1-5.3); Red Cell Distribution Width 13.6 % (12.1-15.1); White Blood Count 14.5 10^3/uL (4.0-10.0)
[2022-06-09 01:15] LABS: Partial Thromboplastin Time 71.9 SECONDS (23.9-36.7)
[2022-06-09 01:21] LABS: Alanine Aminotransferase < 5 U/L (0-41); Albumin Level 3.3 g/dL (3.5-5.2); Alkaline Phosphatase 100 U/L (40-130); Blood Urea Nitrogen 34 mg/dL (8-23); Calcium 9.7 mg/dL (8.5-10.5); Carbon Dioxide 23 mmol/L (22-29); Chloride 97 mmol/L (98-107); Globulin 3.7 g/dL (1.3-4.6); Glucose 142 mg/dL (65-115); Magnesium 1.7 mg/dL (1.7-2.3); Osmolality Calculated 294 mOsm/kg (285-295); Sodium 137 mmol/L (136-145); Total Bilirubin 1.2 mg/dL (0.15-1.2)
[2022-06-09 01:36] LABS: Anion Gap 21.3 (5-19); Aspartate Amino Transferase 25 U/L (0-40); Potassium 4.3 mmol/L (3.5-5.1)
[2022-06-09] MEDS: heparin drip 25,000 UNIT/500 ML PREMIX 25 UNIT IV (05:58)
--- NOTE | 2022-06-09 07:36 | XR_ITS ---
WS: [id number] Exam: XR chest 1V portable [id number] Date/Time of Exam: 06/09/2022 7:51 AM Reason For Exam: dyspnea Comparison 06/06/2022. The lungs are clear and fully inflated. Mild cardiac enlargement. Left-sided IJ central line ending a t the cavoatrial junction in good position. No pleural effusions. Regional bony elements are intact. XR/XR chest 1V portable [id number] IMPRESSION: 1. Mild cardiac enlargement. No acute cardiopulmonary process noted.
[2022-06-09 07:46] LABS: Partial Thromboplastin Time 38.3 SECONDS (23.9-36.7)
[2022-06-09 07:53] LABS: Glucose Point of Care 147 mg/dL (70-110)
[2022-06-09] MEDS: cefTRIAXone 1,000 MG in sodium chloride 0.9% (plus) 50 ML 100 MG IV (08:39)
[2022-06-09] MEDS: heparin 5,000 unit/mL INJ 1 mL IV (08:56)
--- NOTE | 2022-06-09 09:17 | PC.SLP ---
Patient remains unable to fully participate in his swallowing evaluation. Will continue to follow and assess when he is able to participate.
[2022-06-09] MEDS: haloperidol inj 5 mg/mL INJ 1 mL IM (09:46)
--- NOTE | 2022-06-09 10:23 | PM.PN ---
Subjective Subjective: Patient is conversational, but confused. He denies any specific pain. He reports is no shortness of breath. Medications: Reviewed: Yes Vitals/I&O/Wt Last Vital Signs Temp 99.0 F 06/09/22 09:00 Pulse 89 06/09/22 09:00 Resp 17 06/09/22 08:01 BP 140/83 06/09/22 09:00 Pulse Ox 91 06/09/22 09:00 O2 Del Method 06/09/22 06:00 O2 Flow Rate 2 06/07/22 08:54 06/08/22 06/09/22 06/09/22 22:59 06:59 14:59 Intake Total 216.483 / 266.483 283.517 / 550.000 176.167 / 176.167 Output Total 1000 / 1600 900 / 2500 Balance -783.517 / -1333.517 -616.483 / -1950.000 176.167 / 176.167 Weight last 48 hrs Weight 108.545 kg Weight 108.998 kg Weight 110.1 kg Physical Exam Narrative: General exam is a white male, conversant, confused Neck is supple no lymphadenopathy or thyromegaly. Temporary dialysis catheter noted right neck Cardiovascular irregular without murmur. Telemetry indicates what appears to now be sinus rhythm with frequent PVCs and PACs. Right IJ with dialysis catheter Lungs clear no wheezing or crackles. Diminished breath sounds are noted bilaterally Abdomen is soft with positive bowel sounds. No obvious organomegaly. Extensive abdominal scar noted. exam normal male. Bruising right groin but not pulsatile. Marley noted Extremities trace edema. Trace edema. No cyanosis or clubbing. Skin no rash Neuro no obvious focal deficits, confused Urinary Catheter Management: Coude: Cath Placed During This Visit: yes Reason for Continuing Indwelling Catheter: Accurate Measurement of Urinary Output in Critically Ill Patients Urinary Catheter Date of Insertion: 06/05/22 Urinary Catheter Time of Insertion: 15:02 Data : 06/09/22 00:46 06/09/22 00:46 Other Labs: CT head yesterday no acute changes CT chest yesterday showed mild dilation of aortic root and ascending aorta Micro: Microbiology 06/06/22 20:57 Urine Culture - Final Urine,Clean Catch A&P Assessment and plan (1) Acute kidney injury: Patient with severe acute kidney injury. No evidence of urinary retention on ultrasound, but is a constant concern considering his cervical myopathy, history of prostate surgery, and inability to place a Marley catheter. Appreciate urology consultation for placement of catheter Nephrology consultation for acute dialysis appreciated. Receive dialysis initially June 05, . Nephrology plan is to hold off on dialysis today. He does not appear fluid overloaded. He is now making urine Initiate some low rate IV fluids Avoid renal toxic medication Overall his presentation is likely multifactorial, in this patient on chronic diuretics who is diabetic, on ARB, spironolactone, oral potassium who presumably has recently had poor oral fluid intake as well as issues with cervical cord compression. CK was checked and not elevated Appreciate surgery consult for temporary dialysis catheter Hyperkalemia has resolved Urinalysis been checked. Question infection. Rocephin added 06/07. Urine culture negative today Status: Acute (2) Hyperkalemia: Secondary to acute kidney injury, in the face of treatment with potassium, Aldactone, benazepril. Hold all of these medicines in the interim Avoid NSAIDs Temporizing measures given, while arranging dialysis to bring this down. Status: Acute (3) Cervical cord compression with myelopathy: Avoid significant neck flexion that is prolonged Will still need outpatient evaluation by orthopedic spine surgery. I have been consulted and are aware. Status: Acute (4) Diabetic peripheral neuropathy associated with type 2 diabetes mellitus: Consistent carb diet Avoid insulin currently with his degree of renal dysfunction Note the blood sugar was somewhat low on admission. Received D10 initially. Cortisol level checked and normal. Blood sugar has been stable currently. Status: Acute (5) Chronic congestive heart failure: Currently appears compensated. No acute component. Secondary to ischemic cardiomyopathy. Last echo demonstrates EF of 50%. Echocardiogram demonstrates no obvious change. Some dilation of his aorta is noted. CT chest showed mild dilation of aorta. No contrast secondary to renal dysfunction. Status: Acute Plan Delirium. Speech therapy consultation. CT head no acute findings. Haldol x1 today. No history of alcoholism but will initiate thiamine anyway. Could be secondary to inability to take Flexeril, but unlikely at low-dose. Try to hold off on repeated doses of morphine today. Possible UTI. Rocephin added. Culture negative to date Hypomagnesemia, supplement during hospital course. Low normal today. 1 g magnesium IV today. Arrhythmia. Has had intermittent atrial fibrillation. Metoprolol IV started as he is not tolerating p.o. medication. TSH was checked and normal. Heparin drip currently. Multiple other medical problems as outlined by his past medical history Full code currently Heparin for DVT prophylaxis Attestations Medical Necessity Statement*: Needs continued hospital stay secondary to persistent delirium, severe acute kidney injury, new onset atrial fibrillation Coding Level of Care Code Acute Lead Quality Technician for [facility] Fwd Diagnoses Acute kidney injury N17.9 Hyperkalemia E87.5 Cervical cord compression with myelopathy G95.20 Diabetic peripheral neuropathy associated with type 2 diabetes mellitus E11.42 Chronic congestive heart failure I50.9
--- NOTE | 2022-06-09 10:33 | PC.CHAP ---
Pastoral Care Encounter/Spiritual Assessment Type of Contact [] Declined merchandiser visit [] Patient/Family/Request visit [] Outpatient visit [] Follow-up visit [] Physician referral [] Code/Alert [x] Routine visit [] Staff referral [] Actively dying [x] Patient sleeping [] Family support [] [] Out of room [] Palliative care [] [] Receiving care in room [] Pre-surgical visit [] Trauma [] Long length of stay [x] ICU visit [] Other: Relational/Emotional Strength [] Patient feels connected with others/family/visitors/staff [] Distress [] Loneliness/isolation [] Abandonment Spirituality of Patient [] Person of Gwen [] Attends Religion of their Gwen [] Believes in Prayer [] Reads Bible or Mormon materials [] There are Spiritual issues to be addressed Paginator Interventions [x] Prayer [] Active listening [] Non-anxious presence [] Spiritual/emotional support [] Crisis/trauma care [] Spiritual counseling [] Bereavement support [] Provided bereavement packet [] Provided Bible/devotional materials [] Provided toy/stuffed animal, coloring book to patient or family member [] Provided Communion [] Anointing/Union [] Salvation [x] Completed spiritual assessment [] Other: Impact on Illness or Injury [] Angry [] Fearful [] Anxious [] Often cries [] Exhaustion [] Unable to work [] Unable to attend taoism [] Unable to walk/stand [] Unable to read [] Unable to drive [] Unable to eat/drink [] Unable to sleep [] Unable to be with family [] Patient intubated [] Other: Summary Time spent with patient
[2022-06-09 11:35] LABS: Glucose Point of Care 138 mg/dL (70-110)
--- NOTE | 2022-06-09 11:59 | PM.PN ---
Subjective Subjective: altered mental status Vitals/I&O/Wt Last Vital Signs Temp 99.0 F 06/09/22 09:00 Pulse 101 H 06/09/22 10:00 Resp 23 H 06/09/22 10:00 BP 132/63 06/09/22 10:00 Pulse Ox 94 06/09/22 10:00 O2 Del Method 06/09/22 06:00 O2 Flow Rate 2 06/07/22 08:54 06/08/22 06/09/22 06/09/22 22:59 06:59 14:59 Intake Total 216.483 / 266.483 283.517 / 550.000 176.167 / 176.167 Output Total 1000 / 1600 900 / 2500 Balance -783.517 / -1333.517 -616.483 / -1950.000 176.167 / 176.167 Weight last 48 hrs Weight 108.545 kg Weight 108.998 kg Weight 110.1 kg Physical Exam Urinary Catheter Management: Coude: Cath Placed During This Visit: yes Reason for Continuing Indwelling Catheter: Accurate Measurement of Urinary Output in Critically Ill Patients Urinary Catheter Date of Insertion: 06/05/22 Urinary Catheter Time of Insertion: 15:02 Data : 06/09/22 00:46 06/09/22 00:46 Micro: Microbiology 06/06/22 20:57 Urine Culture - Final Urine,Clean Catch Other data: Seen via telemedicine with assistance of RN at bedside A&P Assessment and plan (1) Acute kidney injury: Status: Acute Plan Acute kidney injury, improved, nonoliguric, BUN/Cr stable. S/P HD x 3 sessions via right IJ temporary catheter Recommend: holding HD at this time. Daily BMP Attestations Medical Necessity Statement*: see above Time Spent in Patient Care: 16 - 35 minutes Coding Level of Care Code Acute Social Service Coordinator for [facility] Diagnoses Acute kidney injury N17.9
[2022-06-09 12:27] LABS: Glomerular Bsmt Membrane IGG <1.0 AI
[2022-06-09] MEDS: sodium chloride 0.9% 1,000 ML 50 ML IV (13:34)
[2022-06-09 15:32] LABS: Partial Thromboplastin Time 102.8 SECONDS (23.9-36.7)
[2022-06-09 17:05] LABS: Glucose Point of Care 131 mg/dL (70-110)
[2022-06-09 22:51] LABS: Partial Thromboplastin Time 82.1 SECONDS (23.9-36.7)
[2022-06-10] VITALS (28 sets, daily range): BP systolic 105–172; BP diastolic 59–105; PULSE 74–124; RESP 15–27; TEMP 36.9–37.5; O2SAT 90–95; BMI 35.3
[2022-06-10] MEDS: famotidine 20 mg/2 mL INJ IVP ×2 (01:10→12:21)
[2022-06-10] MEDS: metoprolol tartrate 1 mg/1 mL SDV 5 mL 5 MG IVP ×6 (03:26→23:10)
[2022-06-10] MEDS: heparin drip 25,000 UNIT/500 ML PREMIX 21 UNIT IV (03:54)
[2022-06-10 04:20] LABS: Basophils % 0.2 %; Eosinophils # 0.1 10^3/uL (0.0-0.8); Eosinophils % 0.5 %; Hematocrit 46.5 % (42.0-52.0); Hemoglobin 15.4 g/dL (11.7-16.6); Lymphocytes # 1.2 10^3/uL (0.8-4.8); Mean Corpuscular HGB Conc 33.1 g/dL (30.0-36.0); Mean Corpuscular Hemoglobin 30.6 pg (28.0-34.0); Mean Corpuscular Volume 92.4 fl (80-94); Mean Platelet Volume 12.6 fL (7.4-10.4); Monocytes # 1.9 10^3/uL (0.2-0.9); Monocytes % 14.8 %; Neutrophils # 9.79 10^3/uL (1.8-7.7); Nucleated Red Blood Cells % 0 %; Platelet Count 205 10^3/cmm (130-400); Red Blood Count 5.03 10^6/uL (4.1-5.3); Red Cell Distribution Width 13.3 % (12.1-15.1); White Blood Count 13.1 10^3/uL (4.0-10.0)
[2022-06-10 04:31] LABS: Alanine Aminotransferase < 5 U/L (0-41); Albumin Level 3.5 g/dL (3.5-5.2); Alkaline Phosphatase 106 U/L (40-130); Aspartate Amino Transferase 24 U/L (0-40); Blood Urea Nitrogen 44 mg/dL (8-23); Calcium 9.5 mg/dL (8.5-10.5); Carbon Dioxide 19 mmol/L (22-29); Chloride 102 mmol/L (98-107); Globulin 2.8 g/dL (1.3-4.6); Glucose 137 mg/dL (65-115); Magnesium 1.7 mg/dL (1.7-2.3); Osmolality Calculated 305 mOsm/kg (285-295); Phosphorus 4.3 mg/dL (2.5-4.5); Sodium 141 mmol/L (136-145); Total Bilirubin 1.2 mg/dL (0.15-1.2); Total Protein 6.3 g/dL (6.6-8.7)
[2022-06-10 04:35] LABS: Anion Gap 24.4 (5-19); Potassium 4.4 mmol/L (3.5-5.1)
[2022-06-10] MEDS: cefTRIAXone 1,000 MG in sodium chloride 0.9% (plus) 50 ML 100 MG IV (08:01)
[2022-06-10] MEDS: sodium chloride 0.9% 1,000 ML 50 ML IV (08:01)
[2022-06-10 08:12] LABS: Glucose Point of Care 130 mg/dL (70-110)
--- NOTE | 2022-06-10 08:17 | PM.PN ---
Subjective Subjective: Patient was seen and examined this morning, he was minimally responsive ,deep asleep.Given the fact he has been extremely encephalopathic, for now will start him on broad spectrum abxs, will send blood cultures, as well as discontinue morphine. Medications: Reviewed: Yes Medication Review Details: Generic Name Dose Route Start Last Admin Trade Name Freq PRN Reason Stop Dose Admin Aspirin 81 mg 06/06/22 09:00 06/10/22 07:43 Aspirin 81 Mg Ec Tablet PO Not Given DAILY LY Atorvastatin Calci um 40 mg 06/06/22 21:00 06/09/22 21:17 Atorvastatin 40 Mg Tablet PO Not Given BEDTIME LY Famotidine 20 mg 06/05/22 13:15 06/10/22 01:10 Famotidine 20 Mg /2 Ml Inj IVP 20 mg Q12H LY Administration Heparin Sodium (Po rcine) 0 unit 06/08/22 10:40 06/09/22 08:56 Heparin 5,000 Un it/Ml Inj 1 Ml IV 4,400 unit PRN PRN Administration Heparin weight-ba se protocol Protocol Ceftriaxone Sodium 1,000 mg/ 50 mls @ 100 mls/ hr 06/07/22 08:00 06/10/22 08:01 Sodium Chloride IV 100 mls/hr Q24H LY Administration Protocol Heparin Sodium/Sod ium Chloride 25,000 unit in 50 0 mls @ 0 mls/hr 06/08/22 10:45 06/10/22 03:54 Heparin Drip IV 9.63 unit/kg/hr .Q0M LY 21 mls/hr Administration Protocol Per Protocol Sodium Chloride 1,000 mls @ 50 ml s/hr 06/09/22 12:45 06/10/22 08:01 Sodium Chloride 0.9% IV 50 mls/hr .Q20H LY Administration Metoprolol Tartrat e 5 mg 06/08/22 08:00 06/10/22 08:00 Metoprolol Tartr ate 1 Mg/1 Ml Sdv 5 Ml IVP 5 mg Q4H LY Administration Morphine Sulfate 2 mg 06/05/22 13:25 06/10/22 01:18 Morphine 2 Mg/Ml Syr 1 Ml IVP 2 mg Q4H PRN Administration SEVERE PAIN Thiamine HCl 100 mg 06/09/22 09:00 06/10/22 08:00 Thiamine 100 Mg/ Ml Sdv IVP 100 mg DAILY LY Administration Vitals/I&O/Wt Last Vital Signs Temp 98.5 F 06/09/22 20:00 Pulse 103 H 06/10/22 06:00 Resp 21 H 06/10/22 06:00 BP 155/84 06/10/22 06:00 Pulse Ox 94 06/10/22 06:00 O2 Del Method 06/09/22 20:02 O2 Flow Rate 2 06/07/22 08:54 06/09/22 06/10/22 06/10/22 22:59 06:59 14:59 Intake Total 197.683 / 373.850 228.150 / 602.000 922.5 / 922.5 Output Total 750 / 750 800 / 1550 Balance -552.317 / -376.150 -571.850 / -948.000 922.5 / 922.5 Weight last 48 hrs Weight 108.545 kg Weight 108.545 kg Physical Exam Resp: COMMON NORMALS: clear to auscultation bilaterally EFFORT & INSPECTION: Yes symmetric chest movement AUSCULTATION: clear to auscultation bilaterally Cardio: COMMON NORMALS: regular rate, regular rhythm, S1 normal heart sound present, S2 normal heart sound present, No gallops present (Cardio), No murmurs present (Cardio), No rub (Cardio) and Peripheral pulses 2+ throughout RATE: regular rate RHYTHM: regular rhythm HEART SOUNDS: S1 normal heart sound present and S2 normal heart sound present PERIPHERAL PULSES: Peripheral pulses 2+ throughout GI: COMMON NORMALS: Normal to inspection, nondistended, normoactive bowel sounds present, Soft to palpation, non-tender, No hepatosplenomegaly present and no masses AUSCULTATION: Yes normoactive bowel sounds PALPATION: Yes Soft to palpation and Yes No hepatosplenomegaly present RECTAL EXAM: Yes deferred Urinary Catheter Management: Coude: Cath Placed During This Visit: yes Reason for Continuing Indwelling Catheter: Accurate Measurement of Urinary Output in Critically Ill Patients Urinary Catheter Date of Insertion: 06/05/22 Urinary Catheter Time of Insertion: 15:02 Data : 06/10/22 03:17 06/10/22 03:17 Micro: Microbiology 06/06/22 20:57 Urine Culture - Final Urine,Clean Catch A&P Assessment and plan (1) Acute kidney injury: Patient with severe acute kidney injury. No evidence of urinary retention on ultrasound, but is a constant concern considering his cervical myopathy, history of prostate surgery, and inability to place a Marley catheter. Appreciate urology consultation for placement of catheter Nephrology consultation for acute dialysis appreciated. Receive dialysis initially June 05, , . Nephrology plan is to hold off on dialysis today. He does not appear fluid overloaded. He is now making urine Initiate some low rate IV fluids Avoid renal toxic medication Overall his presentation is likely multifactorial, in this patient on chronic diuretics who is diabetic, on ARB, spironolactone, oral potassium who presumably has recently had poor oral fluid intake as well as issues with cervical cord compression. CK was checked and not elevated Appreciate surgery consult for temporary dialysis catheter Hyperkalemia has resolved Urinalysis been checked. Question infection. Rocephin added 06/07. Urine culture negative today Status: Acute (2) Hyperkalemia: Secondary to acute kidney injury, in the face of treatment with potassium, Aldactone, benazepril. Hold all of these medicines in the interim Avoid NSAIDs Temporizing measures given, while arranging dialysis to bring this down. Status: Acute (3) Cervical cord compression with myelopathy: Avoid significant neck flexion that is prolonged Will still need outpatient evaluation by orthopedic spine surgery. I have been consulted and are aware. Status: Acute (4) Diabetic peripheral neuropathy associated with type 2 diabetes mellitus: Consistent carb diet Avoid insulin currently with his degree of renal dysfunction Note the blood sugar was somewhat low on admission. Received D10 initially. Cortisol level checked and normal. Blood sugar has been stable currently. Status: Acute (5) Chronic congestive heart failure: Currently appears compensated. No acute component. Secondary to ischemic cardiomyopathy. Last echo demonstrates EF of 50%. Echocardiogram demonstrates no obvious change. Some dilation of his aorta is noted. CT chest showed mild dilation of aorta. No contrast secondary to renal dysfunction. Status: Acute Plan Delirium. Speech therapy consultation. CT head no acute findings. Haldol x1 today. No history of alcoholism but will initiate thiamine anyway. Could be secondary to inability to take Flexeril, but unlikely at low-dose. Try to hold off on repeated doses of morphine today. Possible UTI. Rocephin added. Culture negative to date Hypomagnesemia, supplement during hospital course. Low normal today. 1 g magnesium IV today. Arrhythmia. Has had intermittent atrial fibrillation. Metoprolol IV started as he is not tolerating p.o. medication. TSH was checked and normal. Heparin drip currently. Multiple other medical problems as outlined by his past medical history Full code currently Heparin for DVT prophylaxis Attestations Medical Necessity Statement*: Patient needs to be in hospital for the management of ARF. Coding Level of Care Code Acute Entry Level Civil Engineer for g Fwd Exam Expanded Problem Focused Diagnoses Acute kidney injury N17.9 Hyperkalemia E87.5 Cervical cord compression with myelopathy G95.20 Diabetic peripheral neuropathy associated with type 2 diabetes mellitus E11.42 Chronic congestive heart failure I50.9
[2022-06-10 09:23] LABS: ANCA Screen NEGATIVE (NEGATIVE)
[2022-06-10 09:45] LABS: Partial Thromboplastin Time 51.5 SECONDS (23.9-36.7)
[2022-06-10] MEDS: heparin 5,000 unit/mL INJ 1 mL IV (09:55)
--- NOTE | 2022-06-10 10:09 | PC.SLP ---
Patient remains unable to participate in his swallowing evaluation. Will continue to monitor.
--- NOTE | 2022-06-10 11:17 | P.PN_ITS ---
Subjective Subjective: remains confused Vitals/I&O/Wt Last Vital Signs Temp 98.6 F 06/10/22 10:00 Pulse 109 H 06/10/22 10:00 Resp 23 H 06/10/22 10:00 BP 140/65 06/10/22 10:00 Pulse Ox 95 06/10/22 10:00 O2 Del Method 06/09/22 20:02 O2 Flow Rate 2 06/07/22 08:54 06/09/22 06/10/22 06/10/22 22:59 06:59 14:59 Intake Total 197.683 / 373.850 228.150 / 430.025 9960.5 / 1098.5 Output Total 750 / 750 800 / 1550 Balance -552.317 / -376.150 -571.850 / -600.682 0229.5 / 1098.5 Weight last 48 hrs Weight 108.545 kg Weight 108.545 kg Physical Exam Extremity: COMMON NORMALS: no pedal edema Urinary Catheter Management: Coude: Cath Placed During This Visit: yes Reason for Continuing Indwelling Catheter: Accurate Measurement of Urinary Output in Critically Ill Patients Urinary Catheter Date of Insertion: 06/05/22 Urinary Catheter Time of Insertion: 15:02 Data : 06/10/22 03:17 06/10/22 03:17 Micro: Microbiology 06/06/22 20:57 Urine Culture - Final Urine,Clean Catch A&P Assessment and plan (1) Acute kidney injury: Status: Acute Plan Acute kidney injury, improving, does not need additional dialysis. Recommend: remove right IJ temporary catheter, continue IVF Attestations Medical Necessity Statement*: see above Time Spent in Patient Care: 16 - 35 minutes Coding Level of Care Code Acute Vendor Representatives for [facility] Diagnoses Acute kidney injury N17.9
--- NOTE | 2022-06-10 15:24 | PC.SOCIAL ---
IMM Updated Unable to update pt on IMM. Called & left a message on pt friend's voicemail explaining IMM. Copy left at pt's bedside. Initialed, dated, & timed copy in chart.
[2022-06-10] MEDS: vancomycin 1,000 MG in sodium chloride 0.9% 250 ML 250 MG IV (15:30)
[2022-06-10] MEDS: piperacillin-tazobactam 3.375 GM in sodium chloride 0.9% (plus) 50 ML IV (15:32)
[2022-06-10 17:33] LABS: SARS Covid-2 Antigen Negative (Negative)
[2022-06-10] MEDS: enoxaparin 100 mg/mL Syringe SUBCUT (18:24)
[2022-06-11] VITALS (49 sets, daily range): BP systolic 127–173; BP diastolic 59–125; PULSE 86–134; RESP 12–36; TEMP 36.9–38.3; O2SAT 89–96
[2022-06-11] MEDS: famotidine 20 mg/2 mL INJ IVP ×2 (00:15→12:55)
[2022-06-11] MEDS: metoprolol tartrate 1 mg/1 mL SDV 5 mL 5 MG IVP ×5 (03:46→19:31)
[2022-06-11] MEDS: sodium chloride 0.9% 1,000 ML 50 ML IV (03:46)
[2022-06-11] MEDS: piperacillin-tazobactam 3.375 GM in sodium chloride 0.9% (plus) 50 ML IV ×2 (03:47→16:24)
[2022-06-11 05:54] LABS: Basophils % 0.2 %; Eosinophils % 0.3 %; Hematocrit 42.8 % (42.0-52.0); Hemoglobin 14.2 g/dL (11.7-16.6); Lymphocytes # 0.9 10^3/uL (0.8-4.8); Mean Corpuscular HGB Conc 33.2 g/dL (30.0-36.0); Mean Corpuscular Hemoglobin 30.9 pg (28.0-34.0); Mean Corpuscular Volume 93.2 fl (80-94); Mean Platelet Volume 11.7 fL (7.4-10.4); Monocytes # 1.7 10^3/uL (0.2-0.9); Monocytes % 13.5 %; Neutrophils # 9.99 10^3/uL (1.8-7.7); Neutrophils % 78.5 %; Nucleated Red Blood Cells % 0 %; Platelet Count 248 10^3/cmm (130-400); Red Blood Count 4.59 10^6/uL (4.1-5.3); Red Cell Distribution Width 13.2 % (12.1-15.1); White Blood Count 12.7 10^3/uL (4.0-10.0)
[2022-06-11 06:33] LABS: Alanine Aminotransferase 6 U/L (0-41); Albumin Level 3.1 g/dL (3.5-5.2); Alkaline Phosphatase 95 U/L (40-130); Anion Gap 20.3 (5-19); Aspartate Amino Transferase 21 U/L (0-40); Blood Urea Nitrogen 48 mg/dL (8-23); Calcium 9.5 mg/dL (8.5-10.5); Carbon Dioxide 20 mmol/L (22-29); Chloride 105 mmol/L (98-107); Globulin 3.8 g/dL (1.3-4.6); Glucose 150 mg/dL (65-115); Magnesium 1.8 mg/dL (1.7-2.3); Osmolality Calculated 309 mOsm/kg (285-295); Phosphorus 3.2 mg/dL (2.5-4.5); Potassium 3.3 mmol/L (3.5-5.1); Sodium 142 mmol/L (136-145); Total Bilirubin 1.4 mg/dL (0.15-1.2); Total Protein 6.9 g/dL (6.6-8.7)
[2022-06-11] MEDS: lidocaine 1% 5 ML in potassium chloride premix 100 ML 50 ML IV (08:25)
--- NOTE | 2022-06-11 10:03 | P.PN_ITS ---
Subjective Subjective: remains confused Vitals/I&O/Wt Last Vital Signs Temp 100.9 F H 06/11/22 09:00 Pulse 95 06/11/22 09:00 Resp 24 H 06/11/22 09:00 BP 162/125 06/11/22 09:00 Pulse Ox 95 06/11/22 07:30 O2 Del Method 06/10/22 09:00 O2 Flow Rate 2 06/07/22 08:54 BP now 153/68 06/10/22 06/11/22 06/11/22 22:59 06:59 14:59 Intake Total 300 / 1783.983 987.5 / 2771.483 50 / 50 Output Total 725 / 3525 750 / 4275 Balance -425 / -1741.017 237.5 / -1503.517 50 / 50 Weight last 48 hrs Weight 110.994 kg Weight 89 kg Weight 108.545 kg Physical Exam Urinary Catheter Management: Coude: Cath Placed During This Visit: yes Reason for Continuing Indwelling Catheter: Accurate Measurement of Urinary Output in Critically Ill Patients Urinary Catheter Date of Insertion: 06/05/22 Urinary Catheter Time of Insertion: 15:02 Data : 06/11/22 05:30 06/11/22 05:30 Micro: Microbiology 06/10/22 14:55 Blood Culture - Preliminary Blood SPECIMEN COLLECTED 06/10/22 15:00 Blood Culture - Preliminary Blood SPECIMEN COLLECTED A&P Assessment and plan (1) Acute kidney injury: Status: Acute Plan 1. Acute kidney injury, good urine output, renal function improving, does not need additional dialysis. Temporary right IJ catheter removed. 2. Hypokalemia, RN reports he received IV replacement today Recommend: continue IVF while unable to take po Attestations Medical Necessity Statement*: see above Time Spent in Patient Care: 16 - 35 minutes Coding Level of Care Code Acute Operational Test Mechanic for [facility] Diagnoses Acute kidney injury N17.9
[2022-06-11] MEDS: acetaminophen 650 mg Supp PR (10:40)
--- NOTE | 2022-06-11 12:52 | P.PN_ITS ---
Subjective Subjective: Patient was seen and examined this morning, continues to have very poor response, noted T-max:100.9 Medications: Reviewed: Yes Medication Review Details: Generic Name Dose Route Start Last Admin Trade Name Freq PRN Reason Stop Dose Admin Acetaminophen 650 mg 06/11/22 10:11 06/11/22 10:40 Acetaminophen 65 0 Mg Supp SD 650 mg Q4H PRN Administration MILD PAIN OR INCR EASE TEMP Aspirin 81 mg 06/06/22 09:00 06/11/22 08:19 Aspirin 81 Mg Ec Tablet PO Not Given DAILY LY Atorvastatin Calci um 40 mg 06/06/22 21:00 06/10/22 21:22 Atorvastatin 40 Mg Tablet PO Not Given BEDTIME LY Enoxaparin Sodium 100 mg 06/10/22 19:00 06/10/22 18:24 Enoxaparin 100 M g/Ml Syringe SUBCUT 100 mg Q24H LY Administration Famotidine 20 mg 06/05/22 13:15 06/11/22 00:15 Famotidine 20 Mg /2 Ml Inj IVP 20 mg Q12H LY Administration Heparin Sodium (Po rcine) 0 unit 06/08/22 10:40 06/10/22 09:55 Heparin 5,000 Un it/Ml Inj 1 Ml IV 2,200 unit PRN PRN Administration Heparin weight-ba se protocol Protocol Sodium Chloride 1,000 mls @ 50 ml s/hr 06/09/22 12:45 06/11/22 03:46 Sodium Chloride 0.9% IV 50 mls/hr .Q20H LY Administration Piperacillin Sod/T azobactam 50 mls @ 12.5 mls /hr 06/10/22 14:00 06/11/22 07:47 Sod 3.375 gm/ So dium Chloride IV Infused Q12H LY Infusion Protocol Vancomycin HCl 1,0 00 mg/ 250 mls @ 250 mls /hr 06/10/22 14:00 06/10/22 16:30 Sodium Chloride IV Infused Q36H LY Infusion Protocol Metoprolol Tartrat e 5 mg 06/08/22 08:00 06/11/22 08:26 Metoprolol Tartr ate 1 Mg/1 Ml Sdv 5 Ml IVP 5 mg Q4H LY Administration Thiamine HCl 100 mg 06/09/22 09:00 06/11/22 08:26 Thiamine 100 Mg/ Ml Sdv IVP 100 mg DAILY LY Administration Vitals/I&O/Wt Last Vital Signs Temp 100.9 F H 06/11/22 09:00 Pulse 112 H 06/11/22 12:00 Resp 21 H 06/11/22 12:00 BP 153/68 06/11/22 12:00 Pulse Ox 95 06/11/22 07:30 O2 Del Method 06/10/22 09:00 O2 Flow Rate 2 06/07/22 08:54 06/10/22 06/11/22 06/11/22 22:59 06:59 14:59 Intake Total 300 / 1783.983 987.5 / 2771.483 155 / 155 Output Total 725 / 3525 750 / 4275 Balance -425 / -1741.017 237.5 / -1503.517 155 / 155 Weight last 48 hrs Weight 110.994 kg Weight 89 kg Weight 108.545 kg Physical Exam Narrative: Patient is currently, very least responsive. Resp: COMMON NORMALS: normal respiratory effort, No retractions, No use of accessory muscles and clear to auscultation bilaterally EFFORT & INSPECTION: Yes symmetric chest movement AUSCULTATION: clear to auscultation bilaterally Cardio: COMMON NORMALS: regular rate, regular rhythm, S1 normal heart sound present, S2 normal heart sound present, No gallops present (Cardio), No murmurs present (Cardio), No rub (Cardio) and Peripheral pulses 2+ throughout RATE: regular rate RHYTHM: regular rhythm HEART SOUNDS: S1 normal heart sound present and S2 normal heart sound present PERIPHERAL PULSES: Peripheral pulses 2+ throughout GI: COMMON NORMALS: Normal to inspection, nondistended, normoactive bowel sounds present, Soft to palpation, non-tender, No hepatosplenomegaly present and no masses AUSCULTATION: Yes normoactive bowel sounds PALPATION: Yes Soft to palpation and Yes No hepatosplenomegaly present RECTAL EXAM: Yes deferred Urinary Catheter Management: Coude: Cath Placed During This Visit: yes Reason for Continuing Indwelling Catheter: Accurate Measurement of Urinary Output in Critically Ill Patients Urinary Catheter Date of Insertion: 06/05/22 Urinary Catheter Time of Insertion: 15:02 Data : 06/11/22 05:30 06/11/22 05:30 Micro: Microbiology 06/10/22 14:55 Blood Culture - Preliminary Blood SPECIMEN COLLECTED 06/10/22 15:00 Blood Culture - Preliminary Blood SPECIMEN COLLECTED A&P Assessment and plan (1) Acute kidney injury: Patient with severe acute kidney injury. No evidence of urinary retention on ultrasound, but is a constant concern considering his cervical myopathy, history of prostate surgery, and inability to place a Marley catheter. Appreciate urology consultation for placement of catheter Nephrology consultation for acute dialysis appreciated. Receive dialysis initially June 05, , . Dialysis catheter was removed on 06/10 He is now making urine Initiate some low rate IV fluids Avoid renal toxic medication Overall his presentation is likely multifactorial, in this patient on chronic diuretics who is diabetic, on ARB, spironolactone, oral potassium who presumably has recently had poor oral fluid intake as well as issues with cervical cord compression. CK was checked and not elevated Appreciate surgery consult for temporary dialysis catheter Hyperkalemia has resolved Urinalysis been checked. Status: Acute (2) Hyperkalemia: Secondary to acute kidney injury, in the face of treatment with potassium, Aldactone, benazepril. Hold all of these medicines in the interim Avoid NSAIDs Temporizing measures given, while arranging dialysis to bring this down. Status: Acute (3) Cervical cord compression with myelopathy: Avoid significant neck flexion that is prolonged Will still need outpatient evaluation by orthopedic spine surgery. I have been consulted and are aware. Status: Acute (4) Diabetic peripheral neuropathy associated with type 2 diabetes mellitus: Consistent carb diet Avoid insulin currently with his degree of renal dysfunction Note the blood sugar was somewhat low on admission. Received D10 initially. Cortisol level checked and normal. Blood sugar has been stable currently. Status: Acute (5) Chronic congestive heart failure: Currently appears compensated. No acute component. Secondary to ischemic cardiomyopathy. Last echo demonstrates EF of 50%. Echocardiogram demonstrates no obvious change. Some dilation of his aorta is noted. CT chest showed mild dilation of aorta. No contrast secondary to renal dysfunction. Status: Acute Plan Acute encephalopathy: Multifactorial (uremia, possible withdrawal, infection ) Patient has been very poorly responsive, in the last 2 days: CT head without contrast x2: Had shown no acute intracranial pathology. T- max:100.9 MRI head without contrast: Follow Blood culture: Urine culture: No growth TSH normal MRSA PCR Rapid COVID antigen negative Currently on broad-spectrum antibiotics. Continue thiamine IV Atrial fibrillation: Currently on metoprolol IV every 4 hours Continue therapeutic anticoagulation with Lovenox CODE STATUS: Full code DVT prophylaxis: On Lovenox Attestations Medical Necessity Statement*: Patient is to be in hospital for management of, acute encephalopathy. Time Spent in Patient Care: Greater than 35 minutes (>than 50% of time spent in counselling and/or direct pt care on unit) . Critical Care Time: The high probability of a clinically significant, sudden or life threatening deterioration of the patient's [] system(s) required my full and direct attention, intervention and personal management. The critical care t heidy is as shown. This time is in addition to time spent performing any reported procedures but includes the following: [x] Data and vital sign review and interpretation [x] Patient assessment, examination and intervention [x] Documentation [x] Medication orders and management Critical Care Time (min): 35 Coding Level of Care Code Acute Radar Air Traffic Controller for Chg Fwd Exam Expanded Problem Focused Diagnoses Acute kidney injury N17.9 Hyperkalemia E87.5 Cervical cord compression with myelopathy G95.20 Diabetic peripheral neuropathy associated with type 2 diabetes mellitus E11.42 Chronic congestive heart failure I50.9
--- NOTE | 2022-06-11 14:38 | PC.SLP ---
Patient remains unable to participate in a bedside swallowing evaluation.
[2022-06-11] MEDS: enoxaparin 100 mg/mL Syringe SUBCUT (18:27)
[2022-06-12] VITALS (58 sets, daily range): BP systolic 80–179; BP diastolic 50–114; PULSE 70–141; RESP 12–30; TEMP 36.9–38.3; O2SAT 79–100
[2022-06-12] MEDS: metoprolol tartrate 1 mg/1 mL SDV 5 mL 5 MG IVP ×6 (00:04→19:09)
[2022-06-12] MEDS: acetaminophen 650 mg Supp PR ×2 (00:05→13:04)
[2022-06-12] MEDS: famotidine 20 mg/2 mL INJ IVP ×2 (00:22→13:00)
[2022-06-12] MEDS: vancomycin 1,000 MG in sodium chloride 0.9% 250 ML 250 MG IV ×2 (02:04→11:13)
[2022-06-12] MEDS: sodium chloride 0.9% 1,000 ML 50 ML IV (02:06)
[2022-06-12] MEDS: piperacillin-tazobactam 3.375 GM in sodium chloride 0.9% (plus) 50 ML IV ×2 (03:59→15:15)
[2022-06-12 04:19] LABS: Basophils # 0.1 10^3/uL (0.0-0.1); Basophils % 0.4 %; Eosinophils % 0.1 %; Hematocrit 46.2 % (42.0-52.0); Hemoglobin 14.3 g/dL (11.7-16.6); Lymphocytes % 7.4 %; Mean Corpuscular Volume 100.2 fl (80-94); Mean Platelet Volume 11.7 fL (7.4-10.4); Monocytes # 1.7 10^3/uL (0.2-0.9); Monocytes % 12.5 %; Neutrophils # 10.59 10^3/uL (1.8-7.7); Neutrophils % 78.7 %; Nucleated Red Blood Cells % 0 %; Platelet Count 261 10^3/cmm (130-400); Red Blood Count 4.61 10^6/uL (4.1-5.3); Red Cell Distribution Width 13.5 % (12.1-15.1); White Blood Count 13.5 10^3/uL (4.0-10.0)
[2022-06-12 04:39] LABS: Alanine Aminotransferase 7 U/L (0-41); Alkaline Phosphatase 99 U/L (40-130); Anion Gap 22.2 (5-19); Aspartate Amino Transferase 24 U/L (0-40); Blood Urea Nitrogen 48 mg/dL (8-23); Calcium 9.9 mg/dL (8.5-10.5); Carbon Dioxide 20 mmol/L (22-29); Chloride 113 mmol/L (98-107); Globulin 4.1 g/dL (1.3-4.6); Glucose 175 mg/dL (65-115); Magnesium 1.6 mg/dL (1.7-2.3); Osmolality Calculated 331 mOsm/kg (285-295); Phosphorus 2.7 mg/dL (2.5-4.5); Potassium 3.2 mmol/L (3.5-5.1); Sodium 152 mmol/L (136-145); Total Bilirubin 1.7 mg/dL (0.15-1.2); Total Protein 7.1 g/dL (6.6-8.7)
--- NOTE | 2022-06-12 07:25 | PM.PN ---
Subjective Subjective: confused, moaning, uncomfortable in bed Medications: Reviewed: Yes Medication Review Details: Current Medications Acetaminophen (Acetaminophen 650 Mg Supp) 650 mg [place] Q4H PRN PRN Reason: MILD PAIN OR INCREASE TEMP Last Admin: 06/12/22 00:05 Dose: 650 mg Aspirin (Aspirin 81 Mg Ec Tablet) 81 mg PO DAILY [facility] Last Admin: 06/11/22 08:19 Dose: Not Given Atorvastatin Calcium (Atorvastatin 40 Mg Tablet) 40 mg PO BEDTIME LY Last Admin: 06/11/22 20:28 Dose: Not Given Cyclobenzaprine HCl (Cyclobenzaprine 10 Mg Tablet) 5 mg PO BID PRN PRN Reason: MUSCLE SPASMS Enoxaparin Sodium (Enoxaparin 100 Mg/Ml Syringe) 100 mg SUBCUT Q24H [facility] Last Admin: 06/11/22 18:27 Dose: 100 mg Famotidine (Famotidine 20 Mg/2 Ml Inj) 20 mg IVP Q12H [facility] Last Admin: 06/12/22 00:22 Dose: 20 mg Heparin Sodium (Porcine) (Heparin 5,000 Unit/Ml Inj 1 Ml) 0 unit IV PRN PRN; Protocol PRN Reason: Heparin weight-base protocol Last Admin: 06/10/22 09:55 Dose: 2,200 unit Sodium Chloride (Sodium Chloride 0.9%) 1,000 mls @ 0 mls/hr IV .Q0M PRN PRN Reason: hypotension or symptomatic Sodium Chloride (Sodium Chloride 0.9%) 1,000 mls @ 50 mls/hr IV .Q20H [facility] Last Admin: 06/12/22 02:06 Dose: 50 mls/hr Piperacillin Sod/Tazobactam (Sod 3.375 gm/ Sodium Chloride) 50 mls @ 12.5 mls/hr IV Q12H [facility]; Protocol Last Admin: 06/12/22 03:59 Dose: 12.5 mls/hr Vancomycin HCl 1,000 mg/ (Sodium Chloride) 250 mls @ 250 mls/hr IV Q36H [facility]; Protocol Last Infusion: 06/12/22 03:08 Dose: Infused Metoprolol Tartrate (Metoprolol Tartrate 1 Mg/1 Ml Sdv 5 Ml) 5 mg IVP Q4H [facility] Last Admin: 06/12/22 03:59 Dose: 5 mg Ondansetron HCl (Ondansetron 2 Mg/Ml Sdv 2 Ml) 4 mg IVP Q6H PRN PRN Reason: NAUSEA AND VOMITING Thiamine HCl (Thiamine 100 Mg/Ml Sdv) 100 mg IVP DAILY LY Last Admin: 06/11/22 08:26 Dose: 100 mg Vitals/I&O/Wt Last Vital Signs Temp 100 F H 06/12/22 03:40 Pulse 109 H 06/12/22 05:30 Resp 18 06/12/22 05:30 BP 148/91 06/12/22 05:30 Pulse Ox 92 06/12/22 05:30 O2 Del Method 06/12/22 05:30 O2 Flow Rate 2 06/07/22 08:54 06/11/22 06/12/22 06/12/22 22:59 06:59 14:59 Intake Total 891.667 / 1046.667 408.333 / 1455.000 Output Total 880 / 880 400 / 1280 Balance 11.667 / 166.667 8.333 / 175.000 Weight last 48 hrs Weight 109.996 kg Weight 110.994 kg Weight 89 kg Physical Exam Narrative: uncomfortable in bed, confused, NARD. low grade temp, tachycardic heent- nc/at, eomi lungs - crackles b/l heart reg, tachycaridc, +s1, s2 abd soft, nt, nd, + bs ext 1+ b/l leg edema neuro-moaning and confused exam by RN- telehealth visit Urinary Catheter Management: Coude: Cath Placed During This Visit: yes Reason for Continuing Indwelling Catheter: Accurate Measurement of Urinary Output in Critically Ill Patients Urinary Catheter Date of Insertion: 06/05/22 Urinary Catheter Time of Insertion: 15:02 Data : 06/12/22 03:32 06/12/22 03:32 Micro: Microbiology 06/10/22 14:55 Blood Culture - Preliminary Blood NEGATIVE TO DATE 06/10/22 15:00 Blood Culture - Preliminary Blood NEGATIVE TO DATE 06/10/22 14:00 MRSA Culture - Final Nose A&P Assessment and plan (1) Acute kidney injury: 77 yr old man 1. BLANCA- no hydronephrosis on renal us - bland ua -working dx is CI- BLANCA and med effect from diuretics and kylee-i -s/p HD x 3. now improved and dialysis catheetr improved -monitor where cr plateaus CHARLI + 1:40 2. hypernatremia- needs water. may need a feeding tube if family wants 3. hypokalemia 4. inc AGMA 5. hyperglycemia 6. temps- per medicine. monitor vanco trough- keep under 19 7. replete mag seen and examined w/ RN- telehealth visit discussed plan w/ HD RN -time spent 30 min Status: Acute Plan see above Attestations Medical Necessity Statement*: AMS, fevers, blanca, electrolyte abnormalities Time Spent in Patient Care: 16 - 35 minutes (>than 50% of time spent in counselling and/or direct pt care on unit). Coding Level of Care Code Acute Medical Physicist for Felicitas Julien Diagnoses Acute kidney injury N17.9
[2022-06-12] MEDS: sodium chloride 0.45% 1,000 ML 125 ML IV ×2 (07:45→15:52)
[2022-06-12 07:57] LABS: Vancomycin Random 12.2 ug/mL (20.0-40.0)
--- NOTE | 2022-06-12 08:53 | P.PN_ITS ---
Subjective Subjective: confused, moaning earlier per nurse. Pt looks at me but not verbal and not follow commands, uncomfortable in bed Medications: Reviewed: Yes Medication Review Details: Current Medications Acetaminophen (Acetaminophen 650 Mg Supp) 650 mg [place] Q4H PRN PRN Reason: MILD PAIN OR INCREASE TEMP Last Admin: 06/12/22 00:05 Dose: 650 mg Aspirin (Aspirin 81 Mg Ec Tablet) 81 mg PO DAILY [facility] Last Admin: 06/11/22 08:19 Dose: Not Given Atorvastatin Calcium (Atorvastatin 40 Mg Tablet) 40 mg PO BEDTIME LY Last Admin: 06/11/22 20:28 Dose: Not Given Cyclobenzaprine HCl (Cyclobenzaprine 10 Mg Tablet) 5 mg PO BID PRN PRN Reason: MUSCLE SPASMS Enoxaparin Sodium (Enoxaparin 100 Mg/Ml Syringe) 100 mg SUBCUT Q24H [facility] Last Admin: 06/11/22 18:27 Dose: 100 mg Famotidine (Famotidine 20 Mg/2 Ml Inj) 20 mg IVP Q12H [facility] Last Admin: 06/12/22 00:22 Dose: 20 mg Heparin Sodium (Porcine) (Heparin 5,000 Unit/Ml Inj 1 Ml) 0 unit IV PRN PRN; Protocol PRN Reason: Heparin weight-base protocol Last Admin: 06/10/22 09:55 Dose: 2,200 unit Sodium Chloride (Sodium Chloride 0.9%) 1,000 mls @ 0 mls/hr IV .Q0M PRN PRN Reason: hypotension or symptomatic Sodium Chloride (Sodium Chloride 0.9%) 1,000 mls @ 50 mls/hr IV .Q20H [facility] Last Admin: 06/12/22 02:06 Dose: 50 mls/hr Piperacillin Sod/Tazobactam (Sod 3.375 gm/ Sodium Chloride) 50 mls @ 12.5 mls/hr IV Q12H [facility]; Protocol Last Admin: 06/12/22 03:59 Dose: 12.5 mls/hr Vancomycin HCl 1,000 mg/ (Sodium Chloride) 250 mls @ 250 mls/hr IV Q36H [facility]; Protocol Last Infusion: 06/12/22 03:08 Dose: Infused Metoprolol Tartrate (Metoprolol Tartrate 1 Mg/1 Ml Sdv 5 Ml) 5 mg IVP Q4H LY Last Admin: 06/12/22 03:59 Dose: 5 mg Ondansetron HCl (Ondansetron 2 Mg/Ml Sdv 2 Ml) 4 mg IVP Q6H PRN PRN Reason: NAUSEA AND VOMITING Thiamine HCl (Thiamine 100 Mg/Ml Sdv) 100 mg IVP DAILY LY Last Admin: 06/11/22 08:26 Dose: 100 mg Vitals/I&O/Wt Last Vital Signs Temp 98.8 F 06/12/22 07:30 Pulse 108 H 06/12/22 08:30 Resp 19 H 06/12/22 08:30 BP 172/71 06/12/22 08:30 Pulse Ox 94 06/12/22 08:30 O2 Del Method 06/12/22 05:30 O2 Flow Rate 2 06/07/22 08:54 06/11/22 06/12/22 06/12/22 22:59 06:59 14:59 Intake Total 891.667 / 1046.667 408.333 / 1455.000 383.667 / 383.667 Output Total 880 / 880 400 / 1280 Balance 11.667 / 166.667 8.333 / 175.000 383.667 / 383.667 Weight last 48 hrs Weight 109.996 kg Weight 110.994 kg Weight 89 kg Physical Exam Narrative: General well-developed well-nourished obese white male lethargic in bed He does respond to noxious stimuli by looking at you but does not respond verbally or follow commands. Minimal response to sternal rub CV regular with frequent ectopy no loud murmur Lungs coarse bilateral breath sounds poor cooperation with exam Abdomen diminished bowel tones soft nontender Calves trace edema Mentation disoriented Neck stiff Legs straight leg lift is equivocal. Mildly stiff : OTHER: Urinary catheter is in place with mid tone yellow urine Urinary Catheter Management: Coude: Cath Placed During This Visit: yes Reason for Continuing Indwelling Catheter: Accurate Measurement of Urinary Output in Critically Ill Patients Urinary Catheter Date of Insertion: 06/05/22 Urinary Catheter Time of Insertion: 15:02 Data : 06/12/22 03:32 06/12/22 03:32 Micro: Microbiology 06/10/22 14:55 Blood Culture - Preliminary Blood NEGATIVE TO DATE 06/10/22 15:00 Blood Culture - Preliminary Blood NEGATIVE TO DATE 06/10/22 14:00 MRSA Culture - Final Nose A&P Assessment and plan (1) Altered mental status: Acute encephalopathy: Multifactorial (uremia, possible withdrawal, infection ) Patient has been very poorly responsive, in the last 2 days: CT head without contrast x2: Had shown no acute intracranial pathology. T- max:100.9 MRI head without contrast: Follow Blood culture: Urine culture: No growth TSH normal MRSA PCR Rapid COVID antigen negative Currently on broad-spectrum antibiotics. Continue thiamine IV hypernatremia noted but not severe will pursue lumbar puncture in fluoro by IR hold lovenox. last dose was 1830 last night Status: Acute (2) Acute kidney injury: Patient with severe acute kidney injury due to contrast nephropathy as culprit treated acutely with dialysis catheter and dialysis for 3 days No evidence of urinary retention on ultrasound, but is a constant concern considering history of cervical myelopathy Patient has creatinine much improved and he is also making urine and no longer requiring dialysis. Status: Acute (3) Hyperkalemia: Resolved Status: Acute (4) Cervical cord compression with myelopathy: Avoid significant neck flexion that is prolonged patient seen by orthopedist Status: Acute (5) Diabetic peripheral neuropathy associated with type 2 diabetes mellitus: Patient currently n.p.o. due to confusion. We will pursue lumbar puncture. Metformin held Note the blood sugar was somewhat low on admission. Received D10 initially. Cortisol level checked and normal. Blood sugar has been stable currently. Status: Acute (6) Chronic congestive heart failure: Currently appears compensated. No acute component. Secondary to ischemic cardiomyopathy. Last echo demonstrates EF of 50%. Echocardiogram demonstrates no obvious change. Some dilation of his aorta is noted. CT chest showed mild dilation of aorta. No contrast secondary to renal dysfunction. Status: Acute Plan CODE STATUS: Full code DVT prophylaxis: On Lovenox hold for LP Attestations Medical Necessity Statement*: Patient will need additional close monitoring in the ICU and work-up for his altered mental status Time Spent in Patient Care: 50 minutes spent in evaluation coronation of care for this patient today Coding Level of Care Code Acute Validation Technician for Felicitas Julien History Detailed Exam Detailed Medical Decision Making High Complexity Diagnoses Altered mental status R41.82 Acute kidney injury N17.9 Hyperkalemia E87.5 Cervical cord compression with myelopathy G95.20 Diabetic peripheral neuropathy associated with type 2 diabetes mellitus E11.42 Chronic congestive heart failure I50.9 Time Spent (min) 50
--- NOTE | 2022-06-12 10:24 | PC.CHAP ---
Pastoral Care Encounter/Spiritual Assessment Type of Contact [] Declined high school foreign language tutor visit [] Patient/Family/Request visit [] Outpatient visit [] Follow-up visit [] Physician referral [] Code/Alert [x] Routine visit [] Staff referral [] Actively dying [x] Patient sleeping [] Family support [] [] Out of room [] Palliative care [] [] Receiving care in room [] Pre-surgical visit [] Trauma [] Long length of stay [x] ICU visit [x] Other: continue to pray for PT... Relational/Emotional Strength [] Patient feels connected with others/family/visitors/staff [] Distress [] Loneliness/isolation [] Abandonment Spirituality of Patient [] Person of Gwen [] Attends Mormon of their Gwen [] Believes in Prayer [] Reads Bible or Rastafarian materials [] There are Spiritual issues to be addressed Safety Advisor Interventions [x] Prayer [] Active listening [] Non-anxious presence [] Spiritual/emotional support [] Crisis/trauma care [] Spiritual counseling [] Bereavement support [] Provided bereavement packet [] Provided Bible/devotional materials [] Provided toy/stuffed animal, coloring book to patient or family member [] Provided Communion [] Anointing/[place] [] Salvation [x] Completed spiritual assessment [] Other: Impact on Illness or Injury [] Angry [] Fearful [] Anxious [] Often cries [] Exhaustion [] Unable to work [] Unable to attend hindu [] Unable to walk/stand [] Unable to read [] Unable to drive [] Unable to eat/drink [] Unable to sleep [] Unable to be with family [] Patient intubated [] Other: Summary Time spent with patient
--- NOTE | 2022-06-12 10:37 | PC.SOCIAL ---
IMM update IMM updated with Reinaldo, listed on facesheet as contact. Copy of page 2 left at bedside. Patient remains confused. Reinaldo verbalized understanding. Copy in Chart initialed, dated and timed.
--- NOTE | 2022-06-12 12:52 | PC.SLP ---
Addendum entered by JIMMY Saini 06/12/22 13:26: Therapist checked with nursing. Not patient. Original Note: Patient checked with nursing. Nursing recommended that QUALITY ASSURANCE ASSOCIATE not see patient due to decreased alertness/ability to follow directions.
[2022-06-12] MEDS: potassium chloride premix 100 ML 50 MEQ IV (14:53)
[2022-06-12] MEDS: dexmedeTOMIDine 0.9 % NaCL 400 MCG/100 ML PREMIX IV (14:59)
--- NOTE | 2022-06-12 18:09 | PC.NURSE ---
Shift Note Frequent safety and comfort rounds continue. Orders and/or nursing care completed as indicated. Patient monitored for response to intervention and treatment(s). Education provided includes medications, oxygen needs, repositioning and oral care. Oral care performed and pt repositioned q2h and PRN. Pt requires frequent reteaching d/t confusion. Pt unable to follow commands or answer any questions. Pt on precedex gtt per orders, sleep apnea noted and MD notified. New orders for CPAP, respiratory notified. Hr improved on precedex but remains in AFIB. Lovenox held for LP to be performed tomorrow. Will continue to monitor.
[2022-06-12] MEDS: dexmedeTOMIDine 0.9 % NaCL 400 MCG/100 ML PREMIX 16.5 MCG IV (20:18)
--- NOTE | 2022-06-12 22:47 | XRR_ITS ---
PROCEDURE INFORMATION: Exam: XR Chest Exam date and time: 06/12/2022 11:15 PM Age: 77 years old Clinical indication: Device placement; Ett placement (vent status); Prior surgery; Surgery type: Cardiac cath. Patient HX: Check S/P intubation. History of chf. ; Additional info: Post intubation TECHNIQUE: Imaging protocol: Radiologic exam of the chest. Views: 1 view. COMPARISON: CR XR chest 1V portable [id number] 06/09/2022 7:54 AM FINDINGS: Tubes, catheters and devices: Endotracheal tube 2 cm above ander. Enteric tube within stomach. Lungs: Unremarkable. No consolidation. Pleural spaces: Unremarkable. No pleural effusion. No pneumothorax. Heart/Mediastinum: Mild cardiomegaly. Bones/joints: Unremarkable. XR/XR chest 1V portable [id number] IMPRESSION: 1. Unremarkable endotracheal tube position. 2. No focal acute pulmonary disease.
[2022-06-12] MEDS: rocuronium 10 mg/mL INJ 5mL 100 MG IVP (23:00)
[2022-06-12] MEDS: sodium chloride 0.9% 500 ML IV (23:11)
--- NOTE | 2022-06-12 23:12 | PM.ACPR ---
Procedure/Consent Time out: Time Out Performed: Yes Consent: Additional Consent Information: Consent was taken from his friend Reinaldo, his sister does not have any phone connection at this point to get consent from Procedure Narrative: I was called to evaluate the patient at the bedside Patient is obtunded not making any movement at all, no response to painful stimuli on sternal rub ABG revealed severe type II respiratory failure PCO2 above 100 Decision was made to intubate him after getting consent He was given etomidate and rocuronium ET tube size 8 was used After preoxygenation patient was given etomidate push 25 mg and then rocuronium 100 mg, glide scope was used to visualize vocal cords, endotracheal tube passed through the vocal cords without any difficulty on first attempt Post intubation Blood pressure dropped MAP 60, started Levophed I have given him a bolus of 500 mL normal saline Awaiting chest x-ray for confirmation Acute Procedures Epistaxis Control: Time out performed: Yes Intubation: Time out performed: Yes Sedative: etomidate Mg given: 25 Paralytic: rocuronium Mg given: 100 Laryngoscope: fiber optic video scope Assist device used: fiber optic device ET tube size: 8 Tube secured depth (cm): 23 Tube secured location: lips Tube placement confirmation: visualized tube passing through cords, no breath sounds over epigastrium, confirmation by capnometry and color change noted Patient tolerated procedure: well Intubation complications: none
[2022-06-12] MEDS: dextrose 5%-sod chloride 0.45% 1,000 ML 100 ML IV (23:50)
[2022-06-12 23:52] LABS: Alanine Aminotransferase 8 U/L (0-41); Albumin Level 2.7 g/dL (3.5-5.2); Alkaline Phosphatase 82 U/L (40-130); Anion Gap 15.6 (5-19); Aspartate Amino Transferase 21 U/L (0-40); Blood Urea Nitrogen 52 mg/dL (8-23); Calcium 9.4 mg/dL (8.5-10.5); Carbon Dioxide 26 mmol/L (22-29); Chloride 116 mmol/L (98-107); Globulin 3.7 g/dL (1.3-4.6); Glucose 189 mg/dL (65-115); Osmolality Calculated 335 mOsm/kg (285-295); Potassium 4.6 mmol/L (3.5-5.1); Sodium 153 mmol/L (136-145); Total Bilirubin 0.7 mg/dL (0.15-1.2); Total Protein 6.4 g/dL (6.6-8.7)
[2022-06-12 23:59] LABS: Alveolar-Arterial Oxygen Gradi 5.1 mmHg (5-10); Arterial Blood Gas Hematocrit 44.1 % (42-52); Base Excess ABG -5.7 mmol/L (-2.0-2.0); Blood Gas Allen Test Pos; Blood Gas Sample Site Radial, right; Blood Gas Sample Type Arterial; Carboxyhemoglobin 1.2 %THgb (0.4-20.1); HCO3 ABG 27.9 mmol/L (22-26); HGB O2 Sat 95.2 % (95-100); Ionized Calcium Level - ABG 1.4 mmol/L (1.1-1.4); Methemoglobin 0.7 % (0.4-1.5); Oxygen Device BIPAP; Oxygen Saturation ABG 97.1; Potassium Level - ABG 4.5 mmol/L (3.5-5.0); Total Hemoglobin 14.4 g/dL (14-18)
[2022-06-12 23:59] LABS: ABG PCO2 36.6 mmHg (35-45); ABG PH Result 7.36 (7.35-7.45); Arterial Blood Gas Hematocrit 41.1 % (42-52); Base Excess ABG -4.3 mmol/L (-2.0-2.0); Blood Gas Allen Test Pos; Blood Gas Sample Site Radial, right; Blood Gas Sample Type Arterial; Blood Gas Tidal Volume 0.55; HCO3 ABG 20.6 mmol/L (22-26); Oxygen Device VENT
[2022-06-13] VITALS (56 sets, daily range): BP systolic 87–132; BP diastolic 41–75; PULSE 63–110; RESP 14–22; TEMP 36.9–37.6; O2SAT 90–100
[2022-06-13] LABS: ABG PH Result 7.04 (7.35-7.45)
[2022-06-13] MEDS: famotidine 20 mg/2 mL INJ IVP ×2 (00:32→12:00)
--- NOTE | 2022-06-13 00:58 | PC.NURSE ---
2232- pt respiratory effort and neuro status significantly decreased upon assessment, decreased urine output, precedex stopped and md notified at this time. 2240- md at bedside, calling family to update, decision to intubate patient at this time 2300- 25 etomidate, 100 rocuronium given 2302- pt intubated with size 8 ett 23 @lip, breath sounds equal, pos color change 2305- vent settings 40% tv 550 rr20 peep 5 2321- ogt placed, cxr obtained, pt stabilizing with ns bolus and levophed gtt, vs otherwise stable, will continue to monitor.
--- NOTE | 2022-06-13 01:09 | PC.NURSE ---
Addendum entered by Rosi Samuel RN 06/13/22 05:15: This nurse witnessed waste of Precedex and Etomidate. Original Note: 65.992 ml precedex wasted with second rn witness 15 mg etomidate wasted with second rn witness
[2022-06-13 03:45] LABS: ABG PH Result 7.42 (7.35-7.45); Alveolar-Arterial Oxygen Gradi 12.9 mmHg (5-10); Arterial Blood Gas Hematocrit 41.6 % (42-52); Base Excess ABG -3.6 mmol/L (-2.0-2.0); Blood Gas Allen Test Pos; Blood Gas Sample Site Radial, right; Blood Gas Tidal Volume 0.53; HCO3 ABG 19.9 mmol/L (22-26); Ionized Calcium Level - ABG 1.3 mmol/L (1.1-1.4); Oxygen Device VENT
[2022-06-13] MEDS: piperacillin-tazobactam 3.375 GM in sodium chloride 0.9% (plus) 50 ML IV ×2 (03:48→16:02)
[2022-06-13] MEDS: metoprolol tartrate 1 mg/1 mL SDV 5 mL 5 MG IVP (03:48)
[2022-06-13 04:32] LABS: Basophils # 0.1 10^3/uL (0.0-0.1); Basophils % 0.3 %; Eosinophils % 0.1 %; Hematocrit 44.8 % (42.0-52.0); Hemoglobin 13.4 g/dL (11.7-16.6); Lymphocytes # 1.3 10^3/uL (0.8-4.8); Lymphocytes % 7.7 %; Mean Corpuscular HGB Conc 29.9 g/dL (30.0-36.0); Mean Corpuscular Hemoglobin 30.7 pg (28.0-34.0); Mean Corpuscular Volume 102.8 fl (80-94); Mean Platelet Volume 11.6 fL (7.4-10.4); Monocytes # 2.2 10^3/uL (0.2-0.9); Monocytes % 13.2 %; Neutrophils # 13.07 10^3/uL (1.8-7.7); Neutrophils % 77.7 %; Nucleated Red Blood Cells % 0 %; Platelet Count 261 10^3/cmm (130-400); Red Blood Count 4.36 10^6/uL (4.1-5.3); Red Cell Distribution Width 13.8 % (12.1-15.1); White Blood Count 16.8 10^3/uL (4.0-10.0)
[2022-06-13 04:48] LABS: Alanine Aminotransferase 7 U/L (0-41); Albumin Level 2.8 g/dL (3.5-5.2); Alkaline Phosphatase 88 U/L (40-130); Anion Gap 17.7 (5-19); Aspartate Amino Transferase 21 U/L (0-40); Blood Urea Nitrogen 56 mg/dL (8-23); Calcium 9.3 mg/dL (8.5-10.5); Carbon Dioxide 21 mmol/L (22-29); Chloride 115 mmol/L (98-107); Globulin 3.7 g/dL (1.3-4.6); Glucose 211 mg/dL (65-115); Magnesium 1.9 mg/dL (1.7-2.3); Osmolality Calculated 332 mOsm/kg (285-295); Phosphorus 3.8 mg/dL (2.5-4.5); Potassium 3.7 mmol/L (3.5-5.1); Sodium 150 mmol/L (136-145); Total Protein 6.5 g/dL (6.6-8.7)
[2022-06-13] MEDS: propofol 1,000 MG/100 ML INJ 6.6 MG IV (07:53)
[2022-06-13] MEDS: aspirin 81 mg Chew Tablet OG-TUBE (08:15)
--- NOTE | 2022-06-13 08:49 | FL_ITS ---
WS: [id number] LUMBAR PUNCTURE UNDER FLUOROSCOPY: OBTAIN CSF FOR ANALYSIS HISTORY: altered mental status and fever and elevated wbc COMPARISON: None available. FLUOROSCOPY TIME: 0min [id number] # of spot films: 1 Patient is intubated. Consent has been obtained upon admission. Patient is monitored by the nurse and respiratory therapy is present. Skin over the lumbar is cleansed with ChloraPrep and anesthetized with 1% buffered lidocaine. Access into the thecal sac is achieved. CSF is removed in a sterile manner and placed in the sterile tubes. Only a small amount of CSF is removed. After obtaining approximately 5 cc of CSF no additional aspira te was evident. The needle was repositioned with no success. Patient is probably dehydrated. CSF this into the laboratory for analysis as requested. FL/FL guided lumbarpunc dx* [id number] IMPRESSION: 1. CSF access was achieved without difficulty. Only 5 cc of CSF were aspirated before the fluid terminated. The needle was repositioned without success. Florecita ent is probably dehydrated. This collection will be submitted.
--- NOTE | 2022-06-13 08:50 | P.PN_ITS ---
Subjective Subjective: intubated overnight for acute hypercarbic respiratory failure and now improved ABG. Oxygenation is good. pt hypotensive after intubation requiring norepinephrine. Medications: Reviewed: Yes Medication Review Details: Current Medications Acetaminophen (Acetaminophen 650 Mg Supp) 650 mg CA Q4H PRN PRN Reason: MILD PAIN OR INCREASE TEMP Last Admin: 06/12/22 00:05 Dose: 650 mg Aspirin (Aspirin 81 Mg Ec Tablet) 81 mg PO DAILY LY Last Admin: 06/11/22 08:19 Dose: Not Given Atorvastatin Calcium (Atorvastatin 40 Mg Tablet) 40 mg PO BEDTIME LY Last Admin: 06/11/22 20:28 Dose: Not Given Cyclobenzaprine HCl (Cyclobenzaprine 10 Mg Tablet) 5 mg PO BID PRN PRN Reason: MUSCLE SPASMS Enoxaparin Sodium (Enoxaparin 100 Mg/Ml Syringe) 100 mg SUBCUT Q24H LY Last Admin: 06/11/22 18:27 Dose: 100 mg Famotidine (Famotidine 20 Mg/2 Ml Inj) 20 mg IVP Q12H LY Last Admin: 06/12/22 00:22 Dose: 20 mg Heparin Sodium (Porcine) (Heparin 5,000 Unit/Ml Inj 1 Ml) 0 unit IV PRN PRN; Protocol PRN Reason: Heparin weight-base protocol Last Admin: 06/10/22 09:55 Dose: 2,200 unit Sodium Chloride (Sodium Chloride 0.9%) 1,000 mls @ 0 mls/hr IV .Q0M PRN PRN Reason: hypotension or symptomatic Sodium Chloride (Sodium Chloride 0.9%) 1,000 mls @ 50 mls/hr IV .Q20H LY Last Admin: 06/12/22 02:06 Dose: 50 mls/hr Piperacillin Sod/Tazobactam (Sod 3.375 gm/ Sodium Chloride) 50 mls @ 12.5 mls/hr IV Q12H LY; Protocol Last Admin: 06/12/22 03:59 Dose: 12.5 mls/hr Vancomycin HCl 1,000 mg/ (Sodium Chloride) 250 mls @ 250 mls/hr IV Q36H LY; Protocol Last Infusion: 06/12/22 03:08 Dose: Infused Metoprolol Tartrate (Metoprolol Tartrate 1 Mg/1 Ml Sdv 5 Ml) 5 mg IVP Q4H LY Last Admin: 06/12/22 03:59 Dose: 5 mg Ondansetron HCl (Ondansetron 2 Mg/Ml Sdv 2 Ml) 4 mg IVP Q6H PRN PRN Reason: NAUSEA AND VOMITING Thiamine HCl (Thiamine 100 Mg/Ml Sdv) 100 mg IVP DAILY [facility] Last Admin: 06/11/22 08:26 Dose: 100 mg Vitals/I&O/Wt Last Vital Signs Temp 99.7 F H 06/13/22 07:30 Pulse 71 06/13/22 08:00 Resp 22 H 06/13/22 07:53 BP 103/48 06/13/22 08:00 Pulse Ox 97 06/13/22 08:00 O2 Del Method 06/13/22 05:34 O2 Flow Rate 2 06/07/22 08:54 FiO2 30 06/13/22 07:53 06/12/22 06/13/22 06/13/22 22:59 06:59 14:59 Intake Total 1326.024 / 1959.691 82.902 / 2042.593 2368.928 / 2368.928 Output Total 580 / 580 120 / 700 Balance 746.024 / 1379.691 -37.098 / 7348.813 3856.928 / 2368.928 Weight last 48 hrs Weight 107.955 kg Weight 109.996 kg Physical Exam Narrative: General well-developed well-nourished obese white male lethargic in bed He does respond to noxious stimuli and verbal by weakly open eyes but does not follow commands. CV regular with occasional ectopy no loud murmur Lungs clear on ventilator Abdomen diminished bowel tones soft nontender Calves trace edema Mentation sedated Neck stiff skin warm and dry : OTHER: Urinary catheter is in place with mid tone yellow urine Urinary Catheter Management: Coude: Cath Placed During This Visit: yes Reason for Continuing Indwelling Catheter: Accurate Measurement of Urinary Output in Critically Ill Patients Urinary Catheter Date of Insertion: 06/05/22 Urinary Catheter Time of Insertion: 15:02 Data : 06/13/22 03:35 06/13/22 03:35 A&P Assessment and plan (1) Altered mental status: Acute encephalopathy: Multifactorial (uremia, possible withdrawal, infection ) Patient has been very poorly responsive, in the last 4 days: CT head without contrast x2: Had shown no acute intracranial pathology. T- max:100.9 MRI head without contrast: Follow Blood culture: Urine culture: No growth TSH normal MRSA PCR Rapid COVID antigen negative Currently on broad-spectrum antibiotics. Continue thiamine IV hypernatremia noted but not severe will pursue lumbar puncture in fluoro by IR hold lovenox. last dose was 1830 last night intubated night of 06/12/2022 will start tube feeds and transition off tpn Status: Acute (2) Acute kidney injury: Patient with severe acute kidney injury due to contrast nephropathy as culprit treated acutely with dialysis catheter and dialysis for 3 days No evidence of urinary retention on ultrasound, but is a constant concern considering history of cervical myelopathy Patient has creatinine much improved and he is also making urine and no longer requiring dialysis. Status: Acute (3) Hyperkalemia: Resolved now hypokalemic and hypernatremia Status: Acute (4) Cervical cord compression with myelopathy: Avoid significant neck flexion that is prolonged patient seen by orthopedist spine Status: Acute (5) Diabetic peripheral neuropathy associated with type 2 diabetes mellitus: Patient currently n.p.o. due to confusion. We will pursue lumbar puncture. Metformin held Note the blood sugar was somewhat low on admission. Received D10 initially. Co rtisol level checked and normal. Blood sugar has been stable currently. need to start tube feeds Status: Acute (6) Chronic congestive heart failure: Currently appears compensated. No acute component. Secondary to ischemic cardiomyopathy. Last echo demonstrates EF of 50%. Echocardiogram demonstrates no obvious change. Some dilation of his aorta is noted. CT chest showed mild dilation of aorta. No contrast secondary to renal dysfunction. Status: Acute Plan CODE STATUS: Full code DVT prophylaxis: On Lovenox hold for LP Attestations Medical Necessity Statement*: Patient is intubated and sedated for acute respiratory failure Critical Care Time: 40 minutes critical care time Coding Level of Care Code Established Pt Acute Tooth Cutter Clutch for Chg Fwd Patient Type Established History Detailed Exam Comprehensive Medical Decision Making High Complexity Diagnoses Altered mental status R41.82 Acute kidney injury N17.9 Hyperkalemia E87.5 Cervical cord compression with myelopathy G95.20 Diabetic peripheral neuropathy associated with type 2 diabetes mellitus E11.42 Chronic congestive heart failure I50.9
--- NOTE | 2022-06-13 09:55 | PM.PN ---
Subjective Subjective: intubated, sedated, presors, oliguric. Medications: Reviewed: Yes Medication Review Details: Current Medications Acetaminophen (Acetaminophen 650 Mg Supp) 650 mg NM Q4H PRN PRN Reason: MILD PAIN OR INCREASE TEMP Last Admin: 06/12/22 13:04 Dose: 650 mg Aspirin (Aspirin 81 Mg Chew Tablet) 81 mg OG-TUBE DAILY LY Last Admin: 06/13/22 08:15 Dose: 81 mg Famotidine (Famotidine 20 Mg/2 Ml Inj) 20 mg IVP Q12H LY Last Admin: 06/13/22 00:32 Dose: 20 mg Heparin Sodium (Porcine) (Heparin 5,000 Unit/Ml Inj 1 Ml) 0 unit IV PRN PRN; Protocol PRN Reason: Heparin weight-base protocol Last Admin: 06/10/22 09:55 Dose: 2,200 unit Piperacillin Sod/Tazobactam (Sod 3.375 gm/ Sodium Chloride) 50 mls @ 12.5 mls/hr IV Q12H LY; Protocol Last Infusion: 06/13/22 07:53 Dose: Infused Vancomycin HCl 1,000 mg/ (Sodium Chloride) 250 mls @ 250 mls/hr IV Q24H LY; Protocol Last Infusion: 06/12/22 12:21 Dose: Infused dexmedeTOMIDine 0.9 % NaCL (Precedex) 400 mcg in 100 mls @ 0 mls/hr IV .Q0M LY; Protocol Last Titration: 06/13/22 01:08 Dose: Infused Propofol (Diprivan) 1,000 mg in 100 mls @ 0 mls/hr IV .Q0M LY; Protocol Last Admin: 06/13/22 07:53 Dose: 10 mcg/kg/min, 6.6 mls/hr Norepinephrine Bitartrate 4 mg (/ Dextrose) 254 mls @ 0 mls/hr IV .Q0M LY; Protocol Last Titration: 06/13/22 08:30 Dose: 4 mcg/min, 15.24 mls/hr Dextrose/Sodium Chloride (Dextrose 5%-Sod Chloride 0.45%) 1,000 mls @ 100 mls/hr IV .Q10H LY Last Infusion: 06/13/22 07:53 Dose: 100 mls/hr Fentanyl 1,000 mcg/ Sodium (Chloride) 100 mls @ 0 mls/hr IV .Q0M LY; Protocol Last Titration: 06/13/22 09:17 Dose: 50 mcg/hr, 5 mls/hr Morphine Sulfate (Morphine 2 Mg/Ml Syr 1 Ml) 2 mg IVP Q1H PRN PRN Reason: SEVERE PAIN Last Admin: 06/12/22 17:03 Dose: 2 mg Ondansetron HCl (Ondansetron 2 Mg/Ml Sdv 2 Ml) 4 mg IVP Q6H PRN PRN Reason: NAUSEA AND VOMITING Thiamine HCl (Thiamine 100 Mg/Ml Sdv) 100 mg IVP DAILY [facility] Last Admin: 06/13/22 08:14 Dose: 100 mg Vitals/I&O/Wt Last Vital Signs Temp 99.7 F H 06/13/22 07:30 Pulse 71 06/13/22 08:00 Resp 22 H 06/13/22 07:53 BP 103/48 06/13/22 08:00 Pulse Ox 97 06/13/22 08:00 O2 Del Method 06/13/22 05:34 O2 Flow Rate 2 06/07/22 08:54 FiO2 30 06/13/22 07:53 06/12/22 06/13/22 06/13/22 22:59 06:59 14:59 Intake Total 1326.024 / 1959.691 82.902 / 2042.593 2386.053 / 2386.053 Output Total 580 / 580 120 / 700 Balance 746.024 / 1379.691 -37.098 / 2163.249 1582.053 / 2386.053 Weight last 48 hrs Weight 107.955 kg Weight 109.996 kg Physical Exam Narrative: sedated and intubated in bed vent- tv 500, RR 18. fio2 26%. PEEP 5 heent- nc/at, eomi lungs - crackles b/l heart -controlled a fib, +s1, s2 abd soft, nt, nd, + bs ext 1+ b/l leg edema neuro-sedated exam by RN- telehealth visit Urinary Catheter Management: Coude: Cath Placed During This Visit: yes Reason for Continuing Indwelling Catheter: Accurate Measurement of Urinary Output in Critically Ill Patients Urinary Catheter Date of Insertion: 06/05/22 Urinary Catheter Time of Insertion: 15:02 Data : 06/13/22 03:35 06/13/22 03:35 A&P Assessment and plan (1) Acute kidney injury: 77 yr old man 1. BLANCA- no hydronephrosis on renal us - bland ua -working dx is CI- BLANCA and med effect from diuretics and kylee-i -s/p HD x 3. -cr improved and dialysis catheter removed -cr now stable and oliguric - monitor uop and chemistries CHARLI + 1:40 2. hypernatremia- needs water. may need a feeding tube if family wants 3. VDRF 4. resp alkalosis and inc AGMA - balanced pH 5. hyperglycemia- per medicine 6. temps and leukocytosis- per medicine. monitor vanco trough- keep under 19 7 AMS- Q for LP seen and examined w/ RN- telehealth visit discussed plan w/ RN -time spent 30 min Status: Acute Plan see above Attestations Medical Necessity Statement*: blanca, vdrf, ams, fevers Time Spent in Patient Care: 16 - 35 minutes (>than 50% of time spent in counselling and/or direct pt care on unit). Coding Level of Care Code Acute Heatset Winder Operator for Felicitas Julien Diagnoses Acute kidney injury N17.9
[2022-06-13 10:47] LABS: Blood Gas Sample Type CalVer; Carboxyhemoglobin 50.1 %THgb (0.4-20.1); HGB O2 Sat < 3.3 % (95-100); Methemoglobin 5.1 % (0.4-1.5); Oxygen Saturation ABG 4.8; Potassium Level - ABG < 2.1 mmol/L (3.5-5.0)
[2022-06-13 11:45] LABS: Bacteria Urine 4+ /hpf; Bilirubin Urine Neg (Negative); Blood Urine Neg (Negative); Glucose Urine UA Norm (Normal); Ketones Urine Negative (Negative); Leukocyte Esterase Urine 2+ (Negative); Nitrate Urine Positive (Negative); Protein Urine 1+ (Negative); RBC Urine TOO NUMEROUS TO CNT /hpf (0-2); Squamous Epithelial Cell Urine 0-4 /hpf (0-5); Urine Appearance Hazy (CLEAR); Urine Color Dark Yellow (Yellow); Urobilinogen Urine Norm (Negative); WBC Urine TOO NUMEROUS TO CNT /hpf (0-5); pH Urine 6 (5-7)
[2022-06-13 11:47] LABS: Uric Acid Crystals Urine 0-4 /hpf
[2022-06-13 11:47] LABS: Partial Thromboplastin Time 29.2 SECONDS (23.9-36.7)
[2022-06-13 11:48] LABS: Add Urine Culture? Yes
[2022-06-13] MEDS: vancomycin 1,000 MG in sodium chloride 0.9% 250 ML 250 MG IV (11:58)
--- NOTE | 2022-06-13 12:12 | PC.CHAP ---
Pastoral Care Encounter/Spiritual Assessment Type of Contact [] Declined conduit cleaner visit [] Patient/Family/Request visit [] Outpatient visit [] Follow-up visit [] Physician referral [] Code/Alert [x] Routine visit [] Staff referral [] Actively dying [] Patient sleeping [] Family support [] [] Out of room [] Palliative care [] [] Receiving care in room [] Pre-surgical visit [] Trauma [] Long length of stay [x] ICU visit [x] Other: still having issues with resting Relational/Emotional Strength [] Patient feels connected with others/family/visitors/staff [] Distress [] Loneliness/isolation [] Abandonment Spirituality of Patient [] Person of Gwen [] Attends Spiritism of their Gwen [] Believes in Prayer [] Reads Bible or Congregational materials [] There are Spiritual issues to be addressed [place]man Machine Operator Interventions [x] Prayer [] Active listening [] Non-anxious presence [] Spiritual/emotional support [] Crisis/trauma care [] Spiritual counseling [] Bereavement support [] Provided bereavement packet [] Provided Bible/devotional materials [] Provided toy/stuffed animal, coloring book to patient or family member [] Provided Communion [] Anointing/[place] [] Salvation [x] Completed spiritual assessment [] Other: Impact on Illness or Injury [] Angry [] Fearful [] Anxious [] Often cries [] Exhaustion [] Unable to work [] Unable to attend catholic [] Unable to walk/stand [] Unable to read [] Unable to drive [] Unable to eat/drink [] Unable to sleep [] Unable to be with family [] Patient intubated [] Other: Summary Time spent with patient
[2022-06-13] MEDS: dextrose 5%-sod chloride 0.45% 1,000 ML 100 ML IV (12:39)
--- NOTE | 2022-06-13 12:50 | PC.NURSE ---
Pt placed on LIS per MD order until pt goes to lumbar puncture. Scant output noted.
[2022-06-13] MEDS: midazolam 1 mg/mL INJ 2 mL 2 MG IVP (14:10)
[2022-06-13] MEDS: lactated ringers 1,000 ML 999 ML IV (15:27)
[2022-06-13] MEDS: propofol 1,000 MG/100 ML INJ 19.8 MG IV (15:58)
[2022-06-13 16:04] LABS: Body Fluid WBC 2 /uL; CSF Mononuclear # 0.002 10^3/uL (50-90); Monocytes # Body Fluid 0.002; Mononuclear WBC CSF % 100 % (50-90); Polynuclear WBC CSF % 0 % (0-10); RBC, Body Fluid 0 10^3/uL; Red Blood Cell CSF 0 10^3/uL (0-0); White Blood Cell CSF 2 /uL (0-5)
[2022-06-13 16:05] LABS: Apprearance, Body Fluid CLEAR; Color, Body Fluid PALE YELLOW
[2022-06-13] MEDS: dexmedeTOMIDine 0.9 % NaCL 400 MCG/100 ML PREMIX IV (16:19)
[2022-06-13 16:26] LABS: Cyto Order Verification Order Verified
[2022-06-13 16:33] LABS: Appearance CSF CLEAR (CLEAR); Color CSF OTHER (COLORLESS)
--- NOTE | 2022-06-13 22:37 | PC.NURSE ---
Patient remains intubated and on sedation. Propofol running at 10mcg/kg/min upon shift change but not titrated in dec. Patient remains on soft wrist restraints with good circulation. Precedex titrated up due to patient pulling on restraints and biting on tube. Blood pressure remains soft. Sp02 remains 93% on MV with fi02 of 21, VT 500, Peep 5, RR 18.
[2022-06-13 22:43] LABS: Glucose Point of Care 195 mg/dL (70-110)
[2022-06-14] VITALS (58 sets, daily range): BP systolic 94–147; BP diastolic 44–67; PULSE 53–80; RESP 18–22; TEMP 36.5–37.2; O2SAT 92–100
[2022-06-14] MEDS: dextrose 5%-sod chloride 0.45% 1,000 ML 100 ML IV ×3 (00:21→20:24)
[2022-06-14] MEDS: famotidine 20 mg/2 mL INJ IVP ×2 (02:34→12:40)
[2022-06-14] MEDS: piperacillin-tazobactam 3.375 GM in sodium chloride 0.9% (plus) 50 ML IV ×2 (03:46→15:39)
[2022-06-14 05:25] LABS: Alveolar-Arterial Oxygen Gradi 6.9 mmHg (5-10); Base Excess ABG -3.7 mmol/L (-2.0-2.0); Blood Gas Allen Test Pos; Blood Gas Operator Identificat JB; Blood Gas Sample Site Radial, right; Blood Gas Sample Type Arterial; Carboxyhemoglobin 1.2 %THgb (0.4-20.1); HGB O2 Sat 88.4 % (95-100); Ionized Calcium Level - ABG 1.3 mmol/L (1.1-1.4); Methemoglobin 0.6 % (0.4-1.5); Oxygen Device VENT; Oxygen Saturation ABG 90.1; PO2 ABG 56.7 mmHg (80.0-100.0); Potassium Level - ABG 2.9 mmol/L (3.5-5.0)
[2022-06-14] MEDS: chlorhexidine gluconate 4% Btl 118 mL 1 APPLIC TOPICAL (05:50)
[2022-06-14] MEDS: propofol 1,000 MG/100 ML INJ 6.6 MG IV (05:51)
[2022-06-14 06:08] LABS: Basophils # 0.1 10^3/uL (0.0-0.1); Basophils % 0.5 %; Eosinophils # 0.7 10^3/uL (0.0-0.8); Eosinophils % 4.9 %; Hematocrit 39.7 % (42.0-52.0); Hemoglobin 12.5 g/dL (11.7-16.6); Lymphocytes # 2.3 10^3/uL (0.8-4.8); Lymphocytes % 17.2 %; Mean Corpuscular HGB Conc 31.5 g/dL (30.0-36.0); Mean Corpuscular Hemoglobin 30.9 pg (28.0-34.0); Mean Corpuscular Volume 98.3 fl (80-94); Mean Platelet Volume 11.2 fL (7.4-10.4); Monocytes # 1.2 10^3/uL (0.2-0.9); Monocytes % 8.8 %; Neutrophils # 9.02 10^3/uL (1.8-7.7); Neutrophils % 67.8 %; Nucleated Red Blood Cells % 0 %; Platelet Count 172 10^3/cmm (130-400); Red Blood Count 4.04 10^6/uL (4.1-5.3); Red Cell Distribution Width 13.8 % (12.1-15.1); White Blood Count 13.3 10^3/uL (4.0-10.0)
[2022-06-14 06:09] LABS: Ammonia 23 umol/L (16-60)
[2022-06-14 06:14] LABS: Alanine Aminotransferase 9 U/L (0-41); Albumin Level 2.7 g/dL (3.5-5.2); Alkaline Phosphatase 90 U/L (40-130); Anion Gap 16.1 (5-19); Aspartate Amino Transferase 22 U/L (0-40); Blood Urea Nitrogen 59 mg/dL (8-23); Carbon Dioxide 20 mmol/L (22-29); Chloride 109 mmol/L (98-107); Globulin 3.2 g/dL (1.3-4.6); Glucose 235 mg/dL (65-115); Magnesium 1.7 mg/dL (1.7-2.3); Osmolality Calculated 318 mOsm/kg (285-295); Phosphorus 2.4 mg/dL (2.5-4.5); Potassium 3.1 mmol/L (3.5-5.1); Sodium 142 mmol/L (136-145); Total Bilirubin 0.8 mg/dL (0.15-1.2); Total Protein 5.9 g/dL (6.6-8.7)
[2022-06-14] MEDS: dexmedeTOMIDine 0.9 % NaCL 400 MCG/100 ML PREMIX 8.25 MCG IV (07:26)
--- NOTE | 2022-06-14 07:59 | P.PN_ITS ---
Subjective Subjective: remains intubated. on low dose levo- not responsive to command. responds to painful stimuli Medications: Reviewed: Yes Medication Review Details: Current Medications Acetaminophen (Acetaminophen 650 Mg Supp) 650 mg MT Q4H PRN PRN Reason: MILD PAIN OR INCREASE TEMP Last Admin: 06/12/22 13:04 Dose: 650 mg Aspirin (Aspirin 81 Mg Chew Tablet) 81 mg OG-TUBE DAILY LY Last Admin: 06/13/22 08:15 Dose: 81 mg Chlorhexidine Gluconate (Chlorhexidine Gluconate 4% Btl 118 Ml) 1 applic T OPICAL DAILY LY Last Admin: 06/14/22 05:50 Dose: 1 applic Famotidine (Famotidine 20 Mg/2 Ml Inj) 20 mg IVP Q12H LY Last Admin: 06/14/22 02:34 Dose: 20 mg Heparin Sodium (Porcine) (Heparin 5,000 Unit/Ml Inj 1 Ml) 0 unit IV PRN PRN; Protocol PRN Reason: Heparin weight-base protocol Last Admin: 06/10/22 09:55 Dose: 2,200 unit Piperacillin Sod/Tazobactam (Sod 3.375 gm/ Sodium Chloride) 50 mls @ 12.5 mls/hr IV Q12H LY; Protocol Last Admin: 06/14/22 03:46 Dose: 12.5 mls/hr Vancomycin HCl 1,000 mg/ (Sodium Chloride) 250 mls @ 250 mls/hr IV Q24H LY; Protocol Last Infusion: 06/13/22 13:19 Dose: Infused dexmedeTOMIDine 0.9 % NaCL (Precedex) 400 mcg in 100 mls @ 0 mls/hr IV .Q0M LY; Protocol Last Admin: 06/14/22 07:26 Dose: 0.3 mcg/kg/hr, 8.25 mls/hr Propofol (Diprivan) 1,000 mg in 100 mls @ 0 mls/hr IV .Q0M LY; Protocol Last Titration: 06/14/22 07:50 Dose: 10 mcg/kg/min, 6.6 mls/hr Norepinephrine Bitartrate 4 mg (/ Dextrose) 254 mls @ 0 mls/hr IV .Q0M LY; Protocol Last Titration: 06/14/22 07:19 Dose: 2 mcg/min, 7.62 mls/hr Dextrose/Sodium Chloride (Dextrose 5%-Sod Chloride 0.45%) 1,000 mls @ 100 mls/hr IV .Q10H [facility] Last Admin: 06/14/22 00:21 Dose: 100 mls/hr Fentanyl 1,000 mcg/ Sodium (Chloride) 100 mls @ 0 mls/hr IV .Q0M [facility]; Protocol Last Admin: 06/14/22 05:50 Dose: 75 mcg/hr, 7.5 mls/hr Morphine Sulfate (Morphine 2 Mg/Ml Syr 1 Ml) 2 mg IVP Q1H PRN PRN Reason: SEVERE PAIN Last Admin: 06/12/22 17:03 Dose: 2 mg Ondansetron HCl (Ondansetron 2 Mg/Ml Sdv 2 Ml) 4 mg IVP Q6H PRN PRN Reason: NAUSEA AND VOMITING Thiamine HCl (Thiamine 100 Mg/Ml Sdv) 100 mg IVP DAILY [facility] Last Admin: 06/13/22 08:14 Dose: 100 mg Vitals/I&O/Wt Last Vital Signs Temp 98.6 F 06/14/22 05:30 Pulse 70 06/14/22 05:56 Resp 21 H 06/14/22 07:21 BP 103/50 06/14/22 05:30 Pulse Ox 95 06/14/22 07:21 O2 Del Method 06/14/22 04:00 O2 Flow Rate 2 06/07/22 08:54 FiO2 28 06/14/22 07:21 06/13/22 06/14/22 06/14/22 22:59 06:59 14:59 Intake Total 936.633 / 4334.143 1197.416 / 5531.559 1160.925 / 1160.925 Output Total 300 / 300 225 / 525 Balance 636.633 / 4034.143 972.416 / 5006.559 1160.925 / 1160.925 Weight last 48 hrs Weight 116.346 kg Weight 107.955 kg Physical Exam Narrative: sedated and intubated in bed vent- tv 500, RR 18. fio2 28%. PEEP 5 heent- nc/at, eomi lungs - dec crackles b/l heart -irreg, +s1, s2 abd soft, nt, nd, + bs ext 1+ b/l leg edema neuro-sedated exam by RN- telehealth visit Urinary Catheter Management: Coude: Cath Placed During This Visit: yes Reason for Continuing Indwelling Catheter: Accurate Measurement of Urinary Output in Critically Ill Patients Urinary Catheter Date of Insertion: 06/05/22 Urinary Catheter Time of Insertion: 15:02 Data : 06/14/22 06:01 06/14/22 04:57 Micro: Microbiology 06/13/22 14:35 Gram Stain - Final Other Source A&P Assessment and plan (1) Acute kidney injury: 77 yr old man 1. BLANCA- no hydronephrosis on renal us - bland ua -working dx is CI- BLANCA and med effect from diuretics and kylee-i -s/p HD x 3. -cr improved and dialysis catheter removed -cr now stable and oliguric - monitor uop and chemistries CHRALI + 1:40 -repeat ua nitirite + 2+ leuk, red and wbc too numerous to count, 4+ bact- appears like UTI 2. hypernatremia- improved w/ feeds- can dec free water. 3. VDRF 4. resp alkalosis and inc AGMA - balanced pH 5. hyperglycemia- per medicine 6. temps and leukocytosis- per medicine. monitor vanco trough- keep under 19- l ikely UTI 7 AMS- Q for LP seen and examined w/ RN- telehealth visit discussed plan w/ RN -time spent 30 min Status: Acute Plan see above Attestations Medical Necessity Statement*: per medicine Time Spent in Patient Care: 16 - 35 minutes (>than 50% of time spent in counselling and/or direct pt care on unit) . Coding Level of Care Code Acute Deicer Tester for Felicitas Julien Diagnoses Acute kidney injury N17.9
--- NOTE | 2022-06-14 08:15 | PC.SOCIAL ---
IMM Update pg 2 of IMM not updated @ this time. Patient is intubated and not expected to DC in the next 24-48hours.
[2022-06-14] MEDS: aspirin 81 mg Chew Tablet OG-TUBE (08:29)
--- NOTE | 2022-06-14 09:45 | XR_ITS ---
WS: [id number] PORTABLE CHEST x2 HISTORY: Post PICC placement COMPARISON: None available. Right-sided PICC line terminates in the RIGHT subclavian vein. Unable to advance the lines more centr ally. Endotracheal tube in the mid ander. Patient is rotated to the RIGHT. There is also a nasogastric tub e present. XR/XR chest 1V portable [id number] IMPRESSION: Right-sided PICC line terminates in the mid subclavian vein.
--- NOTE | 2022-06-14 11:02 | PC.CHAP ---
Pastoral Care Encounter/Spiritual Assessment Type of Contact [] Declined press assistant visit [] Patient/Family/Request visit [] Outpatient visit [] Follow-up visit [] Physician referral [] Code/Alert [x] Routine visit [] Staff referral [] Actively dying [] Patient sleeping [] Family support [] [] Out of room [] Palliative care [] [x] Receiving care in room [] Pre-surgical visit [] Trauma [] Long length of stay [x] ICU visit [x] Other: kick line being placed Relational/Emotional Strength [] Patient feels connected with others/family/visitors/staff [] Distress [] Loneliness/isolation [] Abandonment Spirituality of Patient [] Person of Gwen [] Attends Episcopal of their Gwen [] Believes in Prayer [] Reads Bible or Taoist materials [] There are Spiritual issues to be addressed Community Organization Director Interventions [x] Prayer [] Active listening [] Non-anxious presence [] Spiritual/emotional support [] Crisis/trauma care [] Spiritual counseling [] Bereavement support [] Provided bereavement packet [] Provided Bible/devotional materials [] Provided toy/stuffed animal, coloring book to patient or family member [] Provided Communion [] Anointing/[place] [] Salvation [x] Completed spiritual assessment [] Other: Impact on Illness or Injury [] Angry [] Fearful [] Anxious [] Often cries [] Exhaustion [] Unable to work [] Unable to attend shinto [] Unable to walk/stand [] Unable to read [] Unable to drive [] Unable to eat/drink [] Unable to sleep [] Unable to be with family [] Patient intubated [] Other: Summary Time spent with patient
--- NOTE | 2022-06-14 11:41 | XR_ITS ---
WS: [id number] PORTABLE CHEST HISTORY: repositioned picc COMPARISON: Study earlier the same date Right-sided PICC line has been advanced and now terminates within the mid SVC. Increased opacification at the RIGHT lung base may be an area of atelectasis. Lung volumes are decrea sed. No pneumothorax. Cardiac size: Mildly enlarged cardiac silhouette. Mediastinum/Aorta: Endotracheal tube remains in good position. Atherosclerotic calcification in aorta . No osseous abnormality seen. XR/XR chest 1V portable [id number] IMPRESSION: 1. Satisfactory repositioning of the RIGHT PICC line. PICC line terminates in the mid SVC. 2. Endotracheal tube remains in good position.
[2022-06-14 11:51] LABS: Vancomycin Trough 15.2 ug/mL (10-15)
--- NOTE | 2022-06-14 11:51 | PM.PN ---
Subjective Subjective: Patient is intubated and currently off norepinephrine this morning and also off propofol. He has been moving all extremities spontaneously but not reliably following commands. Intubated for CO2 retention he is overdriving the vent with blood gas this morning good Patient has been on tube feedings with minimal residuals. Renal function stable with creatinine 2.4 and potassium running low despite intermittent replacement Vitals/I&O/Wt Last Vital Signs Temp 98.6 F 06/14/22 07:30 Pulse 62 06/14/22 10:30 Resp 18 06/14/22 09:47 BP 100/47 06/14/22 10:30 Pulse Ox 97 06/14/22 10:30 O2 Del Method 06/14/22 04:00 O2 Flow Rate 2 06/07/22 08:54 FiO2 28 06/14/22 09:47 06/13/22 06/14/22 06/14/22 22:59 06:59 14:59 Intake Total 936.633 / 4334.143 1197.416 / 5531.559 2262.562 / 2262.562 Output Total 300 / 300 225 / 525 Balance 636.633 / 4034.143 972.416 / 5006.559 2262.562 / 2262.562 Weight last 48 hrs Weight 116.346 kg Weight 107.955 kg Physical Exam Narrative: General well-developed well-nourished obese white male on ventilator. He does open his eyes and did move all extremities as well as his head vigorously enough to dislodge the ET tube to ventilator hose connection CV irregular and rate is controlled Lungs clear on ventilator Abdomen diminished bowel tones soft nontender Calves trace edema Mentation still appears delirious Neck stiff skin warm and dry : OTHER: Urinary catheter is in place with mid tone yellow urine Urinary Catheter Management: Coude: Cath Placed During This Visit: yes Reason for Continuing Indwelling Catheter: Accurate Measurement of Urinary Output in Critically Ill Patients Urinary Catheter Date of Insertion: 06/05/22 Urinary Catheter Time of Insertion: 15:02 Data : 06/14/22 06:01 06/14/22 04:57 Other Labs: LP done yesterday by interventional radiology was negative for infection Urine sample from 06/13/2022 loaded with bacteria and white cells Micro: Microbiology 06/13/22 14:35 Gram Stain - Final Other Source Body Fluid Culture - Preliminary 06/13/22 11:29 Urine Culture - Preliminary Urine,Clean Catch A&P Assessment and plan (1) Altered mental status: Acute encephalopathy: Multifactorial (uremia, possible withdrawal, infection ) Patient has improved since being on ventilator and tube feeds with correction of his hypernatremia He is not a known drinker per his friend who has known him 25 years Lumbar puncture negative for infection. Okay to resume Lovenox intubated night of 06/12/2022 will start tube feeds and transition off tpn Status: Acute (2) Acute kidney injury: Patient with severe acute kidney injury due to contrast nephropathy as culprit treated acutely with dialysis catheter and dialysis for 3 days No evidence of urinary retention on ultrasound, but is a constant concern considering history of cervical myelopathy Patient has creatinine much improved and he is also making urine and no longer requiring dialysis. Status: Acute (3) Cervical cord compression with myelopathy: Avoid significant neck flexion that is prolonged patient seen by orthopedist spine Status: Acute (4) Diabetic peripheral neuropathy associated with type 2 diabetes mellitus: Patient currently n.p.o. due to confusion. We will pursue lumbar puncture. Metformin held Note the blood sugar was somewhat low on admission. Received D10 initially. Cortisol level checked and normal. Blood sugar has been stable currently. need to start tube feeds Status: Acute (5) Chronic congestive heart failure: Currently appears compensated. No acute component. Secondary to ischemic cardiomyopathy. Last echo demonstrates EF of 50%. Echocardiogram demonstrates no obvious change. Some dilation of his aorta is noted. CT chest showed mild dilation of aorta. No contrast secondary to renal dysfunction. Status: Acute (6) Atrial fibrillation by electrocardiogram: Stable rate on Precedex. Blood pressure still borderline low we will resume metoprolol tomorrow if blood pressure will tolerate Status: Acute (7) UTI (urinary tract infection): Continue antibiotics for urine we will discontinue vancomycin. Patient has renal dysfunction and also blood cultures negative LP was negative urine no growth despite lots of bacteria MRSA screen was negative Status: Acute Plan CODE STATUS: Full code DVT prophylaxis: On Lovenox hold for LP Attestations Medical Necessity Statement*: Patient remains intubated on ventilator and anticipate greater than 2 mid nights. Likely 5 more days in the hospital Critical Care Time: 40 minutes critical care time Coding Level of Care Code Acute Cytogenetic Technician for Aureliag Fwd History Detailed Exam Comprehensive Medical Decision Making High Complexity Diagnoses Altered mental status R41.82 Acute kidney injury N17.9 Cervical cord compression with myelopathy G95.20 Diabetic peripheral neuropathy associated with type 2 diabetes mellitus E11.42 Chronic congestive heart failure I50.9 Atrial fibrillation by electrocardiogram I48.91 UTI (urinary tract infection) N39.0
[2022-06-14] MEDS: potassium chloride oral liq 20 mEq/15 mL UDC 40 MEQ PO (12:40)
[2022-06-14] MEDS: enoxaparin 30 mg/0.3 mL Syringe SUBCUT (13:16)
[2022-06-14] MEDS: dexmedeTOMIDine 0.9 % NaCL 400 MCG/100 ML PREMIX 13.75 MCG IV (14:18)
--- NOTE | 2022-06-14 18:42 | PC.NURSE ---
Pt resting in bed. VSS. Fentanyl, precedex and IVF infusing per orders. Vent settings per RT. Bilateral wrist restraints in place per protocol. Coude catheter exchanged today per MD orders, tolerated well. Tube feedings held per orders for 4 hours, oncoming nurse informed. No other issues noted. Will monitor.
--- NOTE | 2022-06-14 19:20 | PC.NURSE ---
Shift report given By Jordy Fay RN. Patient appears comfortable and precedex running at 0.6, Fentanyl at 75. Tube feedings currently paused and alarm set for 2100 to begin due to resdiuals over 100.
[2022-06-14] MEDS: dexmedeTOMIDine 0.9 % NaCL 400 MCG/100 ML PREMIX 16.5 MCG IV (20:25)
[2022-06-15] VITALS (56 sets, daily range): BP systolic 109–158; BP diastolic 44–94; PULSE 60–96; RESP 10–20; TEMP 36.9–37.9; O2SAT 95–100
[2022-06-15] MEDS: famotidine 20 mg/2 mL INJ IVP ×2 (00:46→14:09)
[2022-06-15] MEDS: dexmedeTOMIDine 0.9 % NaCL 400 MCG/100 ML PREMIX 16.5 MCG IV ×2 (02:19→22:59)
[2022-06-15 03:55] LABS: ABG PCO2 28.6 mmHg (35-45); ABG PH Result 7.43 (7.35-7.45); Alveolar-Arterial Oxygen Gradi 11.7 mmHg (5-10); Arterial Blood Gas Hematocrit 48.5 % (42-52); Blood Gas Allen Test Pos; Blood Gas Operator Identificat JB; Blood Gas Sample Site Radial, right; Blood Gas Sample Type Arterial; Carboxyhemoglobin 1.2 %THgb (0.4-20.1); HCO3 ABG 18.9 mmol/L (22-26); HGB O2 Sat 93.9 % (95-100); Ionized Calcium Level - ABG 1.2 mmol/L (1.1-1.4); Methemoglobin 0.6 % (0.4-1.5); Oxygen Device VENT; Oxygen Saturation ABG 95.6; PO2 ABG 72.6 mmHg (80.0-100.0); Potassium Level - ABG 3.5 mmol/L (3.5-5.0); Total Hemoglobin 15.8 g/dL (14-18)
[2022-06-15] MEDS: piperacillin-tazobactam 3.375 GM in sodium chloride 0.9% (plus) 50 ML IV ×2 (04:13→15:13)
[2022-06-15] MEDS: chlorhexidine gluconate 4% Btl 118 mL 1 APPLIC TOPICAL (04:49)
[2022-06-15 05:07] LABS: Alanine Aminotransferase 8 U/L (0-41); Albumin Level 2.4 g/dL (3.5-5.2); Alkaline Phosphatase 100 U/L (40-130); Aspartate Amino Transferase 17 U/L (0-40); Blood Urea Nitrogen 58 mg/dL (8-23); Calcium 8.4 mg/dL (8.5-10.5); Carbon Dioxide 20 mmol/L (22-29); Chloride 111 mmol/L (98-107); Glucose 208 mg/dL (65-115); Magnesium 1.5 mg/dL (1.7-2.3); Osmolality Calculated 314 mOsm/kg (285-295); Phosphorus 2.7 mg/dL (2.5-4.5); Sodium 141 mmol/L (136-145); Total Bilirubin 0.8 mg/dL (0.15-1.2); Total Protein 5.4 g/dL (6.6-8.7)
[2022-06-15 05:14] LABS: Anion Gap 13.8 (5-19); Potassium 3.8 mmol/L (3.5-5.1)
[2022-06-15] MEDS: dextrose 5%-sod chloride 0.45% 1,000 ML 100 ML IV (06:40)
--- NOTE | 2022-06-15 07:58 | PM.PN ---
Subjective Subjective: Patient is intubated in no apparent distress. Vitals/I&O/Wt Last Vital Signs Temp 98.9 F 06/15/22 06:00 Pulse 66 06/15/22 06:00 Resp 16 06/15/22 07:38 BP 120/56 06/15/22 06:00 Pulse Ox 98 06/15/22 07:38 O2 Del Method 06/15/22 02:10 O2 Flow Rate 2 06/07/22 08:54 FiO2 28 06/15/22 07:38 06/14/22 06/15/22 06/15/22 22:59 06:59 14:59 Intake Total 1808.462 / 4205.420 1184.708 / 5390.128 141.575 / 141.575 Output Total 600 / 600 525 / 1125 Balance 1208.462 / 3605.420 659.708 / 4265.128 141.575 / 141.575 Weight last 48 hrs Weight 262 lb 3 oz Weight 256 lb 8 oz Physical Exam Narrative: Patient is intubated. He has peripheral swelling patient is on no apparent distress. Hands and legs are warm to the touch no apparent palpable pain in upper extremities or cervical spine. He has good cap refill in all upper extremity digits as well as lower extremities. Pulses are palpable in the radial dorsalis pedis and posterior tibial region. Calves are supple. SCDs were present for mechanical DVT prophylaxis. HENMT: COMMON NORMALS: normocephalic HEAD & SCALP: normocephalic Neck/C-Spine: COMMON NORMALS: no lymphadenopathy Resp: COMMON NORMALS: normal respiratory effort (With ventilator.) OTHER: Patient intubated Cardio: COMMON NORMALS: regular rate and regular rhythm RATE: regular rate RHYTHM: regular rhythm GI: COMMON NORMALS: Soft to palpation PALPATION: Yes Soft to palpation : COMMON NORMALS: Yes no CVA tenderness BLADDER/KIDNEY EXAM: Yes no CVA tenderness Back/Pelvis: COMMON NORMALS: no CVA tenderness Urinary Catheter Management: Coude: Cath Placed During This Visit: yes Reason for Continuing Indwelling Catheter: Accurate Measurement of Urinary Output in Critically Ill Patients Urinary Catheter Date of Insertion: 06/14/22 Urinary Catheter Time of Insertion: 11:00 Data : 06/14/22 06:01 06/15/22 04:37 Micro: Microbiology 06/13/22 14:35 Gram Stain - Final Other Source Body Fluid Culture - Preliminary 06/13/22 11:29 Urine Culture - Preliminary Urine,Clean Catch A&P Assessment and plan (1) Cervical spondylosis with myelopathy: We will continue to follow his condition at this point no operative intervention due to his medical condition. We will have him follow-up outpatient. We will be available inpatient should the patient's status change. Status: Acute (2) Degenerative disc disease, cervical: Status: Acute Attestations Medical Necessity Statement*: Defer to medical team Coding Level of Care Code Established Pt Acute Model Engine Mechanic for Chg Fwd Patient Type Established History Problem Focused Exam Problem Focused Medical Decision Making Low Complexity Diagnoses Cervical spondylosis with myelopathy M47.12 Degenerative disc disease, cervical M50.30
[2022-06-15] MEDS: dexmedeTOMIDine 0.9 % NaCL 400 MCG/100 ML PREMIX 11 MCG IV ×2 (08:04→16:30)
[2022-06-15] MEDS: aspirin 81 mg Chew Tablet OG-TUBE (08:04)
--- NOTE | 2022-06-15 08:36 | P.PN_ITS ---
Subjective Subjective: Patient has stabilized his kidney function and no longer is having fevers. Other than urinary tract infection there are not other clear signs of infection the lumbar puncture was negative Patient continues to move all extremities symmetrically when not sedated but he is not able to follow command Sedation currently with Precedex and fentanyl. He is not receiving propofol Medications: Reviewed: Yes Medication Review Details: Current Medications Acetaminophen (Acetaminophen 650 Mg Supp) 650 mg DE Q4H PRN PRN Reason: MILD PAIN OR INCREASE TEMP Last Admin: 06/12/22 13:04 Dose: 650 mg Aspirin (Aspirin 81 Mg Chew Tablet) 81 mg OG-TUBE DAILY LY Last Admin: 06/13/22 08:15 Dose: 81 mg Chlorhexidine Gluconate (Chlorhexidine Gluconate 4% Btl 118 Ml) 1 applic TOPICAL DAILY LY Last Admin: 06/14/22 05:50 Dose: 1 applic Famotidine (Famotidine 20 Mg/2 Ml Inj) 20 mg IVP Q12H LY Last Admin: 06/14/22 02:34 Dose: 20 mg Heparin Sodium (Porcine) (Heparin 5,000 Unit/Ml Inj 1 Ml) 0 unit IV PRN PRN; Protocol PRN Reason: Heparin weight-base protocol Last Admin: 06/10/22 09:55 Dose: 2,200 unit Piperacillin Sod/Tazobactam (Sod 3.375 gm/ Sodium Chloride) 50 mls @ 12.5 mls/hr IV Q12H LY; Protocol Last Admin: 06/14/22 03:46 Dose: 12.5 mls/hr Vancomycin HCl 1,000 mg/ (Sodium Chloride) 250 mls @ 250 mls/hr IV Q24H LY; Protocol Last Infusion: 06/13/22 13:19 Dose: Infused dexmedeTOMIDine 0.9 % NaCL (Precedex) 400 mcg in 100 mls @ 0 mls/hr IV .Q0M LY; Protocol Last Admin: 06/14/22 07:26 Dose: 0.3 mcg/kg/hr, 8.25 mls/hr Propofol (Diprivan) 1,000 mg in 100 mls @ 0 mls/hr IV .Q0M LY; Protocol Last Titration: 06/14/22 07:50 Dose: 10 mcg/kg/min, 6.6 mls/hr Norepinephrine Bitartrate 4 mg (/ Dextrose) 254 mls @ 0 mls/hr IV .Q0M [facility]; Protocol Last Titration: 06/14/22 07:19 Dose: 2 mcg/min, 7.62 mls/hr Dextrose/Sodium Chloride (Dextrose 5%-Sod Chloride 0.45%) 1,000 mls @ 100 mls/hr IV .Q10H [facility] Last Admin: 06/14/22 00:21 Dose: 100 mls/hr Fentanyl 1,000 mcg/ Sodium (Chloride) 100 mls @ 0 mls/hr IV .Q0M [facility]; Protocol Last Admin: 06/14/22 05:50 Dose: 75 mcg/hr, 7.5 mls/hr Morphine Sulfate (Morphine 2 Mg/Ml Syr 1 Ml) 2 mg IVP Q1H PRN PRN Reason: SEVERE PAIN Last Admin: 06/12/22 17:03 Dose: 2 mg Ondansetron HCl (Ondansetron 2 Mg/Ml Sdv 2 Ml) 4 mg IVP Q6H PRN PRN Reason: NAUSEA AND VOMITING Thiamine HCl (Thiamine 100 Mg/Ml Sdv) 100 mg IVP DAILY [facility] Last Admin: 06/13/22 08:14 Dose: 100 mg Vitals/I&O/Wt Last Vital Signs Temp 98.8 F 06/15/22 07:00 Pulse 69 06/15/22 08:00 Resp 16 06/15/22 07:38 BP 127/56 06/15/22 08:00 Pulse Ox 97 06/15/22 08:00 O2 Del Method 06/15/22 02:10 O2 Flow Rate 2 06/07/22 08:54 FiO2 28 06/15/22 07:38 06/14/22 06/15/22 06/15/22 22:59 06:59 14:59 Intake Total 1808.462 / 4205.420 1184.708 / 5390.128 203.775 / 203.775 Output Total 600 / 600 525 / 1125 Balance 1208.462 / 3605.420 659.708 / 4265.128 203.775 / 203.775 Weight last 48 hrs Weight 118.926 kg Weight 116.346 kg Physical Exam Narrative: General well-developed well-nourished obese white male on ventilator. Pupils equally round and reactive light accommodation CV irregular and rate is controlled Lungs clear on ventilator Abdomen diminished bowel tones soft nontender Calves trace edema Mentation still appears delirious Neck stiff skin warm and dry Residuals are 60-100 and tube feeds intermittently held : OTHER: Urinary catheter is in place with mid tone yellow urine Marley catheter was changed 06/14/2022 Urinary Catheter Management: Coude: Cath Placed During This Visit: yes Reason for Continuing Indwelling Catheter: Accurate Measurement of Urinary Output in Critically Ill Patients Urinary Catheter Date of Insertion: 06/14/22 Urinary Catheter Time of Insertion: 11:00 Data : 06/14/22 06:01 06/15/22 04:37 Micro: Microbiology 06/13/22 14:35 Gram Stain - Final Other Source Body Fluid Culture - Preliminary 06/13/22 11:29 Urine Culture - Preliminary Urine,Clean Catch A&P Assessment and plan (1) Respiratory failure with hypercapnia: pt with hypercapnia intubated 06/12 with AMS and fluid overload. minimal vent support now. diurese, lower fentanyl and work to extubation Status: Acute (2) Altered mental status: Acute encephalopathy: Multifactorial (uremia, possible withdrawal, infection ) Patient has improved since being on ventilator and tube feeds with correction of his hypernatremia He is not a known drinker per his friend who has known him 25 years Lumbar puncture negative for infection. Okay to resume Lovenox intubated night of 06/12/2022 will start tube feeds and transition off tpn Status: Acute (3) Acute kidney injury: Patient with severe acute kidney injury due to contrast nephropathy as culprit treated acutely with dialysis catheter and dialysis for 3 days No evidence of urinary retention on ultrasound, but is a constant concern considering history of cervical myelopathy Patient has creatinine much improved and he is also making urine and no longer requiring dialysis. Electrolytes are stable diurese Status: Acute (4) Cervical cord compression with myelopathy: Avoid significant neck flexion that is prolonged patient seen by orthopedist spine Status: Acute (5) Diabetic peripheral neuropathy associated with type 2 diabetes mellitus: started on tube feeds and intermittent high residuals. electrolytes improved Status: Acute (6) Chronic congestive heart failure: Currently appears compensated. No acute component. Secondary to ischemic cardiomyopathy. Last echo demonstrates EF of 50%. Echocardiogram demonstrates no obvious change. Some dilation of his aorta is noted. CT chest showed mild dilation of aorta. No contrast secondary to renal dysfunction. diurese and work towards extubation Status: Acute (7) Atrial fibrillation by electrocardiogram: Stable rate on Precedex. Blood pressure still borderline low we will resume m etoprolol tomorrow if blood pressure will tolerate Hr controlled Status: Acute (8) UTI (urinary tract infection): repeat UA micro today Status: Acute Plan CODE STATUS: Full code DVT prophylaxis: On Lovenox hold for LP Attestations Medical Necessity Statement*: Patient remains intubated with volume overload. He will be diuresed but will need additional days in the ICU. Critical Care Time: 45 minutes critical care time Coding Level of Care Code Acute Professor Of Fine Art for Aureliag Fwd History Detailed Exam Detailed Medical Decision Making High Complexity Diagnoses Respiratory failure with hypercapnia J96.92 Altered mental status R41.82 Acute kidney injury N17.9 Cervical cord compression with myelopathy G95.20 Diabetic peripheral neuropathy associated with type 2 diabetes mellitus E11.42 Chronic congestive heart failure I50.9 Atrial fibrillation by electrocardiogram I48.91 UTI (urinary tract infection) N39.0
[2022-06-15] MEDS: magnesium oxide 400 mg tablet PO ×2 (09:05→17:53)
[2022-06-15] MEDS: FUROsemide 10 mg/mL SDV 4mL 40 MG IVP (09:05)
[2022-06-15] MEDS: potassium chloride oral liq 20 mEq/15 mL UDC PO ×2 (09:05→17:53)
--- NOTE | 2022-06-15 09:35 | PM.PN ---
Subjective Subjective: remains intubated. no pressors. Medications: Reviewed: Yes Medication Review Details: Current Medications Acetaminophen (Acetaminophen 650 Mg Supp) 650 mg MA Q4H PRN PRN Reason: MILD PAIN OR INCREASE TEMP Last Admin: 06/12/22 13:04 Dose: 650 mg Aspirin (Aspirin 81 Mg Chew Tablet) 81 mg OG-TUBE DAILY [facility] TO [facility] Last Admin: 06/15/22 08:04 Dose: 81 mg Chlorhexidine Gluconate (Chlorhexidine Gluconate 4% Btl 118 Ml) 1 applic TOPICAL DAILY LY Last Admin: 06/15/22 04:49 Dose: 1 applic Enoxaparin Sodium (Enoxaparin 30 Mg/0.3 Ml Syringe) 30 mg SUBCUT Q24H LY Last Admin: 06/14/22 13:16 Dose: 30 mg Famotidine (Famotidine 20 Mg/2 Ml Inj) 20 mg IVP Q12H LY Last Admin: 06/15/22 00:46 Dose: 20 mg Furosemide (Furosemide 10 Mg/Ml Sdv 4ml) 40 mg IVP Q12H LY Stop: 06/16/22 20:46 Last Admin: 06/15/22 09:05 Dose: 40 mg Heparin Sodium (Porcine) (Heparin 5,000 Unit/Ml Inj 1 Ml) 0 unit IV PRN PRN; Protocol PRN Reason: Heparin weight-base protocol Last Admin: 06/10/22 09:55 Dose: 2,200 unit Piperacillin Sod/Tazobactam (Sod 3.375 gm/ Sodium Chloride) 50 mls @ 12.5 mls/hr IV Q12H [facility]END[facility] TO [facility]; Protocol Last Infusion: 06/15/22 07:48 Dose: Infused dexmedeTOMIDine 0.9 % NaCL (Precedex) 400 mcg in 100 mls @ 0 mls/hr IV .Q0M LY; Protocol Last Admin: 06/15/22 08:04 Dose: 0.4 mcg/kg/hr, 11 mls/hr Propofol (Diprivan) 1,000 mg in 100 mls @ 0 mls/hr IV .Q0M LY; Protocol Last Titration: 06/14/22 08:59 Dose: 0 mcg/kg/min, 0 mls/hr Fentanyl 1,000 mcg/ Sodium (Chloride) 100 mls @ 0 mls/hr IV .Q0M LY; Protocol Last Admin: 06/15/22 06:28 Dose: 100 mcg/hr, 10 mls/hr Magnesium Oxide (Magnesium Oxide 400 Mg Tablet) 400 mg PO BID LY Stop: 06/17/22 18:01 Last Admin: 06/15/22 09:05 Dose: 400 mg Morphine Sulfate (Morphine 2 Mg/Ml Syr 1 Ml) 2 mg IVP Q1H PRN PRN Reason: SEVERE PAIN Last Admin: 06/12/22 17:03 Dose: 2 mg Ondansetron HCl (Ondansetron 2 Mg/Ml Sdv 2 Ml) 4 mg IVP Q6H PRN PRN Reason: NAUSEA AND VOMITING Potassium Chloride (Potassium Chloride Oral Liq 20 Meq/15 Ml Udc) 20 meq PO BID [facility] Stop: 06/16/22 18:01 Last Admin: 06/15/22 09:05 Dose: 20 meq Thiamine HCl (Thiamine 100 Mg/Ml Sdv) 100 mg IVP DAILY [facility] Last Admin: 06/15/22 08:04 Dose: 100 mg Vitals/I&O/Wt Last Vital Signs Temp 98.8 F 06/15/22 07:00 Pulse 69 06/15/22 08:00 Resp 10 L 06/15/22 09:12 BP 127/56 06/15/22 08:00 Pulse Ox 98 06/15/22 09:12 O2 Del Method 06/15/22 02:10 O2 Flow Rate 2 06/07/22 08:54 FiO2 28 06/15/22 09:12 06/14/22 06/15/22 06/15/22 22:59 06:59 14:59 Intake Total 1808.462 / 4205.420 1184.708 / 5390.128 428.775 / 428.775 Output Total 600 / 600 525 / 1125 Balance 1208.462 / 3605.420 659.708 / 4265.128 428.775 / 428.775 Weight last 48 hrs Weight 118.926 kg Weight 116.346 kg Physical Exam Narrative: sedated and intubated in bed vent- tv 500, RR 14/ fio2 28%. PEEP 5 heent- nc/at, eomi lungs - +crackles b/l heart -irreg, +s1, s2 abd soft, nt, nd, + bs ext- inc b/l leg edema neuro-sedated exam by RN- telehealth visit Urinary Catheter Management: Coude: Cath Placed During This Visit: yes Reason for Continuing Indwelling Catheter: Accurate Measurement of Urinary Output in Critically Ill Patients Urinary Catheter Date of Insertion: 06/14/22 Urinary Catheter Time of Insertion: 11:00 Data : 06/14/22 06:01 06/15/22 04:37 Micro: Microbiology 06/13/22 14:35 Gram Stain - Final Other Source Body Fluid Culture - Preliminary 06/13/22 11:29 Urine Culture - Preliminary Urine,Clean Catch A&P Assessment and plan (1) Acute kidney injury: 77 yr old man 1. BLANCA- no hydronephrosis on renal us - bland ua -working dx is CI- BLANCA and med effect from diuretics and kylee-i -s/p HD x 3. -cr improved and dialysis catheter removed -cr now stable - gentle diuresis - monitor uop and chemistries CHARLI + 1:40 -repeat ua nitirite + 2+ leuk, red and wbc too numerous to count, 4+ bact- appears like UTI 2. VDRF -per medicine -limit lasix as has had hypernatremia that improved w/ fluids 3. resp alkalosis and inc AGMA - balanced pH 4. replace magnesium 5. hyperglycemia- per medicine 6. infection- monitor leukocytosis- and abx per medicine. monitor vanco trough- keep under 19- likely UTI seen and examined w/ RN- telehealth visit discussed plan w/ RN -time spent 30 min Status: Acute Plan see above Attestations Medical Necessity Statement*: blanca to ckd, electrolyte abnormalities, ams, vdrf Time Spent in Patient Care: 16 - 35 minutes (>than 50% of time spent in counselling and/or direct pt care on unit). Coding Level of Care Code Acute Cash Crop Farmer for Felicitas Julien Diagnoses Acute kidney injury N17.9
[2022-06-15 10:26] LABS: Bilirubin Urine Neg (Negative); Blood Urine 3+ (Negative); Glucose Urine UA Norm (Normal); Ketones Urine Negative (Negative); Leukocyte Esterase Urine 1+ (Negative); Nitrate Urine Negative (Negative); Protein Urine Trace (Negative); RBC Urine 40-50 /hpf (0-2); Specific Gravity, Urine 1.015 (1.005-1.030); Squamous Epithelial Cell Urine 0-4 /hpf (0-5); Urine Appearance Clear (CLEAR); Urine Color Yellow (Yellow); Urobilinogen Urine Norm (Negative); pH Urine 5 (5-7)
[2022-06-15 10:27] LABS: Add Urine Culture? Yes
--- NOTE | 2022-06-15 10:37 | PC.CHAP ---
Pastoral Care Encounter/Spiritual Assessment Type of Contact [] Declined barrel lathe operator outside visit [] Patient/Family/Request visit [] Outpatient visit [] Follow-up visit [] Physician referral [] Code/Alert [x] Routine visit [] Staff referral [] Actively dying [x] Patient sleeping [] Family support [] [] Out of room [] Palliative care [] [] Receiving care in room [] Pre-surgical visit [] Trauma [] Long length of stay [x] ICU visit [x] Other: vent Relational/Emotional Strength [] Patient feels connected with others/family/visitors/staff [] Distress [] Loneliness/isolation [] Abandonment Spirituality of Patient [] Person of Gwen [] Attends Anabaptism of their Gwen [] Believes in Prayer [] Reads Bible or Anabaptist materials [] There are Spiritual issues to be addressed Letterpress Setter Interventions [x] Prayer [] Active listening [] Non-anxious presence [] Spiritual/emotional support [] Crisis/trauma care [] Spiritual counseling [] Bereavement support [] Provided bereavement packet [] Provided Bible/devotional materials [] Provided toy/stuffed animal, coloring book to patient or family member [] Provided Communion [] Anointing/[place] [] Salvation [x] Completed spiritual assessment [] Other: Impact on Illness or Injury [] Angry [] Fearful [] Anxious [] Often cries [] Exhaustion [] Unable to work [] Unable to attend christian [] Unable to walk/stand [] Unable to read [] Unable to drive [] Unable to eat/drink [] Unable to sleep [] Unable to be with family [] Patient intubated [] Other: Summary Time spent with patient
--- NOTE | 2022-06-15 12:49 | PC.NUTR ---
Consult for TF received. Recommend Glucerna 1.2 beginning @ 15 mls/hr, increasing 10 mls Q8H as tolerated until goal rate of 55 mls/hr is reached with 120 mls flushes Q4H.
[2022-06-15] MEDS: enoxaparin 30 mg/0.3 mL Syringe SUBCUT (14:09)
[2022-06-16] VITALS (28 sets, daily range): BP systolic 120–165; BP diastolic 48–102; PULSE 62–135; RESP 10–27; TEMP 36.2–37.9; O2SAT 94–98
[2022-06-16] MEDS: famotidine 20 mg/2 mL INJ IVP ×2 (01:01→12:18)
[2022-06-16 03:40] LABS: ABG PCO2 31.5 mmHg (35-45); ABG PH Result 7.46 (7.35-7.45); Arterial Blood Gas Hematocrit 39.4 % (42-52); Base Excess ABG -1.1 mmol/L (-2.0-2.0); Blood Gas Allen Test Pos; Blood Gas Operator Identificat JB; Blood Gas Sample Site Radial, right; Blood Gas Sample Type Arterial; Carboxyhemoglobin 1.1 %THgb (0.4-20.1); HCO3 ABG 22.1 mmol/L (22-26); HGB O2 Sat 93.6 % (95-100); Ionized Calcium Level - ABG 1.2 mmol/L (1.1-1.4); Methemoglobin 0.8 % (0.4-1.5); Oxygen Device VENT; Oxygen Saturation ABG 95.5; PO2 ABG 73.6 mmHg (80.0-100.0); Potassium Level - ABG 3.6 mmol/L (3.5-5.0); Total Hemoglobin 12.8 g/dL (14-18)
[2022-06-16] MEDS: piperacillin-tazobactam 3.375 GM in sodium chloride 0.9% (plus) 50 ML IV ×3 (04:39→21:16)
[2022-06-16] MEDS: dexmedeTOMIDine 0.9 % NaCL 400 MCG/100 ML PREMIX 16.5 MCG IV (04:57)
[2022-06-16 05:43] LABS: Basophils % 0.4 %; Eosinophils # 0.5 10^3/uL (0.0-0.8); Hematocrit 38.2 % (42.0-52.0); Hemoglobin 12.2 g/dL (11.7-16.6); Lymphocytes # 1.5 10^3/uL (0.8-4.8); Mean Corpuscular HGB Conc 31.9 g/dL (30.0-36.0); Mean Corpuscular Hemoglobin 30.9 pg (28.0-34.0); Mean Corpuscular Volume 96.7 fl (80-94); Mean Platelet Volume 12.3 fL (7.4-10.4); Monocytes # 0.9 10^3/uL (0.2-0.9); Monocytes % 8.6 %; Neutrophils # 7.55 10^3/uL (1.8-7.7); Nucleated Red Blood Cells % 0 %; Platelet Count 121 10^3/cmm (130-400); Red Blood Count 3.95 10^6/uL (4.1-5.3); Red Cell Distribution Width 13.5 % (12.1-15.1); White Blood Count 10.6 10^3/uL (4.0-10.0)
[2022-06-16 06:07] LABS: Alanine Aminotransferase 9 U/L (0-41); Albumin Level 2.5 g/dL (3.5-5.2); Alkaline Phosphatase 136 U/L (40-130); Anion Gap 16.7 (5-19); Aspartate Amino Transferase 17 U/L (0-40); Blood Urea Nitrogen 42 mg/dL (8-23); Calcium 8.4 mg/dL (8.5-10.5); Carbon Dioxide 19 mmol/L (22-29); Chloride 110 mmol/L (98-107); Glucose 172 mg/dL (65-115); Magnesium 1.4 mg/dL (1.7-2.3); Osmolality Calculated 309 mOsm/kg (285-295); Phosphorus 2.5 mg/dL (2.5-4.5); Potassium 3.7 mmol/L (3.5-5.1); Sodium 142 mmol/L (136-145); Total Bilirubin 0.8 mg/dL (0.15-1.2); Total Protein 5.5 g/dL (6.6-8.7)
--- NOTE | 2022-06-16 08:44 | PC.SOCIAL ---
IMM Not Updated Pg. 2 of IMM not updated at this time, as patient remains intubated.
--- NOTE | 2022-06-16 09:30 | P.PN_ITS ---
Subjective Subjective: remains intubated Vitals/I&O/Wt Last Vital Signs Temp 98.7 F 06/16/22 07:48 Pulse 74 06/16/22 07:48 Resp 12 06/16/22 09:22 BP 135/56 06/16/22 07:48 Pulse Ox 96 06/16/22 09:22 O2 Del Method 06/16/22 07:48 O2 Flow Rate 2 06/07/22 08:54 FiO2 28 06/16/22 09:22 06/15/22 06/16/22 06/16/22 22:59 06:59 14:59 Intake Total 852.509 / 8469.645 5241.10 / 2619.217 50 / 50 Output Total 2500 / 2500 1650 / 4150 Balance -1647.491 / -1105.883 -424.90 / -1530.783 50 / 50 Weight last 48 hrs Weight 118.926 kg Weight 118.926 kg Physical Exam Urinary Catheter Management: Coude: Cath Placed During This Visit: yes Reason for Continuing Indwelling Catheter: Accurate Measurement of Urinary Output in Critically Ill Patients Urinary Catheter Date of Insertion: 06/14/22 Urinary Catheter Time of Insertion: 11:00 Data : 06/16/22 05:25 06/16/22 05:25 Micro: Microbiology 06/15/22 Unknown Urine Culture - Preliminary Urine,Clean Catch 06/10/22 14:55 Blood Culture - Final Blood NO GROWTH AFTER 5 DAYS 06/10/22 15:00 Blood Culture - Final Blood NO GROWTH AFTER 5 DAYS 06/13/22 14:35 Gram Stain - Final Other Source Body Fluid Culture - Preliminary 06/13/22 11:29 Urine Culture - Final Urine,Clean Catch Other data: seen via telemedicine with assistance of RN at bedside A&P Assessment and plan (1) Acute kidney injury: Status: Acute Plan 1. Acute kidney injury, excellent urine output, BUN and Cr improving will sign off - please call if needed Attestations Medical Necessity Statement*: on ventilator in ICU Time Spent in Patient Care: less than 15 minutes Coding Level of Care Code Acute Electronic Scale Subassembler for Felicitas Julien Diagnoses Acute kidney injury N17.9
[2022-06-16] MEDS: magnesium oxide 400 mg tablet PO ×2 (10:11→17:13)
[2022-06-16] MEDS: potassium chloride oral liq 20 mEq/15 mL UDC PO ×2 (10:11→17:13)
[2022-06-16] MEDS: aspirin 81 mg Chew Tablet OG-TUBE (10:11)
[2022-06-16] MEDS: FUROsemide 10 mg/mL SDV 4mL 40 MG IVP (10:12)
--- NOTE | 2022-06-16 10:32 | PC.NURSE ---
PT HAS DONE OK THIS FAR DURING MY SHIFT. PLAN IS TO WEAN SEDATION AND ATTEMPT TO EXTUBATE PT THIS AFTERNOON. PT IS WAKING UP, OPENS EYES TO VERBAL COMMAND BUT DOES NOT FOLLOW ANY COMMANDS. CONTINUING TO MONITOR PT.
--- NOTE | 2022-06-16 10:57 | PM.PN ---
Subjective Subjective: 77-year-old male with acute contrast nephropathy, hypercapnic respiratory failure and altered mental status with stable renal function and minimal vent support. He had LP negative and recent blood cultures and urine culture is negative. He does remain confused and has had low-grade temperature Medications: Reviewed: Yes Vitals/I&O/Wt Last Vital Signs Temp 100.2 F H 06/16/22 10:00 Pulse 79 06/16/22 10:00 Resp 24 H 06/16/22 10:00 BP 149/55 06/16/22 10:00 Pulse Ox 96 06/16/22 10:00 O2 Del Method 06/16/22 10:00 O2 Flow Rate 2 06/07/22 08:54 FiO2 28 06/16/22 09:22 06/15/22 06/16/22 06/16/22 22:59 06:59 14:59 Intake Total 852.509 / 6250.520 4568.10 / 2619.217 67.75 / 67.75 Output Total 2500 / 2500 1650 / 4150 Balance -1647.491 / -1105.883 -424.90 / -1530.783 67.75 / 67.75 Weight last 48 hrs Weight 118.926 kg Weight 118.926 kg Physical Exam Narrative: General well-developed well-nourished obese white male on ventilator. Pupils equally round and reactive light accommodation CV irregular and rate is controlled Lungs clear on ventilator Abdomen diminished bowel tones soft nontender Calves trace edema Mentation still appears delirious but improved as fentanyl is off. He does track but does not follow commands reliably Neck stiff but unchanged since before the LP skin warm and dry : OTHER: Urinary catheter is in place with mid tone yellow urine Marley catheter was changed 06/14/2022 Urinary Catheter Management: Coude: Cath Placed During This Visit: yes Reason for Continuing Indwelling Catheter: Accurate Measurement of Urinary Output in Critically Ill Patients Urinary Catheter Date of Insertion: 06/14/22 Urinary Catheter Time of Insertion: 11:00 Data : 06/16/22 05:25 06/16/22 05:25 Micro: Microbiology 06/15/22 Unknown Urine Culture - Preliminary Urine,Clean Catch 06/10/22 14:55 Blood Culture - Final Blood NO GROWTH AFTER 5 DAYS 06/10/22 15:00 Blood Culture - Final Blood NO GROWTH AFTER 5 DAYS 06/13/22 14:35 Gram Stain - Final Other Source Body Fluid Culture - Preliminary 06/13/22 11:29 Urine Culture - Final Urine,Clean Catch ABG Interpretation 1: 06/12/22 06/12/22 06/13/22 22:41 23:45 04:00 ABG pH 7.04 L* 7.36 7.42 ABG pCO2 104.0 H* 36.6 37.0 ABG pO2 122.0 H 126.0 H 148.0 H ABG HCO3 27.9 H 20.6 L 19.9 L ABG O2 Saturation 97.1 4.8 ABG Base Excess -5.7 L -4.3 L -3.6 L 06/14/22 06/15/22 06/16/22 05:02 03:31 03:25 ABG pH 7.40 7.43 7.46 H ABG pCO2 32.0 L 28.6 L 31.5 L ABG pO2 56.7 L 72.6 L 73.6 L ABG HCO3 20.0 L 18.9 L 22.1 ABG O2 Saturation 90.1 95.6 95.5 ABG Base Excess -3.7 L -4.0 L -1.1 A&P Assessment and plan (1) Respiratory failure with hypercapnia: pt with hypercapnia intubated 06/12 with AMS and fluid overload. minimal vent support now. diurese, lower fentanyl and work to extubation Status: Acute (2) Altered mental status: Acute encephalopathy: Multifactorial (uremia, possible withdrawal, infection ) Patient has improved since being on ventilator and tube feeds with correction of his hypernatremia He is not a known drinker per his friend who has known him 25 years Lumbar puncture negative for infection. Okay to resume Lovenox intubated night of 06/12/2022 will start tube feeds and transition off tpn Status: Acute (3) Acute kidney injury: Patient with severe acute kidney injury due to contrast nephropathy as culprit treated acutely with dialysis catheter and dialysis for 3 days No evidence of urinary retention on ultrasound, but is a constant concern considering history of cervical myelopathy Patient has creatinine much improved and he is also making urine and no longer requiring dialysis. Electrolytes are stable diurese Status: Acute (4) Cervical cord compression with myelopathy: Avoid significant neck flexion that is prolonged patient seen by orthopedist spine Status: Acute (5) Diabetic peripheral neuropathy associated with type 2 diabetes mellitus: started on tube feeds and intermittent high residuals. electrolytes improved Hold tube feeds post intubation for couple hours Status: Acute (6) Chronic congestive heart failure: Currently appears compensated. No acute component. Secondary to ischemic cardiomyopathy. Last echo demonstrates EF of 50%. Echocardiogram demonstrates no obvious change. Some dilation of his aorta is noted. CT chest showed mild dilation of aorta. No contrast secondary to renal dysfunction. diurese and work towards extubation Status: Acute (7) Atrial fibrillation by electrocardiogram: Stable rate on Precedex. Start beta-nikki via NG tube Status: Acute (8) UTI (urinary tract infection): repeat UA micro today no growth on 06/15/2022 sample Status: Acute Plan CODE STATUS: Full code DVT prophylaxis: Lovenox Attestations Medical Necessity Statement*: Patient extubated today but will need close ICU monitoring. Critical Care Time: 40 minutes spent in evaluation coronation of care for this patient today critical care Coding Level of Care Code Acute Senior Front End Developer for Felicitas Fwdale History Detailed Exam Detailed Medical Decision Making High Complexity Diagnoses Respiratory failure with hypercapnia J96.92 Altered mental status R41.82 Acute kidney injury N17.9 Cervical cord compression with myelopathy G95.20 Diabetic peripheral neuropathy associated with type 2 diabetes mellitus E11.42 Chronic congestive heart failure I50.9 Atrial fibrillation by electrocardiogram I48.91 UTI (urinary tract infection) N39.0
--- NOTE | 2022-06-16 11:50 | PC.CHAP ---
Pastoral Care Encounter/Spiritual Assessment Type of Contact [] Declined privacy analyst visit [] Patient/Family/Request visit [] Outpatient visit [] Follow-up visit [] Physician referral [] Code/Alert [x] Routine visit [] Staff referral [] Actively dying [] Patient sleeping [] Family support [] [] Out of room [] Palliative care [] [] Receiving care in room [] Pre-surgical visit [] Trauma [] Long length of stay [x] ICU visit [x] Other: PT continues to be restless .... Relational/Emotional Strength [] Patient feels connected with others/family/visitors/staff [] Distress [] Loneliness/isolation [] Abandonment Spirituality of Patient [] Person of Gwen [] Attends Druze of their Gwen [] Believes in Prayer [] Reads Bible or Anabaptism materials [] There are Spiritual issues to be addressed Substance Abuse Prevention Coordinator Interventions [x] Prayer [] Active listening [] Non-anxious presence [] Spiritual/emotional support [] Crisis/trauma care [] Spiritual counseling [] Bereavement support [] Provided bereavement packet [] Provided Bible/devotional materials [] Provided toy/stuffed animal, coloring book to patient or family member [] Provided Communion [] Anointing/[place] [] Salvation [] Completed spiritual assessment [] Other: Impact on Illness or Injury [] Angry [] Fearful [] Anxious [] Often cries [] Exhaustion [] Unable to work [] Unable to attend restorationism [] Unable to walk/stand [] Unable to read [] Unable to drive [] Unable to eat/drink [] Unable to sleep [] Unable to be with family [] Patient intubated [] Other: Summary Time spent with patient Pastoral Care Encounter/Spiritual Assessment Type of Contact [] Declined privacy analyst visit [] Patient/Family/Request visit [] Outpatient visit [] Follow-up visit [] Physician referral [] Code/Alert [] Routine visit [] Staff referral [] Actively dying [] Patient sleeping [] Family support [] [] Out of room [] Palliative care [] [] Receiving care in room [] Pre-surgical visit [] Trauma [] Long length of stay [] ICU visit [] Other: Relational/Emotional Strength [] Patient feels connected with others/family/visitors/staff [] Distress [] Loneliness/isolation [] Abandonment Spirituality of Patient [] Person of Gwen [] Attends Druze of their Gwen [] Believes in Prayer [] Reads Bible or Anabaptism materials [] There are Spiritual issues to be addressed Substance Abuse Prevention Coordinator Interventions [] Prayer [] Active listening [] Non-anxious presence [] Spiritual/emotional support [] Crisis/trauma care [] Spiritual counseling [] Bereavement support [] Provided bereavement packet [] Provided Bible/devotional materials [] Provided toy/stuffed animal, coloring book to patient or family member [] Provided Communion [] Anointing/[place] [] Salvation [x] Completed spiritual assessment [] Other: Impact on Illness or Injury [] Angry [] Fearful [] Anxious [] Often cries [] Exhaustion [] Unable to work [] Unable to attend restorationism [] Unable to walk/stand [] Unable to read [] Unable to drive [] Unable to eat/drink [] Unable to sleep [] Unable to be with family [] Patient intubated [] Other: Summary Time spent with patient
[2022-06-16] MEDS: dexmedeTOMIDine 0.9 % NaCL 400 MCG/100 ML PREMIX 8.25 MCG IV (12:19)
--- NOTE | 2022-06-16 12:42 | PC.NURSE ---
11:30 - PT EXTUBATED WITH RT. PT TOLERATED WELL. PT WAS PLACED ON 3L NC. CURRENTLY PT IS SATING AT 98%. ALL OTHER VITAL SIGNS WNL. PRECEDEX DOWN TO 0.3 PER PROTOCOL. PT IS ALERT TO NAME AND . PT DOES APPEAR TO BE WEAK. WILL WORK WITH PHYSICAL THERAPY THIS AFTERNOON PER DOCTOR ORDER. WILL CONTINUE TO MONITOR.
[2022-06-16] MEDS: enoxaparin 40 mg/0.4 mL Syringe SUBCUT (14:12)
[2022-06-16 14:51] LABS: SARS Covid-2 Antigen Negative (Negative)
[2022-06-16] MEDS: cloNIDine 0.1 mg Tablet PO (17:13)
[2022-06-17] VITALS (30 sets, daily range): BP systolic 122–177; BP diastolic 57–100; PULSE 76–119; RESP 18–32; TEMP 37–37.7; O2SAT 92–96; BMI 36.8
[2022-06-17] MEDS: famotidine 20 mg/2 mL INJ IVP (01:22)
[2022-06-17] MEDS: piperacillin-tazobactam 3.375 GM in sodium chloride 0.9% (plus) 50 ML IV ×3 (04:46→20:30)
[2022-06-17 04:54] LABS: Basophils # 0.1 10^3/uL (0.0-0.1); Basophils % 0.4 %; Eosinophils # 0.3 10^3/uL (0.0-0.8); Eosinophils % 1.9 %; Hematocrit 40.2 % (42.0-52.0); Hemoglobin 12.5 g/dL (11.7-16.6); Lymphocytes # 1.2 10^3/uL (0.8-4.8); Lymphocytes % 9.3 %; Mean Corpuscular HGB Conc 31.1 g/dL (30.0-36.0); Mean Corpuscular Hemoglobin 30.6 pg (28.0-34.0); Mean Corpuscular Volume 98.3 fl (80-94); Mean Platelet Volume 12.7 fL (7.4-10.4); Monocytes # 1.3 10^3/uL (0.2-0.9); Monocytes % 9.8 %; Neutrophils # 9.93 10^3/uL (1.8-7.7); Neutrophils % 77.3 %; Nucleated Red Blood Cells % 0 %; Platelet Count 187 10^3/cmm (130-400); Red Blood Count 4.09 10^6/uL (4.1-5.3); Red Cell Distribution Width 13.5 % (12.1-15.1); White Blood Count 12.9 10^3/uL (4.0-10.0)
[2022-06-17 05:25] LABS: Alanine Aminotransferase 9 U/L (0-41); Albumin Level 2.8 g/dL (3.5-5.2); Alkaline Phosphatase 136 U/L (40-130); Anion Gap 16.5 (5-19); Aspartate Amino Transferase 18 U/L (0-40); Blood Urea Nitrogen 34 mg/dL (8-23); Carbon Dioxide 25 mmol/L (22-29); Chloride 112 mmol/L (98-107); Globulin 3.7 g/dL (1.3-4.6); Glucose 107 mg/dL (65-115); Magnesium 1.6 mg/dL (1.7-2.3); Osmolality Calculated 318 mOsm/kg (285-295); Phosphorus 2.7 mg/dL (2.5-4.5); Potassium 3.5 mmol/L (3.5-5.1); Sodium 150 mmol/L (136-145); Total Bilirubin 1.1 mg/dL (0.15-1.2); Total Protein 6.5 g/dL (6.6-8.7)
[2022-06-17] MEDS: morphine 4 mg/mL SDV 1 mL 2 MG IVP ×2 (06:36→18:00)
[2022-06-17] MEDS: magnesium oxide 400 mg tablet PO ×2 (08:07→17:59)
[2022-06-17] MEDS: FUROsemide 10 mg/mL SDV 4mL 40 MG IVP (08:07)
[2022-06-17] MEDS: cloNIDine 0.1 mg Tablet PO (08:07)
[2022-06-17] MEDS: aspirin 81 mg Chew Tablet OG-TUBE (08:07)
--- NOTE | 2022-06-17 09:20 | PM.PN ---
Subjective Subjective: 77-year-old male with acute contrast nephropathy, hypercapnic respiratory failure and altered mental status with stable renal function and minimal vent support. He had LP negative and recent blood cultures and urine culture is negative. Extubated yesterday he is conversant but still delirious and tells me that he was recently in [place] and currently that we are in [place] He does not have fevers at this time Patient has known first-degree AV block paroxysmal A. fib and ischemic cardiomyopathy with a EF of 45 to 50%. He had recent contrast nephropathy requiring dialysis 3 days and is a poor candidate for selective coronary angiogram at this time Medications: Reviewed: Yes Medication Review Details: Remains on Zosyn and low-dose Precedex plus clonidine Current Medications Vitals/I&O/Wt Last Vital Signs Temp 98.6 F 06/17/22 08:00 Pulse 104 H 06/17/22 08:00 Resp 19 H 06/17/22 08:00 BP 171/87 06/17/22 08:07 Pulse Ox 94 06/17/22 08:00 O2 Del Method 06/17/22 08:00 O2 Flow Rate 2 06/16/22 15:54 FiO2 28 06/16/22 09:22 06/16/22 06/17/22 06/17/22 22:59 06:59 14:59 Intake Total 66.225 / 214.450 50 / 264.450 470 / 470 Output Total 3350 / 3350 900 / 4250 Balance -3283.775 / -3135.550 -850 / -3985.550 470 / 470 Weight last 48 hrs Weight 112.99 kg Weight 118.926 kg Physical Exam Narrative: General well-developed well-nourished obese white male doing well with pudding and thin liquids with chair in the speech therapist this morning CV irregular and rate is controlled Lungs clear on anterior exam Abdomen diminished bowel tones soft nontender Calves trace edema Mentation he is alert and oriented to person but not place date or situation patient is physically cooperative but when I told him that he is in [place] he told me that yes [place] but that is really [place] skin warm and mild damp : OTHER: Urinary catheter is in place with mid tone yellow urine Marley catheter was changed 06/14/2022 Urinary Catheter Management: Coude: Cath Placed During This Visit: yes Reason for Continuing Indwelling Catheter: Accurate Measurement of Urinary Output in Critically Ill Patients Urinary Catheter Date of Insertion: 06/14/22 Urinary Catheter Time of Insertion: 11:00 Data : 06/17/22 03:35 06/17/22 03:35 Micro: Microbiology 06/15/22 Unknown Urine Culture - Final Urine,Clean Catch 06/13/22 14:35 Gram Stain - Final Other Source Body Fluid Culture - Final A&P Assessment and plan (1) Respiratory failure with hypercapnia: Extubated yesterday avoid sedation Status: Acute (2) Altered mental status: Acute encephalopathy: Multifactorial (uremia, possible withdrawal, infection ) Patient has improved since being on ventilator and tube feeds with correction of his hypernatremia He is not a known drinker per his friend who has known him 25 years Lumbar puncture negative for infection. Okay to resume Lovenox Patient appears to have ICU encephalopathy. The fevers have resolved. COVID was negative and he no longer needs to be in isolation. I did send a viral panel but that a PCR send so no results yet Continue clonidine and add low-dose Seroquel Status: Acute (3) Acute kidney injury: Patient with severe acute kidney injury due to contrast nephropathy as culprit treated acutely with dialysis catheter and dialysis for 3 days No evidence of urinary retention on ultrasound, but is a constant concern considering history of cervical myelopathy Patient has creatinine much improved and he is also making urine and no longer requiring dialysis. Recurring hypernatremia he is on furosemide for 3-day course from the piece cutter renal function is improving Advance diet to pur?ed with thin liquids Status: Acute (4) Cervical cord compression with myelopathy: Avoid significant neck flexion that is prolonged patient seen by orthopedist spine early during admission Status: Acute (5) Diabetic peripheral neuropathy associated with type 2 diabetes mellitus: Start diabetic pur?ed diet Sliding scale insulin Status: Acute (6) Chronic congestive heart failure: Currently appears compensated. No acute component. Secondary to ischemic cardiomyopathy. Last echo demonstrates EF of 50%. Echocardiogram demonstrates no obvious change. Some dilation of his aorta is noted. CT chest showed mild dilation of aorta. No contrast secondary to renal dysfunction. Known first-degree AV block, paroxysmal atrial fibrillation with rapid ventricular rate and ischemic cardiomyopathy. We will add troponin to his lab Status: Acute (7) Atrial fibrillation by electrocardiogram: Rate has risen with Precedex off and switched to clonidine Start beta-nikki 25 mg metoprolol orally Status: Acute (8) UTI (urinary tract infection): repeat UA micro today no growth on 06/15/2022 sample Hematuria but no infection Status: Acute Plan CODE STATUS: Full code DVT prophylaxis: Lovenox Attestations Medical Necessity Statement*: Patient remained in the ICU for close monitoring post extubation with his history of ischemic cardiomyopathy and renal failure. Anticipate transfer to the floor potentially tomorrow Time Spent in Patient Care: 45 minutes spent in evaluation and coordination of care for this patient today Coding Level of Care Code Acute Vision Rehabilitation Therapist for Felicitas Fwdale History Detailed Exam Comprehensive Medical Decision Making High Complexity Diagnoses Respiratory failure with hypercapnia J96.92 Altered mental status R41.82 Acute kidney injury N17.9 Cervical cord compression with myelopathy G95.20 Diabetic peripheral neuropathy associated with type 2 diabetes mellitus E11.42 Chronic congestive heart failure I50.9 Atrial fibrillation by electrocardiogram I48.91 UTI (urinary tract infection) N39.0
--- NOTE | 2022-06-17 09:31 | ECG_ITS ---
[facility] Test Date: 2022-06-17 Pat Name: Wesly Price Department: Room: ICU08 Gender: Male Mixer Runner: : 1945 Requested By: Alex Barnett Order Number: [id number] Sangeetha MD: George Beth M.D. Measurements Intervals [place] Rate: 105 P: [place]: QRS: -42 QRSD: 137 T: 68 QT: 363 QTc: 482 Interpretive Statements ATRIAL FIBRILLATION WITH RAPID VENTRICULAR RESPONSE WITH ABERRANT CONDUCTION OR VENTRICULAR PREMATURE COMPLEXES INTRAVENTRICULAR CONDUCTION DELAY [130+ ms QRS DURATION] POSSIBLE ANTERIOR MYOCARDIAL INFARCTION , OF INDETERMINATE AGE [30 ms Q WAVE IN V3/V4, OR R < 0.2 mV IN V4] INFERIOR MYOCARDIAL INFARCTION , OF INDETERMINATE AGE [40+ ms Q WAVE AND/OR ST/T ABNORMALITY IN II/aVF] Compared to ECG 06/08/2022 08:02:53 Ventricular premature complex(es) now present Aberrant conduction of supraventricular beat(s) now present Myocardial infarct finding still present Electronically Signed On 06-18-2022 13:29:57 CDT by George Beth M.D. [id number]
[2022-06-17] MEDS: metoprolol tartrate 25 mg Tablet PO ×2 (10:35→20:31)
[2022-06-17] MEDS: cloNIDine 0.1 mg Tablet 0.2 MG PO ×2 (10:36→17:59)
--- NOTE | 2022-06-17 13:19 | PC.OT ---
OT orders received to evaluate and treat. OT attempted evaluation. Minimal responsiveness to commands. Nursing states his mental status has declined throughout the day. OT will attempt evaluation again tomorrow morning.
[2022-06-17] MEDS: enoxaparin 40 mg/0.4 mL Syringe SUBCUT (14:28)
[2022-06-17] MEDS: acetaminophen 500 mg Tablet 1000 MG PO (16:43)
[2022-06-17 17:18] LABS: Adenovirus Not Detected (Not Detected); Human Metapneumovirus Not Detected (Not Detected); Human Parainflu Virus 1 Not Detected (Not Detected); Human Parainflu Virus 2 Not Detected (Not Detected); Human Parainflu Virus 3 Not Detected (Not Detected); Human Rsv A Not Detected (Not Detected); Influenza A Not Detected (Not Detected); Influenza B Not Detected (Not Detected); Rhinovirus/Enterovirus Not Detected (Not Detected)
[2022-06-17] MEDS: quetiapine 25 mg Tablet 12.5 MG PO (17:59)
[2022-06-18] VITALS (26 sets, daily range): BP systolic 107–174; BP diastolic 50–98; PULSE 76–105; RESP 15–30; TEMP 36.9–37.7; O2SAT 90–96
[2022-06-18] MEDS: piperacillin-tazobactam 3.375 GM in sodium chloride 0.9% (plus) 50 ML IV (04:12)
[2022-06-18 05:11] LABS: Basophils % 0.3 %; Eosinophils # 0.3 10^3/uL (0.0-0.8); Eosinophils % 2.6 %; Hematocrit 40.8 % (42.0-52.0); Hemoglobin 12.9 g/dL (11.7-16.6); Lymphocytes # 1.2 10^3/uL (0.8-4.8); Mean Corpuscular HGB Conc 31.6 g/dL (30.0-36.0); Mean Corpuscular Hemoglobin 30.9 pg (28.0-34.0); Mean Corpuscular Volume 97.8 fl (80-94); Mean Platelet Volume 12.9 fL (7.4-10.4); Monocytes # 1.3 10^3/uL (0.2-0.9); Monocytes % 10.9 %; Neutrophils # 8.93 10^3/uL (1.8-7.7); Neutrophils % 75.2 %; Nucleated Red Blood Cells % 0 %; Platelet Count 188 10^3/cmm (130-400); Red Blood Count 4.17 10^6/uL (4.1-5.3); Red Cell Distribution Width 13.7 % (12.1-15.1); White Blood Count 11.9 10^3/uL (4.0-10.0)
[2022-06-18 05:42] LABS: Alanine Aminotransferase 9 U/L (0-41); Albumin Level 2.8 g/dL (3.5-5.2); Alkaline Phosphatase 126 U/L (40-130); Anion Gap 14.4 (5-19); Aspartate Amino Transferase 19 U/L (0-40); Blood Urea Nitrogen 30 mg/dL (8-23); Calcium 9.3 mg/dL (8.5-10.5); Carbon Dioxide 29 mmol/L (22-29); Chloride 109 mmol/L (98-107); Globulin 3.7 g/dL (1.3-4.6); Glucose 117 mg/dL (65-115); Magnesium 1.6 mg/dL (1.7-2.3); Osmolality Calculated 315 mOsm/kg (285-295); Phosphorus 2.6 mg/dL (2.5-4.5); Potassium 3.4 mmol/L (3.5-5.1); Sodium 149 mmol/L (136-145); Total Bilirubin 0.9 mg/dL (0.15-1.2); Total Protein 6.5 g/dL (6.6-8.7)
[2022-06-18] MEDS: quetiapine 25 mg Tablet 12.5 MG PO (08:59)
[2022-06-18] MEDS: aspirin 81 mg Chew Tablet PO (08:59)
[2022-06-18] MEDS: cloNIDine 0.1 mg Tablet 0.2 MG PO ×2 (09:00→18:26)
[2022-06-18] MEDS: FUROsemide 10 mg/mL SDV 4mL 40 MG IVP (09:00)
--- NOTE | 2022-06-18 09:26 | PM.PN ---
Subjective Subjective: 77-year-old male lives independently but wheelchair-bound due to cervical myelopathy and follows with [facility] neurology. On 05/31/2022 patient came into the emergency department with right leg dysfunction worked up with CTA head and MRI neck. CT of head showed volume loss and chronic low attenuation in the white matter but no acute hemorrhage or infarct. CTA head showed no significant stenosis in the carotids, vertebral. He did have small peripheral right Karinne artery branch of the right QUOTATION CHECKER extending in close proximity to the right transverse venous sinus there was question of a tiny arterial dural fistula but this would not explain his right-sided weakness. Cervical spine MRI 819 showed straightening of the normal cervical lordosis there was anterolisthesis of C4 on C5 and C7 on T1 4 mm at each of those levels there is severe central canal stenosis C4-5 mild canal stenosis C5-6 moderate to severe bony foraminal narrowing C3-4 C4-5 C5-6 all bilaterally. Also right C7-T1 also seen was facet arthropathy. Patient left AMA 06/01/2022 and came back on 06/05/2022 with acute renal failure noting that he was oliguric at home. Patient received dialysis for 3 days.He had consultation with nephrology, orthopedic spine and general surgery. He has under went dialysis for 3 days remained confused with fever and was on antibiotic for urinary tract infection with hematuria including broad-spectrum antibiotics but no definite pathogen was culturally identified. Lumbar puncture was done which was negative he was intubated for hypercapnic respiratory failure for 2-1/2 days and extubated 06/16/2022 Patient has known first-degree AV block paroxysmal A. fib and ischemic cardiomyopathy with a EF of 45 to 50%. He had recent contrast nephropathy requiring dialysis 3 days and is a poor candidate for selective coronary angiogram at this time Today patient's nephew Patria Price and his sister Leena have arrived driving in from [place] and reports themselves to be patient's closest next of kin. He does have a sister in [place] who does not answer her phone has early dementia and is helped by her children. She would be the formal next of kin but potentially not able to travel to help. Patria Price phone #[phone] Neighbor is Chidi Solorzano phone #[phone] he states that he helps the patient almost daily to get from bed to wheelchair patient is independent but cantankerous boisterous and very opinionated. It is his typical response to make mac comments and avoid direct questions. Patient had went to the ED are come back after leaving AMA then reported to him lack of urine over the weekend and decided to go back to the hospital. Medications: Reviewed: Yes Medication Review Details: Remains on Zosyn and low-dose Precedex plus clonidine Current Medications Vitals/I&O/Wt Last Vital Signs Temp 98.9 F 06/18/22 04:00 Pulse 88 06/18/22 08:00 Resp 16 06/18/22 08:00 BP 156/78 06/18/22 09:00 Pulse Ox 95 06/18/22 08:00 O2 Del Method 06/18/22 08:00 O2 Flow Rate 2 06/16/22 15:54 FiO2 28 06/16/22 09:22 06/17/22 06/18/22 06/18/22 22:59 06:59 14:59 Intake Total 386 / 856 100 / 956 50 / 50 Output Total 850 / 2200 350 / 2550 Balance -464 / -1344 -250 / -1594 50 / 50 Weight last 48 hrs Weight 109.497 kg Weight 112.99 kg Physical Exam Narrative: General well-developed well-nourished obese white male doing well with speech therapist this morning CV irregular and rate is controlled Lungs clear on anterior exam Abdomen diminished bowel tones soft nontender multiple surgical scars noted Calves trace edema Mentation he is alert and oriented to person but not place date or situation patient is physically cooperative but when I pt argumentative and denies that he has been intubated and here. States he doesnt know Patria and thinks he might be a drunk. lots of joking boisterous inappropriate talk skin warm and mild dry : OTHER: Urinary catheter is in place with mid tone yellow urine Marley catheter was changed 06/14/2022 Urinary Catheter Management: Coude: Cath Placed During This Visit: yes Reason for Continuing Indwelling Catheter: Accurate Measurement of Urinary Output in Critically Ill Patients Urinary Catheter Date of Insertion: 06/14/22 Urinary Catheter Time of Insertion: 11:00 Data : 06/18/22 03:55 06/18/22 03:55 Micro: Microbiology 06/15/22 Unknown Urine Culture - Final Urine,Clean Catch A&P Assessment and plan (1) Altered mental status: Acute encephalopathy: Multifactorial (uremia, possible withdrawal, CCU delirium) Patient has improved since being on ventilator and tube feeds with correction of his hypernatremia He is not a known drinker per his friend who has known him 25 years but Patria states that he did drink heavily many years ago none recently Lumbar puncture negative for infection. Okay to resume Lovenox Patient appears to have ICU encephalopathy. The fevers have resolved. COVID was negative and he no longer needs to be in isolation. I did send a viral panel but that a PCR send so no results yet Continue clonidine and I added low-dose Seroquel 12.5 mg twice a day on 06/17/2022. If does not start to orientate I would increase the dose Has been on thiamine 100 mg daily since 06/09/2022 Status: Acute (2) Acute kidney injury: Patient with severe acute kidney injury due to contrast nephropathy as culprit treated acutely with dialysis catheter and dialysis for 3 days No evidence of urinary retention on ultrasound, but is a constant concern considering history of cervical myelopathy Patient has creatinine much improved and he is also making urine and no longer requiring dialysis. Recurring hypernatremia renal function is improving Advance diet to pur?ed with thin liquids Status: Acute (3) Cervical cord compression with myelopathy: Avoid significant neck flexion that is prolonged patient seen by orthopedist spine early during admission recommended outpatient follow-up Status: Acute (4) Diabetic peripheral neuropathy associated with type 2 diabetes mellitus: Start diabetic pur?ed diet Sliding scale insulin Status: Acute (5) Chronic congestive heart failure: Currently appears compensated. No acute component. Secondary to ischemic cardiomyopathy. Last echo demonstrates EF of 50%. Echocardiogram demonstrates no obvious change. Some dilation of his aorta is noted. CT chest showed mild dilation of aorta. No contrast secondary to renal dysfunction. Known first-degree AV block, paroxysmal atrial fibrillation with rapid ventricular rate and ischemic cardiomyopathy. We will add troponin to his lab Continue clonidine and beta-nikki Status: Acute (6) Atrial fibrillation by electrocardiogram: beta-nikki 50 mg mg metoprolol twice daily Has been on Lovenox 40 mg subcu daily. Will change to apixaban 5 mg twice a day Watch out for worsening hematuria. Status: Acute (7) UTI (urinary tract infection): repeat UA micro today no growth on 06/15/2022 sample Hematuria but no infection Likely benefit from cystoscopy Status: Acute Plan CODE STATUS: Full code DVT prophylaxis: Apixaban for A. fib Attestations Medical Necessity Statement*: Patient will remain in the hospital ICU for close monitoring and adjustment of his medication. Can likely go to the medical floor as mental status reliability improves Time Spent in Patient Care: 70 minutes spent in evaluation and coordination of care for this patient today Coding Level of Care Code Acute Faa Certified Powerplant Mechanic for Felicitas Fwdale History Comprehensive Exam Detailed Medical Decision Making High Complexity Diagnoses Altered mental status R41.82 Acute kidney injury N17.9 Cervical cord compression with myelopathy G95.20 Diabetic peripheral neuropathy associated with type 2 diabetes mellitus E11.42 Chronic congestive heart failure I50.9 Atrial fibrillation by electrocardiogram I48.91 UTI (urinary tract infection) N39.0
[2022-06-18] MEDS: metoprolol tartrate 25 mg Tablet 50 MG PO (10:07)
[2022-06-18 11:48] LABS: Glucose Point of Care 172 mg/dL (70-110)
[2022-06-18] MEDS: insulin lispro 100 unit/1 mL SUBCUT (12:22)
--- NOTE | 2022-06-18 13:24 | PC.OT ---
OT evaluation attempted 2x today. Pt. agitated, moving head left and right as well as arms. Unable to respond appropriately to therapist/follow commands. OT evaluation to be attempted tomorrow.
[2022-06-18] MEDS: enoxaparin 40 mg/0.4 mL Syringe SUBCUT (14:30)
[2022-06-18 17:24] LABS: Glucose Point of Care 107 mg/dL (70-110)
[2022-06-19] VITALS (23 sets, daily range): BP systolic 108–191; BP diastolic 51–87; PULSE 73–112; RESP 15–28; TEMP 36–37.7; O2SAT 89–97; BMI 35.6
[2022-06-19] MEDS: morphine 4 mg/mL SDV 1 mL 2 MG IVP (02:12)
--- NOTE | 2022-06-19 07:00 | PC.NURSE ---
Bedside report completed with Bladimir Olivares RN.
[2022-06-19 08:29] LABS: Glucose Point of Care 105 mg/dL (70-110)
[2022-06-19] MEDS: aspirin 81 mg Chew Tablet PO (09:36)
[2022-06-19] MEDS: metoprolol tartrate 25 mg Tablet 50 MG PO ×2 (09:36→20:42)
[2022-06-19] MEDS: hyDRALAzine 50 mg Tablet PO ×3 (09:36→20:42)
[2022-06-19] MEDS: amlodipine 10 mg Tablet PO (09:41)
[2022-06-19] MEDS: potassium chloride ER 20 mEq Tablet 40 MEQ PO (09:41)
[2022-06-19] MEDS: dextrose 5% 1,000 ML 75 ML IV (09:43)
--- NOTE | 2022-06-19 10:38 | PC.CHAP ---
Pastoral Care Encounter/Spiritual Assessment Type of Contact [] Declined chief hydroelectric station operator visit [] Patient/Family/Request visit [] Outpatient visit [] Follow-up visit [] Physician referral [] Code/Alert [x] Routine visit [] Staff referral [] Actively dying [] Patient sleeping [x] Family support [] [] Out of room [] Palliative care [] [] Receiving care in room [] Pre-surgical visit [] Trauma [] Long length of stay [x] ICU visit [x] Other: PTs eye open.. drinking soda Relational/Emotional Strength [] Patient feels connected with others/family/visitors/staff [] Distress [] Loneliness/isolation [] Abandonment Spirituality of Patient [] Person of Gwen [] Attends Synagogue of their Gwen [] Believes in Prayer [] Reads Bible or Pentecostal materials [] There are Spiritual issues to be addressed Programming Instructor Interventions [x] Prayer [] Active listening [] Non-anxious presence [] Spiritual/emotional support [] Crisis/trauma care [] Spiritual counseling [] Bereavement support [] Provided bereavement packet [] Provided Bible/devotional materials [] Provided toy/stuffed animal, coloring book to patient or family member [] Provided Communion [] Anointing/[place] [] Salvation [x] Completed spiritual assessment [] Other: Impact on Illness or Injury [] Angry [] Fearful [] Anxious [] Often cries [] Exhaustion [] Unable to work [] Unable to attend scientologist [] Unable to walk/stand [] Unable to read [] Unable to drive [] Unable to eat/drink [] Unable to sleep [] Unable to be with family [] Patient intubated [] Other: Summary Time spent with patient
[2022-06-19 12:35] LABS: Glucose Point of Care 167 mg/dL (70-110)
[2022-06-19] MEDS: insulin lispro 100 unit/1 mL SUBCUT ×2 (12:46→17:51)
--- NOTE | 2022-06-19 14:35 | PC.NURSE ---
Report given to Linda Kim RN
--- NOTE | 2022-06-19 14:54 | PM.PN ---
Subjective Subjective: Patient was seen and examined patient was seen and exam this morning patient still has confusion , though he is holding conversations, Has been taking p.o. intake, his other vitals and labs have been reviewed. Medications: Reviewed: Yes Medication Review Details: Generic Name Dose Route Start Last Admin Trade Name Freq PRN Reason Stop Dose Admin Acetaminophen 1,000 mg 06/16/22 12:58 06/17/22 16:43 Acetaminophen 50 0 Mg Tablet PO 1,000 mg Q6H PRN Administration MILD PAIN OR INCR EASE TEMP Amlodipine Besylat e 10 mg 06/19/22 09:00 06/19/22 09:41 Amlodipine 10 Mg Tablet PO 10 mg DAILY LY Administration Aspirin 81 mg 06/18/22 09:00 06/19/22 09:36 Aspirin 81 Mg Ch ew Tablet PO 81 mg DAILY LY Administration Enoxaparin Sodium 40 mg 06/16/22 14:00 06/18/22 14:30 Enoxaparin 40 Mg /0.4 Ml Syringe SUBCUT 40 mg Q24H LY Administration Heparin Sodium (Po rcine) 0 unit 06/08/22 10:40 06/10/22 09:55 Heparin 5,000 Un it/Ml Inj 1 Ml IV 2,200 unit PRN PRN Administration Heparin weight-ba se protocol Protocol Hydralazine HCl 50 mg 06/19/22 09:00 06/19/22 09:36 Hydralazine 50 M g Tablet PO 50 mg TID LY Administration Dextrose 1,000 mls @ 75 ml s/hr 06/19/22 08:15 06/19/22 09:43 D5w IV 75 mls/hr .[id number] LY Administration Insulin Human Lisp ro 0 unit 06/18/22 12:00 06/19/22 12:46 Insulin Lispro 1 00 Unit/1 Ml SUBCUT 2 unit [id number]&BEDTIME LY Administration Protocol Metoprolol Tartrat e 50 mg 06/18/22 09:00 06/19/22 09:36 Metoprolol Tartr ate 25 Mg Tablet PO 50 mg BID@0900,2100 LY Administration Morphine Sulfate 2 mg 06/17/22 16:51 06/19/22 02:12 Morphine 4 Mg/Ml Sdv 1 Ml IVP 2 mg Q4H PRN Administration SEVERE PAIN Quetiapine Fumarat e 12.5 mg 06/17/22 18:00 06/18/22 08:59 Quetiapine 25 Mg Tablet PO 12.5 mg BID LY Administration Thiamine HCl 100 mg 06/09/22 09:00 06/19/22 09:41 Thiamine 100 Mg/ Ml Sdv IVP 100 mg DAILY LY Administration Current Medications Vitals/I&O/Wt Last Vital Signs Temp 98.8 F 06/19/22 13:00 Pulse 79 06/19/22 14:00 Resp 19 H 06/19/22 13:00 BP 135/78 06/19/22 13:00 Pulse Ox 97 06/19/22 13:00 O2 Del Method 06/19/22 13:00 O2 Flow Rate 2 06/16/22 15:54 FiO2 28 06/16/22 09:22 06/18/22 06/19/22 06/19/22 22:59 06:59 14:59 Intake Total 270 / 440 450 / 450 Output Total 1450 / 1450 650 / 2100 Balance -1180 / -1010 -650 / -1660 450 / 450 Weight last 48 hrs Weight 109.497 kg Weight 109.497 kg Physical Exam Resp: COMMON NORMALS: normal respiratory effort, No retractions, No use of accessory muscles and clear to auscultation bilaterally EFFORT & INSPECTION: Yes symmetric chest movement AUSCULTATION: clear to auscultation bilaterally Cardio: COMMON NORMALS: regular rate, regular rhythm, S1 normal heart sound present, S2 normal heart sound present, No gallops present (Cardio), No murmurs present (Cardio), No rub (Cardio) and Peripheral pulses 2+ throughout RATE: regular rate RHYTHM: regular rhythm HEART SOUNDS: S1 normal heart sound present and S2 normal heart sound present PERIPHERAL PULSES: Peripheral pulses 2+ throughout GI: COMMON NORMALS: Normal to inspection, nondistended, normoactive bowel sounds present, Soft to palpation, non-tender, No hepatosplenomegaly present and no masses AUSCULTATION: Yes normoactive bowel sounds PALPATION: Yes Soft to palpation and Yes No hepatosplenomegaly present RECTAL EXAM: Yes deferred Urinary Catheter Management: Coude: Cath Placed During This Visit: yes Reason for Continuing Indwelling Catheter: Accurate Measurement of Urinary Output in Critically Ill Patients Urinary Catheter Date of Insertion: 06/14/22 Urinary Catheter Time of Insertion: 11:00 Data : 06/18/22 03:55 06/18/22 03:55 A&P Assessment and plan (1) Altered mental status: Acute encephalopathy: Multifactorial (uremia, possible withdrawal, CCU delirium) Patient has improved since being on ventilator and tube feeds with correction of his hypernatremia He is not a known drinker per his friend who has known him 25 years but Patria states that he did drink heavily many years ago none recently Lumbar puncture negative for infection. Okay to resume Lovenox Patient appears to have ICU encephalopathy. The fevers have resolved. COVID was negative and he no longer needs to be in isolation. I did send a viral panel but that a PCR send so no results yet Continue clonidine and I added low-dose Seroquel 12.5 mg twice a day on 06/17/2022. If does not start to orientate I would increase the dose Has been on thiamine 100 mg daily since 06/09/2022 Status: Acute (2) Acute kidney injury: Patient with severe acute kidney injury due to contrast nephropathy as culprit treated acutely with dialysis catheter and dialysis for 3 days No evidence of urinary retention on ultrasound, but is a constant concern considering history of cervical myelopathy Patient has creatinine much improved and he is also making urine and no longer requiring dialysis. Recurring hypernatremia renal function is improving Advance diet to pur?ed with thin liquids Status: Acute (3) Cervical cord compression with myelopathy: Avoid significant neck flexion that is prolonged patient seen by orthopedist spine early during admission recommended outpatient follow-up Status: Acute (4) Diabetic peripheral neuropathy associated with type 2 diabetes mellitus: Start diabetic pur?ed diet Sliding scale insulin Status: Acute (5) Chronic congestive heart failure: Currently appears compensated. No acute component. Secondary to ischemic cardiomyopathy. Last echo demonstrates EF of 50%. Echocardiogram demonstrates no obvious change. Some dilation of his aorta is noted. CT chest showed mild dilation of aorta. No contrast secondary to renal dysfunction. Known first-degree AV block, paroxysmal atrial fibrillation with rapid ventricular rate and ischemic cardiomyopathy. We will add troponin to his lab Continue clonidine and beta-nikki Status: Acute (6) Atrial fibrillation by electrocardiogram: beta-nikki 50 mg mg metoprolol twice daily Has been on Lovenox 40 mg subcu daily. Will change to apixaban 5 mg twice a day Watch out for worsening hematuria. Status: Acute (7) UTI (urinary tract infection): repeat UA micro today no growth on 06/15/2022 sample Hematuria but no infection Likely benefit from cystoscopy Status: Acute Plan CODE STATUS: Full code DVT prophylaxis: Apixaban for A. fib Attestations Medical Necessity Statement*: Patient is to be in hospital for management of encephalopathy. Coding Level of Care Code Acute Senior Accounting Specialist for Chg Fwd Diagnoses Altered mental status R41.82 Acute kidney injury N17.9 Cervical cord compression with myelopathy G95.20 Diabetic peripheral neuropathy associated with type 2 diabetes mellitus E11.42 Chronic congestive heart failure I50.9 Atrial fibrillation by electrocardiogram I48.91 UTI (urinary tract infection) N39.0
[2022-06-19] MEDS: enoxaparin 40 mg/0.4 mL Syringe SUBCUT (15:31)
[2022-06-19 16:09] LABS: Blood Urea Nitrogen 32 mg/dL (8-23); Calcium 9.1 mg/dL (8.5-10.5); Carbon Dioxide 20 mmol/L (22-29); Chloride 108 mmol/L (98-107); Glucose 166 mg/dL (65-115); Osmolality Calculated 305 mOsm/kg (285-295); Sodium 142 mmol/L (136-145)
[2022-06-19 16:10] LABS: Anion Gap 18.1 (5-19); Potassium 4.1 mmol/L (3.5-5.1)
[2022-06-19 17:46] LABS: Glucose Point of Care 188 mg/dL (70-110)
[2022-06-19] MEDS: quetiapine 25 mg Tablet 12.5 MG PO (17:51)
[2022-06-19 20:52] LABS: Glucose Point of Care 132 mg/dL (70-110)
[2022-06-20] VITALS (15 sets, daily range): BP systolic 105–167; BP diastolic 51–79; PULSE 73–98; RESP 15–27; TEMP 36.1–36.8; O2SAT 91–97
[2022-06-20] MEDS: dextrose 5% 1,000 ML 75 ML IV (03:09)
[2022-06-20 03:42] LABS: Basophils # 0.1 10^3/uL (0.0-0.1); Basophils % 0.6 %; Eosinophils # 0.5 10^3/uL (0.0-0.8); Eosinophils % 4.6 %; Hemoglobin 12.9 g/dL (11.7-16.6); Lymphocytes # 2.1 10^3/uL (0.8-4.8); Lymphocytes % 20.1 %; Mean Corpuscular HGB Conc 31.5 g/dL (30.0-36.0); Mean Corpuscular Hemoglobin 30.4 pg (28.0-34.0); Mean Corpuscular Volume 96.5 fl (80-94); Mean Platelet Volume 12.5 fL (7.4-10.4); Monocytes # 1.3 10^3/uL (0.2-0.9); Monocytes % 12.2 %; Neutrophils # 6.33 10^3/uL (1.8-7.7); Neutrophils % 61.8 %; Nucleated Red Blood Cells % 0 %; Platelet Count 272 10^3/cmm (130-400); Red Blood Count 4.25 10^6/uL (4.1-5.3); Red Cell Distribution Width 13.4 % (12.1-15.1); White Blood Count 10.2 10^3/uL (4.0-10.0)
[2022-06-20 04:05] LABS: Anion Gap 16.3 (5-19); Blood Urea Nitrogen 28 mg/dL (8-23); Calcium 8.9 mg/dL (8.5-10.5); Carbon Dioxide 26 mmol/L (22-29); Chloride 105 mmol/L (98-107); Glucose 123 mg/dL (65-115); Osmolality Calculated 305 mOsm/kg (285-295); Potassium 3.3 mmol/L (3.5-5.1); Sodium 144 mmol/L (136-145)
--- NOTE | 2022-06-20 07:00 | PC.NURSE ---
Bedside report completed with KARSTEN Fernandez
--- NOTE | 2022-06-20 07:13 | PC.NURSE ---
Spoke with Dr Lopes via telephone, sodium level 144. Orders to stop D5% IV fluid received.
[2022-06-20 07:50] LABS: Glucose Point of Care 131 mg/dL (70-110)
--- NOTE | 2022-06-20 08:29 | PC.NURSE ---
Ptstate I am going to hit you during repositioning and linen straightening.
[2022-06-20] MEDS: metoprolol tartrate 25 mg Tablet 50 MG PO ×2 (08:39→20:10)
[2022-06-20] MEDS: acetaminophen 500 mg Tablet 1000 MG PO (08:39)
[2022-06-20] MEDS: hyDRALAzine 50 mg Tablet PO ×3 (08:39→20:11)
[2022-06-20] MEDS: quetiapine 25 mg Tablet 12.5 MG PO ×2 (08:40→17:48)
[2022-06-20] MEDS: amlodipine 10 mg Tablet PO (08:40)
[2022-06-20] MEDS: aspirin 81 mg Chew Tablet PO (08:40)
[2022-06-20] MEDS: sodium chloride 0.9% 1,000 ML 75 ML IV (09:05)
--- NOTE | 2022-06-20 10:03 | PC.CHAP ---
Pastoral Care Encounter/Spiritual Assessment Type of Contact [] Declined tax director visit [] Patient/Family/Request visit [] Outpatient visit [] Follow-up visit [] Physician referral [] Code/Alert [x] Routine visit [] Staff referral [] Actively dying [] Patient sleeping [x] Family support [] [] Out of room [] Palliative care [] [] Receiving care in room [] Pre-surgical visit [] Trauma [] Long length of stay [x] ICU visit [x] Other: PT making eye contact and small conversation Relational/Emotional Strength [] Patient feels connected with others/family/visitors/staff [] Distress [] Loneliness/isolation [] Abandonment Spirituality of Patient [] Person of Gwen [] Attends Yarsani of their Gwen [] Believes in Prayer [] Reads Bible or Scientology materials [] There are Spiritual issues to be addressed Corporate Travel Counselor Interventions [x] Prayer [] Active listening [] Non-anxious presence [] Spiritual/emotional support [] Crisis/trauma care [] Spiritual counseling [] Bereavement support [] Provided bereavement packet [] Provided Bible/devotional materials [] Provided toy/stuffed animal, coloring book to patient or family member [] Provided Communion [] Anointing/[place] [] Salvation [x] Completed spiritual assessment [] Other: Impact on Illness or Injury [] Angry [] Fearful [] Anxious [] Often cries [] Exhaustion [] Unable to work [] Unable to attend jewish [] Unable to walk/stand [] Unable to read [] Unable to drive [] Unable to eat/drink [] Unable to sleep [] Unable to be with family [] Patient intubated [] Other: Summary Time spent with patient
--- NOTE | 2022-06-20 10:15 | MR_ITS ---
WS: [id number] MRI HEAD WITHOUT CONTRAST TECHNIQUE: Sagittal T1, T2 axial, T2 axial FLAIR, axial and coronal T1 images, axial susceptibility w eighted imaging, axial diffusion weighted images, and coronal T2 images were obtained.FAST imaging pe rformed due to altered mental status and motion. CLINICAL INFORMATION: Altered mental status COMPARISON: CT July 08, 2022 FINDINGS: FAST imaging performed due to altered mental status and motion. Small amount of increased diffusion signal involving the LEFT parasagittal posterior parietal lobe me asuring 10 mm may represent T2 shine through artifact versus a small amount of subacute ischemia. No significant edema in this location. Otherwise no evidence of acute ischemia. Moderate small vessel changes. Moderate parenchymal volume loss. 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 Normal vascular flow voids at the skull base. Paranasal sinuses and mast oid air cells well aerated. Moderate to advanced symmetric atrophy involving the temporal lobes and h ippocampal formations. Normal optic chiasm and pituitary infundibulum. No hemosiderin on susceptibly weighted images. IMPRESSION: Images moderately degraded by patient motion. FAST imaging performed. 1. Small amount of partially restricted diffusion in the LEFT parasagittal parietal lobe may represe nt a small amount of subacute ischemia versus T2 shine through artifact. 2. Otherwise no evidence of acute ischemia. 3. Moderate small vessel changes with moderate parenchymal volume loss. 4. Multiple chronic lacunar infarcts involving the cerebellum bilaterally. 5. No hemosiderin on susceptibly weighted images. 6. Moderate to advanced symmetric atrophy of the temporal lobes and hippocampal formations. 7. No other acute findings considering motion artifact.
--- NOTE | 2022-06-20 10:30 | PC.NURSE ---
Dr Lopes notified David IVP was back ordered, that PO would suffice prior to MRI. David changed IVP to PO.
[2022-06-20] MEDS: LORazepam 1 mg Tablet PO (10:31)
--- NOTE | 2022-06-20 11:40 | PC.SOCIAL ---
IMM update Copy of page 2 provided to patient, nephew Patria and mylene Dawn at bedside. All verbalized understanding. Copy in chart initialed, dated and timed.
[2022-06-20] MEDS: insulin lispro 100 unit/1 mL SUBCUT (11:49)
[2022-06-20 11:57] LABS: Glucose Point of Care 154 mg/dL (70-110)
--- NOTE | 2022-06-20 12:20 | PC.NURSE ---
Bedside report completed with KARSTEN Altman
--- NOTE | 2022-06-20 14:52 | P.PN_ITS ---
Subjective Subjective: Patient was seen and examined this morning still has some degree of confusion. MRI brain without contrast : Done today: Has shown : Possible small amount of subacute ischemia versus artifact in left parasagittal parietal lobe. Otherwise no evidence of acute ischemia.Moderate to advanced symmetric atrophy of the temporal lobes and hippocampal formations. Medications: Reviewed: Yes Medication Review Details: Generic Name Dose Route Start Last Admin Trade Name Freq PRN Reason Stop Dose Admin Acetaminophen 1,000 mg 06/16/22 12:58 06/20/22 08:39 Acetaminophen 50 0 Mg Tablet PO 1,000 mg Q6H PRN Administration MILD PAIN OR INCR EASE TEMP Amlodipine Besylat e 10 mg 06/19/22 09:00 06/20/22 08:40 Amlodipine 10 Mg Tablet PO 10 mg DAILY LY Administration Aspirin 81 mg 06/18/22 09:00 06/20/22 08:40 Aspirin 81 Mg Ch ew Tablet PO 81 mg DAILY LY Administration Enoxaparin Sodium 40 mg 06/16/22 14:00 06/19/22 15:31 Enoxaparin 40 Mg /0.4 Ml Syringe SUBCUT 40 mg Q24H LY Administration Heparin Sodium (Po rcine) 0 unit 06/08/22 10:40 06/10/22 09:55 Heparin 5,000 Un it/Ml Inj 1 Ml IV 2,200 unit PRN PRN Administration Heparin weight-ba se protocol Protocol Hydralazine HCl 50 mg 06/19/22 09:00 06/20/22 08:39 Hydralazine 50 M g Tablet PO 50 mg TID LY Administration Sodium Chloride 1,000 mls @ 75 ml s/hr 06/20/22 08:15 06/20/22 09:05 Sodium Chloride 0.9% IV 75 mls/hr .[id number] LY Administration Insulin Human Lisp ro 0 unit 06/18/22 12:00 06/20/22 11:49 Insulin Lispro 1 00 Unit/1 Ml SUBCUT 2 unit [id number]&BEDTIME LY Administration Protocol Metoprolol Tartrat e 50 mg 06/18/22 09:00 06/20/22 08:39 Metoprolol Tartr ate 25 Mg Tablet PO 50 mg BID@0900,2100 LY Administration Morphine Sulfate 2 mg 06/17/22 16:51 06/19/22 02:12 Morphine 4 Mg/Ml Sdv 1 Ml IVP 2 mg Q4H PRN Administration SEVERE PAIN Quetiapine Fumarat e 12.5 mg 06/17/22 18:00 06/20/22 08:40 Quetiapine 25 Mg Tablet PO 12.5 mg BID LY Administration Thiamine HCl 100 mg 06/09/22 09:00 06/20/22 08:39 Thiamine 100 Mg/ Ml Sdv IVP 100 mg DAILY LY Administration Vitals/I&O/Wt Last Vital Signs Temp 98.2 F 06/20/22 03:57 Pulse 73 06/20/22 12:00 Resp 21 H 06/20/22 12:00 BP 143/69 06/20/22 12:00 Pulse Ox 91 06/20/22 12:00 O2 Del Method 06/20/22 12:00 O2 Flow Rate 2 06/16/22 15:54 FiO2 28 06/19/22 18:00 06/19/22 06/20/22 06/20/22 22:59 06:59 14:59 Intake Total 1284 / 1734 1000 / 2734 300 / 300 Output Total 2450 / 2450 250 / 2700 Balance -1166 / -716 750 / 34 300 / 300 Weight last 48 hrs Weight 109.996 kg Weight 109.497 kg Physical Exam Narrative: Persistent confusion Resp: COMMON NORMALS: normal respiratory effort, No retractions, No use of accessory muscles and clear to auscultation bilaterally EFFORT & INSPECTION: Yes symmetric chest movement AUSCULTATION: clear to auscultation bilaterally Cardio: COMMON NORMALS: regular rate, regular rhythm, S1 normal heart sound present, S2 normal heart sound present, No gallops present (Cardio), No murmurs present (Cardio), No rub (Cardio) and Peripheral pulses 2+ throughout RATE: regular rate RHYTHM: regular rhythm HEART SOUNDS: S1 normal heart sound present and S2 normal heart sound present PERIPHERAL PULSES: Peripheral pulses 2+ throughout GI: COMMON NORMALS: Normal to inspection, nondistended, normoactive bowel sounds present, Soft to palpation, non-tender, No hepatosplenomegaly present and no masses AUSCULTATION: Yes normoactive bowel sounds PALPATION: Yes Soft to palpation and Yes No hepatosplenomegaly present RECTAL EXAM: Yes deferred Urinary Catheter Management: Coude: Cath Placed During This Visit: yes Reason for Continuing Indwelling Catheter: Accurate Measurement of Urinary Output in Critically Ill Patients Urinary Catheter Date of Insertion: 06/14/22 Urinary Catheter Time of Insertion: 11:00 Data : 06/20/22 02:42 06/20/22 02:42 A&P Assessment and plan (1) Altered mental status: Acute encephalopathy: Multifactorial (uremia, possible withdrawal, CCU delirium) Patient has improved since being on ventilator and tube feeds with correction of his hypernatremia He is not a known drinker per his friend who has known him 25 years but Patria states that he did drink heavily many years ago none recently Lumbar puncture negative for infection. Okay to resume Lovenox Patient appears to have ICU encephalopathy. The fevers have resolved. COVID was negative and he no longer needs to be in isolation. I did send a viral panel but that a PCR send so no results yet Continue clonidine and I added low-dose Seroquel 12.5 mg twice a day on 06/17/2022. If does not start to orientate I would increase the dose Has been on thiamine 100 mg daily since 06/09/2022 Status: Acute (2) Acute kidney injury: Patient with severe acute kidney injury due to contrast nephropathy as culprit treated acutely with dialysis catheter and dialysis for 3 days No evidence of urinary retention on ultrasound, but is a constant concern considering history of cervical myelopathy Patient has creatinine much improved and he is also making urine and no longer requiring dialysis. Recurring hypernatremia renal function is improving Advance diet to pur?ed with thin liquids Status: Acute (3) Cervical cord compression with myelopathy: Avoid significant neck flexion that is prolonged patient seen by orthopedist spine early during admission recommended outpatient follow-up Status: Acute (4) Diabetic peripheral neuropathy associated with type 2 diabetes mellitus: Start diabetic pur?ed diet Sliding scale insulin Status: Acute (5) Chronic congestive heart failure: Currently appears compensated. No acute component. Secondary to ischemic cardiomyopathy. Last echo demonstrates EF of 50%. Echocardiogram demonstrates no obvious change. Some dilation of his aorta is noted. CT chest showed mild dilation of aorta. No contrast secondary to renal dysfunction. Known first-degree AV block, paroxysmal atrial fibrillation with rapid ventricular rate and ischemic cardiomyopathy. We will add troponin to his lab Continue clonidine and beta-nikki Status: Acute (6) Atrial fibrillation by electrocardiogram: beta-nikki 50 mg mg metoprolol twice daily Has been on Lovenox 40 mg subcu daily. Will change to apixaban 5 mg twice a day Watch out for worsening hematuria. Status: Acute (7) UTI (urinary tract infection): repeat UA micro today no growth on 06/15/2022 sample Hematuria but no infection Likely benefit from cystoscopy Status: Acute Plan CODE STATUS: Full code DVT prophylaxis: Apixaban for A. fib Attestations Medical Necessity Statement*: Patient is to be in hospital for management of encephalopathy. Likely ICU acquired delirium. Coding Level of Care Code Acute Surgical Instrument Mechanic for Felicitas Fwd Exam Expanded Problem Focused Diagnoses Altered mental status R41.82 Acute kidney injury N17.9 Cervical cord compression with myelopathy G95.20 Diabetic peripheral neuropathy associated with type 2 diabetes mellitus E11.42 Chronic congestive heart failure I50.9 Atrial fibrillation by electrocardiogram I48.91 UTI (urinary tract infection) N39.0
[2022-06-20] MEDS: enoxaparin 40 mg/0.4 mL Syringe SUBCUT (15:54)
--- NOTE | 2022-06-20 16:05 | PC.NURSE ---
1530 patient sleeping, I awoke patient and ask patient to take a drink of water so he could take some po meds. Patient literally refused multiple times until I let him go back to sleep and will try again soon.
[2022-06-20] MEDS: potassium chloride oral liq 20 mEq/15 mL UDC 40 MEQ PO (17:10)
[2022-06-20 17:16] LABS: Glucose Point of Care 100 mg/dL (70-110)
[2022-06-20] MEDS: cyclobenzaprine 10 mg Tablet 5 MG PO (17:50)
[2022-06-20 20:02] LABS: Glucose Point of Care 99 mg/dL (70-110)
--- NOTE | 2022-06-20 21:38 | PC.NURSE ---
2115- pt transferred to med surg room 278-2 via bed, all belongings sent with patient.
[2022-06-21] VITALS (10 sets, daily range): BP systolic 124–162; BP diastolic 71–77; PULSE 70–104; RESP 22–24; TEMP 36.3–37.4; O2SAT 90–95
[2022-06-21] MEDS: sodium chloride 0.9% 1,000 ML 75 ML IV (00:24)
[2022-06-21 05:12] LABS: Basophils # 0.1 10^3/uL (0.0-0.1); Basophils % 0.5 %; Eosinophils # 0.5 10^3/uL (0.0-0.8); Eosinophils % 3.8 %; Hemoglobin 13.2 g/dL (11.7-16.6); Lymphocytes # 1.7 10^3/uL (0.8-4.8); Lymphocytes % 14.3 %; Mean Corpuscular HGB Conc 31.4 g/dL (30.0-36.0); Mean Corpuscular Hemoglobin 30.5 pg (28.0-34.0); Mean Platelet Volume 12.7 fL (7.4-10.4); Monocytes % 8.8 %; Neutrophils # 8.46 10^3/uL (1.8-7.7); Nucleated Red Blood Cells % 0 %; Platelet Count 231 10^3/cmm (130-400); Red Blood Count 4.33 10^6/uL (4.1-5.3); Red Cell Distribution Width 13.3 % (12.1-15.1); White Blood Count 11.8 10^3/uL (4.0-10.0)
[2022-06-21 05:40] LABS: Anion Gap 18.6 (5-19); Blood Urea Nitrogen 24 mg/dL (8-23); Calcium 8.9 mg/dL (8.5-10.5); Carbon Dioxide 22 mmol/L (22-29); Chloride 109 mmol/L (98-107); Creatinine Clr Calc Pharmacy 63.0134; Glucose 107 mg/dL (65-115); Osmolality Calculated 307 mOsm/kg (285-295); Potassium 3.6 mmol/L (3.5-5.1); Sodium 146 mmol/L (136-145)
[2022-06-21 06:26] LABS: Glucose Point of Care 103 mg/dL (70-110)
[2022-06-21] MEDS: apixaban 5 mg Tablet PO ×2 (09:01→21:12)
[2022-06-21] MEDS: metoprolol tartrate 25 mg Tablet 50 MG PO ×2 (09:01→21:13)
[2022-06-21] MEDS: quetiapine 25 mg Tablet 12.5 MG PO ×2 (09:01→18:09)
[2022-06-21] MEDS: cyclobenzaprine 10 mg Tablet 5 MG PO ×2 (09:01→18:09)
[2022-06-21] MEDS: amlodipine 10 mg Tablet PO (09:01)
[2022-06-21] MEDS: hyDRALAzine 50 mg Tablet PO ×3 (09:01→21:13)
[2022-06-21] MEDS: aspirin 81 mg Chew Tablet PO (09:01)
--- NOTE | 2022-06-21 10:22 | PC.CHAP ---
Pastoral Care Encounter/Spiritual Assessment Type of Contact [] Declined lode miner blasting visit [] Patient/Family/Request visit [] Outpatient visit [] Follow-up visit [] Physician referral [] Code/Alert [x] Routine visit [] Staff referral [] Actively dying [] Patient sleeping [] Family support [] [] Out of room [] Palliative care [] [] Receiving care in room [] Pre-surgical visit [] Trauma [] Long length of stay [] ICU visit [] Other: Relational/Emotional Strength [x] Patient feels connected with others/family/visitors/staff [] Distress [] Loneliness/isolation [] Abandonment Spirituality of Patient [] Person of Gwen [] Attends Christianity of their Gwen [] Believes in Prayer [] Reads Bible or Advent materials [x] There are Spiritual issues to be addressed Account Support Analyst Interventions [] Prayer [x] Active listening [x] Non-anxious presence [x] Spiritual/emotional support [] Crisis/trauma care [] Spiritual counseling [] Bereavement support [] Provided bereavement packet [] Provided Bible/devotional materials [] Provided toy/stuffed animal, coloring book to patient or family member [] Provided Communion [] Anointing/[place] [] Salvation [x] Completed spiritual assessment [] Other: Impact on Illness or Injury [] Angry [] Fearful [] Anxious [] Often cries [] Exhaustion [] Unable to work [] Unable to attend mormon [] Unable to walk/stand [] Unable to read [] Unable to drive [] Unable to eat/drink [] Unable to sleep [] Unable to be with family [] Patient intubated [] Other: Summary Pt did not make sense when talking. Niece and a Nephew were present in room. Explained social services aide is working on getting him moved to a nursing care facility. They are both trying to stay until the arrangements have been made for him. They explained he has been in hospital for a couple of weeks and does not seem to be improving much. Time spent with patient 10m
[2022-06-21 12:20] LABS: Glucose Point of Care 129 mg/dL (70-110)
--- NOTE | 2022-06-21 12:28 | PM.PN ---
Subjective Subjective: Patient was seen and examined this morning was able to answer few question, working with physical therapy. Medications: Reviewed: Yes Medication Review Details: Generic Name Dose Route Start Last Admin Trade Name Andrew PRN Reason Stop Dose Admin Acetaminophen 1,000 mg 06/16/22 12:58 06/20/22 08:39 Acetaminophen 50 0 Mg Tablet PO 1,000 mg Q6H PRN Administration MILD PAIN OR INCR EASE TEMP Amlodipine Besylat e 10 mg 06/19/22 09:00 06/21/22 09:01 Amlodipine 10 Mg Tablet PO 10 mg DAILY LY Administration Apixaban 5 mg 06/21/22 09:00 06/21/22 09:01 Apixaban 5 Mg Ta blet PO 5 mg BID@00,2100 LY Administration Aspirin 81 mg 06/18/22 09:00 06/21/22 09:01 Aspirin 81 Mg Ch ew Tablet PO 81 mg DAILY LY Administration Cyclobenzaprine HC l 5 mg 06/20/22 18:00 06/21/22 09:01 Cyclobenzaprine 10 Mg Tablet PO 5 mg BID LY Administration Hydralazine HCl 50 mg 06/19/22 09:00 06/21/22 09:01 Hydralazine 50 M g Tablet PO 50 mg TID LY Administration Insulin Human Lisp ro 0 unit 06/18/22 12:00 06/21/22 07:23 Insulin Lispro 1 00 Unit/1 Ml SUBCUT Not Given [facility] Protocol Metoprolol Tartrat e 50 mg 06/18/22 09:00 06/21/22 09:01 Metoprolol Tartr ate 25 Mg Tablet PO 50 mg BID@0900,2100 LY Administration Morphine Sulfate 2 mg 06/17/22 16:51 06/19/22 02:12 Morphine 4 Mg/Ml Sdv 1 Ml IVP 2 mg Q4H PRN Administration SEVERE PAIN Quetiapine Fumarat e 12.5 mg 06/17/22 18:00 06/21/22 09:01 Quetiapine 25 Mg Tablet PO 12.5 mg BID LY Administration Thiamine HCl 100 mg 06/09/22 09:00 06/21/22 07:52 Thiamine 100 Mg/ Ml Sdv IVP 100 mg DAILY LY Administration Vitals/I&O/Wt Last Vital Signs Temp 97.5 F L 06/21/22 11:21 Pulse 81 06/21/22 11:21 Resp 24 H 06/21/22 11:21 BP 162/76 06/21/22 11:21 Pulse Ox 94 06/21/22 11:21 O2 Del Method 06/21/22 11:21 O2 Flow Rate 2 06/16/22 15:54 FiO2 28 06/20/22 18:00 06/20/22 06/21/22 06/21/22 22:59 06:59 14:59 Intake Total 875 / 1175 185 / 1360 Output Total 750 / 750 300 / 1050 Balance 125 / 425 -115 / 310 Weight last 48 hrs Weight 110.903 kg Weight 109.996 kg Physical Exam Resp: COMMON NORMALS: normal respiratory effort, No retractions, No use of accessory muscles and clear to auscultation bilaterally EFFORT & INSPECTION: Yes symmetric chest movement AUSCULTATION: clear to auscultation bilaterally Cardio: COMMON NORMALS: regular rate, regular rhythm, S1 normal heart sound present, S2 normal heart sound present, No gallops present (Cardio), No murmurs present (Cardio), No rub (Cardio) and Peripheral pulses 2+ throughout RATE: regular rate RHYTHM: regular rhythm HEART SOUNDS: S1 normal heart sound present and S2 normal heart sound present PERIPHERAL PULSES: Peripheral pulses 2+ throughout GI: COMMON NORMALS: Normal to inspection, nondistended, normoactive bowel sounds present, Soft to palpation, non-tender, No hepatosplenomegaly present and no masses AUSCULTATION: Yes normoactive bowel sounds PALPATION: Yes Soft to palpation and Yes No hepatosplenomegaly present RECTAL EXAM: Yes deferred Urinary Catheter Management: Coude: Cath Placed During This Visit: yes Reason for Continuing Indwelling Catheter: Accurate Measurement of Urinary Output in Critically Ill Patients Urinary Catheter Date of Insertion: 06/14/22 Urinary Catheter Time of Insertion: 11:00 Data : 06/21/22 04:32 06/21/22 04:32 A&P Assessment and plan (1) Altered mental status: Acute encephalopathy: Multifactorial (uremia, possible withdrawal, ICU delirium) Patient has improved since being on ventilator and tube feeds with correction of his hypernatremia He is not a known drinker per his friend who has known him 25 years but Patria states that he did drink heavily many years ago none recently Lumbar puncture negative for infection. Okay to resume Lovenox Patient appears to have ICU encephalopathy. The fevers have resolved. COVID was negative and he no longer needs to be in isolation. I did send a viral panel but that a PCR send so no results yet Continue clonidine and I added low-dose Seroquel 12.5 mg twice a day on 06/17/2022. If does not start to orientate I would increase the dose Has been on thiamine 100 mg daily since 06/09/2022 Status: Acute (2) Acute kidney injury: Patient with severe acute kidney injury due to contrast nephropathy as culprit treated acutely with dialysis catheter and dialysis for 3 days No evidence of urinary retention on ultrasound, but is a constant concern considering history of cervical myelopathy Patient has creatinine much improved and he is also making urine and no longer requiring dialysis. Recurring hypernatremia renal function is improving Advance diet to pur?ed with thin liquids Status: Acute (3) Cervical cord compression with myelopathy: Avoid significant neck flexion that is prolonged patient seen by orthopedist spine early during admission recommended outpatient follow-up Status: Acute (4) Diabetic peripheral neuropathy associated with type 2 diabetes mellitus: Start diabetic pur?ed diet Sliding scale insulin Status: Acute (5) Chronic congestive heart failure: Currently appears compensated. No acute component. Secondary to ischemic cardiomyopathy. Last echo demonstrates EF of 50%. Echocardiogram demonstrates no obvious change. Some dilation of his aorta is noted. CT chest showed mild dilation of aorta. No contrast secondary to renal dysfunction. Known first-degree AV block, paroxysmal atrial fibrillation with rapid ventricular rate and ischemic cardiomyopathy. We will add troponin to his lab Continue clonidine and beta-nikki Status: Acute (6) Atrial fibrillation by electrocardiogram: beta-nikki 50 mg mg metoprolol twice daily On apixaban 5 mg twice a day. Risk and benefits of anticoagulation has been explained Watch out for hematuria. Status: Acute (7) UTI (urinary tract infection): repeat UA micro today no growth on 06/15/2022 sample Hematuria but no infection Likely benefit from cystoscopy Status: Acute Plan Disposition: Patient has been accepted at [facility]. We are anticipating discharge by tomorrow. CODE STATUS: Full code DVT prophylaxis: Apixaban for A. fib Attestations Medical Necessity Statement*: Patient is to be in hospital for management of above defined problems. Coding Level of Care Code Acute Audio Visual Director for [facility] Fwd Exam Expanded Problem Focused Diagnoses Altered mental status R41.82 Acute kidney injury N17.9 Cervical cord compression with myelopathy G95.20 Diabetic peripheral neuropathy associated with type 2 diabetes mellitus E11.42 Chronic congestive heart failure I50.9 Atrial fibrillation by electrocardiogram I48.91 UTI (urinary tract infection) N39.0
[2022-06-21] MEDS: morphine 4 mg/mL SDV 1 mL 2 MG IVP (13:05)
[2022-06-21 16:50] LABS: ABG PCO2 30.8 mmHg (35-45); Alveolar-Arterial Oxygen Gradi 10.2 mmHg (5-10); Arterial Blood Gas Hematocrit 41.3 % (42-52); Base Excess ABG 1.8 mmol/L (-2.0-2.0); Blood Gas Allen Test Pos; Blood Gas Operator Identificat ED; Blood Gas Sample Site Radial, left; Blood Gas Sample Type Arterial; Carboxyhemoglobin 1.2 %THgb (0.4-20.1); HCO3 ABG 24.3 mmol/L (22-26); HGB O2 Sat 96.1 % (95-100); Ionized Calcium Level - ABG 1.2 mmol/L (1.1-1.4); Methemoglobin 0.5 % (0.4-1.5); Oxygen Device NC; Oxygen Saturation ABG 97.8; PO2 ABG 81.7 mmHg (80.0-100.0); Potassium Level - ABG 3.8 mmol/L (3.5-5.0); Total Hemoglobin 13.5 g/dL (14-18)
[2022-06-21 16:58] LABS: Glucose Point of Care 169 mg/dL (70-110)
[2022-06-21] MEDS: acetaminophen 500 mg Tablet 1000 MG PO (18:09)
[2022-06-21 21:55] LABS: Glucose Point of Care 204 mg/dL (70-110)
[2022-06-21] MEDS: insulin lispro 100 unit/1 mL SUBCUT (22:42)
[2022-06-22] VITALS (7 sets, daily range): BP systolic 116–137; BP diastolic 61–68; PULSE 76–86; RESP 18–24; TEMP 36.3–36.8; O2SAT 92–96
[2022-06-22 02:18] LABS: Basophils # 0.1 10^3/uL (0.0-0.1); Basophils % 0.5 %; Eosinophils # 0.3 10^3/uL (0.0-0.8); Eosinophils % 2.8 %; Hematocrit 40.2 % (42.0-52.0); Hemoglobin 12.6 g/dL (11.7-16.6); Lymphocytes # 1.8 10^3/uL (0.8-4.8); Lymphocytes % 14.6 %; Mean Corpuscular HGB Conc 31.3 g/dL (30.0-36.0); Mean Corpuscular Hemoglobin 30.4 pg (28.0-34.0); Mean Corpuscular Volume 96.9 fl (80-94); Monocytes # 1.3 10^3/uL (0.2-0.9); Monocytes % 10.4 %; Neutrophils # 8.58 10^3/uL (1.8-7.7); Neutrophils % 71.2 %; Nucleated Red Blood Cells % 0 %; Platelet Count 269 10^3/cmm (130-400); Red Blood Count 4.15 10^6/uL (4.1-5.3); Red Cell Distribution Width 13.4 % (12.1-15.1); White Blood Count 12.1 10^3/uL (4.0-10.0)
[2022-06-22 02:39] LABS: Chloride 110 mmol/L (98-107); Potassium 3.8 mmol/L (3.5-5.1); Sodium 146 mmol/L (136-145)
[2022-06-22 03:10] LABS: Anion Gap 14.8 (5-19); Blood Urea Nitrogen 25 mg/dL (8-23); Calcium 9.2 mg/dL (8.5-10.5); Carbon Dioxide 25 mmol/L (22-29); Glucose 93 mg/dL (65-115); Osmolality Calculated 306 mOsm/kg (285-295)
[2022-06-22 06:34] LABS: Glucose Point of Care 100 mg/dL (70-110)
--- NOTE | 2022-06-22 07:30 | PM.PN ---
Subjective Subjective: Patient was evaluated with nurses present. Patient continues to be very confused, lethargic and somnolent does not follow commands. Appears in no apparent distress. Vitals/I&O/Wt Last Vital Signs Temp 98.0 F 06/22/22 04:00 Pulse 84 06/22/22 07:29 Resp 18 06/22/22 07:29 BP 125/61 06/22/22 04:00 Pulse Ox 94 06/22/22 07:29 O2 Del Method 06/22/22 07:29 O2 Flow Rate 2 06/22/22 07:29 FiO2 28 06/20/22 18:00 06/21/22 06/22/22 06/22/22 22:59 06:59 14:59 Intake Total 2119 / 2119 60 / 2180 Output Total 425 / 425 Balance 2119 -365 / 1755 Weight last 48 hrs Weight 293 lb 3.2 oz Weight 244 lb 8 oz Physical Exam Narrative: Patient does not follow commands moves arms spontaneously about his fingers wrists elbows. Hands are warm with 2+ edema in all extremities. Radial pulses are palpable. No palpable pain in the cervical shoulder elbow or wrist region. No palpable pain in the lumbar spine is moving his legs spontaneously and toes with 2+ edema in his feet and legs. Calves are supple pulses are weak but palpable in the dorsalis pedis posterior tibial region. HENMT: COMMON NORMALS: normocephalic HEAD & SCALP: normocephalic Resp: OTHER: Labored Cardio: COMMON NORMALS: regular rate and regular rhythm RATE: regular rate RHYTHM: regular rhythm GI: COMMON NORMALS: Soft to palpation PALPATION: Yes Soft to palpation Extremity: NARRATIVE EXTREMITY EXAM: 2+ Edema in BLE Neuro: COMMON NORMALS: moves all extremities Psych: SPEECH: Yes minimal and Yes slurred OTHER: Somnolent and confused Urinary Catheter Management: Coude: Cath Placed During This Visit: yes Reason for Continuing Indwelling Catheter: Other Urinary Catheter Date of Insertion: 06/14/22 Urinary Catheter Time of Insertion: 11:00 Data : 06/22/22 02:00 06/22/22 02:00 A&P Assessment and plan (1) Degenerative disc disease, cervical: Based on the patient's medical condition at this point would not recommend any surgical intervention on his cervical spine. We will follow him outpatient. We will be available should his condition change. Status: Acute (2) Cervical spondylosis with myelopathy: Status: Acute Attestations Medical Necessity Statement*: Defer to medical team Coding Level of Care Code Acute Housing And Residence Life Director for [facility] Fwd Diagnoses Degenerative disc disease, cervical M50.30 Cervical spondylosis with myelopathy M47.12
[2022-06-22 07:33] LABS: SARS Covid-2 Antigen Negative (Negative)
[2022-06-22] MEDS: quetiapine 25 mg Tablet 12.5 MG PO (08:48)
[2022-06-22] MEDS: cyclobenzaprine 10 mg Tablet 5 MG PO (08:49)
[2022-06-22] MEDS: aspirin 81 mg Chew Tablet PO (08:50)
[2022-06-22] MEDS: apixaban 5 mg Tablet PO (08:50)
[2022-06-22] MEDS: hyDRALAzine 50 mg Tablet PO (08:50)
[2022-06-22] MEDS: amlodipine 10 mg Tablet PO (08:51)
[2022-06-22] MEDS: metoprolol tartrate 25 mg Tablet 50 MG PO (08:51)
--- NOTE | 2022-06-22 10:27 | PM.DCS ---
Discharge Providers Date of Admission: 06/05/22 13:03 Date of Discharge: June 22, 2022 Attending Provider at Admission: Ron Menon MD Attending Provider at Discharge: Hammad Lopes MD Primary Care Provider: Eva Rivas MD Diagnoses at Discharge Discharge Diagnosis (1) Degenerative disc disease, cervical: Status: Acute (2) Cervical spondylosis with myelopathy: Status: Acute Reason for Visit Reason for Visit: CANNOT URINATE SINCE SUNDAY Hospital Course Hospital Course 77 year old male with a past medical history of past medical history of hypertension, hyperlipidemia, CAD, [id number] type 2 diabetes mellitus, ischemic cardiomyopathy, diabetic neuropathy, history of diabetic ulcers,presenting to the emergency department with history of no urine output in multiple days.? He was admitted for the management of acute renal failure possibly secondary to CRISTOPHER, volume depletion, as the patient was on loop diuretic spironolactone, and ELIER inhibitor at home, patient underwent hemodialysis for 3 sessions, lately kidney function improved, no hemodialysis was required on a long-term basis, at the time of discharge acute renal failure had resolved, hospital course has also been complicated by development of acute encephalopathy multifactorial likely secondary to acute renal failure, UTI, extensive encephalopathy work-up was done, MRI head: Without contrast: Small amount of increased diffusion signal involving the LEFT parasagittal posterior parietal lobe measuring 10 mm may represent T2 shine through artifact versus a small amount of subacute ischemia.Moderate to advanced symmetric atrophy of the temporal lobes and hippocampal formations. CT head without contrast: No acute intracranial pathology. 2D echo: Mild left ventricular hypertrophy.? Mild hypokinesia of the septum.? LV ejection fraction around 50%.?Normal right ventricular size and systolic function.?Thickened mitral valve.? Moderate calcification of the mitral?leaflets.mild mitral annular calcification. Trace mitral valve ?regurgitation. ?Features of aortic valve sclerosis ?There is no pericardial effusion. Lumbar puncture was done: Meningitis was ruled out, blood culture and urine cultures have been negative, patient was empirically covered with broad-spectrum antibiotics, at the time of discharge his encephalopathy was slowly improving, though he still had good amount of intermittent confusion, possibility of hospital-acquired delirium, and owning exist.During the hospital stay because of extreme agitation patient also had to be intubated, later he was successfully extubated. Patient also has history of A. fib and has not been on any anticoagulation in the past, during the hospital stay he was briefly kept on anticoagulation, but was lately having hematuria, Hence anticoagulation was briefly interrupted, though it was resumed towards the end of the hospital stay, risk and benefits of anticoagulation was discussed with the family, and it was decided that given his risk of fall, it was better not to continue anticoagulation. For his history of cervical cord compression with myelopathy: Patient was seen by spine surgery in the hospital, current plan is to follow him as an outpatient, appointment for which has been made. Overall patient has responded well to above medical management And is being discharged in stable condition to nursing facility. Physical Exam Resp: COMMON NORMALS: normal respiratory effort, No retractions, No use of accessory muscles and clear to auscultation bilaterally EFFORT & INSPECTION: Yes symmetric chest movement AUSCULTATION: clear to auscultation bilaterally Cardio: COMMON NORMALS: regular rate, regular rhythm, S1 normal heart sound present, S2 normal heart sound present, No gallops present (Cardio), No murmurs present (Cardio), No rub (Cardio) and Peripheral pulses 2+ throughout RATE: regular rate RHYTHM: regular rhythm HEART SOUNDS: S1 normal heart sound present and S2 normal heart sound present PERIPHERAL PULSES: Peripheral pulses 2+ throughout GI: COMMON NORMALS: Normal to inspection, nondistended, normoactive bowel sounds present, Soft to palpation, non-tender, No hepatosplenomegaly present and no masses AUSCULTATION: Yes normoactive bowel sounds PALPATION: Yes Soft to palpation and Yes No hepatosplenomegaly present RECTAL EXAM: Yes deferred Urinary Catheter Management: Coude: Cath Placed During This Visit: yes Reason for Continuing Indwelling Catheter: Other Urinary Catheter Date of Insertion: 06/14/22 Urinary Catheter Time of Insertion: 11:00 Discharge Data Studies Completed and Pending Completed Studies During Hospitalization Category Date Time Status CT chest wo con [id number] Routine Cat Scan 06/08/22 07:[address] head wo con* [id number] Routine Cat Scan 06/08/22 07:51 Completed CXRP [XR chest 1V portable [id number]] Routine Exams 06/14/22 09:45 Completed CXRP [XR chest 1V portable [id number]] Routine Exams 06/14/22 11:41 Completed CXRP [XR chest 1V portable [id number]] Stat Exams 06/05/22 13:24 Completed CXRP [XR chest 1V portable [id number]] Urgent Exams 06/06/22 13:44 Completed FL guided lumbarpunc dx* [id number] Routine Exams 06/13/22 08:49 Completed XR chest 1V portable [id number] Routine Exams 06/09/22 07:36 Completed XR chest 1V portable [id number] Routine Exams 06/12/22 22:47 Completed MR head wo con* [id number] Routine MRI 06/20/22 10:15 [place] [id number] Routine Ultrasound 06/06/22 13:06 Completed CV. echo complete* [id number] Routine Ultrasound 06/06/22 09:46 Completed US renal BI* [id number] Stat Ultrasound 06/05/22 11:06 Completed Radiology Impressions Renal Ultrasound 06/05/22 11:06 IMPRESSION: 1. No hydronephrosis or renal atrophy. 2. Exophytic cyst LEFT kidney with a maximum diameter 3.[address] 06/08/22 07:51 IMPRESSION: 1. Quality of this examination is degraded by breathing motion artifact and patient was unable to cooperate with breathing instructions. 2. Mild dilatation of the aortic root to 4.8 cm and ascending aorta to 4.3 cm. 3. Cholelithiasis without acute cholecystitis. Head CT 06/08/22 07:51 IMPRESSION: 1. No acute intracranial hemorrhage or interval change. 2. Mild atrophy and small vessel ischemic disease. 3. Severe atherosclerotic calcification throughout the anterior and posterior circulation. Lumbar Puncture Fluoroscopy 06/13/22 08:49 IMPRESSION: 1. CSF access was achieved without difficulty. Only 5 cc of CSF were aspirated before the fluid terminated. The needle was repositioned without success. Patient is probably dehydrated. This collection will be submitted. Chest X-Ray 06/14/22 11:41 IMPRESSION: 1. Satisfactory repositioning of the RIGHT PICC line. PICC line terminates in the mid SVC. 2. Endotracheal tube remains in good position. Laboratory Results WBC 12.1 10^3/uL (4.0-10.0) H 06/22/22 02:00 RBC 4.15 10^6/uL (4.1-5.3) 06/22/22 02:00 Hgb 12.6 g/dL (11.7-16.6) 06/22/22 02:00 Hct 40.2 % (42.0-52.0) L 06/22/22 02:00 MCV 96.9 fl (80-94) H 06/22/22 02:00 MCH 30.4 pg (28.0-34.0) 06/22/22 02:00 MCHC 31.3 g/dL (30.0-36.0) 06/22/22 02:00 RDW 13.4 % (12.1-15.1) 06/22/22 02:00 Plt Count 269 10^3/cmm (130-400) 06/22/22 02:00 MPV 12.0 fL (7.4-10.4) H 06/22/22 02:00 Neut % (Auto) 71.2 % 06/22/22 02:00 Lymph % (Auto) 14.6 % 06/22/22 02:00 Lamb % (Auto) 10.4 % 06/22/22 02:00 Eos % (Auto) 2.8 % 06/22/22 02:00 Baso % (Auto) 0.5 % 06/22/22 02:00 Neut # (Auto) 8.58 10^3/uL (1.8-7.7) H 06/22/22 02:00 Lymph # (Auto) 1.8 10^3/uL (0.8-4.8) 06/22/22 02:00 Lamb # (Auto) 1.3 10^3/uL (0.2-0.9) H 06/22/22 02:00 Eos # (Auto) 0.3 10^3/uL (0.0-0.8) 06/22/22 02:00 Baso # (Auto) 0.1 10^3/uL (0.0-0.1) 06/22/22 02:00 Nucleated RBC % (auto) 0 % 06/22/22 02:00 Nucleated RBCs # 0.0 /100WBC 06/22/22 02:00 PT 18.50 SECONDS (12.1-14.9) H 06/13/22 11:26 INR 1.50 (0.8-1.2) H 06/13/22 11:26 APTT 29.2 SECONDS (23.9-36.7) 06/13/22 11:26 Specimen Type Arterial 06/21/22 16:40 Sample Site Radial, left 06/21/22 16:40 ABG pH 7.50 (7.35-7.45) H 06/21/22 16:40 ABG pCO2 30.8 mmHg (35-45) L 06/21/22 16:40 ABG pO2 81.7 mmHg (80.0-100.0) 06/21/22 16:40 ABG HCO3 24.3 mmol/L (22-26) 06/21/22 16:40 ABG O2 Saturation 97.8 06/21/22 16:40 ABG Base Excess 1.8 mmol/L (-2.0-2.0) 06/21/22 16:40 Sami Test Pos 06/21/22 16:40 A-a O2 Gradient 10.2 mmHg (5-10) H 06/21/22 16:40 Hematocrit 41.3 % (42-52) L 06/21/22 16:40 Hgb O2 Saturation 96.1 % (95-100) 06/21/22 16:40 Carboxyhemoglobin 1.2 %THgb (0.4-20.1) 06/21/22 16:40 Methemoglobin 0.5 % (0.4-1.5) 06/21/22 16:40 Total Hemoglobin 13.5 g/dL (14-18) L 06/21/22 16:40 Sodium 145.0 mmol/L (131-143) H 06/21/22 16:40 Potassium 3.8 mmol/L (3.5-5.0) 06/21/22 16:40 Glucose 157.0 mg/dL (70-115) H 06/21/22 16:40 Ionized Calcium 1.2 mmol/L (1.1-1.4) 06/21/22 16:40 O2 Delivery Device Nc 06/21/22 16:40 O2 Liters/Min 2.0 % 06/21/22 16:40 FiO2 28.0 % 06/21/22 16:40 Tidal Volume 0.50 06/16/22 03:25 PEEP 5.0 cmH20 06/16/22 03:25 Tool Grinder Operator External ID Ed 06/21/22 16:40 Sodium 146 mmol/L (136-145) H 06/22/22 02:00 Potassium 3.8 mmol/L (3.5-5.1) 06/22/22 02:00 Chloride 110 mmol/L (98-107) H 06/22/22 02:00 Carbon Dioxide 25 mmol/L (22-29) 06/22/22 02:00 Anion Gap 14.8 (5-19) 06/22/22 02:00 BUN 25 mg/dL (8-23) H 06/22/22 02:00 Creatinine 1.2 mg/dL (0.7-1.2) 06/22/22 02:00 GFR Calculation Not Reportable 06/22/22 02:00 Glucose 93 mg/dL (65-115) 06/22/22 02:00 POC Glucose 100 mg/dL (70-110) 06/22/22 06:18 Calculated Osmolality 306 mOsm/kg (285-295) H 06/22/22 02:00 Calcium 9.2 mg/dL (8.5-10.5) 06/22/22 02:00 Phosphorus 2.6 mg/dL (2.5-4.5) 06/18/22 03:55 Magnesium 1.6 mg/dL (1.7-2.3) L 06/18/22 03:55 Total Bilirubin 0.9 mg/dL (0.15-1.2) 06/18/22 03:55 AST 19 U/L (0-40) 06/18/22 03:55 ALT 9 U/L (0-41) 06/18/22 03:55 Alkaline Phosphatase 126 U/L (40-130) 06/18/22 03:55 Ammonia 23 umol/L (16-60) 06/14/22 04:57 Creatine Kinase 84 U/L (39-308) 06/05/22 09:49 Troponin T Baseline 185 ng/L (0-15) H* 06/05/22 09:49 Troponin T 120 Minute 170.4 ng/L (0-15) H 06/05/22 11:48 Delta Troponin T -14.6 ABS# (0-10) L 06/05/22 11:48 Troponin T Hi Sens 6Hr 153.8 ng/L (0-15) H 06/05/22 15:03 Troponin T Hi Sens 6Hr Delta -31.2 ng/L (0-12) L 06/05/22 15:03 Total Protein 6.5 g/dL (6.6-8.7) L 06/18/22 03:55 Albumin 2.8 g/dL (3.5-5.2) L 06/18/22 03:55 Globulin 3.7 g/dL (1.3-4.6) 06/18/22 03:55 TSH 0.90 uIU/mL (0.27-4.20) 06/05/22 09:49 Random Cortisol 20.57 ug/dL (2.47-19.5) H 06/06/22 03:50 Urine Color Yellow (Yellow) 06/15/22 Unknown Urine Appearance Clear (CLEAR) 06/15/22 Unknown Urine pH 5 (5-7) 06/15/22 Unknown Ur Specific [place] 1.015 (1.005-1.030) 06/15/22 Unknown Urine Protein Trace (Negative) 06/15/22 Unknown Urine Glucose (UA) Norm (Normal) 06/15/22 Unknown Urine Ketones Negative (Negative) 06/15/22 Unknown Urine Blood 3+ (Negative) H 06/15/22 Unknown Urine Nitrate Negative (Negative) 06/15/22 Unknown Urine Bilirubin Neg (Negative) 06/15/22 Unknown Prot Sulfosalicylic Acd Cancelled 06/06/22 20:57 Urine Urobilinogen Norm mg/dL (Negative) 06/15/22 Unknown Ur Leukocyte Esterase 1+ (Negative) H 06/15/22 Unknown Urine RBC 40-50 /hpf (0-2) H 06/15/22 Unknown Urine WBC 5-10 /hpf (0-5) H 06/15/22 Unknown Ur Squamous Epith Cells 0-4 /hpf (0-5) H 06/15/22 Unknown Uric Acid Crystals 5-10 /hpf H 06/15/22 Unknown Amorphous Sediment Not Reportable 06/15/22 Unknown Urine Bacteria None /hpf (NONE) 06/15/22 Unknown Hyaline Casts 0-4 /lpf H 06/06/22 20:57 Ur Random Sodium 83 mmol/L 06/06/22 20:57 Ur Random Potassium 28 mmol/L 06/06/22 20:57 Ur Random Chloride 78 mmol/L 06/06/22 20:57 Fluid Color Pale yellow 06/13/22 14:35 Fluid Appearance Clear 06/13/22 14:35 Fluid WBC 2 /uL 06/13/22 14:35 Fluid RBC 0 10^3/uL 06/13/22 14:35 Fld Polynuclear WBCs # 0.000 06/13/22 14:35 Fld Polynuclear WBCs % 0.000 % 06/13/22 14:35 Fl Mononucl WBCs #(Auto) 0.002 06/13/22 14:35 Fl Mononuclear % Auto 100.000 % 06/13/22 14:35 CSF Appearance Clear (CLEAR) 06/13/22 14:35 CSF Color Other (COLORLESS) 06/13/22 14:35 CSF Specific [place] 8.000 06/13/22 14:35 CSF WBC 2 /uL (0-5) 06/13/22 14:35 CSF RBC 0 10^3/uL (0-0) 06/13/22 14:35 CSF Mononuclear # Auto 0.002 10^3/uL (50-90) L 06/13/22 14:35 CSF Mononuclear WBCs % 100 % (50-90) H 06/13/22 14:35 CSF Polynuclear WBCs # 0.000 10^3/uL (0-10) 06/13/22 14:35 CSF Polynuclear WBCs % 0 % (0-10) 06/13/22 14:35 RSV Nasal Swab Not detected (Not Detected) 06/14/22 16:45 RSV Nasal Swab Int Cntl Not detected (Not Detected) 06/14/22 16:45 Vancomycin Trough 15.2 ug/mL (10-15) H 06/14/22 11:19 Random Vancomycin 12.2 ug/mL (20.0-40.0) L 06/12/22 07:28 CHARLI Screen Positive (NEGATIVE) A 06/06/22 03:50 CHARLI Titer 1:40 titer H 06/06/22 03:50 CHARLI Pattern Cytoplasmic A 06/06/22 03:50 ANCA Screen Negative (NEGATIVE) 06/06/22 03:50 ANCA Titer Not Reportable 06/06/22 03:50 Glomerular Base Mem IgG <1.0 AI 06/06/22 03:50 Adenovirus (PCR) Not detected (Not Detected) 06/14/22 16:45 Hep Bs Antigen Non-reactive (Nonreactive) 06/05/22 15:03 Hep Bs Antibody 3.5 (11.5-1000) L 06/05/22 15:03 Hepatitis C Antibody Non-reactive (Nonreactive) 06/05/22 15:03 Human Metapneumovir PCR Not detected (Not Detected) 06/14/22 16:45 Influenza A (RT-PCR) Not detected (Not Detected) 06/14/22 16:45 Influenza A (H1) PCR Not detected (Not Detected) 06/14/22 16:45 Influenza A (H3) PCR Not detected (Not Detected) 06/14/22 16:45 Influenza B (RT-PCR) Not detected (Not Detected) 06/14/22 16:45 Parainfluenzae Type 1 Not detected (Not Detected) 06/14/22 16:45 Parainfluenzae Type 2 Not detected (Not Detected) 06/14/22 16:45 Parainfluenzae Type 3 Not detected (Not Detected) 06/14/22 16:45 RSV Ab Comment see note 06/14/22 16:45 Rhinovirus (PCR) Not detected (Not Detected) 06/14/22 16:45 SARS-CoV-2 Ag (Rapid) Negative (Negative) 06/22/22 06:41 Vitals Last Vital Signs Temp 98.3 F 06/22/22 08:00 Pulse 86 06/22/22 08:00 Resp 20 H 06/22/22 08:00 BP 137/62 06/22/22 08:00 Pulse Ox 96 06/22/22 08:00 O2 Del Method 06/22/22 08:00 O2 Flow Rate 2 06/22/22 07:29 FiO2 28 06/20/22 18:00 Discharge Plan Discharge Patient Disposition: Xfer SNF Condition: Stable Prescriptions: New amlodipine 10 mg Tablet 10 mg PO DAILY 30 Days Qty: 30 1RF aspirin 81 mg Tablet,Chewable 81 mg PO DAILY 30 Days Qty: 30 3RF metoprolol succinate 100 mg tablet extended release 24 hr 100 mg PO DAILY 30 Days Qty: 30 3RF cyclobenzaprine 5 mg tablet 5 mg PO BID PRN (Reason: muscle spasm) Qty: 14 0RF Continued (DME) blood-glucose meter [FreeStyle Lite Meter] Kit See Rx Instructions .ROUTE .MEDSUPPLY Qty: 1 0RF Rx Instructions: As directed (DME) FreeStyle Nu 14 Day Sensor Kit See Rx Instructions .ROUTE .MEDSUPPLY Qty: 6 2RF Rx Instructions: As directed acetaminophen 500 mg Tablet 1,000 mg PO BID cholecalciferol (vitamin D3) 1,250 mcg (50,000 unit) capsule 50,000 unit PO Q7D Rx Instructions: on sat atorvastatin 40 mg tablet 40 mg PO BEDTIME spironolactone 25 mg tablet 25 mg PO DAILY benazepril 10 mg tablet 10 mg PO DAILY Held gabapentin 300 mg capsule 300 mg PO BID 90 Days Qty: 180 1RF Hold Instructions: Resume on 06/29/22. metformin 1,000 mg tablet 1,000 mg PO BID Hold Instructions: Resume on 06/29/22. Discontinued aspirin 325 mg Tablet 325 mg PO QAM furosemide 40 mg tablet 40 mg PO QAM potassium chloride [Klor-Con M20] 20 mEq tablet,ER particles/crystals 20 meq PO QAM cyclobenzaprine 5 mg tablet 5 mg PO BID metoprolol tartrate 25 mg tablet 25 mg PO BID Discharge Orders: Discharge Order (Routine); Ordered 06/22/22 Ordered By: Hammad Lopes Referrals: [facility]– [place][Note 2] [Outside] Tim Ansari DO [Physician] - 07/06/22 10:45 am Eva Rivas MD [Primary Care Provider] - 1 week Patient Instructions: Opioid Safety Discharge Attestations Time Spent in Discharge Care*: less than 30 min Quality Metrics Clinical Quality Measures [ No reported AMI, CVA or VTE this stay] Coding Level of Care Code Acute Chg FW DC note Exam Expanded Problem Focused Diagnoses Degenerative disc disease, cervical M50.30 Cervical spondylosis with myelopathy M47.12
--- NOTE | 2022-06-22 10:29 | PC.SOCIAL ---
IMM update IMM updated with patient's family at bedside. Verbalized an understanding. Copy Pg 2 provided. Initialled, dated, timed, and placed in chart.
[2022-06-22 11:53] LABS: Glucose Point of Care 132 mg/dL (70-110)
--- NOTE | 2022-06-22 13:44 | PC.NURSE ---
Patient discharged at 1338 via stretcher with EMS crew. Report was called to [facility] at 1230. Updated [facility] at 1340 that patient dropped to 84% while completely supine and 2L of oxygen was applied. Instructions, educations, and follow up appointment information was sent with patient to [facility].
== END 2022-06-22 13:38 | disposition skilled nursing facility (03) | DRG 682 ==
LOC: ER 10:53 → ICU 17:31 → MEDSURG 06-20 20:40
PROVIDERS: Internal Medicine; Internal Medicine Nephrology; Physician Assistant; Admitting Provider Internal Medicine; Emergency Provider Family Medicine; PCP Family Medicine; Visit Provider Internal Medicine
DX: N17.9 Acute kidney failure, unspecified (principal); G93.41 Metabolic encephalopathy; J96.02 Acute respiratory failure with hypercapnia; Z68.41 Body mass index [BMI] 40.0-44.9, adult; N39.0 Urinary tract infection, site not specified; E87.1 Hypo-osmolality and hyponatremia; E87.2 Acidosis; I50.22 Chronic systolic (congestive) heart failure; M50.01 Cervical disc disorder with myelopathy, high cervical region; M50.021 Cervical disc disorder at C4-C5 level with myelopathy; M50.022 Cervical disc disorder at C5-C6 level with myelopathy; T50.8X5A Adverse effect of diagnostic agents, initial encounter; Z86.73 Personal history of transient ischemic attack (TIA), and cerebral infarction without residual deficits; I25.10 Atherosclerotic heart disease of native coronary artery without angina pectoris; I25.5 Ischemic cardiomyopathy; E11.42 Type 2 diabetes mellitus with diabetic polyneuropathy; E66.9 Obesity, unspecified; I11.0 Hypertensive heart disease with heart failure; E78.5 Hyperlipidemia, unspecified; Z85.46 Personal history of malignant neoplasm of prostate; Z99.3 Dependence on wheelchair; I48.0 Paroxysmal atrial fibrillation; I95.9 Hypotension, unspecified; E83.42 Hypomagnesemia; M48.02 Spinal stenosis, cervical region
CPT/HCPCS: 36415; 36416; 36569; 36592; 36600; 51702; 51798; 62328; 70450; 70551; 71045; 71250; 76770; 80048; 80051; 80053; 80202; 80503; 81001; 82140; 82330; 82436; 82533; 82550; 82803; 82805; 82962; 83520; 83735; 84100; 84132; 84133; 84300; 84315; 84443; 84484; 85025; 85610; 85730; 86036; 86038; 86706; 86803; 87040; 87070; 87075; 87086; 87205; 87340; 87426; 87633; 87641; 89050; 92507; 92523; 92526; 92610; 93005; 93306; 93970; 94002; 94003; 94640; 94660; 94760; 94799; 96372; 96374; 96375; 97110; 97162; 97163; 97165; 97530; 99285; J0610; J0696; J1630; J1644; J1650; J1815; J1940; J2250; J2270; J2405; J2543; J2704; J3010; J3370; J3411; J3475; J3480; J3490; J7030; J7040; J7050; J7611; J7799; Q3014

== ENCOUNTER → 2022-08-24 08:58 | Outpatient (BNVA) | payer OTHER, SELFPAY | PROVIDERS: PCP Family Medicine; Visit Provider Physician Assistant | DX: M48.02 Spinal stenosis, cervical region (principal); M43.10 Spondylolisthesis, site unspecified | CPT/HCPCS: 99213 ==